=== PATIENT | female | born 1960 | race Caucasian/White ===

== ENCOUNTER 2017-11-09 16:18 | Emergency (ER) | payer OTHER, MEDICARE ==
[~2017-11-09] VITALS: Ht 167.6 cm; Wt 61.7 kg
[~2017-11-09 16:18] MED LIST: ASPIR 8181 MG; ASPIR 8181 MG PO; CALTRATE600 MG; COENZYME Q; DOSTINEX0.5 MG; GABAPENTIN100 MG PO; GEMFIBROZIL600 MG PO; HYDROCHLOROTH12.5 M1 PO; IBUPROFEN200 MG PO; LORAZEPAM1 MG PO; MAGNESIUM OXID400 MG PO; METFORMIN HCL500 MG PO; NEXIUM40 MG PO; OMEGA 3 FISH O1 EACH PO; POTASSIUM CHLO20 ME1 PO; PRENATABS FA T1 EACH PO; VITAMIN D3400 UNI1 PO; Z.0.ATIVAN1 MG; Z.0.GEMFIBROZIL600 M; Z.0.GLUCOPHAGE500 MG; Z.0.KLOR-CON20 MEQ; Z.0.MAGNESIUM500 MG; Z.0.NEXIUM40 MG
--- OUTSIDE RECORDS SUMMARY | 2017-11-09 16:20 | XMS REPORT | Clinical Summary ---
Author Author [facility] Organization [facility] Address Unknown Phone Unavailable Care Team Providers Care Mass Spectrometry Manager Name Role Phone Asked, Pcp PCP Unavailable Allergies Not on File Current Medications Not on file Active Problems Not on file Social History Tobacco Use Types Packs/Day Years Used Date Never Assessed Sex Assigned at Date Recorded Not on file Last Filed Vital Signs Not on file Plan of Treatment Health Maintenance Due Date Last Done Comments CERVICAL CANCER SCREENING 09/08/1980 BREAST CANCER SCREENING 09/08/2009 COLON CANCER SCREENING 09/08/2009 SHINGRIX VACCINE (#1) 09/08/2009 INFLUENZA VACCINE 01/08/2018 Results Not on fileafter 11/08/2016 Insurance Payer Benefit Subscriber ID Type Phone Address Plan / Group [facility] MED[facility] DUAL xxxxxxxxx HMO COMPLETE [facility] MEDICAID MEDICAID xxxxxxxxx Medicaid
--- OUTSIDE RECORDS SUMMARY | 2017-11-09 16:20 | XMS REPORT ---
Author Author [facility] Address Unknown Phone Unavailable Care Team Providers Care Growth Media Mixer Mushroom Name Role Phone THEA TYSON Unavailable Unavailable TATIANA PRICE Unavailable Unavailable Problems This patient has no known problems. Allergies, Adverse Reactions, Alerts This patient has no known allergies or adverse reactions. Medications This patient has no known medications. Results Test Description Test Time Test Comments Text Results Atomic Results Result Comments CT BRAIN WO [place] [address] Patient Name: MAKAYLA BEE MR #: [id number] : 1960 Age/Sex: 56/F Req #: [id number] Adm Physician: Ordered by: THEA TYSON MD Report #: [id number] Location: ER Room/Bed: Procedure: [id number] CT/CT BRAIN WO Exam Date: Exam Time: REPORT STATUS: Signed Examination: CT BRAIN WITHOUT CONTRAST History: Dizziness. Comparison studies:None Technique: Axial images were obtained from the skull base to the vertex. Coronal and sagittal images reconstructed from the axial data. Intravenous contrast: None Findings: Scalp: No abnormalities. Bones: No fractures, blastic or lytic lesions. Brain sulci: Mild volume loss for age. Ventricles: Ex vacuo dilatation. No hydrocephalus. Extra-axial space: No abnormalities. Parenchyma: Chronic lacunar infarct versus dilated perivascular space in the inferior left globus pallidus. No masses, hemorrhage, or acute or chronic cortical based vascular insults. Sellar/suprasellar region: No abnormalities. Craniocervical junction: Patent foramen magnum. No Chiari one malformation. Incidental findings: None. Impression: 1. No acute intracranial abnormalities. 2. Chronic lacunar infarct versus dilated perivascular space in the inferior left globus pallidus. 3. Mild volume loss. Signed by: Dr. Diana Snyder M.D. on 03/28/2017 8:16 PM Dictated By: DIANA MACEDO MD 15 Transcribed By: PRAVEEN on 2015 COPY TO: THEA TYSON MD CHEST 2 VIEWS [place] [address] Patient Name: MAKAYLA BEE MR #: [id number] : 1960 Age/Sex: 56/F Req #: [id number] Adm Physician: Ordered by: THEA TYSON MD Report #: [id number] Location: ER Room/Bed: Procedure: [id number] DX/CHEST 2 VIEWS Exam Date: 03/28/17 Exam Time: 0 REPORT STATUS: Signed EXAMINATION: CHEST 2 VIEWS 03/28/2017 7: 46 PM COMPARISON: None INDICATION: Shortness of breath, dizzy DISCUSSION: LINES: None. LUNGS: The lungs are well inflated and clear. No pneumonia or pulmonary edema. PLEURA: No pleural effusion or pneumothorax. HEART AND MEDIASTINUM: The cardiomediastinal silhouette is unremarkable. BONES AND SOFT TISSUES: No acute osseous lesion. The soft tissues are normal. IMPRESSION: No acute cardiopulmonary disease. Keo Chavez MD Signed by: Dr. Keo Chavez M.D. on 03/28/2017 8: 38 PM Dictated By: KEO CHAVEZ MD 37 Transcribed By: PRAVEEN on 03/28/172037 COPY TO: THEA TYSON MD CT CHEST WO [place] [address] Patient Name: MAKAYLA BEE MR #: [id number] : 1960 Age/Sex: 56/F Req #: [id number] Adm Physician: Ordered by: TATIANA PRICE MD Report #: [id number] Location: CT Room/Bed: Procedure: [id number] CT/CT CHEST WO Exam Date: 03/26/17 Exam Time: 1250 REPORT STATUS: Signed PROCEDURE: CT CHEST WITHOUT CONTRAST CT scan of the chest WITHOUT intravenous contrast, using high-resolution protocol. TECHNIQUE: The chest was scanned utilizing a multidetector helical scanner from the apex to the level of the adrenal glands. No IV contrast was administered per high resolution protocol. Coronal and sagittal multiplanar reformations were obtained. Supine inspiration, high-resolution, in expiration. Prone high resolution. Total DLP: 1449.7 mGy-cm COMPARISON: Chest x-ray 02/17/2016. INDICATIONS: HISTORY OF CANCER, SHORTNESS OF BREATH FINDINGS: Lines/tubes: None. Lungs and Airways: The lungs and airways are normal with no focal abnormality demonstrated. No nodules. No air trapping identified on expiration views. Pleura: The pleural spaces are clear. Heart and mediastinum: The thyroid gland is normal. No significant mediastinal, hilar or axillary lymphadenopathy is seen. The heart and pericardium are within normal limits. Soft tissues: Normal. Abdomen: Limited views of the upper abdomen show no abnormality within the visualized liver, spleen, pancreas, or kidneys. The adrenal glands are normal. Bones: The visualized bony thorax is within normal limits. Left lateral lower intercostal lipoma. IMPRESSION: Normal chest CT. Dictated by: Kenney Bhakta M.D. on 03/26/2017 at 15:59 Electronically approved by: Kenney Bhakta M.D. on at 15:59 Dictated By: KENNEY BHAKTA MD [id number] Transcribed By: DEVEN on 03/26/17 [id number] COPY TO: TATIANA PRICE MD
--- NOTE | 2017-11-09 17:35 | Diagnostic Imaging Report ---
EXAMINATION: Head CT HISTORY: Left head/neck pain radiating to the left with numbness and pain, history of CVA COMPARISON: Head CT on 03/28/2017 TECHNIQUE: Multidetector axial images were obtained without contrast from the foramen magnum to the vertex . The images were reconstructed using brain and bone algorithms. Thin section brain images were reformatted into coronal and sagittal planes. Intravenous contrast: None. Motion/streaking artifact limits the evaluation of the skull base and posterior cranial fossa. FINDINGS: Parenchyma: 1. No abnormal densities. Previously seen hypodensity in the left lentiform nucleus corresponds to a normal prominent perivascular space. 2. No mass or hemorrhage. No CT evidence of chronic or acute territorial vascular insult. Extra-axial spaces:No abnormal density. No extra-axial fluid collections Brain volume: Normal for age. Ventricles: Persistent mild ventriculomegaly without hydrocephalus. Again noted partially absent septum pellucidum, which may been enlarged lateral ventricles. Arteries: No density suggestive of thrombus. Dural sinuses: No abnormal density. Extra-axial spaces: No abnormal density. Foramen magnum: No mass, Chiari malformation, or basilar invagination. Sella: No obvious mass. Paranasal/mastoid sinuses: Imaged portions unremarkable. Skull/Scalp: No lytic or blastic lesions. No fractures. IMPRESSION: 1. No acute intracranial hemorrhage or cortical infarct. 2. Stable nonspecific mild ventriculomegaly. Signed by: Dr. Bell Barger M.D. on 11/09/2017 5:32 PM
--- NOTE | 2017-11-09 17:47 | Diagnostic Imaging Report ---
EXAMINATION: PA and lateral views of the chest. COMPARISON: Chest CT 03/26/2017 CLINICAL HISTORY: Numbness, hand pain DISCUSSION: Lines/tubes: None. Lungs: The lungs are well inflated and clear. There is no evidence of pneumonia or pulmonary edema. Pleura: There is no pleural effusion or pneumothorax. Heart and mediastinum: Cardiomediastinal silhouette is unremarkable. Pulmonary vasculature is normal. Bones and soft tissues: No acute bony abnormalities. IMPRESSION: No acute cardiopulmonary abnormalities. Signed by: Dr. Arvin Mason M.D. on 11/09/2017 5:44 PM
--- NOTE | 2017-11-09 17:49 | Diagnostic Imaging Report ---
Exam: Left finger, 3 views History: Bruising in the second finger joint Comparison: None. Findings: There is decreased bone mineralization. No acute, displaced fracture or dislocation. Joint spaces preserved. No abnormal soft tissue calcification or soft tissue defect. No significant soft tissue swelling. Impression: 1. No acute abnormalities. Signed by: Dr. Arvin Mason M.D. on 11/09/2017 5:45 PM
[2017-11-09 18:28] LABS: BASOPHILS % 0.6 % (0.0-1.0); EOSINOPHILS # (AUTO) 0.2 (0.0-0.4); EOSINOPHILS % 3.7 % (0.0-6.0); HEMATOCRIT 36.6 % (34.2-44.1); HEMOGLOBIN 12.4 g/dL (12.0-16.0); LYMPHOCYTES # (AUTO) 2.1 (1.0-3.2); LYMPHOCYTES % 33.2 % (18.0-39.1); MEAN CORPUSCULAR HEMOGLOBIN 31.2 pg (28-32); MEAN CORPUSCULAR HGB CONC 33.9 g/dL (31-35); MEAN CORPUSCULAR VOLUME 92.2 fL (81-99); MONOCYTES # (AUTO) 0.4 (0.2-0.8); MONOCYTES % 6.2 % (4.4-11.3); NEUTROPHILS # (AUTO) 3.5 (2.1-6.9); NEUTROPHILS % 56.1 % (38.7-80.0); PLATELET COUNT 253 x10e3/uL (140-360); RED BLOOD COUNT 3.97 x10e6/uL (3.6-5.1); RED CELL DISTRIBUTION WIDTH 12.6 % (11.7-14.4)
[2017-11-09 18:36] LABS: CLARITY,URINE CLEAR (CLEAR); COLOR,URINE YELLOW (YELLOW)
[2017-11-09 18:37] LABS: BILIRUBIN,URINE NEGATIVE (NEGATIVE); KETONES,URINE NEGATIVE (NEGATIVE); LEUKOCYTE ESTERASE ,URINE 1+ (NEGATIVE); NITRITE,URINE NEGATIVE (NEGATIVE); PROTEIN,URINE DIPSTICK NEGATIVE (NEGATIVE); URINE UROBILINOGEN 0.2 mg/dL (0.2 - 1)
[2017-11-09 18:41] LABS: BACTERIA,URINE FEW /HPF; EPITHELIAL CELLS,URINE FEW /LPF; TRANSITIONAL EPI CELLS,URINE FEW
[2017-11-09 19:01] LABS: INR 1.01; PARTIAL THROMBOPLASTIN TIME 27.9 seconds (23.8-35.5); PROTHROMBIN TIME 12.5 seconds (11.9-14.5)
[2017-11-09 19:11] LABS: ALANINE AMINOTRANSFERASE 28 IU/L (0-55); ALBUMIN 4.5 g/dL (3.5-5.0); ALBUMIN/GLOBULIN RATIO 2.1 (0.8-2.0); ALKALINE PHOSPHATASE 75 IU/L (40-150); BLOOD UREA NITROGEN 15 mg/dL (7-26); BUN/CREATININE RATIO 21 (6-25); CALCIUM 10.2 mg/dL (8.4-10.2); CARBON DIOXIDE 29 mmol/L (22-29); CHLORIDE 103 mmol/L (98-107); CREATINE KINASE 81 IU/L (29-168); CREATININE, SERUM 0.72 mg/dL (0.57-1.11); EST GLOMERULAR FILTRATION RATE > 60 ML/MIN (60-); GLUCOSE 114 mg/dL (74-118); SODIUM 142 mmol/L (136-145)
[2017-11-09 19:58] VITALS: BP 109/62
[2017-11-09] MEDS ORDERED: MACROBID 100 M100 MG PO (19:58)
== END 2017-11-09 20:04 | disposition home or self-care (01) ==
LOC: ER 16:18
DX: R51 Headache (principal); N30.90 Cystitis, unspecified without hematuria; I10 Essential (primary) hypertension; E11.9 Type 2 diabetes mellitus without complications; K21.9 Gastro-esophageal reflux disease without esophagitis; Z85.72 Personal history of non-Hodgkin lymphomas; Z86.73 Personal history of transient ischemic attack (TIA), and cerebral infarction without residual deficits
CPT/HCPCS: 36415; 70450; 71046; 80053; 81001; 82550; 82553; 84484; 85025; 85610; 85730; 93005; 99284

== ENCOUNTER → 2020-01-19 | Outpatient (CLI) | payer MEDICARE, OTHER ==
[~2020-01-19] MED LIST changes: +MACROBID 100 M100 MG PO
--- NOTE | 2020-01-19 12:35 | Diagnostic Imaging Report ---
Exam: KUB - 2 views Indication: Urinary tract infection Comparison: Report of CT abdomen and pelvis of 01/27/2012 (images not available for comparison) Findings: A cluster of medial right midpole renal calculi measure up to 5 mm. 3 mm calcific densities overlying the upper pole of the left kidney may represent renal calculi versus intraluminal bowel contents. A 5 mm calcific density in the right pelvis may represent a ureteral calculus versus a phlebolith. No acute osseous injury. Nonobstructive bowel gas pattern. No free air. Impression: Medial right midpole renal calculi measure up to 5 mm. 5 mm calcific density in the right pelvis may represent a ureteral calculus or alternatively a phlebolith. Possible left upper pole 3mm renal calculi versus intraluminal bowel contents. Signed by: Poppy Hitchcock MD on 01/19/2020 12:32 PM
--- NOTE | 2020-01-19 13:27 | Diagnostic Imaging Report ---
EXAM: Renal Ultrasound INDICATION: ^[id number] ^[id number] ^PELVIC PERINEAL PAIN COMPARISON: KUB earlier the same day TECHNIQUE: Transverse and longitudinal images of the kidneys and bladder were obtained. FINDINGS: Right Kidney: Length: 11.1 cm Appearance: Normal echogenicity. Collecting system: No hydronephrosis Stones: None Cyst/Mass: None Left Kidney: Length: 12.1 cm Appearance: Normal echogenicity. Collecting system: No hydronephrosis Stones: None Cyst/Mass: Mid pole 1.3 x 1.2 x 1.3 cm anechoic simple cyst. Bladder: No mass or calculi. Bilateral ureteral jets visualized. Prevoid volume estimate of 174 cc. IMPRESSION: No hydronephrosis. The right renal calculi seen on KUB of earlier the same day are not well visualized on ultrasound. 1.3cm left midpole simple cyst. Signed by: Poppy Hitchcock MD on 01/19/2020 1:24 PM
--- NOTE | 2020-01-19 13:29 | Diagnostic Imaging Report ---
Exam: Pelvic ultrasound. History: Pelvic pain Comparison: Renal ultrasound and KUB of the same day, report of CT abdomen and pelvis of 01/27/2012 Findings/Impression: Transabdominal pelvic ultrasound was performed. Status post total abdominal hysterectomy and bilateral salpingo-oophorectomy. No remarkable sonographic findings in the pelvis. Signed by: Poppy Hitchcock MD on 01/19/2020 1:25 PM
== END ==
LOC: US 11:52
PROVIDERS: ATTEND Internal Medicine
DX: R10.2 Pelvic and perineal pain (principal); N81.10 Cystocele, unspecified
CPT/HCPCS: 74018; 76770; 76856

== ENCOUNTER 2020-01-27 18:35 | Emergency (ER) | payer MEDICARE ==
[~2020-01-27] VITALS: Ht 167.6 cm; Wt 61.7 kg
[2020-01-27] MEDS ORDERED: ONDANSETRON HCL INJ 2MG/ML 2ML 2 MG/ML VIAL IV STA (18:50)
[2020-01-27 18:59] LABS: BASOPHILS % 0.5 % (0.0-1.0); EOSINOPHILS # (AUTO) 0.2 (0.0-0.4); EOSINOPHILS % 2.7 % (0.0-6.0); HEMATOCRIT 32.9 % (34.2-44.1); HEMOGLOBIN 10.6 g/dL (12.0-16.0); LYMPHOCYTES # (AUTO) 1.7 (1.0-3.2); LYMPHOCYTES % 26.1 % (18.0-39.1); MEAN CORPUSCULAR HEMOGLOBIN 29.9 pg (28-32); MEAN CORPUSCULAR HGB CONC 32.2 g/dL (31-35); MEAN CORPUSCULAR VOLUME 92.7 fL (81-99); MONOCYTES # (AUTO) 0.3 (0.2-0.8); MONOCYTES % 5.1 % (4.4-11.3); NEUTROPHILS # (AUTO) 4.3 (2.1-6.9); NEUTROPHILS % 65.4 % (38.7-80.0); PLATELET COUNT 240 x10e3/uL (140-360); RED BLOOD COUNT 3.55 x10e6/uL (3.6-5.1); RED CELL DISTRIBUTION WIDTH 12.3 % (11.7-14.4)
[2020-01-27] MEDS ORDERED: SODIUM CHLORIDE 0.9% 1000ML 1,000 ML IV ONE (19:00)
[2020-01-27] MEDS ORDERED: ASPIRIN 81 MG CHEW TAB PO ONE (19:00)
[2020-01-27] MEDS ORDERED: DIATRIZOATE MEGL/DIATRIZOA SOD 30 ML BTL PO ONE (19:01)
--- NOTE | 2020-01-27 19:06 | NUR ---
aspirin was ordered and charted as given prior to admin, however md stated patient no longer needs aspirin. aspirin was not adimnistered. aspirin returned back to pyxis.
--- NOTE | 2020-01-27 19:09 | Emergency Department Note ---
History of Present Illnes History of Present Illness Chief Complaint: COVID PUI History of Present Illness This is a 59 year old female presents via ems with c/o left lower abd pain, weakness, n/v/d and sob with exertion. states started 1 day ago. Historian: Patient, American History Professor/EMS Arrival Mode: [facility] THEATRE PROGRAM DIRECTOR: See EMS Report Onset (how long ago): day(s) (1) Location: llq Quality: pain, n/v/d Radiation: Reports non-radiation Severity: moderate Onset quality: gradual Duration (how long): day(s) (1) Timing of current episode: constant Progression: worsening Chronicity: new Context: Denies recent illness, Denies recent surgery, Denies trauma/injury Relieving factors: none Exacerbating factors: none Associated symptoms: Reports shortness of breath (with exertion), Reports weakness (generalized) Treatments prior to arrival: none Past Medical/Family History Physician Review I have reviewed the patient's past medical and family history. Any updates have been documented here. 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 LAST PET SCAN 2009 MYELO DYSPLASIA NON HODGKINS LYMPHOMA Social History Smoking Cessation: Never Smoker Alcohol Use: None Any Illegal Drug Use: No Family History Family history of heart diseas: No Other Any Pre-Existing Lines (PICC,: No Review of Systems Review of Systems Constitutional: Reports no symptoms EENTM: Reports no symptoms Cardiovascular: Reports no symptoms Respiratory: Reports as per HPI Gastrointestinal: Reports as per HPI Genitourinary: Reports no symptoms Musculoskeletal: Reports no symptoms Integumentary: Reports no symptoms Neurological: Reports no symptoms Psychological: Reports no symptoms Endocrine: Reports no symptoms Hematological/Lymphatic: Reports no symptoms Physical Exam Related Data Allergies: Coded Allergies: Iodinated Contrast Media (Verified Allergy, Unknown, 03/28/17) Penicillins (Verified Allergy, Unknown, 03/28/17) hydromorphone HCl (Verified Allergy, Unknown, 03/28/17) ketorolac tromethamine (Verified Allergy, Unknown, 03/28/17) morphine (Verified Allergy, Unknown, 01/27/20) Triage Vital Signs Vital Signs Date Time Temp Pulse Resp B/P (MAP) Pulse Ox O2 Delivery O2 Flow Rate FiO2 01/27/20 18:39 69 18 163/105 99 Room Air 01/27/20 18:53 98.9 Vital signs reviewed: Yes Physical Exam CONSTITUTIONAL Constitutional: Present well-developed, Present well-nourished, Present distressed (mild) HENT HENT: Present normocephalic, Present atraumatic, Present oropharynx clear/moist, Present nose normal HENT L/R: Present left ext ear normal, Present right ext ear normal EYES Eyes: Reports PERRL, Reports conjunctivae normal NECK Neck: Present ROM normal PULMONARY Pulmonary: Present effort normal, Present breath sounds normal CARDIOVASCULAR Cardiovascular: Present regular rhythm, Present heart sounds normal, Present capillary refill normal, Present normal rate GASTROINTESTINAL Abdominal: Present soft, Present bowel sounds normal, Present tender (moderate tenderness to luq, llq and suprapubic area) GENITOURINARY Genitourinary: Present exam deferred SKIN Skin: Present warm, Present dry MUSCULOSKELETAL Musculoskeletal: Present ROM normal NEUROLOGICAL Neurological: Present alert, Present oriented x 3, Present no gross motor or sensory deficits PSYCHOLOGICAL Psychological: Present mood/affect normal, Present judgement normal Results Laboratory Result Diagram: 01/27/20 1850 Laboratory Laboratory Tests Test 01/27/20 20:00 01/27/20 18:50 Urine Color Yellow (YELLOW) Urine Clarity Clear (CLEAR) Urine pH 7 (5 - 7) Urine Specific [place] 1.015 (1.010-1.025) Urine Protein Negative (NEGATIVE) Urine Glucose (UA) Negative (NEGATIVE) Urine Ketones Negative (NEGATIVE) Urine Blood Negative (NEGATIVE) Urine Nitrite Negative (NEGATIVE) Urine Bilirubin Negative (NEGATIVE) Urine Urobilinogen 0.2 mg/dL (0.2 - 1) Urine Leukocyte Esterase Moderate (NEGATIVE) Urine RBC 0-5 /HPF (0-5) Urine WBC 11-20 /HPF (0-5) Urine Epithelial Cells Rare /LPF (NONE) Urine Bacteria Few /HPF (NONE) White Blood Count 6.63 x10e3/uL (4.8-10.8) Red Blood Count 3.55 x10e6/uL (3.6-5.1) Hemoglobin 10.6 g/dL (12.0-16.0) Hematocrit 32.9 % (34.2-44.1) Mean Corpuscular Volume 92.7 fL (81-99) Mean Corpuscular Hemoglobin 29.9 pg (28-32) Mean Corpuscular Hemoglobin Concent 32.2 g/dL (31-35) Red Cell Distribution Width 12.3 % (11.7-14.4) Platelet Count 240 x10e3/uL (140-360) Neutrophils (%) (Auto) 65.4 % (38.7-80.0) Lymphocytes (%) (Auto) 26.1 % (18.0-39.1) Monocytes (%) (Auto) 5.1 % (4.4-11.3) Eosinophils (%) (Auto) 2.7 % (0.0-6.0) Basophils (%) (Auto) 0.5 % (0.0-1.0) Neutrophils # (Auto) 4.3 (2.1-6.9) Lymphocytes # (Auto) 1.7 (1.0-3.2) Monocytes # (Auto) 0.3 (0.2-0.8) Eosinophils # (Auto) 0.2 (0.0-0.4) Basophils # (Auto) 0.0 (0.0-0.1) Absolute Immature Granulocyte (auto 0.01 x10e3/uL (0-0.1) Sodium Level 139 mmol/L (136-145) Potassium Level 3.8 mmol/L (3.5-5.1) Chloride Level 99 mmol/L (98-107) Carbon Dioxide Level 27 mmol/L (22-29) Anion Gap 16.8 mmol/L (8-16) Blood Urea Nitrogen 13 mg/dL (7-26) Creatinine 0.75 mg/dL (0.57-1.11) Estimat Glomerular Filtration Rate > 60 ML/MIN (60-) BUN/Creatinine Ratio 17 (6-25) Glucose Level 152 mg/dL (74-118) Calcium Level 9.6 mg/dL (8.4-10.2) Total Bilirubin 0.4 mg/dL (0.2-1.2) Aspartate Amino Transf (AST/SGOT) 21 IU/L (5-34) Alanine Aminotransferase (ALT/SGPT) 25 IU/L (0-55) Alkaline Phosphatase 53 IU/L (40-150) Creatine Kinase 83 IU/L (29-168) Creatine Kinase MB 0.50 ng/mL (0-5.0) Troponin I < 0.001 ng/mL (0-0.300) Total Protein 6.7 g/dL (6.5-8.1) Albumin 4.5 g/dL (3.5-5.0) Globulin 2.2 g/dL (2.3-3.5) Albumin/Globulin Ratio 2.0 (0.8-2.0) Amylase Level 22 U/L (25-125) Lipase 28 U/L (8-78) Laboratory Tests Test 01/27/20 18:50 White Blood Count 6.63 x10e3/uL (4.8-10.8) Red Blood Count 3.55 x10e6/uL (3.6-5.1) Hemoglobin 10.6 g/dL (12.0-16.0) Hematocrit 32.9 % (34.2-44.1) Mean Corpuscular Volume 92.7 fL (81-99) Mean Corpuscular Hemoglobin 29.9 pg (28-32) Mean Corpuscular Hemoglobin Concent 32.2 g/dL (31-35) Red Cell Distribution Width 12.3 % (11.7-14.4) Platelet Count 240 x10e3/uL (140-360) Neutrophils (%) (Auto) 65.4 % (38.7-80.0) Lymphocytes (%) (Auto) 26.1 % (18.0-39.1) Monocytes (%) (Auto) 5.1 % (4.4-11.3) Eosinophils (%) (Auto) 2.7 % (0.0-6.0) Basophils (%) (Auto) 0.5 % (0.0-1.0) Neutrophils # (Auto) 4.3 (2.1-6.9) Lymphocytes # (Auto) 1.7 (1.0-3.2) Monocytes # (Auto) 0.3 (0.2-0.8) Eosinophils # (Auto) 0.2 (0.0-0.4) Basophils # (Auto) 0.0 (0.0-0.1) Absolute Immature Granulocyte (auto 0.01 x10e3/uL (0-0.1) Lab results reviewed: Yes Imaging Imaging results reviewed: Yes Impressions Procedure: [id number] CT/CT ABDOMEN/PELVIS WO Exam Date: 01/27/20 Exam Time: 2104 REPORT STATUS: Signed EXAM: CT Abdomen and Pelvis WITHOUT contrast INDICATION: Left lower quadrant pain , abdominal pain, nausea, vomiting COMPARISON: None. TECHNIQUE: Abdomen and pelvis were scanned utilizing a multidetector helical scanner from the lung base to the pubic symphysis without administration of IV contrast. Absence of intravenous contrast decreases sensitivity for detection of focal lesions and vascular pathology. Coronal and sagittal reformations were obtained. Routine protocol was performed. IV CONTRAST: None ORAL CONTRAST: None COMPLICATIONS: None RADIATION DOSE: Total DLP: 636 mGy*cm Estimated effective dose: (DLP x 0.015 x size factor) mSv CTDIvol has been reviewed. It is below the limits set by the Radiation Protocol Committee (RPC). Dose modulation, iterative reconstruction, and/or weight based adjustment of the mA/kV was utilized to reduce the radiation dose to as low as reasonably achievable. FINDINGS: LINES and TUBES: None. LOWER THORAX: Mitral annular calcifications. HEPATOBILIARY: Hepatomegaly. No focal hepatic lesions. No biliary ductal dilation. GALLBLADDER: There are cholecystectomy clips. SPLEEN: No splenomegaly. PANCREAS: No focal masses or ductal dilatation. ADRENALS: No adrenal nodules KIDNEYS/URETERS: No hydronephrosis. Fluid density subcentimeter exophytic cystic lesion in the left renal superior pole, likely benign simple cyst. A cluster of subcentimeter calculi in a right renal inferior pole minor calyx. Right extrarenal pelvis. GI TRACT: Appendix is normal. Radiodense contrast throughout the colon. Mild smooth circumferential wall thickening of the distal colon and rectum. PELVIC ORGANS/BLADDER: Mild smooth circumferential urinary bladder wall thickening. A few tiny air foci in the nondependent bladder lumen. Hysterectomy. No adnexal masses. Urinary bladder unremarkable. LYMPH NODES: No lymphadenopathy. VESSELS: Arterial calcifications. . PERITONEUM / RETROPERITONEUM: No free air or fluid. BONES: Degenerative changes SOFT TISSUES: Unremarkable. IMPRESSION: 1. Mild circumferential urinary bladder wall thickening can be seen with cystitis. Trace air foci in the bladder lumen, correlate with recent history of instrumentation. 2. Nonobstructive subcentimeter calculi in the right renal inferior pole. 3. Mild hepatomegaly. 4. Subtle smooth circumferential distal colonic and rectal wall thickening can be due to coloproctitis. Signed by: Gunnar Harvey DO on 01/27/2020 10:40 PM Dictated By: GUNNAR HARVEY DO 39 Transcribed By: PRAVEEN on 01/27/202239 COPY TO: LESTER TATE MD~ Procedure: [id number] DX/CHEST SINGLE (PORTABLE) Exam Date: 01/27/20 Exam Time: 1858 REPORT STATUS: Signed EXAMINATION: CHEST SINGLE (PORTABLE) INDICATION: Covid, abdominal pain COMPARISON: Chest x-ray 03/28/2017 FINDINGS: TUBES and LINES: None. LUNGS: Normal lung volumes. Lungs are clear. No consolidations. PLEURA: No pleural effusion or pneumothorax. HEART AND MEDIASTINUM: The cardiomediastinal silhouette is unremarkable. BONES AND SOFT TISSUES: No acute osseous lesion. Soft tissues are unremarkable. UPPER ABDOMEN: No free air under the diaphragm. IMPRESSION: No acute thoracic radiographic abnormality. Signed by: Gunnar Harvey DO on 01/27/2020 10:41 PM Dictated By: GUNNAR HARVEY DO 40 Transcribed By: PRAVEEN on 01/27/202240 COPY TO: LESTER TATE MD~ Laboratory Tests Test 01/27/20 20:00 01/27/20 18:50 Urine Color Yellow (YELLOW) Urine Clarity Clear (CLEAR) Urine pH 7 (5 - 7) Urine Specific [place] 1.015 (1.010-1.025) Urine Protein Negative (NEGATIVE) Urine Glucose (UA) Negative (NEGATIVE) Urine Ketones Negative (NEGATIVE) Urine Blood Negative (NEGATIVE) Urine Nitrite Negative (NEGATIVE) Urine Bilirubin Negative (NEGATIVE) Urine Urobilinogen 0.2 mg/dL (0.2 - 1) Urine Leukocyte Esterase Moderate (NEGATIVE) Urine RBC 0-5 /HPF (0-5) Urine WBC 11-20 /HPF (0-5) Urine Epithelial Cells Rare /LPF (NONE) Urine Bacteria Few /HPF (NONE) White Blood Count 6.63 x10e3/uL (4.8-10.8) Red Blood Count 3.55 x10e6/uL (3.6-5.1) Hemoglobin 10.6 g/dL (12.0-16.0) Hematocrit 32.9 % (34.2-44.1) Mean Corpuscular Volume 92.7 fL (81-99) Mean Corpuscular Hemoglobin 29.9 pg (28-32) Mean Corpuscular Hemoglobin Concent 32.2 g/dL (31-35) Red Cell Distribution Width 12.3 % (11.7-14.4) Platelet Count 240 x10e3/uL (140-360) Neutrophils (%) (Auto) 65.4 % (38.7-80.0) Lymphocytes (%) (Auto) 26.1 % (18.0-39.1) Monocytes (%) (Auto) 5.1 % (4.4-11.3) Eosinophils (%) (Auto) 2.7 % (0.0-6.0) Basophils (%) (Auto) 0.5 % (0.0-1.0) Neutrophils # (Auto) 4.3 (2.1-6.9) Lymphocytes # (Auto) 1.7 (1.0-3.2) Monocytes # (Auto) 0.3 (0.2-0.8) Eosinophils # (Auto) 0.2 (0.0-0.4) Basophils # (Auto) 0.0 (0.0-0.1) Absolute Immature Granulocyte (auto 0.01 x10e3/uL (0-0.1) Sodium Level 139 mmol/L (136-145) Potassium Level 3.8 mmol/L (3.5-5.1) Chloride Level 99 mmol/L (98-107) Carbon Dioxide Level 27 mmol/L (22-29) Anion Gap 16.8 mmol/L (8-16) Blood Urea Nitrogen 13 mg/dL (7-26) Creatinine 0.75 mg/dL (0.57-1.11) Estimat Glomerular Filtration Rate > 60 ML/MIN (60-) BUN/Creatinine Ratio 17 (6-25) Glucose Level 152 mg/dL (74-118) Calcium Level 9.6 mg/dL (8.4-10.2) Total Bilirubin 0.4 mg/dL (0.2-1.2) Aspartate Amino Transf (AST/SGOT) 21 IU/L (5-34) Alanine Aminotransferase (ALT/SGPT) 25 IU/L (0-55) Alkaline Phosphatase 53 IU/L (40-150) Creatine Kinase 83 IU/L (29-168) Creatine Kinase MB 0.50 ng/mL (0-5.0) Troponin I < 0.001 ng/mL (0-0.300) Total Protein 6.7 g/dL (6.5-8.1) Albumin 4.5 g/dL (3.5-5.0) Globulin 2.2 g/dL (2.3-3.5) Albumin/Globulin Ratio 2.0 (0.8-2.0) Amylase Level 22 U/L (25-125) Lipase 28 U/L (8-78) Procedures 12 Lead ECG Interpretation ECG Interpretation : ECG: ECG 1 Card Writer Hand: Interpreted by ED physician Date: Jan 27, 2020 Time: 18:44 Rhythm: sinus rhythm Rate: normal BPM: 67 QRS axis: normal ST segments normal: Yes T waves normal: Yes Q waves: V1 Clinical Impression: abnormal ECG Assessment & Plan Medical Decision Making MDM pt with left abd pain with n/v/d, generalized weakness and also sob with exertion cbc, cmp, amylase, lipase, cardiac enzymes, cxr,ct abd/pelvis, ua ordered to e jesika for diverticulitis, pneumonia, myocardial infarction, uti, colitis, bowel obstruction, electrolyte abnormality zofran 4 mg iv ordered ns 1 liter iv bolus ordered pt with colitis, and cystitis discharges with levaquin 500 mg po qd #10, flagyl 500 mg po bid #20 Assessment & Plan Final Impression: (1) UTI (urinary tract infection) (2) Colitis Depart Disposition: HOME, SELF-CARE Last Vital Signs Date Time Temp Pulse Resp B/P (MAP) Pulse Ox O2 Delivery O2 Flow Rate FiO2 01/27/20 18:53 98.9 63 16 136/80 100 Room Air Home Meds Reported Medications Nitrofurantoin Monohyd/M-Cryst (MACROBID 100 MG CAPSULE) 100 Mg Capsule, 100 MG PO BID 11/09/17 Cholecalciferol (Vitamin D3) (VITAMIN D3) 400 Unit Tab.chew, 1 TAB PO DAILY 02/17/16 [place]-3 Fatty Acids/Fish Oil (OMEGA 3 FISH OIL SOFTGEL) 1 Each Capsule.dr, 1 TAB PO DAILY 02/17/16 Vit No.78/Iron/Fa (PRENATABS FA TABLET) 1 Each Tablet, 1 TAB PO DAILY 02/17/16 Potassium Chloride (POTASSIUM CHLORIDE) 20 Meq Tab.er.prt, 20 MEQ PO DAILY 02/17/16 Gemfibrozil (GEMFIBROZIL) 600 Mg Tablet, 600 MG PO BID 02/17/16 Hydrochlorothiazide (HYDROCHLOROTHIAZIDE) 12.5 Mg Capsule, 12.5 MG PO DAILY 02/17/16 Aspirin (ASPIR 81) 81 Mg Tablet.dr, 81 MG PO DAILY 02/17/16 Magnesium Oxide (MAGNESIUM OXIDE) 400 Mg Tablet, 250 MG PO DAILY, TAB 02/17/16 Ibuprofen (IBUPROFEN) 200 Mg Capsule, 200 MG PO PRN PRN for PAIN, TAB 02/17/16 Lorazepam (LORAZEPAM) 1 Mg Tablet, 1 MG PO DAILY PRN for ANXIETY, TAB 02/17/16 Gabapentin (GABAPENTIN) 100 Mg Capsule, 200 MG PO BID 02/17/16 Metformin Hcl (METFORMIN HCL) 500 Mg Tablet, 500 MG PO BID, #60 TAB 02/17/16 Esomeprazole Magnesium (NEXIUM) 40 Mg Capsule.dr, 40 MG PO DAILY PROTONIX THERAPEUTIC SUBSTITUTE FOR NEXIUM PER [facility] 02/17/16 Medications in the ED Aspirin 81 mg PRN ONCE PO ; Start 01/27/20 at 19:00; Stop 01/27/20 at 19:01; Status UNV Sodium Chloride 1,000 ml @ 999 mls/hr Q1H1M ONCE IV ; Start 01/27/20 at 19:00; Stop 01/27/20 at 20:00 Ondansetron HCl 4 mg NOW STAT IV ; Start 01/27/20 at 18:50; Stop 01/27/20 at 18:51; Status UNV Diatrizoate Meglum/ Diatrizoate Sod 30 ml STK-MED ONCE PO ; Start 01/27/20 at 19:01; Stop 01/27/20 at 18:55; Status LESTER SHAIKH MD Jan 27, 2020 19:09
[2020-01-27 19:18] LABS: ALANINE AMINOTRANSFERASE 25 IU/L (0-55); ALBUMIN 4.5 g/dL (3.5-5.0); ALKALINE PHOSPHATASE 53 IU/L (40-150); ANION GAP 16.8 mmol/L (8-16); BLOOD UREA NITROGEN 13 mg/dL (7-26); BUN/CREATININE RATIO 17 (6-25); CALCIUM 9.6 mg/dL (8.4-10.2); CARBON DIOXIDE 27 mmol/L (22-29); CHLORIDE 99 mmol/L (98-107); CREATINE KINASE 83 IU/L (29-168); CREATININE, SERUM 0.75 mg/dL (0.57-1.11); EST GLOMERULAR FILTRATION RATE > 60 ML/MIN (60-); GLUCOSE 152 mg/dL (74-118); POTASSIUM 3.8 mmol/L (3.5-5.1); SODIUM 139 mmol/L (136-145)
[2020-01-27 19:19] LABS: AMYLASE 22 U/L (25-125); LIPASE 28 U/L (8-78)
[2020-01-27 20:27] LABS: CLARITY,URINE CLEAR (CLEAR); COLOR,URINE YELLOW (YELLOW)
[2020-01-27 20:28] LABS: BILIRUBIN,URINE NEGATIVE (NEGATIVE); KETONES,URINE NEGATIVE (NEGATIVE); NITRITE,URINE NEGATIVE (NEGATIVE); PROTEIN,URINE DIPSTICK NEGATIVE (NEGATIVE); URINE UROBILINOGEN 0.2 mg/dL (0.2 - 1)
[2020-01-27 20:32] LABS: LEUKOCYTE ESTERASE ,URINE MODERATE (NEGATIVE)
[2020-01-27 20:33] LABS: BACTERIA,URINE FEW /HPF; EPITHELIAL CELLS,URINE RARE /LPF; RBC,URINE 0-5 /HPF (0-5)
--- OUTSIDE RECORDS SUMMARY | 2020-01-27 21:02 | XMS REPORT | CCD ---
Author Author Auto , SEPTEMBER Organization [facility] Outpatient Imaging - Andrez izquierdo Address Unknown Phone Unavailable Care Team Providers Care Plating Inspector Name Role Phone Ruslan Hdez CP Allergies, Adverse Reactions, Alerts Substance Reaction Status codeine Active
--- OUTSIDE RECORDS SUMMARY | 2020-01-27 21:02 | XMS REPORT | CCD ---
Author Author Auto , SEPTEMBER Organization [facility] Outpatient Imaging - Andrez izquierdo Address Unknown Phone Unavailable Care Team Providers Care Mission Systems Engineer Name Role Phone Ruslan Hdez CP Allergies, Adverse Reactions, Alerts Substance Reaction Status codeine Active
--- OUTSIDE RECORDS SUMMARY | 2020-01-27 21:02 | XMS REPORT | Clinical Summary ---
Author Author [facility] Organization [facility] Address Unknown Phone Unavailable Care Team Providers Care Events Intern Name Role Phone Asked, No Pcp PCP Unavailable Allergies Not on File Medications Not on file Active Problems Not on file Social History Date Tobacco Use Types Packs/Day Years Used Never Assessed Sex Assigned at Date Recorded Not on file Industry Job Start Date Occupation Not on file Not on file Not on file Travel End Travel History Travel Start No recent travel history available. Last Filed Vital Signs Not on file Plan of Treatment Health Maintenance Due Date Last Done Comments CERVICAL CANCER SCREENING 09/08/1980 BREAST CANCER SCREENING 09/08/2009 COLONOSCOPY SCREENING 09/08/2009 SHINGLES VACCINES (#1) 09/08/2009 INFLUENZA VACCINE 02/09/2020 Results Not on fileafter 01/26/2019 Insurance Type Payer Benefit Subscriber ID Effective Phone Address Plan / Dates Group O [facility] MEDICARE [facility] DUAL xxxxxxxxx 2016-P COMPLETE resent [facility] Medicaid MEDICAID MEDICAID xxxxxxxxx [id number] resent Advance Directives For more information, please contact: [phone] Patient Process Eng Explanation Type Date Recorded Advance Directives, Living Will and Medical Power of Rug Inspector
--- OUTSIDE RECORDS SUMMARY | 2020-01-27 21:02 | XMS REPORT | Continuity of Care Document ---
Author Author Jonh Lugo [address] [place], [place]KAYLA Candie Organization [employer] Address Unknown Phone Unavailable Care Team Providers Care Incident Response Manager Name Role Phone Stream Tags Information RIGID Unavailable Un available Problems Problem Status Onset Date Classification Date Reported Comments Source Syncope and collapse 09/04/2016 09/07/2016 [facility] Unspecified adverse effect of drug or me dicament, initial encounter 09/04/2016 09/07/2016 [facility] DIZZINESS Active 09/04/2016 [facility] Discharge Diagnosis: Kidney stone on right side 07/30/2016 08/02/2016 [facility] FLANK PAIN Active 07/30/2016 [facility] Discharge Diagnosis: Systemic viral illness 07/27/2016 07/31/2016 [facility] Discharge Diagnosis: Generalized weakness 07/27/2016 07/31/2016 [facility] Discharge Diagnosis: Malaise and fatigue 07/27/2016 07/31/2016 [facility] Discharge Diagnosis: Elevated blood pressure 07/27/2016 07/31/2016 [facility] Discharge Diagnosis: Common cold 07/27/2016 07/31/2016 [facility] FEVER Active 07/27/2016 [facility] N/V Active 0 06/30/2016 [facility] ACUTE PYELONEPHRITIS,RETROPERITONEAL INF Active 06/30/2016 [facility] Acute urinary tract infection (disorder) Resolved 06/24/2016 Problem 09/07/2016 [facility] R31.9 - "HEMATURIA, UNSPECIFIED" Active 06/14/2015 [facility] Osteoporosis (disorder) Active 11/10/2014 Problem 09/07/2016 Data migrated from [place] [facility] . [facility] Vitamin D deficiency (disorder) Active 11/10/2014 Problem 09/07/2016 Data migrated from [place] [facility] . [facility] 780.93 - MEMORY LOSS Active 02/11/2014 [facility] 379.91 - PAIN IN OR AROU Active 03/09/2013 [facility] Anxiety (finding) Resolved Problem 09/07/2016 [facility] Diabetes mellitus (disorder) R esolved Problem [facility] Hypercalcemia (disorder) Active Problem 09/07/2016 Data migrated from [place] 12/15/14. [facility] Hyperlipidemia (disorder) Acti ve Problem Data migrated from [place] 12/15/14. [facility] Malignant neoplastic disease (disorder) Resolved Problem 09/07/2016 [facility] Depressive disorder (disorder) Resolved Problem [facility] Neuropathy (disorder) Resolved Problem 09/07/2016 [facility] Pituitary adenoma (disorder) A ctive Problem Data migrated from [place] . [facility] Type II diabetes mellitus uncontrolled (finding) Active Problem 09/07/2016 Data migrated from [place] . [facility] ACUTE PYELONEPHRITIS Active [facility] OTHER SPECIFIED DISORDERS OF PERITONEUM Active [facility] LOCALIZED ENLARGED LYMPH NODES Active [facility] Medications Medication Details Route Status Patient Instructions Ordering Provider Order Date Source Tylenol 975 mg, Route: PO, Grzegorz g form: TAB, ONCE, Dosing Weight 61.364, kg, Priority: STAT, Start date: 09/04/16 16:20:00 CDT, Stop date: 09/04/16 16:20:00 CDT Inactive 09/04/2016 [facility] Sodium Chloride 0.154 MEQ/ML Injectable Solution 1,000 mL, 1,000 ml/hr, Infuse Over: 1 hr, Route: IV, ONCE, Priority: STAT, Dosing Weight 61.364 kg, Start date: 09/04/16 15:25:00 CDT, Duration: 1 doses or times, Stop date: 09/04/16 15:25:00 CDT Inactive 09/04/2016 [facility] tramadol hydrochloride 50 MG Oral Tablet 50 mg = 1 tab, PO, Q6H, PRN Pain, X 5 day, # 20 tab, 0 Refill(s) Active 07/30/2016 [facility] Nitrofurantoin 100 MG Oral Capsule [Macrobid] 100 mg = 1 cap, PO, BID, X 7 day, # 14 cap, 0 Refill(s) Active 07/30/2016 [facility] Zofran 4 mg, Route: IVP, Drug form: INJ, ONCE, Dosing Weight 65.909, kg, Priority: STAT, Start date: 07/30/16 1:54:00 [employer]IEF BUSINESS OFFICER, Stop date: 07/30/16 1:54:00 [employer]IEF BUSINESS OFFICER Inactive 07/30/2016 [facility] Morphine 4 mg, Route: IVP, ONC E, Dosing Weight 65.909, kg, Priority: STAT, Start date: 07/30/16 1:54:00 CHIEF BUSINESS OFFICER, Stop date: 07/30/16 1:54:00 [employer]IEF BUSINESS OFFICER Inactive 07/30/2016 [facility] Saline Flush 0.9% 10 mL, Route : IVP, Drug Form: INJ, Dosing Weight 65.909, kg, PRN, PRN Line Flush, Start date: 07/30/16 1:51:00 CHIEF BUSINESS OFFICER, Duration: 30 day, Stop date: 08/29/16 2:50:00 CDT Inactive 07/30/2016 [facility] Sodium Chloride 0.154 MEQ/ML Injectable Solution 1,000 mL, 2,000 ml/hr, Infuse Over: 30 minutes, Route: IV, ONCE, Priority: STAT, Dosing Weight 65.909 kg, Start date: 07/30/16 1:51:00 CHIEF BUSINESS OFFICER, Duration: 1 doses or times, Stop date: 07/30/16 1:51:00 CHIEF BUSINESS OFFICER Inactive 07/30/2016 [facility] tramadol hydrochloride 50 MG Oral Tablet 50 mg = 1 tab, PO, Q6H, PRN Pain, X 10 day, # 40 tab, 0 Refill(s) Active 07/28/2016 [facility] Ondansetron 8 MG Disintegrating Tablet [Zofran] 8 mg = 1 tab, PO, TID, PRN Nausea and Vomiting, Dissolve tab under tongue, X 4 day, # 30 tab, 0 Refill(s) Active 07/28/2016 [facility] Fentanyl 50 microgram, Route: IVP, ONCE, Dosing Weight 72.727, kg, Priority: STAT, Start date: 07/27/16 22:20:00 CHIEF BUSINESS OFFICER, Stop date: 07/27/16 22:20:00 CHIEF BUSINESS OFFICER Inactive 07/28/2016 [facility] Ondansetron Notes: (Same as: Isela davis) MEDICATION WASTE Product Size: 4 mg Product Wasted: ___ mg Inactive 07/28/2016 [facility] Saline Flush 0.9% Notes: (Same as: BD Posiflush) No Longer Active 07/28/2016 [facility] Sodium Chloride 0.154 MEQ/ML Injectable Solution 1,000 mL, 2,000 ml/hr, Infuse Over: 30 minutes, Route: IV, 1,000, Drug form: INJ, ONCE, Priority: STAT, Dosing Weight 72.727 kg, Start date: 07/27/16 18:36:00 CHIEF BUSINESS OFFICER, Duration: 1 doses or times, Stop date: 07/27/16 18:36:00 CHIEF BUSINESS OFFICER Inactive 07/28/2016 [facility] Levofloxacin 500 MG Oral Tablet [Levaquin] 500 mg = 1 tab, PO, Q24H, X 7 day, # 7 tab, 0 Refill(s) Active 07/10/2016 [facility] Microzide Notes: (Same as: Alexx rozide) With food. No Longer Active 07/09/2016 [facility] Metformin hydrochloride 500 MG Oral Tablet Notes: (Same as: Glucophage) Take with meal No Longer Active 07/08/2016 [facility] Hydrochlorothiazide Notes: (Sa me as: Microzide) With food. Inactive 07/08/2016 [facility] Metformin 500 mg, PO, BID, 0 R efill(s) Active 07/08/2016 [facility] Nystatin 996358 UNT/ML Oral Suspension Notes: (Same as:Mycostatin) Shake well. No Longer Active 07/07/2016 [facility] RN-Do not give Vanc till trough drawn 07/07/16@ 6:30 RN-Do not give Vanc till trough drawn 07/07/16@ 6:30, Attn:RN, Drug form: MISC, Route: MISC, ONCE, 07/07/16 6:00:00 CHIEF BUSINESS OFFICER, Stop date: 07/07/16 6:00:00 CHIEF BUSINESS OFFICER Inactive 07/07/2016 [facility] vancomycin + sodium chloride 0.9% 250 mL INJ (for IV set) 250 mL 2001 mg: infuse over 2.5 hours ME DICATION WASTE Product Size: 1000 mg Product Wasted: ___ mg No Longer Active 07/06/2016 [facility] Nystatin 460550 UNT/ML Topical Cream Notes: (Same as:Mycostatin, Nilstat) For external use only. No Longer Active 07/05/2016 [facility] RN-Do not give Vanc till trough drawn 07/05/16@ 17:30 RN-Do not give Vanc till trough drawn 07/05/16@ 17:30, Attn:RN, Drug form: MISC, Route: MISC, ONCE, 07/05/16 17:00:00 CHIEF BUSINESS OFFICER, Stop date: 07/05/16 17:00:00 CHIEF BUSINESS OFFICER Inactive 07/05/2016 [facility] Vancomycin 2001 mg: infuse ov er 2.5 hours MEDICATION WASTE Product Size: 1000 mg Product Wasted: ___ mg No Longer Active 07/05/2016 [facility] Azactam Notes: (Same As: Azact am) No Longer Active 07/05/2016 [facility] Lactulose 667 MG/ML Oral Solution Notes: (Same as:Chronulac) No Longer Active 07/04/2016 [facility] Streptococcus pneumoniae serotype 1 caps ular antigen diphtheria [id number] protein conjugate vaccine / Streptococcus pneumoniae serotype 14 capsular antigen diphtheria [id number] protein conjugate vaccine / Streptococcus pneumoniae serotype 18C capsular antigen d Notes: Lightly roll vial (DO NOT SHAKE) before administration. (Same as: Prevnar 13) Inactive 07/03/2016 [facility] Vitamin D3 2,000 unit, PO, Elise ly, 0 Refill(s) Active 07/02/2016 [facility] Sertraline Notes: (Same as: Z oloft) No Longer Active 07/01/2016 [facility] Protonix Notes: Tablet should not be chewed or crushed. (Same as: Protonix) No Longer Active 07/01/2016 [facility] Nexium 40 mg, Route: PO, Drug form: ECCAP, Daily, Dosing Weight 62.072, kg, Start date: 07/01/16 9:00:00 [employer]IE[employer] BUSINESS OFFICER, Duration: 30 day, Stop date: 07/30/16 9:00:00 [employer]IEF BUSINESS OFFICER No Longer Active 07/01/2016 [facility] Vitamin D3 Notes: Same as : Vi tamin D3 No Longer Active 07/01/2016 [facility] elppa CoQ10 100 mg, Route: PO, Drug form: CAP, Daily, Dosing Weight 62.072, kg, Start date: 07/01/16 9:00:00 CHIEF BUSINESS OFFICER, Duration: 30 day, Stop date: 07/30/16 9:00:00 CHIEF BUSINESS OFFICER No Longer Active 07/01/2016 [facility] Sertraline Notes: (Same as: Z oloft) Inactive 07/01/2016 [facility] omega-3 polyunsaturated fatty acids 1,000 mg, 2 cap, Route: PO, Drug form: CAP, Daily, Dosing Weight 62.072, kg, Start date: 07/01/16 9:00:00 CHIEF BUSINESS OFFICER, Stop date: 07/30/16 9:00:00 CHIEF BUSINESS OFFICER No Longer Active 07/01/2016 [facility] Metformin hydrochloride 500 MG Oral Tablet Notes: (Same as: Glucophage) Take with meal No Longer Active 07/01/2016 [facility] Lipitor Notes: (Same As: Lipit or) No Longer Active 07/01/2016 [facility] Lovastatin 40 mg, Route: PO, D rug form: TAB, Bedtime, Dosing Weight 62.072, kg, Start date: 06/30/16 21:00:00 CHIEF BUSINESS OFFICER, Duration: 30 day, Stop date: 07/29/16 21:00:00 CHIEF BUSINESS OFFICER Inactive 07/01/2016 [facility] gabapentin 300 MG Oral Capsule Notes: (Same as: Neurontin) No Longer Active 06/30/2016 [facility] potassium chloride 20 mEq oral tablet, extended releas e Notes: (Same as: K-Dur 20) "Do Not Crush" With food and full glass of water No Longer Active 06/30/2016 [facility] meropenem + sodium chloride 0.9% INJ 100 mL Notes: Same as Merrem MEDICATION WASTE Product Size: 500 mg Product Wasted: ___ mg No Longer Active 06/30/2016 [facility] Magnesium Oxide Notes: (Same a s: Mag-Ox 400) Magnesium oxide [id number]=066hn elemental magnesium Dose=____mg magnesium oxide (___mg elemental magnesium) No Longer Active 06/30/2016 [facility] please bring pts own meds CoQ10 and vi t D liq to pharmacy please bring pts own meds CoQ10 and vi t D liq to pharmacy, reminder, Drug form: MISC, Route: MISC, QSHIFT, 06/30/16 16:55:00 CHIEF BUSINESS OFFICER, Duration: 30 day, Stop date: 07/30/16 16:00:00 CHIEF BUSINESS OFFICER No Longer Active 06/30/2016 [facility] aspirin 81 mg tablet, enteric coated Notes: Do not crush or chew. (Same As: Ecotrin) N o Longer Active 06/30/2016 [facility] Hydromorphone 0.5 mg, 0.5 mL, Route: IVP, Drug form: INJ, Q4H, Dosing Weight 62.072, kg, PRN Pain Score 7-10, Start date: 06/30/16 16:38:00 CHIEF BUSINESS OFFICER, Duration: 30 day, Stop date: 07/30/16 16:37:00 CHIEF BUSINESS OFFICER No Longer Active 06/30/2016 [facility] Lorazepam Notes: (Same as: Diaz paniagua) No Longer Active 06/30/2016 [facility] Liquid Vitamin D-3 10,000 Intl Unit, PO, 0 Refill(s) No Longer Active 06/30/2016 [facility] elppa CoQ10 50 mg oral capsule 100 mg = 2 cap, PO, Daily, # 60 cap, 0 Refill(s) Active 06/30/2016 [facility] lovastatin 40 mg oral tablet 4 0 mg = 1 tab, PO, Bedtime, # 30 tab, 0 Refill(s) Active 06/30/2016 [facility] Hydrochlorothiazide 12.5 mg, P O, Daily, 0 Refill(s) Active 06/30/2016 [facility] sertraline 50 mg oral tablet 5 0 mg = 1 tab, PO, Daily, # 30 tab, 0 Refill(s) Active 06/30/2016 [facility] Enoxaparin Notes: (Same as: Lo venox) No Longer Active 06/30/2016 [facility] Tylenol 500 mg, PO, Q6H, 0 Ref ill(s) Active 06/30/2016 [facility] meropenem Notes: (Same as: Shanique rem) . MEDICATION WASTE Product Size: 1000 mg Product Wasted: ___ mg send to 2E Inactive 06/30/2016 [facility] Dextrose 50% Syringe 25 gm, 50 mL, Route: IVP, Drug Form: INJ, Dosing Weight 62.727, kg, PRN, PRN Blood Glucose Results, Start date: 06/30/16 8:54:00 CHIEF BUSINESS OFFICER, Duration: 30 day, Stop date: 07/30/16 8:53:00 CHIEF BUSINESS OFFICER No Longer Active 06/30/2016 [facility] Glucagon 1 mg, Route: IM, Drug form: PDR/INJ, PRN, Dosing Weight 62.727, kg, PRN Blood Glucose Results, Start date: 06/30/16 8:54:00 CHIEF BUSINESS OFFICER, Duration: 30 day, Stop date: 07/30/16 8:53:00 CHIEF BUSINESS OFFICER No Longer Active 06/30/2016 [facility] Insulin, Aspart, Human Notes: Roll in palms of hands gently; Do not shake vigorously. (Same as: NovoLOG) "single patient use only" WASTE: F/P - Black; E - Municipal Trash Bin Stable for 28 days at room temperature. Expires in days from Date No Longer Active 06/30/2016 [facility] Saline Flush 0.9% Notes: (Same as: BD Posiflush) No Longer Active 06/30/2016 [facility] Lactated Ringers 1,000 mL 1,00 0 mL, Rate: 125 ml/hr, Infuse over: 8 hr, Route: IV, Dosing Weight 62.727 kg, Total Volume: 1,000, Start date: 06/30/16 8:50:00 CHIEF BUSINESS OFFICER, Duration: 30 day, Stop date: 07/30/16 8:49:00 CHIEF BUSINESS OFFICER Inactive 06/30/2016 [facility] Acetaminophen Notes: Do not ex ceed 4 gm/day. (Same as: Tylenol) No Longer Active 06/30/2016 [facility] Docusate Notes: (Same as: Cola ce) (Do Not Crush) No Longer Active 06/30/2016 [facility] Ondansetron Notes: (Same as: Isela davis) MEDICATION WASTE Product Size: 4 mg Product Wasted: ___ mg No Longer Active 06/30/2016 [facility] Albuterol 0.833 MG/ML / Ipratropium Brom brady 0.167 MG/ML Inhalant Solution [DuoNeb] 3 mL, Route: NEB, Dosing Weight 62.727, kg, ONCE, Start date: 06/30/16 7:42:00 CHIEF BUSINESS OFFICER, Stop date: 06/30/16 7:42:00 CHIEF BUSINESS OFFICER Inactive 06/30/2016 [facility] Albuterol 0.833 MG/ML / Ipratropium Brom brady 0.167 MG/ML Inhalant Solution [DuoNeb] 3 mL, Route: NEB, Dosing Weight 62.727, kg, ONCE, Start date: 06/30/16 7:40:00 CHIEF BUSINESS OFFICER, Stop date: 06/30/16 7:40:00 CHIEF BUSINESS OFFICER Inactive 06/30/2016 [facility] tramadol hydrochloride 50 MG Oral Tablet Notes: Not to exceed 400mg/day. (Same As: Ultram) No Longer Active 06/30/2016 [facility] Demerol HCl Notes: (Same As: D emerol) Inactive 06/30/2016 [facility] Acetaminophen 650 mg, Route: P O, Drug form: TAB, ONCE, Dosing Weight 62.727, kg, Priority: STAT, Start date: 06/30/16 4:59:00 CHIEF BUSINESS OFFICER, Stop date: 06/30/16 4:59:00 CHIEF BUSINESS OFFICER Inactive 06/30/2016 [facility] Zofran 8 mg, Route: IVP, Drug form: INJ, ONCE, Dosing Weight 62.727, kg, Priority: STAT, Start date: 06/30/16 3:17:00 CHIEF BUSINESS OFFICER, Stop date: 06/30/16 3:17:00 CHIEF BUSINESS OFFICER Inactive 06/30/2016 [facility] Sodium Chloride 0.154 MEQ/ML Injectable Solution 1,000 mL, Infuse Over: 1 hr, Route: IV, ONCE, Priority: STAT, Dosing Weight 62.727 kg, Start date: 06/30/16 3:17:00 CHIEF BUSINESS OFFICER, Duration: 1 doses or times, Stop date: 06/30/16 3:17:00 CHIEF BUSINESS OFFICER Inactive 06/30/2016 [facility] Zosyn 3.375 gm, Route: IVPB, O NCE, Dosing Weight 62.727, kg, Priority: STAT, Start date: 06/30/16 3:16:00 CHIEF BUSINESS OFFICER, Stop date: 06/30/16 3:16:00 CHIEF BUSINESS OFFICER Inactive 06/30/2016 [facility] Fentanyl 50 microgram, Route: IVP, ONCE, Dosing Weight 62.727, kg, Priority: STAT, Start date: 06/30/16 3:15:00 CHIEF BUSINESS OFFICER, Stop date: 06/30/16 3:15:00 CHIEF BUSINESS OFFICER Inactive 06/30/2016 [facility] Ondansetron 4 mg, Route: IVP, ONCE, Dosing Weight 62.727, kg, Priority: STAT, Start date: 06/30/16 3:03:00 CHIEF BUSINESS OFFICER, Stop date: 06/30/16 3:03:00 CHIEF BUSINESS OFFICER Inactive 06/30/2016 [facility] Saline Flush 0.9% Notes: (Same as: BD Posiflush) No Longer Active 06/30/2016 [facility] Sodium Chloride 0.154 MEQ/ML Injectable Solution 1,000 mL, Rate: 125 ml/hr, Infuse over: 8 hr, Route: IV, Dosing Weight 62.727 kg, Total Volume: 1,000, Start date: 06/30/16 3:03:00 CHIEF BUSINESS OFFICER, Duration: 30 day, Stop date: 07/30/16 3:02:00 CHIEF BUSINESS OFFICER No Longer Active 06/30/2016 [facility] Allergies, Adverse Reactions, Alerts Substance Category Reaction Severity Reaction type Status Date Reported Comments Source methylPREDNISolone<sup>1</sup> Assertion Drug aller gy Active 11/10/2014 Data migrated from [place] on 5. Originally documented as SOLU- MEDROL. [facility] penicillins<sup>2</sup> Assert ion Drug aller gy Active 11/10/2014 Data migrated from [place] 01/07/15. Originally documented as PENICILLIN. [facility] phenytoin<sup>3</sup> Assertion Drug allergy Active 11/10/2014 Data migrated from [place] on12/16/14. Originally documented as DILANTIN. [facility] codeine Assertion Drug allergy Active [facility] Dilaudid Assertion Drug allergy Active [facility] Immunizations Immunization Date Given Site Status Last Updated Comments Source pneumococcal 13-valent vaccine 07/03/2016 Not Given [facility] Results Order Name Results Value Reference Range Date Interpretation Comments Source ELECTROLYTES AGAP 10.3 10.0 - 20.0 09/04/2016 [facility] ELECTROLYTES eGFR 77 09/04/2016 Result Comment: The eGFR is calculated using the CKD-EPI formula. In most young, healthy individuals the eGFR will be >90 mL/min/1.73m2. The eGFR declines with age. An eGFR of 60-89 may be normal in some populations, particularly the elderly, for whom the CKD-EPI formula has not been extensively validated. Use of the eGFR is not recommended in the following populations:

Individuals with unstable creatinine concentrations, including patients and those with serious co-morbid conditions.

Patients with extremes in muscle mass or diet.

The data above are obtained from the National Kidney Disease Education Program (NKDEP) which additionally recommends that when the eGFR is used in patients with extremes of body mass index for purposes of drug dosing, the eGFR should be multiplied by the estimated BMI. [facility] ELECTROLYTES Sodium Lvl 138 135 - 145 09/04/2016 [facility] ELECTROLYTES Potassium Lvl 3.3 3.5 - 5.1 09/04/2016 [facility] ELECTROLYTES Chloride Lvl 99 95 - 109 09/04/2016 [facility] ELECTROLYTES CO2 32 24 - 32 09/04/2016 [facility] ELECTROLYTES Calcium Lvl 9.4 8.5 - 10.5 09/04/2016 [facility] ELECTROLYTES Glucose Lvl 180 70 - 99 09/04/2016 [facility] ELECTROLYTES Creatinine Lvl 0.8 5 0.50 - 1.40 09/04/2016 [facility] ELECTROLYTES BUN 21 7 - 22 09/04/2016 [facility] Lymphocytes 8.6 20.0 - 40.0 09/04/2016 [facility] HEMATOLOGY Basophils 0.2 0.0 - 1.0 09/04/2016 [facility] Monocytes 3.8 2.0 - 12.0 09/04/2016 [facility] Lymphocytes # 0.8 1.0 - 5.5 09/04/2016 [facility] Monocytes # 0.4 0.0 - 0.8 09/04/2016 [facility] Segs-Bands # 8.1 1.5 - 8.1 09/04/2016 [facility] Segs 87.0 45.0 - 75.0 09/04/2016 [facility] Eosinophils 0.4 0.0 - 4.0 09/04/2016 [facility] Platelet 234 133 - 450 09/04/2016 [facility] MPV 7.0 7.4 - 10.4 09/04/2016 [facility] MCV 89.9 80.0 - 98.0 09/04/2016 [facility] MCHC 33.1 32.0 - 36.0 09/04/2016 [facility] Hct 36.5 36.0 - 48.0 09/04/2016 [facility] Hgb 12.1 12.0 - 16.0 09/04/2016 [facility] RBC 4.06 4.20 - 5.40 09/04/2016 [facility] MCH 29.7 27.0 - 31.0 09/04/2016 [facility] HEMATOLOGY RDW 15.0 11.5 - 14.5 09/04/2016 [facility] HEMATOLOGY WBC 9.3 3.7 - 10.4 09/04/2016 [facility] CHEM PANEL BUN 19 7 - 22 07/30/2016 [facility] CHEM PANEL Sodium Lvl 136 135 - 145 07/30/2016 [facility] CHEM PANEL Glucose Lvl 107 70 - 99 07/30/2016 [facility] CHEM PANEL Creatinine Lvl 0.69 0.50 - 1.40 07/30/2016 [facility] CHEM PANEL Potassium Lvl 4.1 3.5 - 5.1 07/30/2016 [facility] CHEM PANEL CO2 29 24 - 32 07/30/2016 [facility] CHEM PANEL Total Protein 7.0 6.4 - 8.4 07/30/2016 [facility] CHEM PANEL Chloride Lvl 97 95 - 109 07/30/2016 [facility] CHEM PANEL Calcium Lvl 8.8 8.5 - 10.5 07/30/2016 [facility] CHEM PANEL Albumin Lvl 3.4 3.5 - 5.0 07/30/2016 [facility] CHEM PANEL ALT 40 0 - 65 07/30/2016 [facility] CHEM PANEL AST 31 0 - 37 07/30/2016 [facility] CHEM PANEL Alk Phos 114 39 - 136 07/30/2016 [facility] CHEM PANEL Bili Total 0.2 0.2 - 1.3 07/30/2016 [facility] CHEM PANEL eGFR 98 07/30/2016 Result Comment: The eGFR is calculated using the CKD-EPI formula. In most young, healthy individuals the eGFR will be >90 mL/min/1.73m2. The eGFR declines with age. An eGFR of 60-89 may be normal in some populations, particularly the elderly, for whom the CKD-EPI formula has not been extensively validated. Use of the eGFR is not recommended in the following populations:

Individuals with unstable creatinine concentrations, including patients and those with serious co-morbid conditions.

Patients with extremes in muscle mass or diet.

The data above are obtained from the National Kidney Disease Education Program (NKDEP) which additionally recommends that when the eGFR is used in patients with extremes of body mass index for purposes of drug dosing, the eGFR should be multiplied by the estimated BMI. [facility] CHEM PANEL A/G Ratio 0.9 0.7 - 1.6 07/30/2016 [facility] CHEM PANEL AGAP 14.1 10.0 - 20.0 07/30/2016 [facility] CHEM PANEL B/C Ratio 28 6 - 25 07/30/2016 [facility] CHEM PANEL Globulin 3.6 2.7 - 4.2 07/30/2016 [facility] CHEM PANEL Lipase Lvl 253 73 - 393 07/30/2016 [facility] HEMATOLOGY MCV 89.2 80.0 - 98.0 07/30/2016 [facility] MCH 30.5 27.0 - 31.0 07/30/2016 [facility] MCHC 34.2 32.0 - 36.0 07/30/2016 [facility] Hgb 9.4 12.0 - 16.0 07/30/2016 [facility] Hct 27.7 36.0 - 48.0 07/30/2016 [facility] RBC 3.10 4.20 - 5.40 07/30/2016 [facility] WBC 8.4 3.7 - 10.4 07/30/2016 [facility] HEMATOLOGY RDW 13.4 11.5 - 14.5 07/30/2016 [facility] Platelet 211 133 - 450 07/30/2016 [facility] MPV 7.1 7.4 - 10.4 07/30/2016 [facility] HEMATOLOGY Eosinophils # 0.3 0.0 - 0.5 07/30/2016 [facility] Monocytes # 0.7 0.0 - 0.8 07/30/2016 [facility] Segs-Bands # 5.9 1.5 - 8.1 07/30/2016 [facility] Lymphocytes # 1.5 1.0 - 5.5 07/30/2016 [facility] Lymphocytes 17.7 20.0 - 40.0 07/30/2016 [facility] HEMATOLOGY Basophils 0.5 0.0 - 1.0 07/30/2016 [facility] Monocytes 8.3 2.0 - 12.0 07/30/2016 [facility] HEMATOLOGY Eosinophils 3.5 0.0 - 4.0 07/30/2016 [facility] HEMATOLOGY Segs 70.0 45.0 - 75.0 07/30/2016 [facility] URINE AND STOOL UA Color Ltyellow 07/30/2016 [facility] URINE AND STOOL UA Urobilinogen <=1.0 mg/dL 0.1 - 1.0 07/30/2016 [facility] URINE AND STOOL UA Sq Epi None Seen 07/30/2016 [facility] URINE AND STOOL UA Glucose Negative mg/dL Negative mg/dL 07/30/2016 [facility] URINE AND STOOL UA Protein Negative mg/dL Negative mg/dL 07/30/2016 [facility] URINE AND STOOL UA Ketones Negative mg/dL Negative mg/dL 07/30/[address] [facility] [address] URINE AND STOOL UA WBC 2 0 - 5 07/30/2016 [facility] URINE AND STOOL UA RBC <1 0 - 2 07/30/2016 [facility] URINE AND STOOL UA Leuk Est Trace *ABN* (07/30/16 1:30 AM) Negative 07/30/2016 [facility] URINE AND STOOL UA Spec Grav 1.008 <=1.030 07/30/2016 [facility] URINE AND STOOL UA pH 6.0 5.0 - 8.0 07/30/2016 [facility] URINE AND STOOL UA Blood Negative (07/30/16 1:30 AM) Negative 07/30/2016 [facility] URINE AND STOOL UA Bili Negative *NA* (07/30/16 1:30 AM) Negative 07/30/2016 [facility] URINE AND STOOL UA Nitrite Negative (07/30/16 1:30 AM) Negative 07/30/2016 [facility] URINE AND STOOL UA Turbidity Clear (07/30/16 1:30 AM) Clear 07/30/2016 [facility] CARDIAC ENZYMES Total CK 49 12 - 191 07/28/2016 [facility] CHEM PANEL B/C Ratio 18 6 - 25 07/28/2016 [facility] CHEM PANEL Globulin 3.7 2.7 - 4.2 07/28/2016 [facility] CHEM PANEL A/G Ratio 1.0 0.7 - 1.6 07/28/2016 [facility] CHEM PANEL AGAP 12.7 10.0 - 20.0 07/28/2016 [facility] CHEM PANEL eGFR 91 07/28/2016 Result Comment: The eGFR is calculated using the CKD-EPI formula. In most young, healthy individuals the eGFR will be >90 mL/min/1.73m2. The eGFR declines with age. An eGFR of 60-89 may be normal in some populations, particularly the elderly, for whom the CKD-EPI formula has not been extensively validated. Use of the eGFR is not recommended in the following populations:

Individuals with unstable creatinine concentrations, including patients and those with serious co-morbid conditions.

Patients with extremes in muscle mass or diet.

The data above are obtained from the National Kidney Disease Education Program (NKDEP) which additionally recommends that when the eGFR is used in patients with extremes of body mass index for purposes of drug dosing, the eGFR should be multiplied by the estimated BMI. [facility] CHEM PANEL Alk Phos 111 39 - 136 07/28/2016 [facility] CHEM PANEL Bili Total 0.6 0.2 - 1.3 07/28/2016 [facility] CHEM PANEL ALT 44 0 - 65 07/28/2016 [facility] CHEM PANEL Calcium Lvl 9.3 8.5 - 10.5 07/28/2016 [facility] CHEM PANEL Albumin Lvl 3.7 3.5 - 5.0 07/28/2016 [facility] CHEM PANEL Total Protein 7.4 6.4 - 8.4 07/28/2016 [facility] CHEM PANEL AST 24 0 - 37 07/28/2016 [facility] CHEM PANEL Glucose Lvl 118 70 - 99 07/28/2016 [facility] CHEM PANEL Creatinine Lvl 0.74 0.50 - 1.40 07/28/2016 [facility] CHEM PANEL BUN 13 7 - 22 07/28/2016 [facility] CHEM PANEL Sodium Lvl 138 135 - 145 07/28/2016 [facility] CHEM PANEL CO2 31 24 - 32 07/28/2016 [facility] CHEM PANEL Potassium Lvl 3.7 3.5 - 5.1 07/28/2016 [facility] CHEM PANEL Chloride Lvl 98 95 - 109 07/28/2016 [facility] CHEM PANEL Amylase Lvl 20 25 - 115 07/28/2016 [facility] CHEM PANEL Lipase Lvl 179 73 - 393 07/28/2016 [facility] HEMATOLOGY MCHC 33.5 32.0 - 36.0 07/28/2016 [facility] HEMATOLOGY RDW 13.6 11.5 - 14.5 07/28/2016 [facility] HEMATOLOGY MCH 30.2 27.0 - 31.0 07/28/2016 [facility] HEMATOLOGY MCV 90.2 80.0 - 98.0 07/28/2016 [facility] HEMATOLOGY Hct 30.0 36.0 - 48.0 07/28/2016 [facility] HEMATOLOGY Platelet 203 133 - 450 07/28/2016 [facility] MPV 7.0 7.4 - 10.4 07/28/2016 [facility] HEMATOLOGY Hgb 10.0 12.0 - 16.0 07/28/2016 [facility] HEMATOLOGY WBC 6.9 3.7 - 10.4 07/28/2016 [facility] HEMATOLOGY RBC 3.32 4.20 - 5.40 07/28/2016 [facility] HEMATOLOGY INR 0.96 0.85 - 1.17 07/28/2016 [facility] HEMATOLOGY PT 13.0 12.0 - 14.7 07/28/2016 [facility] HEMATOLOGY Eosinophils # 0.2 0.0 - 0.5 07/28/2016 [facility] HEMATOLOGY Basophils # 0.1 0.0 - 0.2 07/28/2016 [facility] HEMATOLOGY Eosinophils 2.5 0.0 - 4.0 07/28/2016 [facility] HEMATOLOGY Lymphocytes 20.7 20.0 - 40.0 07/28/2016 [facility] HEMATOLOGY Segs 66.8 45.0 - 75.0 07/28/2016 [facility] HEMATOLOGY Monocytes # 0.6 0.0 - 0.8 07/28/2016 [facility] HEMATOLOGY Segs-Bands # 4.6 1.5 - 8.1 07/28/2016 [facility] HEMATOLOGY Basophils 0.7 0.0 - 1.0 07/28/2016 [facility] HEMATOLOGY Lymphocytes # 1.4 1.0 - 5.5 07/28/2016 [facility] HEMATOLOGY Monocytes 9.3 2.0 - 12.0 07/28/2016 [facility] URINE AND STOOL UA Color Ltyellow 07/28/2016 [facility] URINE AND STOOL UA Urobilinogen <=1.0 mg/dL 0.1 - 1.0 07/28/2016 [facility] URINE AND STOOL UA Bacteria Occasional /HPF None Seen /HPF 07/28/[address] [facility] [address] URINE AND STOOL UA WBC 2 0 - 5 07/28/2016 [facility] URINE AND STOOL UA RBC 1 0 - 2 07/28/2016 [facility] URINE AND STOOL UA Sq Epi Occasional /LPF Few /LPF 07/28/2016 [facility] URINE AND STOOL UA Nitrite Negative (07/27/16 6:53 PM) Negative 07/28/2016 [facility] URINE AND STOOL UA Leuk Est Trace *ABN* (07/27/16 6:53 PM) Negative 07/28/2016 [facility] URINE AND STOOL UA pH 7.0 5.0 - 8.0 07/28/2016 [facility] URINE AND STOOL UA Glucose Negative mg/dL Negative mg/dL 07/28/2016 [facility] URINE AND STOOL UA Spec Grav 1.011 <=1.030 07/28/2016 [facility] URINE AND STOOL UA Turbidity Clear (07/27/16 6:53 PM) Clear 07/28/2016 [facility] URINE AND STOOL UA Bili Negative *NA* (07/27/16 6:53 PM) Negative 07/28/2016 [facility] URINE AND STOOL UA Ketones Negative mg/dL Negative mg/dL 07/28/2016 [facility] URINE AND STOOL UA Blood Negative (07/27/16 6:53 PM) Negative 07/28/2016 [facility] URINE AND STOOL UA Protein Negative mg/dL Negative mg/dL 07/28/2016 [facility] VIRAL - SEROLOGY Influ A Negative (07/27/16 6:53 PM) Negative 07/28/2016 [facility] VIRAL - SEROLOGY Influ B Negative (07/27/16 6:53 PM) Negative 07/28/2016 [facility] ELECTROLYTES AGAP 11.1 10.0 - 20.0 07/10/2016 [facility] ELECTROLYTES eGFR 105 07/10/2016 Result Comment: The eGFR is calculated using the CKD-EPI formula. In most young, healthy individuals the eGFR will be >90 mL/min/1.73m2. The eGFR declines with age. An eGFR of 60-89 may be normal in some populations, particularly the elderly, for whom the CKD-EPI formula has not been extensively validated. Use of the eGFR is not recommended in the following populations:

Individuals with unstable creatinine concentrations, including patients and those with serious co-morbid conditions.

Patients with extremes in muscle mass or diet.

The data above are obtained from the National Kidney Disease Education Program (NKDEP) which additionally recommends that when the eGFR is used in patients with extremes of body mass index for purposes of drug dosing, the eGFR should be multiplied by the estimated BMI. [facility] ELECTROLYTES Glucose Lvl 102 70 - 99 07/10/2016 [facility] ELECTROLYTES Sodium Lvl 141 135 - 145 07/10/2016 [facility] ELECTROLYTES Creatinine Lvl 0.5 5 0.50 - 1.40 07/10/2016 [facility] ELECTROLYTES BUN 13 7 - 22 07/10/2016 [facility] ELECTROLYTES Potassium Lvl 4.1 3.5 - 5.1 07/10/2016 [facility] ELECTROLYTES Calcium Lvl 8.8 8.5 - 10.5 07/10/2016 [facility] ELECTROLYTES Chloride Lvl 104 95 - 109 07/10/2016 [facility] ELECTROLYTES CO2 30 24 - 32 07/10/2016 [facility] HEMATOLOGY Lymphocytes 23.8 20.0 - 40.0 07/10/2016 [facility] HEMATOLOGY Segs 66.5 45.0 - 75.0 07/10/2016 [facility] HEMATOLOGY Eosinophils # 0.1 0.0 - 0.5 07/10/2016 [facility] HEMATOLOGY Monocytes # 0.3 0.0 - 0.8 07/10/2016 [facility] HEMATOLOGY Lymphocytes # 1.1 1.0 - 5.5 07/10/2016 [facility] Segs-Bands # 3.2 1.5 - 8.1 07/10/2016 [facility] Basophils 0.6 0.0 - 1.0 07/10/2016 [facility] Eosinophils 2.4 0.0 - 4.0 07/10/2016 [facility] Monocytes 6.7 2.0 - 12.0 07/10/2016 [facility] MPV 7.0 7.4 - 10.4 07/10/2016 [facility] RDW 13.3 11.5 - 14.5 07/10/2016 [facility] Platelet 369 133 - 450 07/10/2016 [facility] WBC 4.9 3.7 - 10.4 07/10/2016 [facility] Hgb 8.3 12.0 - 16.0 07/10/2016 [facility] RBC 2.68 4.20 - 5.40 07/10/2016 [facility] MCHC 33.9 32.0 - 36.0 07/10/2016 [facility] MCH 31.1 27.0 - 31.0 07/10/2016 [facility] Hct 24.5 36.0 - 48.0 07/10/2016 [facility] MCV 91.7 80.0 - 98.0 07/10/2016 [facility] CHEM PANEL eGFR 103 07/07/2016 Result Comment: The eGFR is calculated using the CKD-EPI formula. In most young, healthy individuals the eGFR will be >90 mL/min/1.73m2. The eGFR declines with age. An eGFR of 60-89 may be normal in some populations, particularly the elderly, for whom the CKD-EPI formula has not been extensively validated. Use of the eGFR is not recommended in the following populations:

Individuals with unstable creatinine concentrations, including patients and those with serious co-morbid conditions.

Patients with extremes in muscle mass or diet.

The data above are obtained from the National Kidney Disease Education Program (NKDEP) which additionally recommends that when the eGFR is used in patients with extremes of body mass index for purposes of drug dosing, the eGFR should be multiplied by the estimated BMI. [facility] CHEM PANEL Glucose Lvl 100 70 - 99 07/07/2016 [facility] CHEM PANEL BUN 12 7 - 22 07/07/2016 [facility] CHEM PANEL Calcium Lvl 8.6 8.5 - 10.5 07/07/2016 [facility] CHEM PANEL Creatinine Lvl 0.58 0.50 - 1.40 07/07/2016 [facility] CHEM PANEL Chloride Lvl 108 95 - 109 07/07/2016 [facility] CHEM PANEL Sodium Lvl 143 135 - 145 07/07/2016 [facility] CHEM PANEL CO2 26 24 - 32 07/07/2016 [facility] CHEM PANEL Potassium Lvl 3.8 3.5 - 5.1 07/07/2016 [facility] CHEM PANEL AGAP 12.8 10.0 - 20.0 07/07/2016 [facility] Platelet 290 133 - 450 07/07/2016 [facility] MCHC 33.8 32.0 - 36.0 07/07/2016 [facility] WBC 4.7 3.7 - 10.4 07/07/2016 [facility] Hgb 7.9 12.0 - 16.0 07/07/2016 [facility] HEMATOLOGY RBC 2.57 4.20 - 5.40 07/07/2016 [facility] MCV 91.0 80.0 - 98.0 07/07/2016 [facility] HEMATOLOGY RDW 13.1 11.5 - 14.5 07/07/2016 [facility] MCH 30.7 27.0 - 31.0 07/07/2016 [facility] MPV 6.6 7.4 - 10.4 07/07/2016 [facility] Hct 23.4 36.0 - 48.0 07/07/2016 [facility] HEMATOLOGY Eosinophils 3.1 0.0 - 4.0 07/07/2016 [facility] HEMATOLOGY Basophils 0.6 0.0 - 1.0 07/07/2016 [facility] HEMATOLOGY Lymphocytes 20.3 20.0 - 40.0 07/07/2016 [facility] HEMATOLOGY Segs 67.3 45.0 - 75.0 07/07/2016 [facility] HEMATOLOGY Monocytes 8.7 2.0 - 12.0 07/07/2016 [facility] HEMATOLOGY Monocytes # 0.4 0.0 - 0.8 07/07/2016 [facility] HEMATOLOGY Eosinophils # 0.1 0.0 - 0.5 07/07/2016 [facility] HEMATOLOGY Segs-Bands # 3.2 1.5 - 8.1 07/07/2016 [facility] Lymphocytes # 1.0 1.0 - 5.5 07/07/2016 [facility] TOXICOLOGY Vanco Tr 20.6 07/07/2016 [facility] TOXICOLOGY Vanco Tr TND 0 07/07/2016 [facility] URINE AND STOOL Occult Bld Stl Negative (07/05/16 6:24 PM) Negative 07/06/2016 [facility] TOXICOLOGY Vanco Tr TND 0 07/05/2016 [facility] TOXICOLOGY Vanco Tr 10.1 07/05/2016 [facility] ELECTROLYTES AGAP 11.8 10.0 - 20.0 07/05/2016 [facility] ELECTROLYTES eGFR 100 07/05/2016 Result Comment: The eGFR is calculated using the CKD-EPI formula. In most young, healthy individuals the eGFR will be >90 mL/min/1.73m2. The eGFR declines with age. An eGFR of 60-89 may be normal in some populations, particularly the elderly, for whom the CKD-EPI formula has not been extensively validated. Use of the eGFR is not recommended in the following populations:

Individuals with unstable creatinine concentrations, including patients and those with serious co-morbid conditions.

Patients with extremes in muscle mass or diet.

The data above are obtained from the National Kidney Disease Education Program (NKDEP) which additionally recommends that when the eGFR is used in patients with extremes of body mass index for purposes of drug dosing, the eGFR should be multiplied by the estimated BMI. [facility] ELECTROLYTES Sodium Lvl 137 135 - 145 07/05/2016 [facility] ELECTROLYTES Creatinine Lvl 0.6 4 0.50 - 1.40 07/05/2016 [facility] ELECTROLYTES Potassium Lvl 3.8 3.5 - 5.1 07/05/2016 [facility] ELECTROLYTES BUN 10 7 - 22 07/05/2016 [facility] ELECTROLYTES Chloride Lvl 99 95 - 109 07/05/2016 [facility] ELECTROLYTES CO2 30 24 - 32 07/05/2016 [facility] ELECTROLYTES Calcium Lvl 8.4 8.5 - 10.5 07/05/2016 [facility] ELECTROLYTES Glucose Lvl 117 70 - 99 07/05/2016 [facility] HEMATOLOGY Eosinophils # 0.1 0.0 - 0.5 07/05/2016 [facility] HEMATOLOGY Eosinophils 1.5 0.0 - 4.0 07/05/2016 [facility] HEMATOLOGY Segs 82.7 45.0 - 75.0 07/05/2016 [facility] HEMATOLOGY Lymphocytes 9.0 20.0 - 40.0 07/05/2016 [facility] HEMATOLOGY Monocytes 6.6 2.0 - 12.0 07/05/2016 [facility] HEMATOLOGY Basophils 0.2 0.0 - 1.0 07/05/2016 [facility] HEMATOLOGY Lymphocytes # 0.6 1.0 - 5.5 07/05/2016 [facility] HEMATOLOGY Segs-Bands # 5.6 1.5 - 8.1 07/05/2016 [facility] HEMATOLOGY Monocytes # 0.4 0.0 - 0.8 07/05/2016 [facility] HEMATOLOGY MCV 90.7 80.0 - 98.0 07/05/2016 [facility] HEMATOLOGY Hct 23.8 36.0 - 48.0 07/05/2016 [facility] HEMATOLOGY MCH 31.7 27.0 - 31.0 07/05/2016 [facility] HEMATOLOGY Hgb 8.3 12.0 - 16.0 07/05/2016 [facility] HEMATOLOGY RBC 2.62 4.20 - 5.40 07/05/2016 [facility] HEMATOLOGY RDW 13.0 11.5 - 14.5 07/05/2016 [facility] HEMATOLOGY Platelet 276 133 - 450 07/05/2016 [facility] HEMATOLOGY MPV 6.6 7.4 - 10.4 07/05/2016 [facility] HEMATOLOGY MCHC 35.0 32.0 - 36.0 07/05/2016 [facility] HEMATOLOGY WBC 6.8 3.7 - 10.4 07/05/2016 [facility] CHEM PANEL Lactic Acid Lvl 1.0 0.5 - 2.2 06/30/2016 [facility] CHEM PANEL Albumin Lvl 3.8 3.5 - 5.0 06/30/2016 [facility] CHEM PANEL ALT 30 0 - 65 06/30/2016 [facility] CHEM PANEL Bili Total 0.4 0.2 - 1.3 06/30/2016 [facility] CHEM PANEL AST 14 0 - 37 06/30/2016 [facility] CHEM PANEL Alk Phos 72 39 - 136 06/30/2016 [facility] CHEM PANEL Total Protein 6.9 6.4 - 8.4 06/30/2016 [facility] CHEM PANEL Globulin 3.1 2.7 - 4.2 06/30/2016 [facility] CHEM PANEL A/G Ratio 1.2 0.7 - 1.6 06/30/2016 [facility] CHEM PANEL B/C Ratio 20 6 - 25 06/30/2016 [facility] URINE AND STOOL UA Color Ltyellow 06/30/2016 [facility] URINE AND STOOL UA Urobilinogen <=1.0 mg/dL 0.1 - 1.0 06/30/2016 [facility] URINE AND STOOL UA Turbidity Clear (06/30/16 3:35 AM) Clear 06/30/2016 [facility] URINE AND STOOL UA Protein Negative mg/dL Negative mg/dL 06/30/2016 [facility] URINE AND STOOL UA pH 7.0 5.0 - 8.0 06/30/2016 [facility] URINE AND STOOL UA Ketones Negative mg/dL Negative mg/dL 06/30/2016 [facility] URINE AND STOOL UA Glucose Negative mg/dL Negative mg/dL 06/30/2016 [facility] URINE AND STOOL UA Spec Grav 1.005 <=1.030 06/30/2016 [facility] URINE AND STOOL UA Leuk Est Small *ABN* (06/30/16 3:35 AM) Negative 06/30/2016 [facility] URINE AND STOOL UA Sq Epi Occasional /LPF Few /LPF 06/30/2016 [facility] URINE AND STOOL UA Nitrite Negative (06/30/16 3:35 AM) Negative 06/30/2016 [facility] URINE AND STOOL UA Blood Negative (06/30/16 3:35 AM) Negative 06/30/2016 [facility] URINE AND STOOL UA Bili Negative *NA* (06/30/16 3:35 AM) Negative 06/30/2016 [facility] URINE AND STOOL UA Bacteria Occasional /HPF None Seen /HPF 06/30/2016 [facility] URINE AND STOOL UA RBC 1 0 - 2 06/30/2016 [facility] URINE AND STOOL UA WBC 10 0 - 5 06/30/2016 [facility] Pathology Reports No Data Provided for This Section Diagnostic Reports Report Value Date Source Spine lumbar series DX Patient Name: MAKAYLA BEE : 1960; Age: 55 years y/o Female MR: [id number] Study: Spine lumbar series DX 07/30/2016 2:18 AM [employer] Ordering Physician: Clinical Indication: Pain radiating down into the legs; right sided back pain, hxo f cancer. evaluate for mets Comparison: CT abdomen 06/30/2016. Lumbar spine 5 views Normal vertebral height and alignment. No fracture subluxation or bone lesion. Disc spaces maintained. Facet joints normal. Iliac joints appear normal. There are 3 right upper quadrant calcifications measuring 5 mm each, which are compatible with right renal calculi as was noted on 06/30/[address] IMPRESSION: No acute lumbar spine abnormality. Right renal calculi. SL: AMANDA 07/30/2016 [facility] Chest 2 views DX Study: Two-vi ew chest x-ray compared to 07/04/2016 History: Chest pain Comments: The trachea is midline. The cardiomediastinal silhouette is normal in size. No pneumonia. No pleural effusions or pneumothorax. Impression: No acute cardiopulmonary disease. 07/27/2016 [facility] Chest 2 views DX Patient Name: MAKAYLA BEE : 1960; Age: 55 years y/o Female MR: [id number] Study: Chest 2 views DX 07/04/2016 8:54 AM [employer] Ordering Physician: Clinical Indication: Shortness of Breath; Comparison: 11/12/2007 2 views chest The lungs are clear. Cardiomediastinal silhouette normal. No pleural effusion or pneumothorax. No acute osseous abnormality. IMPRESSION: No acute finding. SL: [id number] 07/04/2016 [facility] Retroperitoneal Complete US Pa tient Name: MAKAYLA BEE : 1960; Age: 55 years y/o Female MR: [id number] Study: Retroperitoneal Complete US 07/01/2016 11:17 AM [employer] Ordering Physician: Dillan Love MD Clinical Indication: Abdominal distension. Comparison: None TECHNIQUE: Multiple longitudinal and transverse real time sonographic images of the kidneys and urinary bladder are obtained. FINDINGS: KIDNEY: The right kidney measures 11.5 cm x 3.9 cm x 4.3 cm. The left kidney measures 13.1 cm x 5.2 cm x 5.0 cm. A 1.2 cm x 0.9 cm x 1.1 cm left renal cyst is present. The corticomedullary differentiation is maintained. There is no hydronephrosis, nephrolithiasis, or abnormal perinephric collections. BLADDER: Scanning through the pelvis reveals the bladder to be partially distended with anechoic urine. IMPRESSION: 1. Grossly normal appearing kidneys. No hydronephrosis. 2. A 1.2 cm x 0.9 cm x 1.1 cm left renal cyst is present. SL: [id number] 07/01/2016 [facility] Abdomen/Pelvis wo IV contrast CT CT ABDOMEN AND PELVIS WITHOUT CONTRAST DATED 06/30/2016. CLINICAL INDICATION: Acute abdominal pain. Nausea and vomiting. Urinary tract infection. COMPARISON: CT abdomen dated 05/26/2007 TECHNIQUE: A CT of the abdomen and pelvis was performed using helical images from the thoracic outlet through the pubic symphysis without bowel or intravenous contrast. Sagittal and coronal reconstructions were performed. CT Radiation Dose: DLP = 872 mGy-cm FINDINGS: SOLID ORGANS: No acute CT abnormalities of the liver, spleen, pancreas or adrenal glands are identified. The right kidney contains multiple calcified stones, the largest which is positioned in the lower pole and has a diameter of 7 mm. The left kidney contains a single 2 mm lower pole calculus. There is no CT evidence of acute renal collecting system obstruction or calcified ureteral stone. Mild distention of both renal collecting systems is noted with apparent ureteral wall thickening, compatible with the history of urinary tract infection. Note is made of a small left renal cortical cyst. BILIARY: The patient is status post cholecystectomy. No significant biliary ductal dilatation is identified. BOWEL: Bowel assessment is limited by the absence of bowel contrast. The appendix is well-visualized and is not acutely inflamed. No small bowel dilatation is identified to suggest obstruction. No diverticular disease is noted. PERITONEUM: There is no evidence of free intraperitoneal air or significant free intraperitoneal fluid. RETROPERITONEUM: The abdominal aorta is normal in caliber. Enlarged para-aortic, aortocaval and pericaval lymph nodes are identified in the retroperitoneum with associated edema or inflammation in the retroperitoneal fat. This finding is new when compared to the 2006 exam. PELVIS: The patient is status post hysterectomy. No suspicious adnexal masses are noted. The bladder wall appears thickened for the degree of bladder distention. LOWER CHEST: The lung bases appear clear of acute disease. ADDITIONAL COMMENTS: None. IMPRESSION: 1. Bilateral nephrolithiasis. No CT len dence of acute renal collecting system obstruction or calcified renal collecting system stone. 2. Distention of both renal collecting s ystems is noted with apparent thickening of the paige of both ureters. This finding is compatible with the history of urinary tract infection. 3. Enlarged lymph nodes are identified i n the retroperitoneum with edema or inflammation in the retroperitoneal fat. It is unlikely that this extent of jacqueline disease could be explained by the acute urinary tract infection. Metastatic neoplasm or lymphoproliferative disorder is not excluded. 4. Mild bladder wall thickening, concern ing for cystitis. SL:[id number] 06/30/2016 [facility] Retroperitoneal Complete US RE NAL ULTRASOUND COMPLETE HISTORY: 54-year-old with hematuria. TECHNIQUE: Longitudinal and transverse calles-scale images of the kidneys, retroperitoneal space and bladder were obtained using real-time ultrasound and supplemented with color Doppler. COMPARISON: CT abdomen pelvis 05/26/2007 FINDINGS: Kidneys have similar volume gross normal morphology. Bilateral renal pelvises are mild dilated suggesting mild hydronephrosis. The right kidney has small echogenic foci in the parenchyma and also in the renal pelvis, these may correspond to lithiasis. The left kidney has an upper pole cortical cyst 1.0 x 0.7 x 0.9 cm. Right kidney dimensions are 11.2 x 4.1 x 4.5 cm with cortical thickness of 1.2 cm Left kidney dimensions are 11.6 x 5.1 x 5.6 cm with cortical thickness of 1.8 cm The urinary bladder is normal with a hypoechoic lumen. Both ureteric flow jets seen. No pelvic mass or free fluid noted. The abdominal aorta and IVC have normal caliber as visualized. IMPRESSION: Bilateral renal pelvis mild dilated consistent with mild hydronephrosis. Right kidney his echogenic foci that are non shadowing may correspond to small nonobstructing stones. If the patient remain symptomatic followup with noncontrast CT suggested. 06/17/2015 [facility] [place] cervical wo contrast MRI MRI CERVICAL SPINE WITHOUT CONTRAST TECHNIQUE: Multiplanar multisequence imaging of the cervical spine was performed without administration of intravenous gadolinium. COMPARISON: No prior exam. FINDINGS: Multilevel disc desiccation is seen. C2-C3: Unremarkable. C3-C4: Minimal central disc protrusion measuring approximately 1 mm is seen without central canal or foraminal stenosis. C4-C5: Unremarkable. C5-C6: Small dorsal osteophyte or minimal protrusion measuring 2 mm in the AP dimension is seen with minimal central canal stenosis. No mass effect on the cervical cord. There is no foraminal stenosis. C6-C7: Unremarkable. C7-T1: Unremarkable. The cervical cord signal is unremarkable without MRI evidence of myelopathy. IMPRESSION: 1. Several levels of mild disc degenerat bi disease as above. No mass effect on the cervical cord. Minimal C5-C6 central canal stenosis present. No significant foraminal stenosis. 12/25/2013 [facility] Spine lumbar wo contrast MRI M RI LUMBAR SPINE WITHOUT CONTRAST COMPARISON: 03/20/2013 MRI exam. TECHNIQUE: Sagittal T1, sagittal T2 with fat saturation, axial T1 and axial T2 images were obtained. No intravenous gadolinium was given. FINDINGS: The paravertebral soft tissues are normal. The conus medullaris terminates at the L1 level. L1-L2: Mild dorsal disc osteophyte complex with posterior annular fissure is stable, measuring 3.9 mm in the AP dimension with mild central canal stenosis. No mass effect on the conus medullaris. No foraminal stenosis is present. L2-L3: Unremarkable. L3-L4: Disc desiccation is present, with minimal stable disc bulge. No central canal stenosis is identified. There is stable broad-based left foraminal disc protrusion with annular fissuring, measuring approximately 2 mm in the AP dimension with mild left foraminal stenosis and minimal mass effect on the left L3 exiting nerve root sleeve. L4-L5: Stable minimal disc bulge without significant central canal or foraminal stenosis. L5-S1: Stable minimal disc bulge without significant central canal or foraminal stenosis. IMPRESSION: 1. Stable mild L1-L2 dorsal disc osteoph yte complex with mild central canal stenosis. 2. Stable L3-L4 broad-based left foramin al disc protrusion with mild mass effect on the left L3 exiting nerve root sleeve. 12[facility]25/2013 [facility] lumbar [facility] contrast MRI C LINICAL INDICATION: Left lower radiculopathy COMMENT: MRI of the lumbar spine was performed without intravenous administration of contrast utilizing spin echo imaging in the sagittal and axial planes with sagittal STIR imaging. There is normal anatomic alignment without trauma or bony destruction. The para vertebral soft tissues are normal. The thoracolumbar junction is normal. The intervertebral disks demonstrate generalized degenerative disc desiccation to be mild with only minor changes of spondylosis including minimal annular bulge and early facet hypertrophy but no stenosis or nerve root compromise. CONCLUSION: 1. EARLY DEGENERATIVE CHANGES WITHOUT ST ENOSIS OR NERVE ROOT COMPROMISE IN THIS OTHERWISE NORMAL MRI OF THE LUMBAR SPINE 03/20/2013 [facility] Consultation Notes No Data Provided for This Section Discharge Summaries No Data Provided for This Section History and Physicals No Data Provided for This Section Vital Signs Vital Sign Value Date Comments Source Respitory Rate 20 09/04/2016 [facility] Systolic (mm Hg) 132 09/04/2016 [facility] Diastolic (mm Hg) 68 09/04/2016 [facility] Temperature Oral (F) 98.2 F 09/04/2016 [facility] Weight 61.364 09/04/2016 [facility] BMI Calculated 21.84 09/04/2016 [facility] Height 167.64 cm 09/04/2016 [facility] Temperature Oral (F) 97.9 F 09/04/2016 [facility] Respitory Rate 18 09/04/2016 [facility] Heart Rate 99 09/04/2016 [facility] Systolic (mm Hg) 121 09/04/2016 [facility] Diastolic (mm Hg) 69 09/04/2016 [facility] Respitory Rate 18 07/30/2016 [facility] Temperature Oral (F) 98.4 F 07/30/2016 [facility] Heart Rate 85 07/30/2016 [facility] Systolic (mm Hg) 111 07/30/2016 [facility] Diastolic (mm Hg) 76 07/30/2016 [facility] Heart Rate 78 07/30/2016 [facility] Respitory Rate 18 07/30/2016 [facility] Systolic (mm Hg) 110 07/30/2016 [facility] Diastolic (mm Hg) 56 07/30/2016 [facility] Heart Rate 72 07/30/2016 [facility] Temperature Oral (F) 98.6 F 07/30/2016 [facility] Systolic (mm Hg) 118 07/30/2016 [facility] Diastolic (mm Hg) 94 07/30/2016 [facility] Respitory Rate 17 07/30/2016 [facility] Temperature Oral (F) 98.8 F 07/30/2016 [facility] Weight 65.909 07/30/2016 [facility] BMI Calculated 24.18 07/30/2016 [facility] Height 165.1 cm 07/30/2016 [facility] Respitory Rate 16 07/28/2016 [facility] Systolic (mm Hg) 118 07/28/2016 [facility] Diastolic (mm Hg) 60 07/28/2016 [facility] Heart Rate 83 07/28/2016 [facility] Temperature Oral (F) 98.6 F 07/28/2016 [facility] Heart Rate 88 07/28/2016 [facility] Respitory Rate 16 07/28/2016 [facility] Temperature Oral (F) 98.6 F 07/28/2016 [facility] Systolic (mm Hg) 117 07/28/2016 [facility] Diastolic (mm Hg) 61 07/28/2016 [facility] Systolic (mm Hg) 117 07/28/2016 [facility] Diastolic (mm Hg) 61 07/28/2016 [facility] Respitory Rate 16 07/28/2016 [facility] Heart Rate 85 07/28/2016 [facility] Temperature Oral (F) 98.3 F 07/28/2016 [facility] Height 172.72 cm 07/28/2016 [facility] BMI Calculated 24.38 07/28/2016 [facility] Weight 72.727 07/28/2016 [facility] Heart Rate 69 07/10/2016 [facility] Respitory Rate 20 07/10/2016 [facility] Systolic (mm Hg) 143 07/10/2016 [facility] Diastolic (mm Hg) 73 07/10/2016 [facility] Temperature Oral (F) 97.3 F 07/10/2016 [facility] Heart Rate 63 07/10/2016 [facility] Temperature Oral (F) 97.6 F 07/10/2016 [facility] Respitory Rate 20 07/10/2016 [facility] Systolic (mm Hg) 136 07/10/2016 [facility] Diastolic (mm Hg) 80 07/10/2016 [facility] Temperature Oral (F) 97.8 F 07/10/2016 [facility] Systolic (mm Hg) 132 07/10/2016 [facility] Diastolic (mm Hg) 77 07/10/2016 [facility] Heart Rate 68 07/10/2016 [facility] Respitory Rate 18 07/10/2016 [facility] Weight 62.072 06/30/2016 [facility] BMI Calculated 22.32 06/30/2016 [facility] Height 167.64 cm 06/30/2016 [facility] Weight 62.727 06/30/2016 [facility] Encounters Location Location Details Encounter Type Encounter Number Reason For Visit Attending Provider ADM Date DC Date Status Source [facility] [id number] Lynsey Camilo 12/25/2013 12/26/2013 [facility] [id number] KATHY PLUMMER 05/02/2015 Active [facility] [id number] 03 Jakub Villanueva 06/17/2015 06/18/2015 [facility] [place] Inpatient [id number] Lisa Ngo 06/30/2016 07/10/2016 [facility] Emergency [id number] Lai Jacobs 07/28/2016 07/28/2016 [facility] Emergency [id number] Kris Chan 07/30/2016 07/30/2016 [facility] Emergency [id number] Ten Randa 09/04/2016 09/04/2016 [facility] OD [id number] 379.91 - PAIN IN OR AROU MORGAN COLON Active [facility] Procedures Procedure Code Date Perfomer Comments Source Bone marrow operations<sup>1</sup> [id number] transplant [facility] [place] Cholecystectomy [id number] [facility] [place] Gallbladder operation<sup>2</sup> [id number] removed [facility] Hysterectomy [id number] [facility] Tonsillectomy [id number] [facility] Assessment and Plan No Data Provided for This Section Plan of Care No Data Provided for This Section Social History Social History Date Source Social History TypeResponse Exercise Exercise duration: 20. Exercise frequency: Daily. Exercise type: Walking. Employment/School Status: Retired. Other: lives with self, , pets 0, kids 2. Alcohol Never Smoking Status Never smoker; Exposure to Tobacco Smoke None; Cigarette Smoking Last 365 Days No; Reg Smoking Cessation Counseling No 05/02/2015 [facility] Social History TypeResponse Exercise Exercise duration: 20. Exercise frequency: Daily. Exercise type: Walking. Employment/School Status: Retired. Other: lives with self, , pets 0, kids 2. Alcohol Never Smoking Status Former smoker; Type: Cigarettes; Ready to change: No; Concerns about tobacco use in household: No; Exposure to Tobacco Smoke None; Cigarette Smoking Last 365 Days No; Reg Smoking Cessation Counseling No 05/02/2015 [facility] Family History No Data Provided for This Section Advance Directives No Data Provided for This Section Functional Status No Data Provided for This Section
--- OUTSIDE RECORDS SUMMARY | 2020-01-27 21:02 | XMS REPORT | Summary of Care ---
Author Organization Unknown Address Unknown Phone Unavailable Encounter [facility] Leninr_vi(KEVIN) [id number] Date(s): 12/25/13 - 12/25/13 [facility] Outpatient Imaging - [address] [address]- [facility] Discharge Disposition: Home Physician Attending: Lynsey Camilo MD Reason for Visit 723.4 - [facility]IT Problem List No data available for this section Allergies, Adverse Reactions, Alerts Substance Reaction Severity Status codeine Active Medications No data available for this section Medications Administered During Your Visit No data available for this section Immunizations No data available for this section Social History Social History Type Response
--- OUTSIDE RECORDS SUMMARY | 2020-01-27 21:02 | XMS REPORT | Summary of Care ---
Author Author [facility] Address Unknown Phone Unavailable Encounter [facility] Jairo(KEVIN) [id number] Date(s): 06/30/16 - 07/10/[address] [facility] [address] [place] [address]- [phone] Discharge Disposition: Home or Self Care Attending Physician: Lisa Ngo MD Admitting Physician: Lisa Ngo MD Vital Signs 1 2 3 Most recent to oldest [Reference Range]: 167.64 cm (06/30/16 2:41 AM) Height 62.072 kg (06/30/16 9:19 AM) Current Weight 97.3 DegF (07/10/16 12:00 PM) 97.6 DegF (07/10/16 8:00 AM) 97.8 DegF (07/10/16 3:53 AM) Temperature Oral [96.4-99.1 DegF] 143/73 mmHg *HI* (07/10/16 12:00 PM) 136/80 mmHg (07/10/16 8:00 AM) 132/77 mmHg (07/10/16 3:53 AM) Blood Pressure [90-140/60-90 mmHg] 20 BRMIN (07/10/16 12:00 PM) 20 BRMIN (07/10/16 8:00 AM) 18 BRMIN (07/10/16 3:53 AM) Respiratory Rate [14-20 BRMIN] 69 bpm (07/10/16 12:00 PM) 63 bpm (07/10/16 8:00 AM) 68 bpm (07/10/16 3:53 AM) Peripheral Pulse Rate [60-100 bpm] 62.072 kg (06/30/16 9:11 AM) 62.727 kg (06/30/16 2:41 AM) Weight 22.32 m2 (06/30/16 2:41 AM) Body Mass Index Problem List Condition Effective Dates Status Health Status Informan t Acute UTI(Confirmed) 06/24/16 Resolved Anxiety(Confirmed) Resolved Diabetes(Confirmed) Resolved Hypercalcemia1 Active Hyperlipidemia2 Active Cancer(Confirmed) Resolved Depression(Confirmed Resolved ) Neuropathy(Confirmed Resolved ) Osteoporosis3 11/10/14 Active Pituitary adenoma4 Active Type II diabetes Active mellitus uncontrolled5 Vitamin D 11/10/14 Active deficiency6 1Data migrated from [employer] on 12/15/14. 2Data migrated from [employer] on 12/15/14. 3Data migrated from [employer] on 12/15/14. 4Data migrated from [employer] on 12/15/14. 5Data migrated from [employer] on 12/15/14. 6Data migrated from [employer] on 12/15/14. Allergies, Adverse Reactions, Alerts Substance Reaction Severity Status codeine Active Dilaudid Active methylPREDNISolone1 Active penicillins2 Active phenytoin3 Active 1Data migrated from [employer] on12/16/14. Originally documented as SOLU-MEDROL. 2Data migrated from [employer] on 01/07/15. Originally documented as PENICILLIN. 3Data migrated from [employer] on12/16/14. Originally documented as DILANTIN. Medications please bring pts own meds CoQ10 and vit D liq to pharmacy please bring pts own meds CoQ10 and vit D liq to pharmacy, reminder, Drug form : MISC, Route: MISC, QSHIFT, 06/30/16 16:55:00 ENERGY AND CONSERVATION TECHNICIAN, Duration: 30 day, Stop date: 07/30/16 16:00:00 ENERGY AND CONSERVATION TECHNICIAN Start Date: 06/30/16 Stop Date: 07/10/16 Status: Discontinued RN-Do not give Vanc till trough drawn 07/05/16@ 17:30 RN-Do not give Vanc till trough drawn 07/05/16@ 17:30, Attn:RN, Drug form : MISC, Route: MISC, ONCE, 07/05/16 17:00:00 ENERGY AND CONSERVATION TECHNICIAN, Stop date: 07/05/16 17:00:[address] Start Date: 07/05/16 Stop Date: 07/05/16 Status: Completed RN-Do not give Vanc till trough drawn 07/07/16@ 6:30 RN-Do not give Vanc till trough drawn 07/07/16@ 6:30, Attn:RN, Drug form: MISC, Route: MISC, ONCE, 07/07/16 6:00:00 ENERGY AND CONSERVATION TECHNICIAN, Stop date: 07/07/16 6:00:00 ENERGY AND CONSERVATION TECHNICIAN Start Date: 07/07/16 Stop Date: 07/07/16 Status: Completed acetaminophen 650 mg, Route: PO, Drug form: TAB, ONCE, Dosing Weight 62.727, kg, Priority: STA T, Start date: 06/30/16 4:59:00 ENERGY AND CONSERVATION TECHNICIAN, Stop date: 06/30/16 4:59:00 ENERGY AND CONSERVATION TECHNICIAN Start Date: 06/30/16 Stop Date: 06/30/16 Status: Completed acetaminophen 650 mg, 2 tab, Route: PO, Drug form: TAB, Q4H, Dosing Weight 62.727, kg, PRN Vik n 1-3/Temp > 100.4 F, Start date: 06/30/16 8:50:00 ENERGY AND CONSERVATION TECHNICIAN, Duration: 30 day, Stop date: 07/30/16 8:49:00 ENERGY AND CONSERVATION TECHNICIAN Notes: Do not exceed 4 gm/day. (Same as: Tylenol) Start Date: 06/30/16 Stop Date: 07/10/16 Status: Discontinued aspirin 81 mg tablet, enteric coated 81 mg, 1 tab, Route: PO, Drug form: ECTAB, Daily, Dosing Weight 62.072, kg, Star t date: 06/30/16 16:39:00 ENERGY AND CONSERVATION TECHNICIAN, Duration: 30 day, Stop date: 07/30/16 9:00:00 ENERGY AND CONSERVATION TECHNICIAN Notes: Do not crush or chew.(Same As: Ecotrin) Start Date: 06/30/16 Stop Date: 07/10/16 Status: Discontinued Azactam + sodium chloride 0.9% INJ 100 mL 1 gm, Route: IVPB, ABXQ8H, Dosing Weight 62.072, kg, Start date: 07/04/16 18:00: 00 ENERGY AND CONSERVATION TECHNICIAN, Duration: 30 day, Stop date: 08/03/16 13:00:00 ENERGY AND CONSERVATION TECHNICIAN Notes: (Same As: Azactam) Start Date: 07/04/16 Stop Date: 07/10/16 Status: Discontinued Demerol HCl 12.5 mg, 0.25 mL, Route: IVP, Drug form: INJ, Q4H, Dosing Weight 62.727, kg, PRN Pain Score 6-10, Priority: Routine, Start date: 06/30/16 7:31:00 ENERGY AND CONSERVATION TECHNICIAN, Duration: 4 day, Stop date: 07/04/16 7:30:00 ENERGY AND CONSERVATION TECHNICIAN Notes: (Same As: Demerol) Start Date: 06/30/16 Stop Date: 06/30/16 Status: Discontinued Dextrose 50% Syringe 25 gm, 50 mL, Route: IVP, Drug Form: INJ, Dosing Weight 62.727, kg, PRN, PRN Blo od Glucose Results, Start date: 06/30/16 8:54:00 ENERGY AND CONSERVATION TECHNICIAN, Duration: 30 day, Stop kaiden e: 07/30/16 8:53:00 ENERGY AND CONSERVATION TECHNICIAN Start Date: 06/30/16 Stop Date: 07/10/16 Status: Discontinued Dextrose 50% Syringe 12.5 gm, 25 mL, Route: IVP, Drug Form: INJ, Dosing Weight 62.727, kg, PRN, PRN B lood Glucose Results, Start date: 06/30/16 8:54:00 ENERGY AND CONSERVATION TECHNICIAN, Duration: 30 day, Stop d ate: 07/30/16 8:53:00 ENERGY AND CONSERVATION TECHNICIAN Start Date: 06/30/16 Stop Date: 07/10/16 Status: Discontinued docusate 100 mg, 1 cap, Route: PO, Drug form: CAP, BID, Dosing Weight 62.727, kg, PRN Con stipation, Start date: 06/30/16 8:50:00 ENERGY AND CONSERVATION TECHNICIAN, Duration: 30 day, Stop date: 8:49:00 ENERGY AND CONSERVATION TECHNICIAN Notes: (Same as: Colace) (Do Not Crush) Start Date: 06/30/16 Stop Date: 07/10/16 Status: Discontinued DuoNeb inhalation solution 3 mL, Route: NEB, Dosing Weight 62.727, kg, ONCE, Start date: 06/30/16 7:40:[address], Stop date: 06/30/16 7:40:00 ENERGY AND CONSERVATION TECHNICIAN Start Date: 06/30/16 Stop Date: 06/30/16 Status: Discontinued DuoNeb inhalation solution 3 mL, Route: NEB, Dosing Weight 62.727, kg, ONCE, Start date: 06/30/16 7:42:[address], Stop date: 06/30/16 7:42:00 ENERGY AND CONSERVATION TECHNICIAN Start Date: 06/30/16 Stop Date: 06/30/16 Status: Discontinued elppa CoQ10 100 mg, Route: PO, Drug form: CAP, Daily, Dosing Weight 62.072, kg, Start date: 07/01/16 9:00:00 ENERGY AND CONSERVATION TECHNICIAN, Duration: 30 day, Stop date: 07/30/16 9:00:00 ENERGY AND CONSERVATION TECHNICIAN Start Date: 07/01/16 Stop Date: 07/10/16 Status: Discontinued elppa CoQ10 50 mg oral capsule 100 mg = 2 cap, PO, Daily, # 60 cap, 0 Refill(s) Start Date: 06/30/16 Status: Ordered enoxaparin 40 mg, 0.4 mL, Route: SUB-Q, Drug form: INJ, [id number], Dosing Weight 62.072, kg, Start date: 06/30/16 10:00:00 ENERGY AND CONSERVATION TECHNICIAN, Duration: 30 day, Stop date: 07/29/16 10:00: 00 ENERGY AND CONSERVATION TECHNICIAN Notes: (Same as: Lovenox) Start Date: 06/30/16 Stop Date: 07/10/16 Status: Discontinued fentaNYL 50 microgram, Route: IVP, ONCE, Dosing Weight 62.727, kg, Priority: STAT, Start date: 06/30/16 3:15:00 ENERGY AND CONSERVATION TECHNICIAN, Stop date: 06/30/16 3:15:00 ENERGY AND CONSERVATION TECHNICIAN Start Date: 06/30/16 Stop Date: 06/30/16 Status: Completed gabapentin 300 mg oral capsule 300 mg, 1 cap, Route: PO, Drug form: CAP, BID, Dosing Weight 62.072, kg, Start d ate: 06/30/16 17:00:00 ENERGY AND CONSERVATION TECHNICIAN, Duration: 30 day, Stop date: 07/30/16 9:00:00 ENERGY AND CONSERVATION TECHNICIAN Notes: (Same as: Neurontin) Start Date: 06/30/16 Stop Date: 07/10/16 Status: Discontinued glucagon 1 mg, Route: IM, Drug form: PDR/INJ, PRN, Dosing Weight 62.727, kg, PRN Blood Gl ucose Results, Start date: 06/30/16 8:54:00 ENERGY AND CONSERVATION TECHNICIAN, Duration: 30 day, Stop date: 8:53:00 ENERGY AND CONSERVATION TECHNICIAN Start Date: 06/30/16 Stop Date: 07/10/16 Status: Discontinued hydrochlorothiazide 12.5 mg, 1 cap, Route: PO, Drug form: CAP, Daily, Dosing Weight 62.072, kg, Star t date: 07/08/16 17:41:00 ENERGY AND CONSERVATION TECHNICIAN, Duration: 30 day, Stop date: 08/07/16 9:00:00 ENERGY AND CONSERVATION TECHNICIAN Notes: (Same as: Microzide) With food. Start Date: 07/08/16 Stop Date: 07/08/16 Status: Deleted hydrochlorothiazide 12.5 mg, PO, Daily, 0 Refill(s) Start Date: 06/30/16 Status: Ordered hydromorphone 0.5 mg, 0.5 mL, Route: IVP, Drug form: INJ, Q4H, Dosing Weight 62.072, kg, PRN P ain Score 7-10, Start date: 06/30/16 16:38:00 ENERGY AND CONSERVATION TECHNICIAN, Duration: 30 day, Stop date: 07/30/16 16:37:00 ENERGY AND CONSERVATION TECHNICIAN Start Date: 06/30/16 Stop Date: 07/10/16 Status: Discontinued insulin aspart 3 unit, 0.03 mL, Route: SUB-Q, Drug form: SOLN, TID-Before Meals, Dosing Weight 62.727, kg, PRN Blood Glucose Results, Start date: 06/30/16 8:54:00 ENERGY AND CONSERVATION TECHNICIAN, Duratio n: 30 day, Stop date: 07/30/16 8:53:00 ENERGY AND CONSERVATION TECHNICIAN Notes: Roll in palms of hands gently; Do not shake vigorously. (Same as: NovoLO G)"single patient use only"WASTE: F/P - Black; E - Municipal Trash Bin Stable f or 28 days at room temperature.Expires in days from Date Start Date: 06/30/16 Stop Date: 07/10/16 Status: Discontinued insulin aspart 1 unit, 0.01 mL, Route: SUB-Q, Drug form: SOLN, TID-Before Meals, Dosing Weight 62.727, kg, PRN Blood Glucose Results, Start date: 06/30/16 8:54:00 ENERGY AND CONSERVATION TECHNICIAN, Duratio n: 30 day, Stop date: 07/30/16 8:53:00 ENERGY AND CONSERVATION TECHNICIAN Notes: Roll in palms of hands gently; Do not shake vigorously. (Same as: Greta Obrien)"single patient use only"WASTE: F/P - Black; E - Municipal Trash Bin Stable f or 28 days at room temperature.Expires in days from Date Start Date: 06/30/16 Stop Date: 07/10/16 Status: Discontinued insulin aspart 2 unit, 0.02 mL, Route: SUB-Q, Drug form: SOLN, TID-Before Meals, Dosing Weight 62.727, kg, PRN Blood Glucose Results, Start date: 06/30/16 8:54:00 ENERGY AND CONSERVATION TECHNICIAN, Duratio n: 30 day, Stop date: 07/30/16 8:53:00 ENERGY AND CONSERVATION TECHNICIAN Notes: Roll in palms of hands gently; Do not shake vigorously. (Same as: Greta Obrien)"single patient use only"WASTE: F/P - Black; E - Municipal Trash Bin Stable f or 28 days at room temperature.Expires in days from Date Start Date: 06/30/16 Stop Date: 07/10/16 Status: Discontinued insulin aspart 4 unit, 0.04 mL, Route: SUB-Q, Drug form: SOLN, TID-Before Meals, Dosing Weight 62.727, kg, PRN Blood Glucose Results, Start date: 06/30/16 8:54:00 ENERGY AND CONSERVATION TECHNICIAN, Duratio n: 30 day, Stop date: 07/30/16 8:53:00 ENERGY AND CONSERVATION TECHNICIAN Notes: Roll in palms of hands gently; Do not shake vigorously. (Same as: Greta Obrien)"single patient use only"WASTE: F/P - Black; E - Municipal Trash Bin Stable f or 28 days at room temperature.Expires in days from Date Start Date: 06/30/16 Stop Date: 07/10/16 Status: Discontinued insulin aspart 5 unit, 0.05 mL, Route: SUB-Q, Drug form: SOLN, TID-Before Meals, Dosing Weight 62.727, kg, PRN Blood Glucose Results, Start date: 06/30/16 8:54:00 ENERGY AND CONSERVATION TECHNICIAN, Duratio n: 30 day, Stop date: 07/30/16 8:53:00 ENERGY AND CONSERVATION TECHNICIAN Notes: Roll in palms of hands gently; Do not shake vigorously. (Same as: NovoLO G)"single patient use only"WASTE: F/P - Black; E - Municipal Trash Bin Stable f or 28 days at room temperature.Expires in days from Date Start Date: 06/30/16 Stop Date: 07/10/16 Status: Discontinued Lactated Ringers 1,000 mL 1,000 mL, Rate: 125 ml/hr, Infuse over: 8 hr, Route: IV, Dosing Weight 62.727 kg , Total Volume: 1,000, Start date: 06/30/16 8:50:00 ENERGY AND CONSERVATION TECHNICIAN, Duration: 30 day, Stop date: 07/30/16 8:49:00 ENERGY AND CONSERVATION TECHNICIAN Start Date: 06/30/16 Stop Date: 06/30/16 Status: Discontinued lactulose 10 g/15 mL oral syrup 10 gm, 15 ml, Route: PO, Drug form: SYRP, BID, Dosing Weight 62.072, kg, PRN Con stipation, Start date: 07/04/16 8:11:00 ENERGY AND CONSERVATION TECHNICIAN, Duration: 30 day, Stop date: 8:10:00 ENERGY AND CONSERVATION TECHNICIAN Notes: (Same as:Chronulac) Start Date: 07/04/16 Stop Date: 07/10/16 Status: Discontinued Levaquin 500 mg oral tablet 500 mg = 1 tab, PO, Q24H, X 7 day, # 7 tab, 0 Refill(s) Start Date: 07/10/16 Stop Date: 07/17/16 Status: Ordered Lipitor 20 mg, 2 tab, Route: PO, Drug form: TAB, Bedtime, Start date: 06/30/16 21:00:00 ENERGY AND CONSERVATION TECHNICIAN, Duration: 30 day, Stop date: 07/29/16 21:00:00 ENERGY AND CONSERVATION TECHNICIAN Notes: (Same As: Lipitor) Start Date: 06/30/16 Stop Date: 07/10/16 Status: Discontinued Liquid Vitamin D-3 10,000 IntlUnit, PO, 0 Refill(s) Start Date: 06/30/16 Stop Date: 07/02/16 Status: Deleted LORazepam 1 mg, 1 tab, Route: PO, Drug form: TAB, TID, Dosing Weight 62.072, kg, PRN Anxie ty, Start date: 06/30/16 16:36:00 ENERGY AND CONSERVATION TECHNICIAN, Duration: 30 day, Stop date: 07/30/16 16: 35:00 ENERGY AND CONSERVATION TECHNICIAN Notes: (Same as: Ativan) Start Date: 06/30/16 Stop Date: 07/10/16 Status: Discontinued lovastatin 40 mg, Route: PO, Drug form: TAB, Bedtime, Dosing Weight 62.072, kg, Start date: 06/30/16 21:00:00 ENERGY AND CONSERVATION TECHNICIAN, Duration: 30 day, Stop date: 07/29/16 21:00:00 ENERGY AND CONSERVATION TECHNICIAN Start Date: 06/30/16 Stop Date: 06/30/16 Status: Deleted lovastatin 40 mg oral tablet 40 mg = 1 tab, PO, Bedtime, # 30 tab, 0 Refill(s) Start Date: 06/30/16 Status: Ordered magnesium oxide 400 mg, 1 tab, Route: PO, Drug form: TAB, BID, Dosing Weight 62.072, kg, Start d ate: 06/30/16 17:00:00 ENERGY AND CONSERVATION TECHNICIAN, Duration: 30 day, Stop date: 07/30/16 9:00:00 ENERGY AND CONSERVATION TECHNICIAN Notes: (Same as: Mag-Ox 400)Magnesium oxide [id number] elemental magnesiumDose= ____mg magnesium oxide (___mg elemental magnesium) Start Date: 06/30/16 Stop Date: 07/10/16 Status: Discontinued meropenem + sodium chloride 0.9% INJ 100 mL 1,000 mg, Route: IV, Q8H-01, Dosing Weight 62.727, kg, Start date: 06/30/16 9:00 :00 ENERGY AND CONSERVATION TECHNICIAN, Duration: 30 day, Stop date: 07/30/16 1:00:00 ENERGY AND CONSERVATION TECHNICIAN Notes: (Same as: Merrem) . MEDICATION WASTE Product Size: 1000 mgProduc t Wasted: ___ mgsend to 2E Start Date: 06/30/16 Stop Date: 06/30/16 Status: Discontinued meropenem + sodium chloride 0.9% INJ 100 mL 500 mg, Route: IVPB, ABXQ6H, Start date: 06/30/16 17:00:00 ENERGY AND CONSERVATION TECHNICIAN, Stop date: 07/30 11:00:00 ENERGY AND CONSERVATION TECHNICIAN Notes: Same as Merrem MEDICATION WASTE Product Size: 500 mgProduct Wast ed: ___ mg Start Date: 06/30/16 Stop Date: 07/10/16 Status: Discontinued metFORMIN 500 mg, PO, BID, 0 Refill(s) Start Date: 07/08/16 Status: Ordered metFORMIN 500 mg oral tablet 500 mg, 1 tab, Route: PO, Drug form: TAB, BID, Dosing Weight 62.072, kg, Start d ate: 07/08/16 17:42:00 ENERGY AND CONSERVATION TECHNICIAN, Duration: 30 day, Stop date: 08/07/16 17:00:00 ENERGY AND CONSERVATION TECHNICIAN Notes: (Same as: Glucophage) Take with meal Start Date: 07/08/16 Stop Date: 07/10/16 Status: Discontinued metFORMIN 500 mg oral tablet 500 mg, 1 tab, Route: PO, Drug form: TAB, Daily, Dosing Weight 62.072, kg, Start date: 07/01/16 9:00:00 ENERGY AND CONSERVATION TECHNICIAN, Duration: 30 day, Stop date: 07/30/16 9:00:00 ENERGY AND CONSERVATION TECHNICIAN Notes: (Same as: Glucophage) Take with meal Start Date: 07/01/16 Stop Date: 07/08/16 Status: Discontinued Microzide 12.5 mg, 1 cap, Route: PO, Drug form: CAP, Daily, Start date: 07/08/16 19:00:00 ENERGY AND CONSERVATION TECHNICIAN, Duration: 30 day, Stop date: 08/06/16 19:00:00 ENERGY AND CONSERVATION TECHNICIAN Notes: (Same as: Microzide) With food. Start Date: 07/08/16 Stop Date: 07/10/16 Status: Discontinued NexIUM 40 mg, Route: PO, Drug form: ECCAP, Daily, Dosing Weight 62.072, kg, Start date: 07/01/16 9:00:00 ENERGY AND CONSERVATION TECHNICIAN, Duration: 30 day, Stop date: 07/30/16 9:00:00 ENERGY AND CONSERVATION TECHNICIAN Start Date: 07/01/16 Stop Date: 06/30/16 Status: Deleted nystatin 100,000 units/mL oral suspension 500,000 unit, 5 mL, Route: S&SPIT, Drug form: SUSP, BID, Dosing Weight 62.072, kg, Start date: 07/07/16 17:00:00 ENERGY AND CONSERVATION TECHNICIAN, Duration: 30 day, Stop date: 08/06/16 9:00:00 ENERGY AND CONSERVATION TECHNICIAN Notes: (Same as:Mycostatin) Shake well. Start Date: 07/07/16 Stop Date: 07/10/16 Status: Discontinued nystatin topical 100,000 units/g cream 1 appl, Route: TOP, BID, Drug form: CRM, Start date: 07/05/16 17:00:00 ENERGY AND CONSERVATION TECHNICIAN, Dura tion: 30 day, Stop date: 08/04/16 9:00:00 ENERGY AND CONSERVATION TECHNICIAN Notes: (Same as:Mycostatin, Nilstat) For external use only. Start Date: 07/05/16 Stop Date: 07/10/16 Status: Discontinued omega-3 polyunsaturated fatty acids 1,000 mg, 2 cap, Route: PO, Drug form: CAP, Daily, Dosing Weight 62.072, kg, Sta rt date: 07/01/16 9:00:00 ENERGY AND CONSERVATION TECHNICIAN, Stop date: 07/30/16 9:00:00 ENERGY AND CONSERVATION TECHNICIAN Start Date: 07/01/16 Stop Date: 07/10/16 Status: Discontinued ondansetron 4 mg, Route: IVP, ONCE, Dosing Weight 62.727, kg, Priority: STAT, Start date: 3:03:00 ENERGY AND CONSERVATION TECHNICIAN, Stop date: 06/30/16 3:03:00 ENERGY AND CONSERVATION TECHNICIAN Start Date: 06/30/16 Stop Date: 06/30/16 Status: Discontinued ondansetron 4 mg, 2 mL, Route: IVP, Drug form: INJ, Q6H, Dosing Weight 62.727, kg, PRN Nause a & Vomiting, Start date: 06/30/16 8:50:00 ENERGY AND CONSERVATION TECHNICIAN, Duration: 30 day, Stop date: 07/30/16 8:49:00 ENERGY AND CONSERVATION TECHNICIAN Notes: (Same as: Zofran) MEDICATION WASTE Product Size: 4 mgProduct Was suresh: ___ mg Start Date: 06/30/16 Stop Date: 07/10/16 Status: Discontinued pneumococcal 13-valent vaccine 0.5 mL, Route: IM, Drug Form: INJ, Daily, Start date: 07/03/16 9:00:00 ENERGY AND CONSERVATION TECHNICIAN, Stop date: 07/03/16 23:00:00 ENERGY AND CONSERVATION TECHNICIAN Notes: Lightly roll vial (DO NOT SHAKE) before administration. (Same as: Prevna r 13) Start Date: 07/03/16 Stop Date: 07/03/16 Status: Completed potassium chloride 20 mEq oral tablet, extended release 20 mEq, 1 tab, Route: PO, Drug form: ERTAB, BID, Dosing Weight 62.072, kg, Start date: 06/30/16 17:00:00 ENERGY AND CONSERVATION TECHNICIAN, Duration: 30 day, Stop date: 07/30/16 9:00:00 ENERGY AND CONSERVATION TECHNICIAN Notes: (Same as: K-Dur 20)"Do Not Crush" With food and full glass of water Start Date: 06/30/16 Stop Date: 07/10/16 Status: Discontinued Protonix 40 mg, 1 tab, Route: PO, Drug form: ECTAB, Daily, Start date: 07/01/16 9:00:[address], Duration: 30 day, Stop date: 07/30/16 9:00:00 ENERGY AND CONSERVATION TECHNICIAN Notes: Tablet should not be chewed or crushed.(Same as: Protonix) Start Date: 07/01/16 Stop Date: 07/10/16 Status: Discontinued Saline Flush 0.9% 10 mL, Route: IVP, Drug Form: INJ, Dosing Weight 62.727, kg, PRN, PRN Line Flush , Start date: 06/30/16 3:03:00 ENERGY AND CONSERVATION TECHNICIAN, Duration: 30 day, Stop date: 07/30/16 3:02:0 0 ENERGY AND CONSERVATION TECHNICIAN Notes: (Same as: BD Posiflush) Start Date: 06/30/16 Stop Date: 07/10/16 Status: Discontinued Saline Flush 0.9% 10 ml, Route: IVP, Drug Form: INJ, Dosing Weight 62.727, kg, PRN, PRN Line Flush , Start date: 06/30/16 8:50:00 ENERGY AND CONSERVATION TECHNICIAN, Duration: 30 day, Stop date: 07/30/16 8:49:0 0 ENERGY AND CONSERVATION TECHNICIAN Notes: (Same as: BD Posiflush) Start Date: 06/30/16 Stop Date: 07/10/16 Status: Discontinued sertraline 50 mg, 1 tab, Route: PO, Drug form: TAB, Daily, Dosing Weight 62.072, kg, Start date: 07/01/16 9:00:00 ENERGY AND CONSERVATION TECHNICIAN, Duration: 30 day, Stop date: 07/30/16 9:00:00 ENERGY AND CONSERVATION TECHNICIAN Notes: (Same as: Zoloft) Start Date: 07/01/16 Stop Date: 07/01/16 Status: Discontinued sertraline 50 mg, 1 tab, Route: PO, Drug form: TAB, Daily, Dosing Weight 62.072, kg, Start date: 07/01/16 15:00:00 ENERGY AND CONSERVATION TECHNICIAN, Duration: 30 day, Stop date: 07/31/16 9:00:00 ENERGY AND CONSERVATION TECHNICIAN Notes: (Same as: Zoloft) Start Date: 07/01/16 Stop Date: 07/10/16 Status: Discontinued sertraline 50 mg oral tablet 50 mg = 1 tab, PO, Daily, # 30 tab, 0 Refill(s) Start Date: 06/30/16 Status: Ordered Sodium Chloride 0.9% (Bolus) IV 1,000 mL, Infuse Over: 1 hr, Route: IV, ONCE, Priority: STAT, Dosing Weight 62.7 27 kg, Start date: 06/30/16 3:17:00 ENERGY AND CONSERVATION TECHNICIAN, Duration: 1 doses or times, Stop date: 06/30/16 3:17:00 ENERGY AND CONSERVATION TECHNICIAN Start Date: 06/30/16 Stop Date: 06/30/16 Status: Completed sodium chloride 0.9% 1000 ml INJ 1,000 mL 1,000 mL, Rate: 125 ml/hr, Infuse over: 8 hr, Route: IV, Dosing Weight 62.727 kg , Total Volume: 1,000, Start date: 06/30/16 3:03:00 ENERGY AND CONSERVATION TECHNICIAN, Duration: 30 day, Stop date: 07/30/16 3:02:00 ENERGY AND CONSERVATION TECHNICIAN Start Date: 06/30/16 Stop Date: 07/10/16 Status: Discontinued tramadol 50 mg oral tablet 50 mg, 1 tab, Route: PO, Drug form: TAB, Q4H, Dosing Weight 62.727, kg, PRN Pain Score 4-6, Priority: Routine, Start date: 06/30/16 7:31:00 ENERGY AND CONSERVATION TECHNICIAN, Duration: 30 da y, Stop date: 07/30/16 7:30:00 ENERGY AND CONSERVATION TECHNICIAN Notes: Not to exceed 400mg/day. (Same As: Ultram) Start Date: 06/30/16 Stop Date: 07/10/16 Status: Discontinued Tylenol 500 mg, PO, Q6H, 0 Refill(s) Start Date: 06/30/16 Status: Ordered vancomycin + sodium chloride 0.9% 250 mL INJ (for IV set) 250 mL 750 mg, Route: IVPB, ABXQ6H, Start date: 07/06/16 1:00:00 ENERGY AND CONSERVATION TECHNICIAN, Duration: 30 day, Stop date: 08/04/16 20:30:00 ENERGY AND CONSERVATION TECHNICIAN Notes: TIME CRITICAL MEDICATION(Same As: Vancocin)Infusion rate< 1000 mg: infuse over 1 [id number] - 1500 mg: infuse over 1.5 [id number] - 2000 mg: infuse over 2 hours> 2001 mg: infuse over 2.5 hours MEDICATION WASTE Product Size: 1000 mgProduct Wasted: ___ mg Start Date: 07/06/16 Stop Date: 07/10/16 Status: Discontinued vancomycin + sodium chloride 0.9% 250 mL INJ (for IV set) 250 mL 750 mg, Route: IV, ABXQ8H, Dosing Weight 62.072, kg, Start date: 07/04/16 18:00: 00 ENERGY AND CONSERVATION TECHNICIAN, Duration: 30 day, Stop date: 08/03/16 10:00:00 ENERGY AND CONSERVATION TECHNICIAN Notes: TIME CRITICAL MEDICATION(Same As: Vancocin)Infusion rate< 1000 mg: infuse over 1 [id number] - 1500 mg: infuse over 1.5 [id number] - 2000 mg: infuse over 2 hours> 2001 mg: infuse over 2.5 hours MEDICATION WASTE Product Size: 1000 mgProduct Wasted: ___ mg Start Date: 07/04/16 Stop Date: 07/05/16 Status: Discontinued Vitamin D3 2,000 IntlUnit, 2 tab, Route: PO, Drug form: TAB, Daily, Dosing Weight 62.072, k g, Start date: 07/01/16 9:00:00 ENERGY AND CONSERVATION TECHNICIAN, Duration: 30 day, Stop date: 07/30/16 9:00: 00 ENERGY AND CONSERVATION TECHNICIAN Notes: Same as : Vitamin D3 Start Date: 07/01/16 Stop Date: 07/10/16 Status: Discontinued Vitamin D3 2,000 unit, PO, Daily, 0 Refill(s) Start Date: 07/02/16 Status: Ordered Zofran 8 mg, Route: IVP, Drug form: INJ, ONCE, Dosing Weight 62.727, kg, Priority: STAT , Start date: 06/30/16 3:17:00 ENERGY AND CONSERVATION TECHNICIAN, Stop date: 06/30/16 3:17:00 ENERGY AND CONSERVATION TECHNICIAN Start Date: 06/30/16 Stop Date: 06/30/16 Status: Completed Zosyn 3.375 gm, Route: IVPB, ONCE, Dosing Weight 62.727, kg, Priority: STAT, Start kaiden e: 06/30/16 3:16:00 ENERGY AND CONSERVATION TECHNICIAN, Stop date: 06/30/16 3:16:00 ENERGY AND CONSERVATION TECHNICIAN Start Date: 06/30/16 Stop Date: 06/30/16 Status: Completed Results ELECTROLYTES 1 2 3 Most recent to oldest [Reference Range]: 141 mEq/L (07/10/16 7:20 AM) 143 mEq/L (07/07/16 6:25 AM) 137 mEq/L (07/05/16 5:55 AM) Sodium Lvl [135-145 mEq/L] 4.1 mEq/L (07/10/16 7:20 AM) 3.8 mEq/L (07/07/16 6:25 AM) 3.8 mEq/L (07/05/16 5:55 AM) Potassium Lvl [3.5-5.1 mEq/L] 104 mEq/L (07/10/16 7:20 AM) 108 mEq/L (07/07/16 6:25 AM) 99 mEq/L (07/05/16 5:55 AM) Chloride Lvl [95-109 mEq/L] 30 mEq/L (07/10/16 7:20 AM) 26 mEq/L (07/07/16 6:25 AM) 30 mEq/L (07/05/16 5:55 AM) CO2 [24-32 mEq/L] 11.1 mEq/L (07/10/16 7:20 AM) 12.8 mEq/L (07/07/16 6:25 AM) 11.8 mEq/L (07/05/16 5:55 AM) AGAP [10.0-20.0 mEq/L] CHEM PANEL 1 2 3 Most recent to oldest [Reference Range]: 0.55 mg/dL (07/10/16 7:20 AM) 0.58 mg/dL (07/07/16 6:25 AM) 0.64 mg/dL (07/05/16 5:55 AM) Creatinine Lvl [0.50-1.40 mg/dL] 105 mL/min/1.73m2 1 *NA* (07/10/16 7:20 AM) 103 mL/min/1.73m2 2 *NA* (07/07/16 6:25 AM) 100 mL/min/1.73m2 3 *NA* (07/05/16 5:55 AM) eGFR 13 mg/dL (07/10/16 7:20 AM) 12 mg/dL (07/07/16 6:25 AM) 10 mg/dL (07/05/16 5:55 AM) BUN [7-22 mg/dL] 20 (06/30/16 3:48 AM) B/C Ratio [6-25] 102 mg/dL *HI* (07/10/16 7:20 AM) 100 mg/dL *HI* (07/07/16 6:25 AM) 117 mg/dL *HI* (07/05/16 5:55 AM) Glucose Lvl [70-99 mg/dL] 6.9 g/dL (06/30/16 3:48 AM) Total Protein [6.4-8.4 g/dL] 3.8 g/dL (06/30/16 3:48 AM) Albumin Lvl [3.5-5.0 g/dL] 3.1 g/dL (06/30/16 3:48 AM) Globulin [2.7-4.2 g/dL] 1.2 (06/30/16 3:48 AM) A/G Ratio [0.7-1.6] 8.8 mg/dL (07/10/16 7:20 AM) 8.6 mg/dL (07/07/16 6:25 AM) 8.4 mg/dL *LOW* (07/05/16 5:55 AM) Calcium Lvl [8.5-10.5 mg/dL] 30 unit/L (06/30/16 3:48 AM) ALT [0-65 unit/L] 14 unit/L (06/30/16 3:48 AM) AST [0-37 unit/L] 72 unit/L (06/30/16 3:48 AM) Alk Phos [39-136 unit/L] 0.4 mg/dL (06/30/16 3:48 AM) Bili Total [0.2-1.3 mg/dL] 1.0 mMol/L (06/30/16 3:48 AM) Lactic Acid Lvl [0.5-2.2 mMol/L] 1Result Comment: The eGFR is calculated using the [...] from the National Kidney Disease Education Program ( NKDEP) which additionally recommends that when the eGFR is used in patients with extremes of body mass index for purposes of drug dosing, the eGFR should be mul tiplied by the estimated BMI. 2Result Comment: The eGFR is calculated using the [...] from the National Kidney Disease Education Program ( NKDEP) which additionally recommends that when the eGFR is used in patients with extremes of body mass index for purposes of drug dosing, the eGFR should be mul tiplied by the estimated BMI. 3Result Comment: The eGFR is calculated using the [...] from the National Kidney Disease Education Program ( NKDEP) which additionally recommends that when the eGFR is used in patients with extremes of body mass index for purposes of drug dosing, the eGFR should be mul tiplied by the estimated BMI. TOXICOLOGY 1 2 3 Most recent to oldest [Reference Range]: 0 *NA* (07/07/16 6:25 AM) 0 *NA* (07/05/16 5:54 PM) Vanco Tr TND 20.6 ug/ml *NA* (07/07/16 6:25 AM) 10.1 ug/ml *NA* (07/05/16 5:54 PM) Vanco Tr URINE AND STOOL 1 2 3 Most recent to oldest [Reference Range]: Clear (06/30/16 3:35 AM) UA Turbidity [Clear] Ltyellow *NA* (06/30/16 3:35 AM) UA Color 7.0 (06/30/16 3:35 AM) UA pH [5.0-8.0] 1.005 (06/30/16 3:35 AM) UA Spec Grav [<=1.030] Negative mg/dL *NA* (06/30/16 3:35 AM) UA Glucose [Negative mg/dL] Negative (06/30/16 3:35 AM) UA Blood [Negative] Negative mg/dL *NA* (06/30/16 3:35 AM) UA Ketones [Negative mg/dL] Negative mg/dL (06/30/16 3:35 AM) UA Protein [Negative mg/dL] <=1.0 mg/dL *NA* (06/30/16 3:35 AM) UA Urobilinogen [0.1-1.0 mg/dL] Negative *NA* (06/30/16 3:35 AM) UA Bili [Negative] Small *ABN* (06/30/16 3:35 AM) UA Leuk Est [Negative] Negative (06/30/16 3:35 AM) UA Nitrite [Negative] 10 /HPF *HI* (06/30/16 3:35 AM) UA WBC [0-5 /HPF] 1 /HPF (06/30/16 3:35 AM) UA RBC [0-2 /HPF] Occasional /HPF *NA* (06/30/16 3:35 AM) UA Bacteria [None Seen /HPF] Occasional /LPF *NA* (06/30/16 3:35 AM) UA Sq Epi [Few /LPF] Negative (07/05/16 6:24 PM) Occult Bld Stl [Negative] HEMATOLOGY 1 2 3 Most recent to oldest [Reference Range]: 4.9 K/CMM (07/10/16 7:20 AM) 4.7 K/CMM (07/07/16 6:25 AM) 6.8 K/CMM (07/05/16 5:55 AM) WBC [3.7-10.4 K/CMM] 2.68 M/CMM *LOW* (07/10/16 7:20 AM) 2.57 M/CMM *LOW* (07/07/16 6:25 AM) 2.62 M/CMM *LOW* (07/05/16 5:55 AM) RBC [4.20-5.40 M/CMM] 8.3 g/dL *LOW* (07/10/16 7:20 AM) 7.9 g/dL *LOW* (07/07/16 6:25 AM) 8.3 g/dL *LOW* (07/05/16 5:55 AM) Hgb [12.0-16.0 g/dL] 24.5 % *LOW* (07/10/16 7:20 AM) 23.4 % *LOW* (07/07/16 6:25 AM) 23.8 % *LOW* (07/05/16 5:55 AM) Hct [36.0-48.0 %] 91.7 fL (07/10/16 7:20 AM) 91.0 fL (07/07/16 6:25 AM) 90.7 fL (07/05/16 5:55 AM) MCV [80.0-98.0 fL] 31.1 pg *HI* (07/10/16 7:20 AM) 30.7 pg (07/07/16 6:25 AM) 31.7 pg *HI* (07/05/16 5:55 AM) MCH [27.0-31.0 pg] 33.9 g/dL (07/10/16 7:20 AM) 33.8 g/dL (07/07/16 6:25 AM) 35.0 g/dL (07/05/16 5:55 AM) MCHC [32.0-36.0 g/dL] 13.3 % (07/10/16 7:20 AM) 13.1 % (07/07/16 6:25 AM) 13.0 % (07/05/16 5:55 AM) RDW [11.5-14.5 %] 369 K/CMM (07/10/16 7:20 AM) 290 K/CMM (07/07/16 6:25 AM) 276 K/CMM (07/05/16 5:55 AM) Platelet [133-450 K/CMM] 7.0 fL *LOW* (07/10/16 7:20 AM) 6.6 fL *LOW* (07/07/16 6:25 AM) 6.6 fL *LOW* (07/05/16 5:55 AM) MPV [7.4-10.4 fL] 66.5 % (07/10/16 7:20 AM) 67.3 % (07/07/16 6:25 AM) 82.7 % *HI* (07/05/16 5:55 AM) Segs [45.0-75.0 %] 23.8 % (07/10/16 7:20 AM) 20.3 % (07/07/16 6:25 AM) 9.0 % *LOW* (07/05/16 5:55 AM) Lymphocytes [20.0-40.0 %] 6.7 % (07/10/16 7:20 AM) 8.7 % (07/07/16 6:25 AM) 6.6 % (07/05/16 5:55 AM) Monocytes [2.0-12.0 %] 2.4 % (07/10/16 7:20 AM) 3.1 % (07/07/16 6:25 AM) 1.5 % (07/05/16 5:55 AM) Eosinophils [0.0-4.0 %] 0.6 % (07/10/16 7:20 AM) 0.6 % (07/07/16 6:25 AM) 0.2 % (07/05/16 5:55 AM) Basophils [0.0-1.0 %] 3.2 K/CMM (07/10/16 7:20 AM) 3.2 K/CMM (07/07/16 6:25 AM) 5.6 K/CMM (07/05/16 5:55 AM) Segs-Bands # [1.5-8.1 K/CMM] 1.1 K/CMM (07/10/16 7:20 AM) 1.0 K/CMM (07/07/16 6:25 AM) 0.6 K/CMM *LOW* (07/05/16 5:55 AM) Lymphocytes # [1.0-5.5 K/CMM] 0.3 K/CMM (07/10/16 7:20 AM) 0.4 K/CMM (07/07/16 6:25 AM) 0.4 K/CMM (07/05/16 5:55 AM) Monocytes # [0.0-0.8 K/CMM] 0.1 K/CMM (07/10/16 7:20 AM) 0.1 K/CMM (07/07/16 6:25 AM) 0.1 K/CMM (07/05/16 5:55 AM) Eosinophils # [0.0-0.5 K/CMM] Immunizations Not Given Vaccine Date Status Refusal Reason pneumococcal 13-valent vaccine 07/03/16 Not Given Parent Or Guardian Refuses Procedures Procedure Date Related Diagnosis Body Site Bone marrow operations1 Cholecystectomy Gallbladder operation2 Hysterectomy Tonsillectomy 1transplant 2removed Social History Social History Type Response Exercise Exercise duration: 20. Exe rcise frequency: Daily. Exercise type: Walking. Employment/School Status: Retired. Other: li ves with self, , pets 0, kids 2. Alcohol Never Smoking Status Former smoker; Type: Cigare ttes; Ready to change: No; Concerns about tobacco use in household: No; Exposure to Tobacco Smoke None; Cigarette Smoking Last 365 Days No; Reg Smoking C essation Counseling No Assessment and Plan No data available for this section
--- OUTSIDE RECORDS SUMMARY | 2020-01-27 21:02 | XMS REPORT | Summary of Care ---
Author Author [facility] Outpatient Imaging - [facility] Organization [facility] Outpatient Imaging - [facility] Address Unknown Phone Unavailable Encounter HQ Jairo(FIN) [id number] Date(s): 06/17/15 - 06/17/15 [facility] Outpatient Imaging - [facility] [address] [place] [address] [phone] Discharge Disposition: Home Attending Physician: Jakub Villanueva MD Vital Signs No data available for this section Problem List Condition Effective Dates Status Health Status Informan t Hypercalcemia1 Active Hyperlipidemia2 Active Osteoporosis3 11/10/14 Active Pituitary adenoma4 Active Type [...] Alerts Substance Reaction Severity Status codeine Active methylPREDNISolone1 Active penicillins2 Active phenytoin3 Active 1Data migrated from [employer] on12/16/14. Originally documented as SOLU-MEDROL. 2Data migrated from [employer] on 01/07/15. Originally documented as PENICILLIN. 3Data migrated from [employer] on12/16/14. Originally documented as DILANTIN. Medications No data available for this section Results No data available for this section Immunizations No data available for this section Procedures Procedure Date Related Diagnosis Body Site Bone marrow operations1 Cholecystectomy Gallbladder operation2 Hysterectomy Tonsillectomy 1transplant 2removed Social History Social History Type Response Exercise Exercise duration: 20. Exe rcise frequency: Daily. Exercise type: Walking. Employment/School Status: Retired. Other: li ves with self, , pets 0, kids 2. Alcohol Never Smoking Status Never smoker; Exposure to T obacco Smoke None; Cigarette Smoking Last 365 Days No; Reg Smoking Cessation Counseli ng No Assessment and Plan No data available for this section
--- OUTSIDE RECORDS SUMMARY | 2020-01-27 21:02 | XMS REPORT | CCD ---
Author Author [employer] , SEPTEMBER Organization [facility] Outpatient Imaging - Andrez izquierdo Address Unknown Phone Unavailable Care Team Providers Care Oracle E Business Developer Name Role Phone Ruslan Hdez CP Allergies, Adverse Reactions, Alerts Substance Reaction Status codeine Active
--- OUTSIDE RECORDS SUMMARY | 2020-01-27 21:03 | XMS REPORT | Summary of Care ---
Author Author [facility] Organization [facility] Address Unknown Phone Unavailable Encounter VAL Gill(KEVIN) [id number] Date(s): 07/30/16 - 07/30/16 [facility] [address] [place] [address]- Discharge Diagnosis: Kidney stone on right side Discharge Disposition: Home or Self Care Attending Physician: Kris Chan MD Vital Signs 1 2 3 Most recent to oldest [Reference Range]: 165.1 cm (07/30/16 12:49 AM) Height 98.4 DegF (07/30/16 4:44 AM) 98.6 DegF (07/30/16 3:52 AM) 98.8 DegF (07/30/16 2:00 AM) Temperature Oral [96.4-99.1 DegF] 111/76 mmHg (07/30/16 4:44 AM) 110/56 mmHg (07/30/16 4:22 AM) 118/94 mmHg (07/30/16 3:52 AM) Blood Pressure [90-140/60-90 mmHg] 18 BRMIN (07/30/16 4:44 AM) 18 BRMIN (07/30/16 4:22 AM) 17 BRMIN (07/30/16 3:52 AM) Respiratory Rate [14-20 BRMIN] 85 bpm (07/30/16 4:44 AM) 78 bpm (07/30/16 4:22 AM) 72 bpm (07/30/16 3:52 AM) Peripheral Pulse Rate [60-100 bpm] 65.909 kg (07/30/16 12:49 AM) Weight 24.18 m2 (07/30/16 12:49 AM) Body Mass Index Problem List Condition [...] Centricity on12/16/14. Originally documented as DILANTIN. Medications Macrobid 100 mg oral capsule 100 mg = 1 cap, PO, BID, X 7 day, # 14 cap, 0 Refill(s) Start Date: 07/30/16 Stop Date: 08/06/16 Status: Ordered morphine Sulfate 4 mg, Route: IVP, ONCE, Dosing Weight 65.909, kg, Priority: STAT, Start date: 1:54:00 SURVEY DIRECTOR, Stop date: 07/30/16 1:54:00 SURVEY DIRECTOR Start Date: 07/30/16 Stop Date: 07/30/16 Status: Completed Saline Flush 0.9% 10 mL, Route: IVP, Drug Form: INJ, Dosing Weight 65.909, kg, PRN, PRN Line Flush , Start date: 07/30/16 1:51:00 SURVEY DIRECTOR, Duration: 30 day, Stop date: 08/29/16 2:50:0 0 CDT Start Date: 07/30/16 Stop Date: 07/30/16 Status: Discontinued Sodium Chloride 0.9% (Bolus) IV 1,000 mL, 2,000 ml/hr, Infuse Over: 30 minutes, Route: IV, ONCE, Priority: STAT, Dosing Weight 65.909 kg, Start date: 07/30/16 1:51:00 SURVEY DIRECTOR, Duration: 1 doses or times, Stop date: 07/30/16 1:51:00 SURVEY DIRECTOR Start Date: 07/30/16 Stop Date: 07/30/16 Status: Completed tramadol 50 mg oral tablet 50 mg = 1 tab, PO, Q6H, PRN Pain, X 5 day, # 20 tab, 0 Refill(s) Start Date: 07/30/16 Stop Date: 08/04/16 Status: Ordered Zofran 4 mg, Route: IVP, Drug form: INJ, ONCE, Dosing Weight 65.909, kg, Priority: STAT , Start date: 07/30/16 1:54:00 SURVEY DIRECTOR, Stop date: 07/30/16 1:54:00 SURVEY DIRECTOR Start Date: 07/30/16 Stop Date: 07/30/16 Status: Completed Results ELECTROLYTES Most recent to 1 oldest [Reference Range]: Sodium Lvl [135-145 136 mEq/L mEq/L] (07/30/16 2:05 AM) Potassium Lvl 4.1 mEq/L [3.5-5.1 mEq/L] (07/30/16 2:05 AM) Chloride Lvl [95-109 97 mEq/L mEq/L] (07/30/16 2:05 AM) CO2 [24-32 mEq/L] 29 mEq/L (07/30/16 2:05 AM) AGAP [10.0-20.0 14.1 mEq/L mEq/L] (07/30/16 2:05 AM) CHEM PANEL Most recent to 1 oldest [Reference Range]: Creatinine Lvl 0.69 mg/dL [0.50-1.40 mg/dL] (07/30/16 2:05 AM) eGFR 98 mL/min/1.73m2 1 *NA* (07/30/16 2:05 AM) BUN [7-22 mg/dL] 19 mg/dL (07/30/16 2:05 AM) B/C Ratio [6-25] 28 *HI* (07/30/16 2:05 AM) Glucose Lvl [70-99 107 mg/dL mg/dL] *HI* (07/30/16 2:05 AM) Total Protein 7.0 g/dL [6.4-8.4 g/dL] (07/30/16 2:05 AM) Albumin Lvl [3.5-5.0 3.4 g/dL g/dL] *LOW* (07/30/16 2:05 AM) Globulin [2.7-4.2 3.6 g/dL g/dL] (07/30/16 2:05 AM) A/G Ratio [0.7-1.6] 0.9 (07/30/16 2:05 AM) Calcium Lvl 8.8 mg/dL [8.5-10.5 mg/dL] (07/30/16 2:05 AM) ALT [0-65 unit/L] 40 unit/L (07/30/16 2:05 AM) AST [0-37 unit/L] 31 unit/L (07/30/16 2:05 AM) Alk Phos [39-136 114 unit/L unit/L] (07/30/16 2:05 AM) Bili Total [0.2-1.3 0.2 mg/dL mg/dL] (07/30/16 2:05 AM) Lipase Lvl [73-393 253 unit/L unit/L] (07/30/16 2:05 AM) 1Result Comment: The eGFR is calculated using [...] be mul tiplied by the estimated BMI. URINE AND STOOL Most recent to 1 oldest [Reference Range]: UA Turbidity [Clear] Clear (07/30/16 1:30 AM) UA Color Ltyellow *NA* (07/30/16 1:30 AM) UA pH [5.0-8.0] 6.0 (07/30/16 1:30 AM) UA Spec Grav 1.008 [<=1.030] (07/30/16 1:30 AM) UA Glucose [Negative Negative mg/dL mg/dL] *NA* (07/30/16 1:30 AM) UA Blood [Negative] Negative (07/30/16 1:30 AM) UA Ketones [Negative Negative mg/dL mg/dL] *NA* (07/30/16 1:30 AM) UA Protein [Negative Negative mg/dL mg/dL] (07/30/16 1:30 AM) UA Urobilinogen <=1.0 mg/dL [0.1-1.0 mg/dL] *NA* (07/30/16 1:30 AM) UA Bili [Negative] Negative *NA* (07/30/16 1:30 AM) UA Leuk Est Trace [Negative] *ABN* (07/30/16 1:30 AM) UA Nitrite Negative [Negative] (07/30/16 1:30 AM) UA WBC [0-5 /HPF] 2 /HPF (07/30/16 1:30 AM) UA RBC [0-2 /HPF] <1 /HPF (07/30/16 1:30 AM) UA Sq Epi None Seen *NA* (07/30/16 1:30 AM) HEMATOLOGY Most recent to 1 oldest [Reference Range]: WBC [3.7-10.4 K/CMM] 8.4 K/CMM (07/30/16 2:05 AM) RBC [4.20-5.40 3.10 M/CMM M/CMM] *LOW* (07/30/16 2:05 AM) Hgb [12.0-16.0 g/dL] 9.4 g/dL *LOW* (07/30/16 2:05 AM) Hct [36.0-48.0 %] 27.7 % *LOW* (07/30/16 2:05 AM) MCV [80.0-98.0 fL] 89.2 fL (07/30/16 2:05 AM) MCH [27.0-31.0 pg] 30.5 pg (07/30/16 2:05 AM) MCHC [32.0-36.0 34.2 g/dL g/dL] (07/30/16 2:05 AM) RDW [11.5-14.5 %] 13.4 % (07/30/16 2:05 AM) Platelet [133-450 211 K/CMM K/CMM] (07/30/16 2:05 AM) MPV [7.4-10.4 fL] 7.1 fL *LOW* (07/30/16 2:05 AM) Segs [45.0-75.0 %] 70.0 % (07/30/16 2:05 AM) Lymphocytes 17.7 % [20.0-40.0 %] *LOW* (07/30/16 2:05 AM) Monocytes [2.0-12.0 8.3 % %] (07/30/16 2:05 AM) Eosinophils [0.0-4.0 3.5 % %] (07/30/16 2:05 AM) Basophils [0.0-1.0 0.5 % %] (07/30/16 2:05 AM) Segs-Bands # 5.9 K/CMM [1.5-8.1 K/CMM] (07/30/16 2:05 AM) Lymphocytes # 1.5 K/CMM [1.0-5.5 K/CMM] (07/30/16 2:05 AM) Monocytes # [0.0-0.8 0.7 K/CMM K/CMM] (07/30/16 2:05 AM) Eosinophils # 0.3 K/CMM [0.0-0.5 K/CMM] (07/30/16 2:05 AM) Immunizations Not Given Vaccine Date Status Refusal [...]
--- OUTSIDE RECORDS SUMMARY | 2020-01-27 21:03 | XMS REPORT | Summary of Care ---
Author Author [facility] Organization [facility] Address Unknown Phone Unavailable Encounter VAL Gill(KEVIN) [id number] Date(s): 07/27/16 - 07/28/16 [facility] [address] [place] [address]- Discharge Diagnosis: Systemic viral illness Discharge Diagnosis: Generalized weakness Discharge Diagnosis: Malaise and fatigue Discharge Diagnosis: Elevated blood pressure Discharge Diagnosis: Common cold Discharge Disposition: Home or Self Care Attending Physician: Lai Jacobs MD Vital Signs 1 2 3 Most recent to oldest [Reference Range]: 172.72 cm (07/27/16 6:26 PM) Height 98.6 DegF (07/28/16 12:11 AM) 98.6 DegF (07/27/16 11:28 PM) 98.3 DegF (07/27/16 8:00 PM) Temperature Oral [96.4-99.1 DegF] 118/60 mmHg (07/28/16 12:11 AM) 117/61 mmHg (07/27/16 11:28 PM) 117/61 mmHg (07/27/16 10:26 PM) Blood Pressure [90-140/60-90 mmHg] 16 BRMIN (07/28/16 12:11 AM) 16 BRMIN (07/27/16 11:28 PM) 16 BRMIN (07/27/16 10:26 PM) Respiratory Rate [14-20 BRMIN] 83 bpm (07/28/16 12:11 AM) 88 bpm (07/27/16 11:28 PM) 85 bpm (07/27/16 10:26 PM) Peripheral Pulse Rate [60-100 bpm] 72.727 kg (07/27/16 6:26 PM) Weight 24.38 m2 (07/27/16 6:26 PM) Body Mass Index Problem List Condition Effective [...] Centricity on12/16/14. Originally documented as DILANTIN. Medications fentaNYL 50 microgram, Route: IVP, ONCE, Dosing Weight 72.727, kg, Priority: STAT, Start date: 07/27/16 22:20:00 COMB FIXER, Stop date: 07/27/16 22:20:00 COMB FIXER Start Date: 07/27/16 Stop Date: 07/27/16 Status: Completed ondansetron 4 mg, 2 mL, Route: IVP, Drug form: INJ, ONCE, Dosing Weight 72.727, kg, Priority : STAT, Start date: 07/27/16 18:36:00 COMB FIXER, Stop date: 07/27/16 18:36:00 COMB FIXER Notes: (Same as: Zofran) MEDICATION WASTE Product Size: 4 mgProduct Was suresh: ___ mg Start Date: 07/27/16 Stop Date: 07/27/16 Status: Completed Saline Flush 0.9% 10 mL, Route: IVP, Drug Form: INJ, Dosing Weight 72.727, kg, PRN, PRN Line Flush , Start date: 07/27/16 18:36:00 COMB FIXER, Duration: 30 day, Stop date: 08/26/16 19:35 :00 CDT Notes: (Same as: BD Posiflush) Start Date: 07/27/16 Stop Date: 07/28/16 Status: Discontinued Sodium Chloride 0.9% (Bolus) IV 1,000 mL, 2,000 ml/hr, Infuse Over: 30 minutes, Route: IV, 1,000, Drug form: INJ , ONCE, Priority: STAT, Dosing Weight 72.727 kg, Start date: 07/27/16 18:36:[address], Duration: 1 doses or times, Stop date: 07/27/16 18:36:00 COMB FIXER Start Date: 07/27/16 Stop Date: 07/27/16 Status: Completed sodium chloride 0.9% 1000 ml INJ 1,000 mL 1,000 mL, Rate: 125 ml/hr, Infuse over: 8 hr, Route: IV, Dosing Weight 72.727 kg , Total Volume: 1,000, Start date: 07/27/16 18:36:00 COMB FIXER, Duration: 30 day, Stop date: 08/26/16 18:35:00 CDT Start Date: 07/27/16 Stop Date: 07/28/16 Status: Discontinued tramadol 50 mg oral tablet 50 mg = 1 tab, PO, Q6H, PRN Pain, X 10 day, # 40 tab, 0 Refill(s) Start Date: 07/27/16 Stop Date: 08/06/16 Status: Ordered Zofran ODT 8 mg oral tablet, disintegrating 8 mg = 1 tab, PO, TID, PRN Nausea and Vomiting, Dissolve tab under tongue, X 4 d ay, # 30 tab, 0 Refill(s) Start Date: 07/27/16 Stop Date: 07/31/16 Status: Ordered Results ELECTROLYTES Most recent to 1 oldest [Reference Range]: Sodium Lvl [135-145 138 mEq/L mEq/L] (07/27/16 6:53 PM) Potassium Lvl 3.7 mEq/L [3.5-5.1 mEq/L] (07/27/16 6:53 PM) Chloride Lvl [95-109 98 mEq/L mEq/L] (07/27/16 6:53 PM) CO2 [24-32 mEq/L] 31 mEq/L (07/27/16 6:53 PM) AGAP [10.0-20.0 12.7 mEq/L mEq/L] (07/27/16 6:53 PM) CHEM PANEL Most recent to 1 oldest [Reference Range]: Creatinine Lvl 0.74 mg/dL [0.50-1.40 mg/dL] (07/27/16 6:53 PM) eGFR 91 mL/min/1.73m2 1 *NA* (07/27/16 6:53 PM) BUN [7-22 mg/dL] 13 mg/dL (07/27/16 6:53 PM) B/C Ratio [6-25] 18 (07/27/16 6:53 PM) Glucose Lvl [70-99 118 mg/dL mg/dL] *HI* (07/27/16 6:53 PM) Total Protein 7.4 g/dL [6.4-8.4 g/dL] (07/27/16 6:53 PM) Albumin Lvl [3.5-5.0 3.7 g/dL g/dL] (07/27/16 6:53 PM) Globulin [2.7-4.2 3.7 g/dL g/dL] (07/27/16 6:53 PM) A/G Ratio [0.7-1.6] 1.0 (07/27/16 6:53 PM) Calcium Lvl 9.3 mg/dL [8.5-10.5 mg/dL] (07/27/16 6:53 PM) ALT [0-65 unit/L] 44 unit/L (07/27/16 6:53 PM) AST [0-37 unit/L] 24 unit/L (07/27/16 6:53 PM) Alk Phos [39-136 111 unit/L unit/L] (07/27/16 6:53 PM) Bili Total [0.2-1.3 0.6 mg/dL mg/dL] (07/27/16 6:53 PM) Amylase Lvl [25-115 20 unit/L unit/L] *LOW* (07/27/16 6:53 PM) Lipase Lvl [73-393 179 unit/L unit/L] (07/27/16 6:53 PM) 1Result Comment: The eGFR is calculated using [...] be mul tiplied by the estimated BMI. CARDIAC ENZYMES Most recent to 1 oldest [Reference Range]: Total CK [12-191 49 unit/L unit/L] (07/27/16 6:53 PM) URINE AND STOOL Most recent to 1 oldest [Reference Range]: UA Turbidity [Clear] Clear (07/27/16 6:53 PM) UA Color Ltyellow *NA* (07/27/16 6:53 PM) UA pH [5.0-8.0] 7.0 (07/27/16 6:53 PM) UA Spec Grav 1.011 [<=1.030] (07/27/16 6:53 PM) UA Glucose [Negative Negative mg/dL mg/dL] *NA* (07/27/16 6:53 PM) UA Blood [Negative] Negative (07/27/16 6:53 PM) UA Ketones [Negative Negative mg/dL mg/dL] *NA* (07/27/16 6:53 PM) UA Protein [Negative Negative mg/dL mg/dL] (07/27/16 6:53 PM) UA Urobilinogen <=1.0 mg/dL [0.1-1.0 mg/dL] *NA* (07/27/16 6:53 PM) UA Bili [Negative] Negative *NA* (07/27/16 6:53 PM) UA Leuk Est Trace [Negative] *ABN* (07/27/16 6:53 PM) UA Nitrite Negative [Negative] (07/27/16 6:53 PM) UA WBC [0-5 /HPF] 2 /HPF (07/27/16 6:53 PM) UA RBC [0-2 /HPF] 1 /HPF (07/27/16 6:53 PM) UA Bacteria [None Occasional /HPF Seen /HPF] *NA* (07/27/16 6:53 PM) UA Sq Epi [Few /LPF] Occasional /LPF *NA* (07/27/16 6:53 PM) HEMATOLOGY Most recent to 1 oldest [Reference Range]: WBC [3.7-10.4 K/CMM] 6.9 K/CMM (07/27/16 6:53 PM) RBC [4.20-5.40 3.32 M/CMM M/CMM] *LOW* (07/27/16 6:53 PM) Hgb [12.0-16.0 g/dL] 10.0 g/dL *LOW* (07/27/16 6:53 PM) Hct [36.0-48.0 %] 30.0 % *LOW* (07/27/16 6:53 PM) MCV [80.0-98.0 fL] 90.2 fL (07/27/16 6:53 PM) MCH [27.0-31.0 pg] 30.2 pg (07/27/16 6:53 PM) MCHC [32.0-36.0 33.5 g/dL g/dL] (07/27/16 6:53 PM) RDW [11.5-14.5 %] 13.6 % (07/27/16 6:53 PM) Platelet [133-450 203 K/CMM K/CMM] (07/27/16 6:53 PM) MPV [7.4-10.4 fL] 7.0 fL *LOW* (07/27/16 6:53 PM) Segs [45.0-75.0 %] 66.8 % (07/27/16 6:53 PM) Lymphocytes 20.7 % [20.0-40.0 %] (07/27/16 6:53 PM) Monocytes [2.0-12.0 9.3 % %] (07/27/16 6:53 PM) Eosinophils [0.0-4.0 2.5 % %] (07/27/16 6:53 PM) Basophils [0.0-1.0 0.7 % %] (07/27/16 6:53 PM) Segs-Bands # 4.6 K/CMM [1.5-8.1 K/CMM] (07/27/16 6:53 PM) Lymphocytes # 1.4 K/CMM [1.0-5.5 K/CMM] (07/27/16 6:53 PM) Monocytes # [0.0-0.8 0.6 K/CMM K/CMM] (07/27/16 6:53 PM) Eosinophils # 0.2 K/CMM [0.0-0.5 K/CMM] (07/27/16 6:53 PM) Basophils # [0.0-0.2 0.1 K/CMM K/CMM] (07/27/16 6:53 PM) PT [12.0-14.7 13.0 seconds seconds] (07/27/16 6:53 PM) INR [0.85-1.17] 0.96 (07/27/16 6:53 PM) VIRAL - SEROLOGY Most recent to 1 oldest [Reference Range]: Influ A [Negative] Negative (07/27/16 6:53 PM) Influ B [Negative] Negative (07/27/16 6:53 PM) Immunizations Not Given Vaccine Date Status Refusal [...]
--- OUTSIDE RECORDS SUMMARY | 2020-01-27 21:03 | XMS REPORT | Summary of Care ---
Author Author [facility] ospital Organization [facility] Address Unknown Phone Unavailable Encounter HQ Jairo(KEVIN) [id number] Date(s): 09/04/16 - 09/04/16 [facility] [address] [place] [address] [phone] Discharge Diagnosis: Syncope, near Discharge Diagnosis: Adverse drug reaction Discharge Disposition: Home or Self Care Attending Physician: Ten Tolentino MD Vital Signs Most recent to 1 2 oldest [Reference Range]: Height 167.64 cm (09/04/16 3:03 PM) Temperature Oral 98.2 DegF 97.9 DegF [96.4-99.1 DegF] (09/04/16 5:11 PM) (09/04/16 3:03 PM) Blood Pressure 132/68 mmHg 121/69 mmHg [90-140/60-90 mmHg] (09/04/16 5:11 PM) (09/04/16 3:03 PM) Respiratory Rate 20 BRMIN 18 BRMIN [14-20 BRMIN] (09/04/16 5:11 PM) (09/04/16 3:03 PM) Peripheral Pulse 99 bpm Rate [60-100 bpm] (09/04/16 3:03 PM) Weight 61.364 kg (09/04/16 3:03 PM) Body Mass Index 21.84 m2 (09/04/16 3:03 PM) Problem List Condition Effective Dates Status Health Status Informan t Acute UTI(Confirmed) 06/24/16 Resolved Anxiety(Confirmed) Resolved Diabetes(Confirmed) Resolved Diabetes Active mellitus(Confirmed) Hypercalcemia1 Active Hyperlipidemia2 Active Cancer(Confirmed) Resolved Depression(Confirmed [...] Centricity on12/16/14. Originally documented as DILANTIN. Medications NS (Bolus) IV 1,000 mL, 1,000 ml/hr, Infuse Over: 1 hr, Route: IV, ONCE, Priority: STAT, Dosin g Weight 61.364 kg, Start date: 09/04/16 15:25:00 CDT, Duration: 1 doses or time s, Stop date: 09/04/16 15:25:00 CDT Start Date: 09/04/16 Stop Date: 09/04/16 Status: Completed Tylenol 975 mg, Route: PO, Drug form: TAB, ONCE, Dosing Weight 61.364, kg, Priority: STA T, Start date: 09/04/16 16:20:00 CDT, Stop date: 09/04/16 16:20:00 CDT Start Date: 09/04/16 Stop Date: 09/04/16 Status: Completed Results ELECTROLYTES Most recent to 1 oldest [Reference Range]: Sodium Lvl [135-145 138 mEq/L mEq/L] (09/04/16 3:28 PM) Potassium Lvl 3.3 mEq/L [3.5-5.1 mEq/L] *LOW* (09/04/16 3:28 PM) Chloride Lvl [95-109 99 mEq/L mEq/L] (09/04/16 3:28 PM) CO2 [24-32 mEq/L] 32 mEq/L (09/04/16 3:28 PM) AGAP [10.0-20.0 10.3 mEq/L mEq/L] (09/04/16 3:28 PM) CHEM PANEL Most recent to 1 oldest [Reference Range]: Creatinine Lvl 0.85 mg/dL [0.50-1.40 mg/dL] (09/04/16 3:28 PM) eGFR 77 mL/min/1.73m2 1 *NA* (09/04/16 3:28 PM) BUN [7-22 mg/dL] 21 mg/dL (09/04/16 3:28 PM) Glucose Lvl [70-99 180 mg/dL mg/dL] *HI* (09/04/16 3:28 PM) Calcium Lvl 9.4 mg/dL [8.5-10.5 mg/dL] (09/04/16 3:28 PM) 1Result Comment: The eGFR is calculated [...] be mul tiplied by the estimated BMI. HEMATOLOGY Most recent to 1 oldest [Reference Range]: WBC [3.7-10.4 K/CMM] 9.3 K/CMM (09/04/16 3:28 PM) RBC [4.20-5.40 4.06 M/CMM M/CMM] *LOW* (09/04/16 3:28 PM) Hgb [12.0-16.0 g/dL] 12.1 g/dL (09/04/16 3:28 PM) Hct [36.0-48.0 %] 36.5 % (09/04/16 3:28 PM) MCV [80.0-98.0 fL] 89.9 fL (09/04/16 3:28 PM) MCH [27.0-31.0 pg] 29.7 pg (09/04/16 3:28 PM) MCHC [32.0-36.0 33.1 g/dL g/dL] (09/04/16 3:28 PM) RDW [11.5-14.5 %] 15.0 % *HI* (09/04/16 3:28 PM) Platelet [133-450 234 K/CMM K/CMM] (09/04/16 3:28 PM) MPV [7.4-10.4 fL] 7.0 fL *LOW* (09/04/16 3:28 PM) Segs [45.0-75.0 %] 87.0 % *HI* (09/04/16 3:28 PM) Lymphocytes 8.6 % [20.0-40.0 %] *LOW* (09/04/16 3:28 PM) Monocytes [2.0-12.0 3.8 % %] (09/04/16 3:28 PM) Eosinophils [0.0-4.0 0.4 % %] (09/04/16 3:28 PM) Basophils [0.0-1.0 0.2 % %] (09/04/16 3:28 PM) Segs-Bands # 8.1 K/CMM [1.5-8.1 K/CMM] (09/04/16 3:28 PM) Lymphocytes # 0.8 K/CMM [1.0-5.5 K/CMM] *LOW* (09/04/16 3:28 PM) Monocytes # [0.0-0.8 0.4 K/CMM K/CMM] (09/04/16 3:28 PM) Immunizations Not Given Vaccine Date Status [...]
--- OUTSIDE RECORDS SUMMARY | 2020-01-27 21:03 | XMS REPORT | Continuity of Care Document ---
Author Author [facility] t Organization [facility] Address [address] [place] [address] Phone Unavailable Care Team Providers Care Ophthalmologist Retina Specialist Name Role Phone YANET VILLANUEVA MD PCP BOCCARDO, LISA Attphys Unavailable Laina BISHOP Attphys Unavailable Zakia TYSON Attphys Unavailable TATIANA PRICE Attphys Unavailable Ten Tolentino Attphys Aurelio Chan Attphys Michele Jacobs Attphys [phone] Boccardo, Lisa Attphys Joseluis Villanueva Attphys Lynsey Camilo Attphys Boccardo, Lisa Admphys Payers Payer Name Policy Type Policy Number Effective Date Expiration Date Alcira siegel [facility] [id number] 2016 00:00:00 KELLY stewart [facility] [id number] 2015 00:00:00 KELLY Bell [facility] Problems Condition Name Condition Details Condition Category Status Onset Date Resolution Date Last Treatment Date Treating Clinician Comments Source DIZZINESS DIZZ INESS Active 09/04/2016 [facility] Diagnosis Active 2016-09-04 00:00:00 2016-09-04 16:06:00 [facility] FLANK PAIN FLAN K PAIN Active 07/30/2016 [facility] Active 2016-07-30 00:00:00 2016-07-30 19:59:00 [facility] FEVER FEVE R Active 07/27/2016 [facility] Active 2016-07-27 00:00:00 2016-07-30 19:59:00 [facility] N/V N/V Active 06/30/2016 [facility] Diagnosis Active 2016-06-30 00:00:00 2016-06-30 03:35:00 [facility] ACUTE PYELONEPHRITIS,RETROPERITONEAL INF ACUTE PYELONEPHRITIS,RETROPERITONEAL INF Active 06/30/2016 [facility] Diagnosis Active 2016-06-30 00:00:00 2016-12-06 15:28:00 [facility] Chest pain Chest pain Problem Active 2016-02-17 00:00:00 [facility] R31.9 - "HEMATURIA, UNSPECIFIED" R31.9 - "HEMATURIA, UNSPECIFIED" Active 06/14/2015 [facility] [place] Diagnosis Active 2015-06-14 00:01:00 2015-06-17 07:36:00 [facility] Osteoporosis (disorder) Oste oporosis (disorder) Active 11/10/2014 Problem 09/07/2016 Data migrated from [employer] on 12/15/14. CESAR [facility] Problem Active 2014-11-10 00:00:00 2016-09-07 04:05:46 [facility] Vitamin D deficiency (disorder) Vitamin D deficiency (disorder) Active 11/10/2014 Problem 09/07/2016 Data migrated from [employer] on 12/15/14. MCKENNAKt Argenis [facility] Problem Active 2014-11-10 0 0:00:00 2016-09-07 04:05:46 [facility] 780.93 - MEMORY LOSS 780. 93 - MEMORY LOSS Active 02/11/2014 OP[facility] [place] Diagnosis Active 2014-02-11 00:01:00 2014-03-22 15:53:00 [facility] 379.91 - PAIN IN OR AROU 379. 91 - PAIN IN OR AROU Active 03/09/2013 [facility] [place] Diagnosis Active 2013-03-09 00:01:00 2013-03-20 10:19:00 [facility] Anxiety (finding) Anxi ety (finding) Resolved Problem 09/07/2016 [facility] Problem Resolved 2016-09-07 04:05:46 [facility] Diabetes mellitus (disorder) D iabetes mellitus (disorder) Resolved Problem 09/07/2016 [facility] Problem Resolved 2016-09-07 04:05:46 [facility] Malignant neoplastic disease (disorder) Malignant neoplastic disease (disorder) Resolved Problem 09/07/2016 [facility] Problem Resolved 2016-09-07 04:05:46 [facility] [place] Depressive disorder (disorder) Depressive disorder (disorder) Resolved Problem 09/07/2016 [facility] Problem Resolved 2016-09-07 04:05:46 [facility] Neuropathy (disorder) Neur opathy (disorder) Resolved Problem 09/07/2016 [facility] Problem Resolved 2016-09-07 04:05: 46 [facility] Hypercalcemia (disorder) Hype rcalcemia (disorder) Active Problem 09/07/2016 Data migrated from [employer] on 12/15/14. [facility] Problem Active 2016-09-07 04:05:46 [facility] Hyperlipidemia (disorder) Hype rlipidemia (disorder) Active Problem 09/07/2016 Data migrated from [employer] on 12/15/14. [facility] Problem Active 2016-09-07 04:05:46 [facility] Pituitary adenoma (disorder) P ituitary adenoma (disorder) Active Problem 09/07/2016 Data mi grated from [employer] on 12/15/14. [facility] Problem Active 2016-09-07 04:05:4 6 [facility] Type II diabetes mellitus uncontrolled (finding) Type II diabetes mellitus uncontrolled (finding) Active Problem 09/07/2016 Data migrated from [employer] on 12/15/14. [facility] Problem Active 2016-09-07 04:05:46 [facility] ACUTE PYELONEPHRITIS ACUT E PYELONEPHRITIS Active [facility] Diagnosis Active 2016-12-06 15:28:00 Hi candido Lugo OTHER SPECIFIED DISORDERS OF PERITONEUM OTHER SPECIFIED DISORDERS OF PERITONEUM Active [facility] Diagnosis Active 2016-12-06 15:28:00 [facility] LOCALIZED ENLARGED LYMPH NODES LOCALIZED ENLARGED LYMPH NODES Active [facility] Diagnosis Active 2016-12-06 15:28 :00 [facility] Syncope and collapse Sync ope and collapse 09/04/2016 09/07/2016 [facility] Problem 2016-09-04 05:00:00 2016-09-07 04:0 5:46 2016-09-07 04:05:46 [facility] [place] Unspecified adverse effect of drug or medicament, init ial encounter Unspecified adverse effect of drug or medicament, initial encounter 09/04/2016 09/07/2016 [facility] Problem 2016-09-04 05:0 0:00 2016-09-07 04:05:46 2016-09-07 04:05:46 [facility] Dis[facility] Diagnosis: Kidney stone on right side Discharge Diagnosis: Kidney stone on right side 07/30/2016 08/02/2016 [facility] Problem 2016-07-30 06:00:00 2016-08-02 04:12:00 2016-07 04:12:00 [facility] [place] Discharge Diagnosis: Systemic viral illness Discharge Diagnosis: Systemic viral illness 07/27/2016 07/31/2016 [facility] Problem 2016-07-27 06:00:00 2016-07-31 02:12:19 2016-07-31 02:12:19 [facility] Discharge Diagnosis: Generalized weakness Discharge Diagnosis: Generalized weakness 07/27/2016 07/31/2016 [facility] Problem 2016-07-27 06:00:00 2016-07-31 02:12:19 2016-07-31 02:12:19 [facility] [place] Discharge Diagnosis: Malaise and fatigue Discharge Diagnosis: Malaise and fatigue 07/27/2016 07/31/2016 [facility] Problem 2016-07-27 06:00:00 2016-07-31 02:12:19 2016-07-31 02:12:19 [facility] Discharge Diagnosis: Elevated blood pressure Discharge Diagnosis: Elevated blood pressure 07/27/2016 07/31/2016 [facility] Problem 2016-07-27 06:00:00 2016-07-31 02:12:19 2016-07-31 02:12:19 [facility] [place] Discharge Diagnosis: Common cold Discharge Diagnosis: Common cold 07/27/2016 07/31/2016 [facility] Problem 20 27-07-16 06:00:00 2016-07-31 02:12:19 2016-07-31 02:12:19 [facility] History of Past Illness Condition Name Condition Details Condition Category Status Onset Date Resolution Date Last Treatment Date Treating Clinician Comments Source Acute urinary tract infection (disorder) Acute urinary tract infection (disorder) Resolved 06/24/2016 Problem 09/07/2016 [facility] Problem Resolved 2016-06-24 00:00:00 2016-09-07 04:05:46 2016-09-07 04:05:4 6 [facility] Allergies, Adverse Reactions, Alerts Allergy Name Allergy Type Status Severity Reaction(s) Onset Date Inacti ve Date Treating Clinician Comments Source hydromorphone HCl DA Active SV 2019-08-03 00:00:00 [facility] ketorolac tromethamine DA Active SV 2019-08-03 00:00:00 [facility] Penicillins DA Active SV 2019-08-03 00:00:00 [facility] iodine DA Active SV 2019-08-03 00:00:00 [facility] morphine DA Active SV 2019-08-03 00:00:00 [facility] hydromorphone HCl DA Active SV 2019-02-20 00:00:00 [facility] ketorolac tromethamine DA Active SV 2019-02-20 00:00:00 [facility] Penicillins DA Active SV 2019-02-20 00:00:00 [facility] iodine DA Active SV 2019-02-20 00:00:00 [facility] morphine DA Active SV 2019-02-20 00:00:00 [facility] hydromorphone HCl DA Active SV 2018-10-31 00:00:00 [facility] ketorolac tromethamine DA Active SV 2018-10-31 00:00:00 [facility] Penicillins DA Active SV 2018-10-31 00:00:00 [facility] iodine DA Active SV 2018-10-31 00:00:00 [facility] morphine DA Active SV 2018-10-31 00:00:00 [facility] hydromorphone HCl DA Active SV 2017-09-02 00:00:00 [facility] ketorolac tromethamine DA Active SV 2017-09-02 00:00:00 [facility] Penicillins DA Active SV 2017-09-02 00:00:00 [facility] iodine DA Active SV 2017-09-02 00:00:00 [facility] morphine DA Active 2017-09-02 00:00:00 [facility] hydromorphone HCl Allergy to Substance Active 2017-03-28 00 :00:00 [facility] ketorolac tromethamine Allergy to Substance Active 2016 00:00:00 [facility] Iodinated Contrast- Oral and IV Dye Allergy to Substance Active 2017-03-28 00:00:00 [facility] Penicillin Allergy to Substance Active 2017-03-28 00:00:00 [facility] methylPREDNISolone<sup>1</sup> methylPREDNISolone<sup>1</sup> Active 2014-11-10 05:00:00 Jonh kline penicillins<sup>2</sup> penicillins<sup>2</sup> Active 2014-11-10 05:00:00 Jonh Lugo phenytoin<sup>3</sup> phenytoin<sup>3</sup> Active 2014 05:00:00 [facility] codeine codeine Active [facility] Dilaudid Dilaudid Active Lia [facility] Social History Social Habit Start Date Stop Date Quantity Comments Source Sex Assigned At Abner reyes [employer] Social History 2015-05-02 21:27:43 2015-05-02 21:27:43 Jonh Lugo Medications Ordered Medication Name Filled Medication Name Start Date Stop Da te Current Medication? Ordering Clinician Indication Dosage Frequency Signature (SIG) Comments Components Source Tylenol 2016-09-04 21:20:00 No 975 mg, Route: PO, Drug form: TAB, ONCE, Dosing Weight 61.364, kg, Priority: STAT, Start date: 09/04/16 16:20:00 CDT, Stop date: 09/04/16 16:20:00 CDT Hi candido Lugo Sodium Chloride 0.154 MEQ/ML Injectable Solution 2016-09-04 20:2 5:00 No 1,000 mL, 1,000 ml/hr, Infus e Over: 1 hr, Route: IV, ONCE, Priority: STAT, Dosing Weight 61.364 kg, Start date: 09/04/16 15:25:00 CDT, Duration: 1 doses or times, Stop date: 09/04/16 15:25:00 CDT [facility] tramadol hydrochloride 50 MG Oral Tablet 2016-07-30 10:24:00 Yes 50 mg = 1 tab, PO, Q6H, PRN Pain, X 5 day, # 20 tab, 0 Refill(s) [facility] [place] Nitrofurantoin 100 MG Oral Capsule [Macrobid] 2016-07-30 10:24:0 0 Yes 100 mg = 1 cap, PO, BID, X 7 day, # 14 cap, 0 Refill(s) [facility] Zofran 2016-07-30 07:54:00 No 4 mg, Route: IVP, Drug form: INJ, ONCE, Dosing Weight 65.909, kg, Priority: STAT, Start date: 07/30/16 1:54:00 PE [employer]LECT[employer]ICAL [employer]INEER, Stop date: 07/30/16 1:54:00 PE ELECTRICAL ENGINE[employer] [facility] Morphine 2016-07-30 07:54:00 No 4 mg, Route: IVP, ONCE, Dosing Weight 65.909, kg, Priority: STAT, Start date: 07/30/16 1:54:00 PE [employer], Stop date: 07/30/16 1:54:00 PE ELECTRICAL ENGINEER [facility] Saline Flush 0.9% 2016-07-30 07:51:00 No 10 mL, Route: IVP, Drug Form: INJ, Dosing Weight 65.909, kg, PRN, PRN Line Flush, Start date: 07/30/16 1:51:00 [employer], Duration: 30 day, Stop date: 08/29/16 2:50:00 T [facility] Sodium Chloride 0.154 MEQ/ML Injectable Solution 2016-07-30 07:5 1:00 No 1,000 mL, 2,000 ml/hr, Infus e Over: 30 minutes, Route: IV, ONCE, Priority: STAT, Dosing Weight 65.909 kg, Start date: 07/30/16 1:51:00 [employer], Duration: 1 doses or times, Stop date: 07/30/16 1:51:00 PE ELECTRICAL ENGINEER [facility] tramadol hydrochloride 50 MG Oral Tablet 2016-07-28 05:05:00 Yes 50 mg = 1 tab, PO, Q6H, PRN Pain, X 10 day, # 40 tab, 0 Refill(s) Jonh Lugo Ondansetron 8 MG Disintegrating Tablet [Zofran] 2016-07-28 05:05 :00 Yes 8 mg = 1 tab, PO, TID, PRN N ausea and Vomiting, Dissolve tab under tongue, X 4 day, # 30 tab, 0 Refill(s) Jonh Patti he Fentanyl 2016-07-28 04:20:00 No 50 microgram, Route: IVP, ONCE, Dosing Weight 72.727, kg, Priority: STAT, Start date: 07/27/16 22:20:00 PE [employer]INEER, Stop date: 07/27/16 22:20:00 PE ELECTRICAL ENGINEER [facility] Ondansetron 2016-07-28 00:36:00 No Notes: (Same as: Zofran) MEDICATION WASTE Product Size: 4 mg Product Wasted: ___ mg Jonh Lugo Saline Flush 0.9% 2016-07-28 00:36:00 No Notes: (Same as: BD Posiflush) Jonh Lugo Sodium Chloride 0.154 MEQ/ML Injectable Solution 2016-07-28 00:3 6:00 No 1,000 mL, 2,000 ml/hr, Infus e Over: 30 minutes, Route: IV, 1,000, Drug form: INJ, ONCE, Priority: STAT, Dosing Weight 72.727 kg, Start date: 07/27/16 18:36:00 [employer], Duration: 1 doses or times, Stop date: 07/27/16 18:36:00 PE [employer]ICAL ENGINEER Jonh Lugo Levofloxacin 500 MG Oral Tablet [Levaquin] 2016-07-10 14:07:00 Yes 500 mg = 1 tab, PO, Q24H, X 7 day, # 7 tab, 0 Refill(s) Jonh Lugo Microzide 2016-07-09 01:00:00 No Notes: (Same as: Microzide) With food. Jonh Lugo Metformin hydrochloride 500 MG Oral Tablet 2016-07-08 23:42:00 No Notes: (Same as: Glucophage) Take with meal Jonh Lugo Hydrochlorothiazide 2016-07-08 23:41:00 No Notes: (Same as: Microzide) With food. Jonh Lugo Metformin 2016-07-08 23:38:00 Yes 500 mg, PO , BID, 0 Refill(s) Jonh Lugo Nystatin [id number] UNT/ML Oral Suspension 2016-07-07 23:00:00 No Notes: (Same as:Mycostatin) Shake well. Saritha Lugo RN-Do not give Vanc till trough drawn 07/07/16@ 6:30 2016-07-07 12:00:00 No RN-Do no t give Vanc till trough drawn 07/07/16@ 6:30, Attn:KAYLYN, Drug form: MISC, Route: MISC, ONCE, 07/07/16 6:00:00 PE [employer]LECT[employer]ICAL ENGINEER, Stop date: 07/07/16 6:00:00 PE [employer]LECT[employer]ICAL ENGINEER Jonh Lugo vancomycin + sodium chloride 0.9% 250 mL INJ (for IV set) 25 0 mL 2016-07-06 07:00:00 No 2001 mg: infuse over 2.5 hours MEDICATION WASTE Product Size: 1000 mg Product Wasted: ___ mg Jonh Lugo Nystatin [id number] UNT/ML Topical Cream 2016-07-05 23:00:00 No Notes: (Same as:Mycostatin, Nilstat) For external use only. Jonh Lugo RN-Do not give Vanc till trough drawn 07/05/16@ 17:30 2016-07-05 23:00:00 No RN-Do no t give Vanc till trough drawn 07/05/16@ 17:30, Attn:KAYLYN, Drug form: MISC, Route: MISC, ONCE, 07/05/16 17:00:00 PE ELECTRICAL ENGINEER, Stop date: 07/05/16 17:00:00 PE ELECTRICAL ENGINEER Lia Wise Vancomycin 2016-07-05 00:00:00 No 2001 mg: infuse over 2.5 hours MEDICATION WASTE Product Size: 1000 mg Product Wasted: ___ mg Jonh Lugo Azactam 2016-07-05 00:00:00 No Notes: (Same As: Azactam) Jonh Lugo Lactulose 667 MG/ML Oral Solution 2016-07-04 14:11:00 No Notes: (Same as:Chronulac) Jonh Lugo Streptococcus pneumoniae serotype 1 caps ular antigen diphtheria [id number] protein conjugate vaccine / Streptococcus pneumoniae serotype 14 capsular antigen diphtheria [id number] protein conjugate vaccine / Streptococcus pneumoniae serotype 18C capsular antigen d 2016-07-03 15:00:00 No Notes: Lightly roll vial (DO NOT SHAKE) before administration. (Same as: Prevnar 13) [facility] Vitamin D3 2016-07-02 20:02:00 Yes 2,000 unit, PO, Daily, 0 Refill(s) [facility] Sertraline 2016-07-01 21:00:00 No Notes: (S raghav as: Zoloft) [facility] Protonix 2016-07-01 15:00:00 No Notes: Tablet should not be chewed or crushed. (Same as: Protonix) [facility] Nexium 2016-07-01 15:00:00 No 40 mg, Route: PO, Drug form: ECCAP, Daily, Dosing Weight 62.072, kg, Start date: 07/01/16 9:00:00 PE [employer]LECTRICAL ENGINEER, Duration: 30 day, Stop date: 07/30/16 9:00:00 PE ELECTRICAL ENGINEER [facility] Vitamin D3 2016-07-01 15:00:00 No Notes: Sa me as : Vitamin D3 [facility] elppa CoQ10 2016-07-01 15:00:00 No 100 mg, Route: PO, Drug form: CAP, Daily, Dosing Weight 62.072, kg, Start date: 07/01/16 9:00:00 PE ELECTRICAL ENGINEER, Duration: 30 day, Stop date: 07/30/16 9:00:00 PE ELECTRICAL ENGINEER [facility] Sertraline 2016-07-01 15:00:00 No Notes: (S raghav as: Zoloft) [facility] omega-3 polyunsaturated fatty acids 2016-07-01 15:00:00 No 1,000 mg, 2 cap, Route: PO, Drug form: CAP, Daily, Dosing Weight 62.072, kg, Start date: 07/01/16 9:00:00 PE ELECTRICAL ENGINEER, Stop date: 07/30/16 9:00:00 PE ELECTRICAL ENGINEER [facility] Metformin hydrochloride 500 MG Oral Tablet 2016-07-01 15:00:00 No Notes: (Same as: Glucophage) Take with meal [facility] Lipitor 2016-07-01 03:00:00 No Notes: (Same As: Lipitor) [facility] Lovastatin 2016-07-01 03:00:00 No 40 mg, Route: PO, Drug form: TAB, Bedtime, Dosing Weight 62.072, kg, Start date: 06/30/16 21:00:00 PE ELECTRICAL ENGINEER, Duration: 30 day, Stop date: 07/29/16 21:00:00 PE ELECTRICAL ENGINEER [facility] gabapentin 300 MG Oral Capsule 2016-06-30 23:00:00 No Notes: (Same as: Neurontin) Jonh Lugo potassium chloride 20 mEq oral tablet, extended release 2016-06-30 23:00:00 No Notes: (Same as : K-Dur 20) "Do Not Crush" With food and full glass of water Jonh Lugo meropenem + sodium chloride 0.9% INJ 100 mL 2016-06-30 23:00:00 No Notes: Same as Merrem MEDICATION WASTE Product Size: 500 mg Product Wasted: ___ mg Jonh Lugo Magnesium Oxide 2016-06-30 23:00:00 No Notes: (Same as: Mag-Ox 400) Magnesium oxide 003oh=495by elemental magnesium Dose=____mg magnesium oxide (___mg elemental magnesium) Jonh raisa please bring pts own meds CoQ10 and vit D liq to pharmacy 2016-06-30 22:55:00 No please b ring pts own meds CoQ10 and vit D liq to pharmacy, reminder, Drug form: MISC, Route: MISC, QSHIFT, 06/30/16 16:55:00 PE ELECTRICAL ENGINEER, Duration: 30 day, Stop date: 07/30/16 16:00:00 PE ELECTRICAL ENGINEER [facility] aspirin 81 mg tablet, enteric coated 2016-06-30 22:39:00 No Notes: Do not crush or chew. (Same As: Ecotrin) [facility] Hydromorphone 2016-06-30 22:38:00 No 0.5 mg, 0.5 mL, Route: IVP, Drug form: INJ, Q4H, Dosing Weight 62.072, kg, PRN Pain Score 7-10, Start date: 06/30/16 16:38:00 PE ELECTRICAL ENGINEER, Duration: 30 day, Stop date: 07/30/16 16:37:00 PE ELECTRICAL ENGINEER [facility] Lorazepam 2016-06-30 22:36:00 No Notes: (Sa me as: Ativan) [facility] Liquid Vitamin D-3 2016-06-30 16:43:00 No 10,000 IntlUnit, PO, 0 Refill(s) Jonh Lugo elppa CoQ10 50 mg oral capsule 2016-06-30 16:43:00 Yes 100 mg = 2 cap, PO, Daily, # 60 cap, 0 Refill(s) Me candido Lugo lovastatin 40 mg oral tablet 2016-06-30 16:43:00 Yes 40 mg = 1 tab, PO, Bedtime, # 30 tab, 0 Refill(s) [facility]or ial [facility] Hydrochlorothiazide 2016-06-30 16:43:00 Yes 12.5 mg, PO, Daily, 0 Refill(s) Jonh Lugo sertraline 50 mg oral tablet 2016-06-30 16:43:00 Yes 50 mg = 1 tab, PO, Daily, # 30 tab, 0 Refill(s) Tamara [facility] Enoxaparin 2016-06-30 16:00:00 No Notes: (S raghav as: Lovenox) [facility] Tylenol 2016-06-30 15:30:00 Yes 500 mg, PO, Q6H, 0 Refill(s) Jonh Lugo meropenem 2016-06-30 15:00:00 No Notes: (Same as: Merrem) . MEDICATION WASTE Product Size: 1000 mg Product Wasted: ___ mg send to 2E Jonh [facility] Dextrose 50% Syringe 2016-06-30 14:54:00 No 25 gm, 50 mL, Route: IVP, Drug Form: INJ, Dosing Weight 62.727, kg, PRN, PRN Blood Glucose Results, Start date: 06/30/16 8:54:00 PE ELECTRICAL ENGINEER, Duration: 30 day, Stop date: 07/30/16 8:53:00 PE ELECTRICAL ENGINEER Jonh [facility] Glucagon 2016-06-30 14:54:00 No 1 mg, Route: IM, Drug form: PDR/INJ, PRN, Dosing Weight 62.727, kg, PRN Blood Glucose Results, Start date: 06/30/16 8:54:00 PE ELECTRICAL ENGINEER, Duration: 30 day, Stop date: 07/30/16 8:53:00 PE ELECTRICAL ENGINEER [facility] [place] Insulin, Aspart, Human 2016-06-30 14:54:00 No Notes: Roll in palms of hands gently; Do not shake vigorously. (Same as: NovoLOG) "single patient use only" WASTE: F/P - Black; E - Municipal Trash Bin Stable for 28 days at room temperature. Expires in days from Date Jonh Lugo Saline Flush 0.9% 2016-06-30 14:50:00 No Notes: (Same as: BD Posiflush) Jonh Lugo Lactated Ringers 1,000 mL 2016-06-30 14:50:00 No 1,000 mL, Rate: 125 ml/hr, Infuse over: 8 hr, Route: IV, Dosing Weight 62.727 kg, Total Volume: 1,000, Start date: 06/30/16 8:50:00 PE ELECTRICAL ENGINEER, Duration: 30 day, Stop date: 07/30/16 8:49:00 PE ELECTRICAL ENGINEER Jonh Lugo Acetaminophen 2016-06-30 14:50:00 No Notes: Do not exceed 4 gm/day. (Same as: Tylenol) Jonh Lugo Docusate 2016-06-30 14:50:00 No Notes: (Same as: Colace) (Do Not Crush) Jonh Lugo Ondansetron 2016-06-30 14:50:00 No Notes: (Same as: Jose) MEDICATION WASTE Product Size: 4 mg Product Wasted: ___ mg Jonh Lugo Albuterol 0.833 MG/ML / Ipratropium Brom brady 0.167 MG/ML Inhalant Solution [DuoNeb] 2016-06-30 13:42:00 No 3 mL, Route: NEB, Dosing Weight 62.727, kg, ONCE, Start date: 06/30/16 7:42:00 PE ELECTRICAL ENGINEER, Stop date: 06/30/16 7:42:00 PE ELECTRICAL ENGINEER [facility] Albuterol 0.833 MG/ML / Ipratropium Brom brady 0.167 MG/ML Inhalant Solution [DuoNeb] 2016-06-30 13:40:00 No 3 mL, Route: NEB, Dosing Weight 62.727, kg, ONCE, Start date: 06/30/16 7:40:00 PE ELECTRICAL ENGINEER, Stop date: 06/30/16 7:40:00 PE ELECTRICAL ENGINEER Jonh [place] tramadol hydrochloride 50 MG Oral Tablet 2016-06-30 13:31:00 No Notes: Not to exceed 400mg/day. (Same As: Ultram) [facility] Demerol HCl 2016-06-30 13:31:00 No Notes: ( Same As: Demerol) [facility] Acetaminophen 2016-06-30 10:59:00 No 650 mg, Route: PO, Drug form: TAB, ONCE, Dosing Weight 62.727, kg, Priority: STAT, Start date: 06/30/16 4:59:00 PE ELECTRICAL ENGINEER, Stop date: 06/30/16 4:59:00 [facility] Zofran 2016-06-30 09:17:00 No 8 mg, Route: IVP, Drug form: INJ, ONCE, Dosing Weight 62.727, kg, Priority: STAT, Start date: 06/30/16 3:17:00 PE ELECTRICAL ENGINEER, Stop date: 06/30/16 3:17:00 PE ELECTRICAL ENGINEER [facility] Sodium Chloride 0.154 MEQ/ML Injectable Solution 2016-06-30 09:1 7:00 No 1,000 mL, Infuse Over: 1 hr, Route: IV, ONCE, Priority: STAT, Dosing Weight 62.727 kg, Start date: 06/30/16 3:17:00 PE ELECTRICAL ENGINEER, Duration: 1 doses or times, Stop date: 06/30/16 3:17:00 [facility] raheem Zosyn 2016-06-30 09:16:00 No 3.375 gm, Route: IVPB, ONCE, Dosing Weight 62.727, kg, Priority: STAT, Start date: 06/30/16 3:16:00 PE ELECTRICAL ENGINEER, Stop date: 06/30/16 3:16:00 [facility] Fentanyl 2016-06-30 09:15:00 No 50 microgram, Route: IVP, ONCE, Dosing Weight 62.727, kg, Priority: STAT, Start date: 06/30/16 3:15:00 PE ELECTRICAL ENGINEER, Stop date: 06/30/16 3:15:00 [facility] Ondansetron 2016-06-30 09:03:00 No 4 mg, Route: IVP, ONCE, Dosing Weight 62.727, kg, Priority: STAT, Start date: 06/30/16 3:03:00 PE ELECTRICAL ENGINEER, Stop date: 06/30/16 3:03:00 [facility] Saline Flush 0.9% 2016-06-30 09:03:00 No Notes: (Same as: BD Posiflush) Jonh Lugo Sodium Chloride 0.154 MEQ/ML Injectable Solution 2016-06-30 09:0 3:00 No 1,000 mL, Rate: 125 ml/hr, I nfuse over: 8 hr, Route: IV, Dosing Weight 62.727 kg, Total Volume: 1,000, Start date: 06/30/16 3:03:00 PE ELECTRICAL ENGINEER, Duration: 30 day, Stop date: 07/30/16 3:02:00 PE ELECTRICAL ENGINEER Татьяна Lugo Aspirin (Aspir 81) 81 Mg Tablet. Aspirin (Aspir 81) 81 Mg Tablet. Yes [address] [facility] Cholecalciferol (Vitamin D3) (Vitamin D3) 400 Unit Tab .chew Cholecalciferol (Vitamin D3) (Vitamin D3) 400 Unit Tab.chew Yes [address] [facility] Esomeprazole Magnesium (Nexium) 40 Mg Capsule. Esberlin prazole Magnesium (Nexium) 40 Mg Capsule. Yes 40 Daily [facility] Gabapentin 100 Mg Capsule Gabapentin 100 Mg Capsule Yes 200 Twice A Day [facility] Gemfibrozil 600 Mg Tablet Gemfibrozil 600 Mg Tablet Yes 600 Twice A Day [facility] Hydrochlorothiazide 12.5 Mg Capsule Hydrochlorothiazide 12.5 Mg Capsu le Yes 12.5 Daily [facility] Ibuprofen 200 Mg Capsule Ibuprofen 200 Mg Capsule Yes 200 As Needed as needed for Pain [facility] Lorazepam 1 Mg Tablet Lorazepam 1 Mg Tablet Yes 1 Daily as needed for Anxiety [facility] Magnesium Oxide 400 Mg Tablet Magnesium Oxide 400 Mg Tablet Yes 250 Daily [facility] Metformin Hcl 500 Mg Tablet Metformin Hcl 500 Mg Tablet Yes 500 Twice A Day [facility] Nitrofurantoin Monohyd/M-Cryst (Macrobid 100 Mg Capsul e) 100 Mg Capsule Nitrofurantoin Monohyd/M-Cryst (Macrobid 100 Mg Capsule) 100 Mg Capsule Yes [address] [facility] [place]-3 Fatty Acids/Fish Oil ([place] 3 Fish Oil Softgel ) 1 Each Capsule. [place]- 3 Fatty Acids/Fish Oil ([place] 3 Fish Oil Softgel) 1 Each Capsule. Yes [address] [facility] Potassium Chloride 20 Meq Tab.er.prt Potassium Chloride 20 Meq Tab. er.prt Yes [address] [facility] Vit No.78/Iron/Fa (Prenatabs Fa Tablet) 1 Eac h Tablet Vit No.78/Iron/Fa (Prenatabs Fa Tablet) 1 Each Tablet Yes [address] [facility] Aspirin (Aspir 81) 81 Mg Tablet., Aspirin (Aspir 81) 81 Mg Tab let., 2016-02-17 00:00:00 [facility] Cabergoline (Dostinex) 0.5 Mg Tablet, Cabergoline (Dostinex) 0.5 Mg Tablet, 2016-02-17 00:00:00 [facility] Calcium Carbonate (Caltrate) 600 Mg Tab, Calcium Carbo maryam (Caltrate) 600 Mg Tab, 2016-02-17 00:00:00 [facility] Esomeprazole Mag Trihydrate (Nexium) 40 Mg Capsule., Esomeprazole Mag Trihydrate (Nexium) 40 Mg Capsule., 2016-02-17 00:00:00 [facility] Gemfibrozil 600 Mg Tablet, Gemfibrozil 600 Mg Tablet, 2015 00:00:00 [facility] Lorazepam (Ativan) 1 Mg Tablet, Lorazepam (Ativan) 1 Mg Tablet, 2016-02-17 00:00:00 [facility] Magnesium Oxide (Magnesium) 500 Mg Capsule, Magnesium Oxide (Magnesium) 500 Mg Capsule, 2016-02-17 00:00:00 [facility] Metformin Hcl (Glucophage) 500 Mg Tablet, Metformin Hc l (Glucophage) 500 Mg Tablet, 2016-02-17 00:00:00 [facility] Potassium Chloride (Klor-Con) 20 Meq Packet, Potassium Chloride (Klor-Con) 20 Meq Packet, 2016-02-17 00:00:00 No [facility] Ubidecarenone (Coenzyme Q 10) 100 Mg Capsule, Ubidecar enone (Coenzyme Q 10) 100 Mg Capsule, 2016-02-17 00:00:00 No [facility] Vital Signs Vital Name Observation Time Observation Value Comments Source Respitory Rate 2016-09-04 22:11:00 [facility] Systolic (mm Hg) 2016-09-04 22:11:00 [facility] [place] Diastolic (mm Hg) 2016-09-04 22:11:00 [facility] [place] Temperature Oral (F) 2016-09-04 22:11:00 98.2 F [facility] [place] Weight 2016-09-04 20:03:00 [facility] [place] BMI Calculated 2016-09-04 20:03:00 [facility] Height 2016-09-04 20:03:00 167.64 cm [facility] Temperature Oral (F) 2016-09-04 20:03:00 97.9 F [facility] Respitory Rate 2016-09-04 20:03:00 [facility] Heart Rate 2016-09-04 20:03:00 [facility] [place] Systolic (mm Hg) 2016-09-04 20:03:00 [facility] Diastolic (mm Hg) 2016-09-04 20:03:00 [facility] [place] Respitory Rate 2016-07-30 10:44:00 [facility] [place] Temperature Oral (F) 2016-07-30 10:44:00 98.4 F [facility] [place] Heart Rate 2016-07-30 10:44:00 [facility] Systolic (mm Hg) 2016-07-30 10:44:00 [facility] [place] Diastolic (mm Hg) 2016-07-30 10:44:00 [facility] Heart Rate 2016-07-30 10:22:00 [facility] Respitory Rate 2016-07-30 10:22:00 [facility] Systolic (mm Hg) 2016-07-30 10:22:00 [facility] Diastolic (mm Hg) 2016-07-30 10:22:00 [facility] Heart Rate 2016-07-30 09:52:00 [facility] [place] Temperature Oral (F) 2016-07-30 09:52:00 98.6 F [facility] [place] Systolic (mm Hg) 2016-07-30 09:52:00 [facility] [place] Diastolic (mm Hg) 2016-07-30 09:52:00 [facility] Respitory Rate 2016-07-30 09:52:00 [facility] Temperature Oral (F) 2016-07-30 08:00:00 98.8 F [facility] [place] Weight 2016-07-30 06:49:00 [facility] BMI Calculated 2016-07-30 06:49:00 [facility] Height 2016-07-30 06:49:00 165.1 cm [facility] Respitory Rate 2016-07-28 06:11:00 [facility] Systolic (mm Hg) 2016-07-28 06:11:00 [facility] [place] Diastolic (mm Hg) 2016-07-28 06:11:00 [facility] [place] Heart Rate 2016-07-28 06:11:00 [facility] Temperature Oral (F) 2016-07-28 06:11:00 98.6 F [facility] [place] Heart Rate 2016-07-28 05:28:00 [facility] Respitory Rate 2016-07-28 05:28:00 [facility] [place] Temperature Oral (F) 2016-07-28 05:28:00 98.6 F [facility] Systolic (mm Hg) 2016-07-28 05:28:00 [facility] Diastolic (mm Hg) 2016-07-28 05:28:00 [facility] [place] Systolic (mm Hg) 2016-07-28 04:26:00 [facility] Diastolic (mm Hg) 2016-07-28 04:26:00 [facility] Respitory Rate 2016-07-28 04:26:00 [facility] [place] Heart Rate 2016-07-28 04:26:00 [facility] [place] Temperature Oral (F) 2016-07-28 02:00:00 98.3 F [facility] Height 2016-07-28 00:26:00 172.72 cm [facility] [place] BMI Calculated 2016-07-28 00:26:00 [facility] [place] Weight 2016-07-28 00:26:00 [facility] [place] Heart Rate 2016-07-10 18:00:00 [facility] [place] Respitory Rate 2016-07-10 18:00:00 [facility] Systolic (mm Hg) 2016-07-10 18:00:00 [facility] Diastolic (mm Hg) 2016-07-10 18:00:00 [facility] Temperature Oral (F) 2016-07-10 18:00:00 97.3 F [facility] [place] Heart Rate 2016-07-10 14:00:00 [facility] Temperature Oral (F) 2016-07-10 14:00:00 97.6 F [facility] [place] Respitory Rate 2016-07-10 14:00:00 [facility] [place] Systolic (mm Hg) 2016-07-10 14:00:00 [facility] Diastolic (mm Hg) 2016-07-10 14:00:00 [facility] Temperature Oral (F) 2016-07-10 09:53:00 97.8 F [facility] [place] Systolic (mm Hg) 2016-07-10 09:53:00 [facility] [place] Diastolic (mm Hg) 2016-07-10 09:53:00 [facility] [place] Heart Rate 2016-07-10 09:53:00 [facility] Respitory Rate 2016-07-10 09:53:00 [facility] [place] Weight 2016-06-30 15:11:00 [facility] [place] BMI Calculated 2016-06-30 08:41:00 [facility] [place] Height 2016-06-30 08:41:00 167.64 cm [facility] [place] Weight 2016-06-30 08:41:00 [facility] Procedures Procedure Date / Time Performed Performing Clinician [facility] e Computed tomography of brain without radiopaque contrast 201 01-13-02 00:00:00 LEWIS BISHOP [facility] X-ray of chest, two views 2017-11-09 00:00:00 LEWIS BISHOP [facility] Computed tomography of brain without radiopaque contrast 201 12-17-18 00:00:00 THEA TYSON [facility] X-ray of chest, two views 2017-03-28 00:00:00 THEA TYSON [facility] Computed tomography of chest without contrast 2017-03-26 00: 00:[address] [facility] Bone marrow operations<sup>1</sup> [facility] Cholecystectomy [facility] Gallbladder operation<sup>2</sup> [facility] Hysterectomy [facility] Tonsillectomy [facility] Plan of Care Planned Activity Planned Date Details Comments Source Future Scheduled Test 2020-02-09 00:00:00 INFLUENZA VACCINE [code = INFLUENZA VACCINE] [facility] [place] [place] Scheduled Test 2009-09-08 00:00:00 BREAST CANCER SCRE ENING [code = BREAST CANCER SCREENING] [facility] Future Scheduled Test 2009-09-08 00:00:00 COLONOSCOPY SCREEN ING [code = COLONOSCOPY SCREENING] [facility] [place] [place] Scheduled Test 2009-09-08 00:00:00 SHINGLES VACCINES (#1) [code = SHINGLES VACCINES (#1)] [facility] [place] [place] Scheduled Test 1980-09-08 00:00:00 Screening for hyacinth gnant neoplasm of cervix (procedure) [code = 998031964] [facility] Encounters Start Date/Time End Date/Time Encounter Type Admission Type [facility] Care Department Encounter ID Source 2017-11-09 16:18:00 2017-11-09 20:04:00 Departed Emergency Room 1 LEWIS BISHOP [facility] [id number] [facility] 2017-03-28 15:14:00 2017-03-28 21:45:00 Departed Emergency Room ER JAH THEA [facility] [id number] [facility] 2017-03-26 12:07:00 2017-03-26 12:07:00 Registered Clinic RISSA TATIANA PRICE [facility] [id number] [facility] 2017-02-27 19:39:00 2017-02-27 19:39:00 Registered Clinic [facility] [id number] [facility] 2017-01-22 10:23:00 2017-01-22 10:23:00 Registered [facility] [id number] [facility] 2016-09-04 14:53:00 2016-09-04 17:52:00 Outpatient Camille Tolentino [facility] [id number] 2016-07-30 00:47:00 2016-07-30 04:55:00 Outpatient Vida Chan [facility]SE [facility]SE [id number] 2016-07-27 18:12:00 2016-07-28 00:34:00 Outpatient Lai Ochoa MHSE MHSE [id number] 2016-06-30 02:38:00 2016-07-10 13:20:00 Outpatient Sara Marie MHSE MHSE [id number] 2015-06-17 07:18:00 2015-06-17 23:59:00 Outpatient Andrez Villanueva MHHOIP MHHOIP [id number] 2013-12-25 11:51:00 2013-12-25 23:59:00 Outpatient Darren Camilo i MHIE MHIE [id number] 2013-03-20 10:07:00 2013-03-20 23:59:00 Outpatient MHIE MHIE [id number] [facility] [place] 2013-03-20 10:07:00 2013-03-20 23:59:00 Outpatient MHIE MHIE [id number] [facility] [place] 2013-03-20 10:07:00 2013-03-20 23:59:00 Outpatient MHIE MHIE [id number] [facility] [place] 2013-03-20 10:07:00 2013-03-20 23:59:00 Outpatient MHIE MHIE [id number] [facility] [place] 2013-03-20 10:07:00 2013-03-20 23:59:00 Outpatient MHIE MHIE [id number] [facility] [place] Results Test Description Test Time Test Comments Results Result Comments Source US PELVIS COMPLETE NON OB 2020-01-19 13:22:00 [facility] [address] [place] [address] Patient Name: MAKAYLA BEE MR #: [id number] : 1960 Age/Sex: 59/F Req #: [id number] Adm Physician: Ordered by: LISA MARIE MD Report #: [id number] Location: US Room/Bed: Procedure: US/US PELVIS COMPLETE NON OB Exam Date: 01/19/20 Exam Time: 1244 REPORT STATUS: Signed Exam: Pelvic ultrasound. History: Pelvic pain Comparison: Renal ultrasound and KUB of the same day, report of CT abdomen and pelvis of 01/27/2012 Findings/Impression: Transabdominal pelvic ultrasound was performed. Status post total abdominal hysterectomy and bilateral salpingo-oophorectomy. No remarkable sonographic findings in the pelvis. Signed by: Zaid Friend MD on 01/19/2020 1:25 PM Dictated By: ZAID FRIEND MD 1325 Transcribed By: PRAVEEN on 01/19/20 1325 COPY TO: LISA MARIE MD RENAL RETROPERITONEAL COMP 2020-01-19 13:20:00 [place] [address] Patient Name: MAKAYLA BEE MR #: [id number] : 1960 Age/Sex: 59/F Req #: [id number] Adm Physician: Ordered by: AMPARO HENNESSY MD Report #: [id number] Location: US Room/Bed: Procedure: [id number] US/US RENAL RETROPERITONEAL COMP Exam Date: 01/19/20 Exam Time: 1248 REPORT STATUS: Signed EXAM: Renal Ultrasound INDICATION: [id number] PELVIC PERINEAL PAIN COMPARISON: KUB earlier the same day TECHNIQUE: Transverse and longitudinal images of the kidneys and bladder were obtained. FINDINGS: Right Kidney: Length: 11.1 cm Appearance: Normal echogenicity. Collecting system: No hydronephrosis Stones: None Cyst/Mass: None Left Kidney: Length: 12.1 cm Appearance: Normal echogenicity. Collecting system: No hydronephrosis Stones: None Cyst/Mass: Mid pole 1.3 x 1.2 x 1.3 cm anechoic simple cyst. Bladder: No mass or calculi. Bilateral ureteral jets visualized. Prevoid volume estimate of 174 cc. IMPRESSION: No hydronephrosis. The right renal calculi seen on KUB of earlier the same day are not well visualized on ultrasound. 1.3cm left midpole simple cyst. Signed by: Zaid Friend MD on 01/19/2020 1:24 PM Dictated By: ZAID FRIEND MD 1324 Transcribed By: PRAVEEN on 01/19/20 1324 COPY TO: AMPARO HENNESSY MD ABDOMEN-1VIEW (KUB) 2020-01-19 12:29:00 [place] [address] Patient Name: MAKAYLA BEE MR #: [id number] : 1960 Age/Sex: 59/F Req #: [id number] Adm Physician: Ordered by: AMPARO HENNESSY MD Report #: [id number] Location: Room/Bed: Procedure: [id number] DX/ABDOMEN-1VIEW (KUB) Exam Date: 01/19/20 Exam Time: 1206 REPORT STATUS: Signed Exam: KUB - 2 views Indication: Urinary tract infection Comparison: Report of CT abdomen and pelvis of 01/27/2012 (images not available for comparison) Findings: A cluster of medial right midpole renal calculi measure up to 5 mm. 3 mm calcific densities overlying the upper pole of the left kidney may represent renal calculi versus intraluminal bowel contents. A 5 mm calcific density in the right pelvis may represent a ureteral calculus versus a phlebolith. No acute osseous injury. Nonobstructive bowel gas pattern. No free air. Impression: Medial right midpole renal calculi measure up to 5 mm. 5 mm calcific density in the right pelvis may represent a ureteral calculus or alternatively a phlebolith. Possible left upper pole 3mm renal calculi versus intraluminal bowel contents. Signed by: Zaid Friend MD on 01/19/2020 12:32 PM Dictated By: ZAID FRIEND MD 1232 Transcribed By: PRAVEEN on 01/19/20 1232 COPY TO: AMPARO HENNESSY MD CBC W/AUTO DIFF 2019-10-28 01:40:00 Test Item WHITE BLOOD CELL (test code = WBC) 7.1 K/mm3 4.5-12.5 N RED BLOOD CELL (test code = RBC) 3.48 mill/mm3 3.7-5.2 L HEMOGLOBIN (test code = HGB) 10.8 gram/dL 11.5-15.5 L HEMATOCRIT (test code = HCT) 32.4 % 36.0-46.0 L MEAN CELL VOLUME (test code = MCV) 93.1 fL 80-98 N MEAN CELL HGB (test code = MCH) 31.0 picogram 27.0-33.0 N MEAN CELL HGB CONCETRATION (test code = MCHC) 33.3 gram/dL 33.0-36. 0 N RED CELL DISTRIBUTION WIDTH (test code = RDW) 12.2 % 11.6-16. 2 N RED CELL DISTRIBUTION WIDTH SD (test code = RDW-SD) 41.8 fL 37 .0-51.0 N PLATELET COUNT (test code = PLT) 251 K/mm3 150-450 N MEAN PLATELET VOLUME (test code = MPV) 9.4 fL 6.7-11.0 N NEUTROPHIL % (test code = NT%) 51.6 % 39.0-69.0 N IMMATURE GRANULOCYTE % (test code = IG%) 0.3 % 0.0-5.0 N LYMPHOCYTE % (test code = LY%) 37.2 % 25.0-55.0 N MONOCYTE % (test code = MO%) 6.5 % 0.0-10.0 N EOSINOPHIL % (test code = EO%) 3.8 % 0.0-5.0 N BASOPHIL % (test code = BA%) 0.6 % 0.0-1.0 N NUCLEATED RBC % (test code = NRBC%) 0.0 % 0-0 N NEUTROPHIL # (test code = NT#) 3.66 K/mm3 1.8-7.7 N IMMATURE GRANULOCYTE # (test code = IG#) 0.02 x10 3/uL 0-0.03 N LYMPHOCYTE # (test code = LY#) 2.64 K/mm3 1.0-5.0 N MONOCYTE # (test code = MO#) 0.46 K/mm3 0-0.8 N EOSINOPHIL # (test code = EO#) 0.27 K/mm3 0.0-0.5 N BASOPHIL # (test code = BA#) 0.04 K/mm3 0.0-0.2 N NUCLEATED RBC # (test code = NRBC#) 0.00 K/mm3 0.0-0.1 N BASIC METABOLIC [id number] 01:33:00* Test Item Value Reference Range Interpretation Comments SODIUM (test code = NA) 138 mmol/L 136-145 N POTASSIUM (test code = K) 3.7 mmol/L 3.5-5.1 N CHLORIDE (test code = CL) 102.0 mmol/L 98-107 N CARBON DIOXIDE (test code = CO2) 27.0 mmol/L 21-32 N ANION GAP (test code = GAP) 12.7 10-20 N GLUCOSE (test code = GLU) 141 mg/dL 74-106 H BLOOD UREA NITROGEN (test code = BUN) 20 mg/dL 7-18 H GLOMERULAR FILTRATION RATE (test code = GFR) > 60 mL/min >=60 Estimated GFR by using Modified MDRD formula.Chronic kidney disease is defined as either kidney damageor GFR <60 mL/min/1.73 m2 for >3 months. CREATININE (test code = CREAT) 0.70 mg/dL 0.55-1.02 N Note change in reference range due to change in reagent. BUN/CREATININE RATIO (test code = BUN/CREA) 27.9 10-20 H CALCIUM (test code = CA) 9.3 mg/dL 8.5-10.1 N HEPATIC FUNCTION [id number] 01:33:00* Test Item Value Reference Range Interpretation Comments TOTAL PROTEIN (test code = PROT) 6.9 gram/dL 6.4-8.2 N ALBUMIN (test code = ALB) 4.0 g/dL 3.4-5.0 N GLOBULIN (test code = GLOB) 2.9 gram/dL 2.7-4.2 N ALBUMIN/GLOBULIN RATIO (test code = A/G) 1.4 0.75-1.50 N BILIRUBIN TOTAL (test code = BILT) 0.20 mg/dL 0.0-1.0 N BILIRUBIN DIRECT (test code = BILD) 0.07 mg/dL 0.0-0.20 N SGOT/AST (test code = AST) 20 IUnit/L 15-37 N SGPT/ALT (test code = ALT) 33 IUnit/L 12-78 N ALKALINE PHOSPHATASE TOTAL (test code = ALKP) 71 IUnit/L 45-117 N Note change in reference range due to change in reagent. [id number] 01:33:00* Test Item Value Reference Range Interpretation Comments LIPASE (test code = LIP) 166 U/L 73.0-393.0 N URINALYSIS [id number] 01:28:00* Test Item Value Reference Range Interpretation Comments UA COLOR (test code = COLU) Light-Yellow YELLOW UA APPEARANCE (test code = APPU) CLEAR CLEAR UA GLUCOSE DIPSTICK (test code = DGLUU) NEGATIVE mg/dL NEGATIVE UA BILIRUBIN DIPSTICK (test code = BILU) NEGATIVE mg/dL NEGATIVE UA KETONE DIPSTICK (test code = KETU) NEGATIVE mg/dL NEGATIVE UA SPECIFIC GRAVITY (test code = SGU) 1.013 1.001-1.035 UA BLOOD DIPSTICK (test code = TIM) Negative mg/dL NEGATIVE UA PH DIPSTICK (test code = KANDICE) 5.0 5.0-8.0 UA PROTEIN DIPSTICK (test code = PROU) NEGATIVE mg/dL NEGATIVE UA UROBILINIOGEN DIPSTICK (test code = URO) Normal mg/dL NEGATIVE UA NITRITE DIPSTICK (test code = ASHLEY) NEGATIVE NEGATIVE UA LEUKOCYTE ESTERASE W REFLEX (test code = LEUUR) 500 Denise/u L (3+) Denise/uL NEGATIVE A UA WBC (test code = WBCU) 11-20 per HPF 0-5 A UA RBC (test code = RBCU) 0-2 #/HPF 0-5 UA EPITHELIAL CELLS (test code = EPIU) FEW per HPF FEW UA BACTERIA (test code = BACU) FEW #/HPF NONE A Urine Source? Clean CatchBASIC METABOLIC [id number] 01:26:00* Test Item Value Reference Range Interpretation Comments SODIUM (test code = NA) 138 mmol/L 136-145 N POTASSIUM (test code = K) 3.7 mmol/L 3.5-5.1 N CHLORIDE (test code = CL) 102.0 mmol/L 98-107 N CARBON DIOXIDE (test code = CO2) mmol/L 21-32 ANION GAP (test code = GAP) 10-20 GLUCOSE (test code = GLU) mg/dL 74-106 BLOOD UREA NITROGEN (test code = BUN) mg/dL 7-18 GLOMERULAR FILTRATION RATE (test code = GFR) mL/min >=60 CREATININE (test code = CREAT) mg/dL 0.55-1.02 BUN/CREATININE RATIO (test code = BUN/CREA) 10-20 CALCIUM (test code = CA) mg/dL 8.5-10.1 HEPATIC FUNCTION [id number] 01:26:00* Test Item Value Reference Range Interpretation Comments TOTAL PROTEIN (test code = PROT) gram/dL 6.4-8.2 ALBUMIN (test code = ALB) g/dL 3.4-5.0 GLOBULIN (test code = GLOB) gram/dL 2.7-4.2 ALBUMIN/GLOBULIN RATIO (test code = A/G) 0.75-1.50 BILIRUBIN TOTAL (test code = BILT) mg/dL 0.0-1.0 BILIRUBIN DIRECT (test code = BILD) mg/dL 0.0-0.20 SGOT/AST (test code = AST) IUnit/L 15-37 SGPT/ALT (test code = ALT) IUnit/L 12-78 ALKALINE PHOSPHATASE TOTAL (test code = ALKP) IUnit/L 45-117 [id number] 01:26:00* Test Item Value Reference Range Interpretation Comments LIPASE (test code = LIP) U/L 73.0-393.0 - XR CHEST 1 [id number] 00:49:00 FAX: Basilio Dow, [place]: St: REG FAX: Rashida Ashton [phone] Name: MAKAYLA BEE [facility] : 1960 Age/S: 59/F [address] [facility] Unit #: [id number] Loc: [place] [address] Phys: Rashida Gonsalves MD Acct: [id number] Dis Date: Status: REG ER PHONE #: [phone] Exam Date: 10/28/2019 0038 FAX #: [phone] Reason: abd pain EXAMS: CPT CODE: [id number] XR CHEST 1 V 49802 EXAM: - XR CHEST 1 V HISTORY: Fever. COMPARISON: August 03, 2019. FINDINGS: Single AP view of the chest is provided. Heart size and vascularity are within normal limits. The lungs are clear of focal consolidation. No effusion, pneumothorax, or acute osseous abnormality. IMPRESSION: No radiographic evidence of acute cardiopulmonary process. at 0049 Reported and signed by: Kiel Wallace MD CC: Lisa Interiano MD; Rashida Gonsalves MD Technologist: Abril Ma Trnscrd Date/Time/By: 10/28/2019 (0049) : By: [email or web address] Orig Print D/T: S: 10/28/2019 (0052) PAGE 1 Signed Report - CT ABD PELVIS W/O [id number] 17:59:00 Name: MAKAYLA BEE [facility] : 1960 Age/S: 58 / F [address] Unit #: [id number] Loc: [place] [address] Phys: Rashida Gonsalves MD Acct: [id number] Dis Date: Status: REG ER PHONE #: [phone] Exam Date: 08/03/2019 1714 FAX #: [phone] Reason: lower abdominal pain EXAMS: CPT CODE: [id number] CT ABD PELVIS W/O CONT 63896 REASON FOR EXAM: lower abdominal pain EXAM ORDER DATE: 08/03/2019 4:56 PM Ordering M.D.: Rashida Gonsalves MD PROCEDURE: - CT ABD PELVIS W/O CONT noncontrast axial CT images were acquired through the abdomen/pelvis at 5 mm intervals. Sagittal and coronal reformatted images were generated. Automated exposure control was utilized for this reduction. Phases of contrast: None COMPARISON: CT of the abdomen and pelvis August 16, 2016 FINDINGS: The absence of IV contrast limits sensitivity of this exam for the detection of soft tissue pathology Visualized thorax: Grossly normal Hepatobiliary system: Prior cholecystectomy. Hepatic parenchyma is grossly within normal limits Pancreas: Grossly normal Spleen: Grossly nor mal Adrenal glands: Grossly normal Genitourinary sys tem: There is a cluster of stones in the inferior pole of the right kidney . No hydronephrosis or perinephric fat stranding. Prior hysterectomy. Cecile paulie of the genitourinary system is grossly within normal limits Gastrointestinal tract and appendix: Moderate colonic stool burden. The appendix and small bowel and stomach are grossly within normal limits Abdominal vascular structures: Mild calcifications of the abdominal aorta Peritoneum and retroperitoneum: No free fluid or free air. No omental or mesenteric masses. No abnormal lymph nodes. PAGE 1 Signed Report (CONTINUED) Name: MAKAYLA BEE [facility] : 1960 Age/S: 58 / F [address] Unit #: [id number] Loc: [place] [address] Phys: Rashida Gonsalves MD Acct: [id number] Dis Date: Status: REG ER PHONE #: [phone] Exam Date: 08/03/2019 1714 FAX #: [phone] Reason: lower abdominal pain EXAMS: CPT CODE: [id number] CT ABD PELVIS W/O CONT 78832 <Continued> Musculoskeletal structures and abdominal wall: Normal IMPRESSION: No acute intra-abdominal findings to account for the p atient's lower abdominal pain. Specifically no gross abnormalities of th e urinary bladder or distal bowel. Nonobstructing stones in the inferior pole of the right kidney but no inflammatory changes of the rig ht kidney or the right ureter. Location: [facility] Signed by Amrit Tuttle MD on 08/03/2019 at 1759 Reported and signed by: Amrit Tuttle MD CC: Lisa Maldonado MD; Rashida Gonsalves MD Technologist:Erika Marina(R),CT; CTDI: DLP: Trnscb Date/Time: 08/03/2019 (1758) t.SDR.RR 31 Orig Print D/T: S: 08/03/2019 (1801) PAGE 2 Signed Report BASIC METABOLIC [id number] 17:48:00* Test Item Value Reference Range Interpretation Comments SODIUM (test code = NA) 139 mmol/L 136-145 N POTASSIUM (test code = K) 3.8 mmol/L 3.5-5.1 N CHLORIDE (test code = CL) 103.0 mmol/L 98-107 N CARBON DIOXIDE (test code = CO2) 32.0 mmol/L 21-32 N ANION GAP (test code = GAP) 7.8 10-20 L GLUCOSE (test code = GLU) 139 mg/dL 74-106 H BLOOD UREA NITROGEN (test code = BUN) 15 mg/dL 7-18 N GLOMERULAR FILTRATION RATE (test code = GFR) > 60 mL/min >=60 Estimated GFR by using Modified MDRD formula.Chronic kidney disease is defined as either kidney damageor GFR <60 mL/min/1.73 m2 for >3 months. CREATININE (test code = CREAT) 0.80 mg/dL 0.55-1.02 N Note change in reference range due to change in reagent. BUN/CREATININE RATIO (test code = BUN/CREA) 18.8 10-20 N CALCIUM (test code = CA) 9.8 mg/dL 8.5-10.1 N HEPATIC FUNCTION [id number] 17:48:00* Test Item Value Reference Range Interpretation Comments TOTAL PROTEIN (test code = PROT) 7.1 gram/dL 6.4-8.2 N ALBUMIN (test code = ALB) 4.3 g/dL 3.4-5.0 N GLOBULIN (test code = GLOB) 2.8 gram/dL 2.7-4.2 N ALBUMIN/GLOBULIN RATIO (test code = A/G) 1.5 0.75-1.50 N BILIRUBIN TOTAL (test code = BILT) 0.30 mg/dL 0.0-1.0 N BILIRUBIN DIRECT (test code = BILD) 0.10 mg/dL 0.0-0.20 N SGOT/AST (test code = AST) 20 IUnit/L 15-37 N SGPT/ALT (test code = ALT) 34 IUnit/L 12-78 N ALKALINE PHOSPHATASE TOTAL (test code = ALKP) 87 IUnit/L 45-117 N Note change in reference range due to change in reagent. [id number] 17:48:00* Test Item Value Reference Range Interpretation Comments LIPASE (test code = LIP) 628 U/L 73.0-393.0 H [id number] 17:48:00* Test Item Value Reference Range Interpretation Comments TROPONIN-I (test code = TROPI) <0.015 ng/mL 0-0.045 N BASIC METABOLIC [id number] 17:26:00* Test Item Value Reference Range Interpretation Comments SODIUM (test code = NA) 139 mmol/L 136-145 N POTASSIUM (test code = K) 3.8 mmol/L 3.5-5.1 N CHLORIDE (test code = CL) 103.0 mmol/L 98-107 N CARBON DIOXIDE (test code = CO2) mmol/L 21-32 ANION GAP (test code = GAP) 10-20 GLUCOSE (test code = GLU) mg/dL 74-106 BLOOD UREA NITROGEN (test code = BUN) mg/dL 7-18 GLOMERULAR FILTRATION RATE (test code = GFR) mL/min >=60 CREATININE (test code = CREAT) mg/dL 0.55-1.02 BUN/CREATININE RATIO (test code = BUN/CREA) 10-20 CALCIUM (test code = CA) mg/dL 8.5-10.1 HEPATIC FUNCTION [id number] 17:26:00* Test Item Value Reference Range Interpretation Comments TOTAL PROTEIN (test code = PROT) gram/dL 6.4-8.2 ALBUMIN (test code = ALB) g/dL 3.4-5.0 GLOBULIN (test code = GLOB) gram/dL 2.7-4.2 ALBUMIN/GLOBULIN RATIO (test code = A/G) 0.75-1.50 BILIRUBIN TOTAL (test code = BILT) mg/dL 0.0-1.0 BILIRUBIN DIRECT (test code = BILD) mg/dL 0.0-0.20 SGOT/AST (test code = AST) IUnit/L 15-37 SGPT/ALT (test code = ALT) IUnit/L 12-78 ALKALINE PHOSPHATASE TOTAL (test code = ALKP) IUnit/L 45-117 [id number] 17:26:00* Test Item Value Reference Range Interpretation Comments LIPASE (test code = LIP) U/L 73.0-393.0 [id number] 17:26:00* Test Item Value Reference Range Interpretation Comments TROPONIN-I (test code = TROPI) ng/mL 0-0.045 PROTHROMBIN [id number] 16:58:00* Test Item Value Reference Range Interpretation Comments PROTHROMBIN TIME PATIENT (test code = PTP) 11.5 seconds 9.0-14.0 N INTERNATIONAL NORMAL RATIO (test code = INR) 1.0 0.8-1.2 N The therapeutic range for oral anticoagulant therapy formost indications is an international normalized ratio (INR)of between 2.0 and 3.0. The recommended therapeutic INRrange for various clinical situations is listed below: Clinical Situation INR range Pulmonary e mbolism treatment (2.0-3.0)Venous thrombosis treatmentVenous thrombosis prophylaxis (high risk surgery)Prevention of systemic embolism from: Acute myocardial infarction Valvular heart disease Atrial fibrillation Mechanical prosthetic heart valves (2.5-3.5) IS PATIENT ON ANTICOAGULANTS? NTHROMBOPLASTIN TIME [id number] 16:58:00* Test Item Value Reference Range Interpretation Comments THROMBOPLASTIN TIME PARTIAL (test code = PTT) 33.8 seconds 25.0-36. 5 N IS PATIENT ON ANTICOAGULANTS? NB-TYPE NATRIURETIC [id number] 15:57:00* Test Item Value Reference Range Interpretation Comments B-TYPE NATRIURETIC PEPTIDE (test code = BNP) 1.08 pgram/mL 0-100 N CBC W/O [id number] 15:19:00* Test Item Value Reference Range Interpretation Comments WHITE BLOOD CELL (test code = WBC) 7.1 K/mm3 4.5-12.5 N RED BLOOD CELL (test code = RBC) 3.97 mill/mm3 3.7-5.2 N HEMOGLOBIN (test code = HGB) 12.0 gram/dL 11.5-15.5 N HEMATOCRIT (test code = HCT) 36.3 % 36.0-46.0 N MEAN CELL VOLUME (test code = MCV) 91.4 fL 80-98 N MEAN CELL HGB (test code = MCH) 30.2 picogram 27.0-33.0 N MEAN CELL HGB CONCETRATION (test code = MCHC) 33.1 gram/dL 33.0-36. 0 N RED CELL DISTRIBUTION WIDTH (test code = RDW) 12.6 % 11.6-16. 2 N PLATELET COUNT (test code = PLT) 260 K/mm3 150-450 N MEAN PLATELET VOLUME (test code = MPV) 10.3 fL 6.7-11.0 N CBC W/O [id number] 15:17:00* Test Item Value Reference Range Interpretation Comments WHITE BLOOD CELL (test code = WBC) K/mm3 4.5-12.5 RED BLOOD CELL (test code = RBC) mill/mm3 3.7-5.2 HEMOGLOBIN (test code = HGB) 12.0 gram/dL 11.5-15.5 N HEMATOCRIT (test code = HCT) 36.3 % 36.0-46.0 N MEAN CELL VOLUME (test code = MCV) fL 80-98 MEAN CELL HGB (test code = MCH) picogram 27.0-33.0 MEAN CELL HGB CONCETRATION (test code = MCHC) gram/dL 33.0-36. 0 RED CELL DISTRIBUTION WIDTH (test code = RDW) % 11.6-16. 2 PLATELET COUNT (test code = PLT) K/mm3 150-450 MEAN PLATELET VOLUME (test code = MPV) fL 6.7-11.0 URINALYSIS [id number] 14:21:00* Test Item Value Reference Range Interpretation Comments UA COLOR (test code = COLU) Light-Yellow YELLOW UA APPEARANCE (test code = APPU) CLEAR CLEAR UA GLUCOSE DIPSTICK (test code = DGLUU) NEGATIVE mg/dL NEGATIVE UA BILIRUBIN DIPSTICK (test code = BILU) NEGATIVE mg/dL NEGATIVE UA KETONE DIPSTICK (test code = KETU) NEGATIVE mg/dL NEGATIVE UA SPECIFIC GRAVITY (test code = SGU) 1.006 1.001-1.035 UA BLOOD DIPSTICK (test code = TIM) Negative mg/dL NEGATIVE UA PH DIPSTICK (test code = KANDICE) 6.0 5.0-8.0 UA PROTEIN DIPSTICK (test code = PROU) NEGATIVE mg/dL NEGATIVE UA UROBILINIOGEN DIPSTICK (test code = URO) Normal mg/dL NEGATIVE UA NITRITE DIPSTICK (test code = ASHLEY) NEGATIVE NEGATIVE UA LEUKOCYTE ESTERASE W REFLEX (test code = LEUUR) 500 Denise/u L (3+) Denise/uL NEGATIVE A UA WBC (test code = WBCU) 11-20 per HPF 0-5 A UA RBC (test code = RBCU) 0-2 #/HPF 0-5 UA EPITHELIAL CELLS (test code = EPIU) FEW per HPF FEW UA BACTERIA (test code = BACU) FEW #/HPF NONE A UA MUCUS (test code = MUCU) FEW #/LPF FEW Urine Source? Clean Catch- XR CHEST 1 [id number] 13:35:00 FAX: Basilio Dow Si [phone] [place]: St: PRE FAX: Rashida Ashton [phone] Name: MAKAYLA BEE [facility] : 1960 Age/S: 58/F [address] [facility] Unit #: [id number] Loc: [place] [address] Phys: Rashida Gonsalves MD Acct: [id number] Dis Date: Status: PRE ER PHONE #: [phone] Exam Date: 08/03/2019 1311 FAX #: [phone] Reason: CHEST PAIN EXAMS: CPT CODE: [id number] XR CHEST 1 V 64378 HISTORY: Chest pain. COMPARISON: July 09, 2019. Location: [facility]. No acute infiltrates, effusion or co ngestion is noted. The cardiac and mediastinal silhouette are with in normal limits. IMPRESSION: No acute infil trates, effusion or congestion. at 6859 Reported and signed by: Ary Gonsalves M.D. CC: Lisa Dow MD; Rashida Barr MD Technologist: ZEESHAN JOAQUIN JR Trnscrd Date/Time/By: 08/03/2019 (0129) : By: [email or web address] Orig Print D/T: S: 08/03/2019 (3345) PAGE 1 Signed Report STREPTOCOCCUS PCR SCREEN 2019-07-10 06:51:00* Test Item Value Reference Range Interpretation Comments STREPTOCOCCUS DYSGALACTIAE (test code = STREPGC) NEGATIVE FOR G/C N EGATIVE STREPA MOLECULAR (test code = STREPAMOL) NEGATIVE FOR GRP A NEGATIV E - XR CHEST 2 [id number] 15:04:00 Name: MAKAYLA BEE [facility] : 1960 Age/S:58 /F [address] [facility] Unit#:[id number] Loc: [place] [address] Phys: Vandana Phipps CAREER SPECIALIST Dis Date: PHONE #: [phone] Status: REG ER FAX #: [phone] Exam Date: 07/09/2019 Reason: cough EXAMS: CPT CODE: [id number] XR CHEST 2 V 09087 EXAM: Chest X-ray, 2 views; CLINICAL HISTORY: Cough, flulike symptoms; FINDINGS: The lungs are clear, no infiltrates, no edema; no effusions; no pneumothorax; normal cardiomediastinal silhouette. IMPRESSION: Normal chest x-ray. Location code: [facility] at 1504 Reported and signed by: Sandeep Mccabe M.D. CC: Lisa Dow MD; Vandana Phipps NP Technologist: Gypsy Arteaga Trnscrpt Data: 07/09/2019 (1504) Reji Orig Print D/T: S: 07/09/2019 (1505) PAGE 1 Signed Report BREAST ULTRASOUND [id number] 12:34:40- BREAST ULTRASOUND BILATERALULTRASOUND OF BOTH BREASTS AND BOTH AXILLA: 07/06/2019CLINICAL: Diffuse breast pain. Comparison is made to exams dated 05/19/2019 mammogram and 01/30/2017 ultrasound - [facility]-. Real-time ultrasound of both breasts and both axilla and clinical breast exam were performed. No abnormalities were seen sonographically in either axilla. Benign cysts and dilated ducts were seen bilaterally. No solid masses were seen. IMPRESSION: BENIGN There is no sonographic evidence of malignancy. Patient has been informed that she has areas of dense breast tissue that could make it difficult to find a small cancer. A screening mammogram and supplemental ultrasound for dense breast tissue is recommended in 1 year.Citlaly Copeland M.D. dm/:07/06/2019 12:34:40 Public Health Dentist: Torie Melendez FW, [facility]-FWletter sent: BIRADS 1-2 Combo FU Letter Ultrasound BI-RADS: 2 BenignSCR MAMM BILATERAL JEFFRY CAD [id number] 13:21:53 - SCR MAMM BILATERAL JEFFRY CAD DIGITALBILATERAL DIGITAL SCREENING MAMMOGRAM 3D/2D WITH CAD: 05/19/2019CLINICAL: Asymptomatic. Digital breast tomosynthesis was performed in addition to routine CC and MLO views. Current mammographic images were evaluated by either a [employer] M-Vu or a [employer] ImageChecker CAD (computer a [employer] detection system). Comparison is made to exams dated 01/30/2017 mammogram, 10/19/2015 mammogram, and 09/15/2014 mammogram - [facility]-. The tissue of both breasts is heterogeneously dense. This may lower the sensitivity of mammography. There are benign calcifications in both breasts. No suspicious mass, architectural distortion, malignant type calcification, or lymph node abn ormality detected. Breast architecture is stable compared to prior exams.IMPRES PATTI: BENIGNThere is no mammographic evidence of malignancy. Resume annual scree ca mammography in one year. Jhoan Kirby M.D. ss/penrad:2018 13:21:53 Public Health Dentist: Erika Cleary FW, [facility]-FWletter sent: BIRADS 1-2 Normal Mammogram BI-RADS: 2 Benign- XR TIBIA/FIBULA 2 V [id number] 14:50:00 FAX: Basilio Dow Si [phone] [place]: O St: REG Name: MAKAYLA AVINA [facility] : [birth year] Age/S: 58/F [address] [facility] Unit #: [id number] Loc: [place] [address] Phys: Jero Dow MD Acct: [id number] Dis Date: Status: REG CLI PHONE #: [phone] Exam Date: 03/31/2019 1202 FAX #: [phone] Reason: RT LEG FIBIA MASS EXAMS: CPT CODE: [id number] XR TIBIA/FIBULA 2 [place] [address] HISTORY: Right leg fibular mass. COMPARISON: None available. AP and lateral view of the right leg: No fibular mass is visible. Correlate with MRI scan. No erosive or destructive changes of the bony skeleton. Mildly narrowed knee and ankle joints. No joint fluid noted. IMPRESSION: No mass visible. Correlate with MRI scan. No erosive or destructive change or acute fracture or dislocation. at 3922 Reported and signed by: Tomasz Gonsalves M.D. CC: Lisa Alarcon MD Technologist: NAM DE, RT( R); STUDENT TECHNOLOGIST Trnscrd Date/Time/By: 03/31/2019 (6282) : By: Oriana [email or web address] Orig Print D/T: S: 03/31/2019 (7851) PAG E 1 Signed Report GLUBED 2019-02-23 10:22:00* Test Item Value Reference Range Interpretation Comments GLUBED (test code = GLUBED) 214 mg/dL 74-106 H Performed by certified band sawing machine operator at [facility] [id number] 10:21:00* Test Item Value Reference Range Interpretation Comments GLUBED (test code = GLUBED) 105 mg/dL 74-106 N Performed by certified band sawing machine operator at [facility] [id number] 10:20:00* Test Item Value Reference Range Interpretation Comments GLUBED (test code = GLUBED) 109 mg/dL 74-106 H Performed by certified band sawing machine operator at [facility] [id number] 10:19:00* Test Item Value Reference Range Interpretation Comments GLUBED (test code = GLUBED) 143 mg/dL 74-106 H Performed by certified band sawing machine operator at [facility] [id number] 10:18:00* Test Item Value Reference Range Interpretation Comments GLUBED (test code = GLUBED) 159 mg/dL 74-106 H Performed by certified band sawing machine operator at [facility] - MRI BRAIN W WO [id number] 19:12:00 FAX: Venancio Alexandra MD [place]: St: ADM FAX: Alonso Hare MD [phone] Name: MAKAYLA BEE [facility] : 1960 Age/S: 58/F [address] [facility] Unit #: [id number] Loc: V[address] [place] [address] Phys: Venancio Alexandra MD Acct: [id number] Dis Date: Status: ADM IN PHONE #: [phone] Exam Date: 02/20/2019 1843 FAX #: [phone] Reason: stroke w/u EXAMS: CPT CODE: [id number] MRI BRAIN W WO CONT 83785 REASON FOR EXAM: stroke w/u Exam Order Date: 02/20/2019 3:13 PM Attending M.D.: Venancio Alexandra MD Procedure: - MRI BRAIN W WO CONT Comparison: CT scan of the brain earlier today at 7:00 PM FINDINGS: Axial, sagittal, and coronal images of the head were obtained using T1, T2 weighted, inversion recovery, diffusion weighted, and gradient echo sequences. Intravenous gadolinium was given. The sagittal images show normal pituitary, cerebellum, and brain stem. No evidence of suprasellar mass. The axial T2, inversion recovery, and gradient echo images show no evidence of intra or extra axial mass. The ventricles, cisterns, and sulci are unremarkable. No evidence of hemorrhage. The cerebellar pontine angle area is within normal limits. There is no evidence of mass noted. The axial T1 images show no evidence of mass. No diffusion restriction to suggest acute infarct or intracranial mass. No blooming artifact on gradient echo images to suggest hemorrhagic products. No abnormal intracr anial enhancement. No evidence of white matter disease on inversion recove ry images. The coronal images show normal optic chiasm. IMPRESSION: NORMAL BRAIN. Specifically no acute stroke, intracranial hemorrhage, enhancing intracranial masses, or white matter disease. at 1912 Reported and signed by: Amrit Tuttle MD PAGE 1 Signed Report (CONTINUED) FAX: Venancio Alexandra MD [place]: St: ADM FAX: Y Alonso Romo MD [phone] Name: MAKAYLA BEE [facility] : 1960 Age/S: 58/F [address] U nit #: [id number] Loc: [address] [place] [address] Phys: Venancio Alexandra MD Acct: [id number] Dis Date: Status: ADM IN P JANEL #: [phone] Exam Date: 02/20/2019 1843 FA X #: [phone] Reason: stroke w/u EXAMS: CPT CODE: [id number] M RI BRAIN W WO CONT 74841 <Continued> CC: Venancio Alexandra MD; Alonso Romo Technologist: Alonzo Whitaker(Dalia)(MR) Trnscrd Date/Time/By: 02/20/2019 (1911) : By: [email or web address] Orig Print D/T: S: 02/20/2019 (1914) PAGE 2 Signed Report URINALYSIS [id number] 15:47:00* Test Item Value Reference Range Interpretation Comments UA COLOR (test code = COLU) YELLOW YELLOW UA APPEARANCE (test code = APPU) CLOUDY CLEAR A UA GLUCOSE DIPSTICK (test code = DGLUU) NEGATIVE mg/dL NEGATIVE UA BILIRUBIN DIPSTICK (test code = BILU) NEGATIVE NEGATIVE UA KETONE DIPSTICK (test code = KETU) NEGATIVE mg/dL NEGATIVE UA SPECIFIC GRAVITY (test code = SGU) <=1.005 1.001-1.035 UA BLOOD DIPSTICK (test code = TIM) NEGATIVE NEGATIVE UA PH DIPSTICK (test code = KANDICE) 6.5 5.0-8.0 UA PROTEIN DIPSTICK (test code = PROU) NEGATIVE mg/dL Neg-15 UA UROBILINIOGEN DIPSTICK (test code = URO) 0.2 mg/dL 0.0-0.2 UA NITRITE DIPSTICK (test code = ASHLEY) NEGATIVE NEGATIVE UA LEUKOCYTE ESTERASE W REFLEX (test code = LEUUR) 1+ NEG ATIVE A UA WBC (test code = WBCU) 51-100 per HPF 0-5 A UA RBC (test code = RBCU) 3-5 #/HPF 0-5 UA WBC CLUMPS (test code = WBCUCL) <1 /HPF NONE UA EPITHELIAL CELLS (test code = EPIU) FEW per HPF FEW UA BACTERIA (test code = BACU) FEW #/HPF NONE A UA MUCUS (test code = MUCU) FEW #/LPF FEW UA AMORPHOUS SEDIMENT (test code = AMORU) MANY #/LPF NONE Urine Source? Clean CatchURINALYSIS [id number] 15:20:00* Test Item Value Reference Range Interpretation Comments UA COLOR (test code = COLU) YELLOW YELLOW UA APPEARANCE (test code = APPU) CLOUDY CLEAR A UA GLUCOSE DIPSTICK (test code = DGLUU) NEGATIVE mg/dL NEGATIVE UA BILIRUBIN DIPSTICK (test code = BILU) NEGATIVE NEGATIVE UA KETONE DIPSTICK (test code = KETU) NEGATIVE mg/dL NEGATIVE UA SPECIFIC GRAVITY (test code = SGU) <=1.005 1.001-1.035 UA BLOOD DIPSTICK (test code = TIM) NEGATIVE NEGATIVE UA PH DIPSTICK (test code = KANDICE) 6.5 5.0-8.0 UA PROTEIN DIPSTICK (test code = PROU) NEGATIVE mg/dL Neg-15 UA UROBILINIOGEN DIPSTICK (test code = URO) 0.2 mg/dL 0.0-0.2 UA NITRITE DIPSTICK (test code = ASHLEY) NEGATIVE NEGATIVE UA LEUKOCYTE ESTERASE W REFLEX (test code = LEUUR) 1+ NEG ATIVE A UA WBC (test code = WBCU) per HPF 0-5 UA RBC (test code = RBCU) per HPF 0-5 UA EPITHELIAL CELLS (test code = EPIU) per HPF Few UA BACTERIA (test code = BACU) per HPF NONE Urine Source? Clean Catch- XR CHEST 1 [id number] 13:56:00 FAX: Venancio Alexandra MD [place]: St: REG FAX: Alonso Hare MD [phone] Name: MAKAYLA BEE [facility] : 1960 Age/S: 58/F [address] [facility] Unit #: [id number] Loc: [place] [address] Phys: Venancio Alexandra MD Acct: [id number] Dis Date: Status: REG ER PHONE #: [phone] Exam Date: 02/20/2019 1345 FAX #: [phone] Reason: CODE STROKE EXAMS: CPT CODE: [id number] XR CHEST 1 V 66853 HISTORY: Stroke. COMPARISON: September 02, 2017. No acute infiltrates, effusion or congestion is noted. Hyperinflation. Mild cardiomegaly. IMPRESSION: No acute infiltrates, effusion or congestion. at 1350 Reported and signed by: Tomasz Gonsalves M.D. CC: Venancio Alexandra MD; Alonso Zhou Technologist: Jac BAUMAN(R) Trnscrd Date/Time/By: 02/20/2019 (9095) : By: [email or web address] Orig Print D/T: S: 02/20/2019 (8180) PAGE 1 Signed Report BASIC METABOLIC PANEL 2019-02-20 13:53:00* Test Item Value Reference Range Interpretation Comments SODIUM (test code = NA) 139 mmol/L 136-145 N POTASSIUM (test code = K) 3.7 mmol/L 3.5-5.1 N CHLORIDE (test code = CL) 103.0 mmol/L 98-107 N CARBON DIOXIDE (test code = CO2) 29.0 mmol/L 21-32 N ANION GAP (test code = GAP) 10.7 10-20 N GLUCOSE (test code = GLU) 126 mg/dL 74-106 H BLOOD UREA NITROGEN (test code = BUN) 16 mg/dL 7-18 N GLOMERULAR FILTRATION RATE (test code = GFR) > 60 mL/min >=60 Estimated GFR by using Modified MDRD formula.Chronic kidney disease is defined as either kidney damageor GFR <60 mL/min/1.73 m2 for >3 months. CREATININE (test code = CREAT) 0.70 mg/dL 0.55-1.02 N Note change in reference range due to change in reagent. BUN/CREATININE RATIO (test code = BUN/CREA) 22.9 10-20 H CALCIUM (test code = CA) 9.4 mg/dL 8.5-10.1 N [id number] 13:53:00* Test Item Value Reference Range Interpretation Comments TROPONIN-I (test code = TROPI) <0.015 ng/mL 0-0.045 N BASIC METABOLIC [id number] 13:37:00* Test Item Value Reference Range Interpretation Comments SODIUM (test code = NA) 139 mmol/L 136-145 N POTASSIUM (test code = K) 3.7 mmol/L 3.5-5.1 N CHLORIDE (test code = CL) 103.0 mmol/L 98-107 N CARBON DIOXIDE (test code = CO2) mmol/L 21-32 ANION GAP (test code = GAP) 10-20 GLUCOSE (test code = GLU) mg/dL 74-106 BLOOD UREA NITROGEN (test code = BUN) mg/dL 7-18 GLOMERULAR FILTRATION RATE (test code = GFR) mL/min >=60 CREATININE (test code = CREAT) mg/dL 0.55-1.02 BUN/CREATININE RATIO (test code = BUN/CREA) 10-20 CALCIUM (test code = CA) mg/dL 8.5-10.1 [id number] 13:37:00* Test Item Value Reference Range Interpretation Comments TROPONIN-I (test code = TROPI) ng/mL 0-0.045 - CT HEAD/BRAIN W/O [id number] 13:20:00 Name: MAKAYLA BEE [facility] : 1960 Age/S: 58 / F [address] Unit #: [id number] Loc: [place] [address] Phys: Venancio Alexandra MD Acct: [id number] Dis Date: Status: REG ER PHONE #: [phone] Exam Date: 02/20/2019 1310 FAX #: [phone] Reason: L weakness EXAMS: CPT CODE: [id number] CT HEAD/BRAIN W/O CONT 99043 HISTORY: Left-sided weakness COMPARISON: Head CT from October 31, 2018 and August 16, 2016. CT brain without contrast: Automated exposure control. No acute intracranial bleeds or extra-axial collections are noted. No acute territorial vascular infarction is noted. Stable mild ventriculomegaly multiple previous exams The sulci, gyri, ventricles and subarachnoid spaces and the basilar cisterns are normal for patient's age. No herniation or hydrocephalus or midline shift is noted. Mild periventricular ischemic gliosis is noted. Age-appropriate atrophy is noted as well. Portions of the visualized paranasal sinuses are normal. No obvious bony calvarial defect is noted. IMPRESSION: No acute intracranial bleeds or extra-axial collections. No acute territorial vascular infarction. Stable bilateral ventriculomegaly right back to examination of 2017. No herniation or hydrocephalus or midline shift. Chronic white matter ischemic disease and atrophy . These findings were discussed with Dr. Lopez at 1:18 PM. FOR INTERNAL CODING PURPOSES ONLY RESULT CODE: CVR at 1320 Reported and signed by: Tomasz Gonsalves M.D. PAGE 1 Signed Report (CONTINUED) Name: MAKAYLA BEE [facility] : 1960 Age/S: 58 / F [address] Unit #: [id number] Loc: [place] [address] Phys: Venancio Alexandra MD Acct: [id number] Dis Date: Status: REG ER PHONE #: [phone] Exam Date: 02/20/2019 1310 FAX #: [phone] Reason: L weakness EXAMS: CPT CODE: [id number] CT HEAD/BRAIN W/O CONT 25451 <Continued> CC: Venancio Aleaxndra MD; Alonso Romo Technologist:Von Lo RT(R),(MR),(CT) CTDI: DLP: Trnscb Date/Time: 02/20/2019 (1320) [email or web address] Orig Print D/T: S: 02/20/2019 (7519) PAGE 2 Signed Report CBC W/AUTO [id number] 13:13:00* Test Item Value Reference Range Interpretation Comments WHITE BLOOD CELL (test code = WBC) 5.6 K/mm3 4.5-12.5 N RED BLOOD CELL (test code = RBC) 3.68 mill/mm3 3.7-5.2 L HEMOGLOBIN (test code = HGB) 11.6 gram/dL 11.5-15.5 N HEMATOCRIT (test code = HCT) 34.1 % 36.0-46.0 L MEAN CELL VOLUME (test code = MCV) 92.7 fL 80-98 N MEAN CELL HGB (test code = MCH) 31.5 picogram 27.0-33.0 N MEAN CELL HGB CONCETRATION (test code = MCHC) 34.0 gram/dL 33.0-36. 0 N RED CELL DISTRIBUTION WIDTH (test code = RDW) 12.2 % 11.6-16. 2 N RED CELL DISTRIBUTION WIDTH SD (test code = RDW-SD) 41.9 fL 37 .0-51.0 N PLATELET COUNT (test code = PLT) 224 K/mm3 150-450 N MEAN PLATELET VOLUME (test code = MPV) 8.8 fL 6.7-11.0 N NEUTROPHIL % (test code = NT%) 57.9 % 39.0-69.0 N IMMATURE GRANULOCYTE % (test code = IG%) 0.2 % 0.0-5.0 N LYMPHOCYTE % (test code = LY%) 28.6 % 25.0-55.0 N MONOCYTE % (test code = MO%) 9.4 % 0.0-10.0 N EOSINOPHIL % (test code = EO%) 3.2 % 0.0-5.0 N BASOPHIL % (test code = BA%) 0.7 % 0.0-1.0 N NUCLEATED RBC % (test code = NRBC%) 0.0 % 0-0 N NEUTROPHIL # (test code = NT#) 3.26 K/mm3 1.8-7.7 N IMMATURE GRANULOCYTE # (test code = IG#) 0.01 x10 3/uL 0-0.03 N LYMPHOCYTE # (test code = LY#) 1.61 K/mm3 1.0-5.0 N MONOCYTE # (test code = MO#) 0.53 K/mm3 0-0.8 N EOSINOPHIL # (test code = EO#) 0.18 K/mm3 0.0-0.5 N BASOPHIL # (test code = BA#) 0.04 K/mm3 0.0-0.2 N NUCLEATED RBC # (test code = NRBC#) 0.00 K/mm3 0.0-0.1 N MANUAL DIFF REQUIRED (test code = MDIFF) NO PROTHROMBIN [id number] 13:12:00* Test Item Value Reference Range Interpretation Comments PROTHROMBIN TIME PATIENT (test code = PTP) 11.2 seconds 9.0-14.0 N INTERNATIONAL NORMAL RATIO (test code = INR) 1.0 0.8-1.2 N The therapeutic range for oral anticoagulant therapy formost indications is an international normalized ratio (INR)of between 2.0 and 3.0. The recommended therapeutic INRrange for various clinical situations is listed below: Clinical Situation INR range Pulmonary e mbolism treatment (2.0-3.0)Venous thrombosis treatmentVenous thrombosis prophylaxis (high risk surgery)Prevention of systemic embolism from: Acute myocardial infarction Valvular heart disease Atrial fibrillation Mechanical prosthetic heart valves (2.5-3.5) IS PATIENT ON ANTICOAGULANTS? NTHROMBOPLASTIN TIME [id number] 13:12:00* Test Item Value Reference Range Interpretation Comments THROMBOPLASTIN TIME PARTIAL (test code = PTT) 36.1 seconds 25.0-36. 5 N IS PATIENT ON ANTICOAGULANTS? NCBC W/AUTO [id number] 13:12:00* Test Item Value Reference Range Interpretation Comments WHITE BLOOD CELL (test code = WBC) K/mm3 4.5-12.5 RED BLOOD CELL (test code = RBC) mill/mm3 3.7-5.2 HEMOGLOBIN (test code = HGB) 11.6 gram/dL 11.5-15.5 N HEMATOCRIT (test code = HCT) % 36.0-46.0 MEAN CELL VOLUME (test code = MCV) fL 80-98 MEAN CELL HGB (test code = MCH) picogram 27.0-33.0 MEAN CELL HGB CONCETRATION (test code = MCHC) gram/dL 33.0-36. 0 RED CELL DISTRIBUTION WIDTH (test code = RDW) % 11.6-16. 2 RED CELL DISTRIBUTION WIDTH SD (test code = RDW-SD) fL 37 .0-51.0 PLATELET COUNT (test code = PLT) K/mm3 150-450 MEAN PLATELET VOLUME (test code = MPV) fL 6.7-11.0 NEUTROPHIL % (test code = NT%) % 39.0-69.0 IMMATURE GRANULOCYTE % (test code = IG%) % 0.0-5.0 LYMPHOCYTE % (test code = LY%) % 25.0-55.0 MONOCYTE % (test code = MO%) % 0.0-10.0 EOSINOPHIL % (test code = EO%) % 0.0-5.0 BASOPHIL % (test code = BA%) % 0.0-1.0 NEUTROPHIL # (test code = NT#) K/mm3 1.8-7.7 LYMPHOCYTE # (test code = LY#) K/mm3 1.0-5.0 MONOCYTE # (test code = MO#) K/mm3 0-0.8 EOSINOPHIL # (test code = EO#) K/mm3 0.0-0.5 BASOPHIL # (test code = BA#) K/mm3 0.0-0.2 PROTHROMBIN [id number] 13:10:00* Test Item Value Reference Range Interpretation Comments PROTHROMBIN TIME PATIENT (test code = PTP) 11.2 seconds 9.0-14.0 N INTERNATIONAL NORMAL RATIO (test code = INR) 1.0 0.8-1.2 N The therapeutic range for oral anticoagulant therapy formost indications is an international normalized ratio (INR)of between 2.0 and 3.0. The recommended therapeutic INRrange for various clinical situations is listed below: Clinical Situation INR range Pulmonary e mbolism treatment (2.0-3.0)Venous thrombosis treatmentVenous thrombosis prophylaxis (high risk surgery)Prevention of systemic embolism from: Acute myocardial infarction Valvular heart disease Atrial fibrillation Mechanical prosthetic heart valves (2.5-3.5) IS PATIENT ON ANTICOAGULANTS? NTHROMBOPLASTIN TIME [id number] 13:10:00* Test Item Value Reference Range Interpretation Comments THROMBOPLASTIN TIME PARTIAL (test code = PTT) seconds 25.0-36. 5 IS PATIENT ON ANTICOAGULANTS? [id number] 11:08:00* Test Item Value Reference Range Interpretation Comments GLUBED (test code = GLUBED) 202 mg/dL 74-106 H Performed by certified band sawing machine operator at [facility] [id number] 06:31:00* Test Item Value Reference Range Interpretation Comments GLUBED (test code = GLUBED) 143 mg/dL 74-106 H Performed by certified band sawing machine operator at [facility] [id number] 20:08:00* Test Item Value Reference Range Interpretation Comments GLUBED (test code = GLUBED) 151 mg/dL 74-106 H Performed by certified band sawing machine operator at [facility] [id number] 19:53:00* Test Item Value Reference Range Interpretation Comments GLUBED (test code = GLUBED) 127 mg/dL 74-106 H Performed by certified band sawing machine operator at [facility] [id number] 11:19:00* Test Item Value Reference Range Interpretation Comments GLUBED (test code = GLUBED) 157 mg/dL 74-106 H Performed by certified band sawing machine operator at [facility] [id number] 06:23:00* Test Item Value Reference Range Interpretation Comments GLUBED (test code = GLUBED) 135 mg/dL 74-106 H Performed by certified band sawing machine operator at [facility] [id number] 20:25:00* Test Item Value Reference Range Interpretation Comments GLUBED (test code = GLUBED) 146 mg/dL 74-106 H Performed by certified band sawing machine operator at [facility] [id number] 16:22:00* Test Item Value Reference Range Interpretation Comments GLUBED (test code = GLUBED) 223 mg/dL 74-106 H Performed by certified band sawing machine operator at [facility] [id number] 11:52:00* Test Item Value Reference Range Interpretation Comments GLUBED (test code = GLUBED) 133 mg/dL 74-106 H Performed by certified band sawing machine operator at [facility] [id number] 06:45:00* Test Item Value Reference Range Interpretation Comments GLUBED (test code = GLUBED) 170 mg/dL 74-106 H Performed by certified band sawing machine operator at [facility] [id number] 20:32:00* Test Item Value Reference Range Interpretation Comments GLUBED (test code = GLUBED) 184 mg/dL 74-106 H Performed by certified band sawing machine operator at [facility] [id number] 17:44:00* Test Item Value Reference Range Interpretation Comments GLUBED (test code = GLUBED) 102 mg/dL 74-106 N Performed by certified band sawing machine operator at [facility] [id number] 13:55:00* Test Item Value Reference Range Interpretation Comments GLUBED (test code = GLUBED) 99 mg/dL 74-106 N Performed by certified band sawing machine operator at [facility] [id number] 11:35:00* Test Item Value Reference Range Interpretation Comments GLUBED (test code = GLUBED) 195 mg/dL 74-106 H Performed by certified band sawing machine operator at [facility] [id number] 07:14:00* Test Item Value Reference Range Interpretation Comments GLUBED (test code = GLUBED) 147 mg/dL 74-106 H Performed by certified band sawing machine operator at [facility] [id number] 20:04:00* Test Item Value Reference Range Interpretation Comments GLUBED (test code = GLUBED) 122 mg/dL 74-106 H Performed by certified band sawing machine operator at [facility] [id number] 17:00:00* Test Item Value Reference Range Interpretation Comments GLUBED (test code = GLUBED) 198 mg/dL 74-106 H Performed by certified band sawing machine operator at [facility] [id number] 11:12:00* Test Item Value Reference Range Interpretation Comments GLUBED (test code = GLUBED) 147 mg/dL 74-106 H Performed by certified band sawing machine operator at [facility] [id number] 07:18:00* Test Item Value Reference Range Interpretation Comments GLUBED (test code = GLUBED) 194 mg/dL 74-106 H Performed by certified band sawing machine operator at [facility] [id number] 00:32:00* Test Item Value Reference Range Interpretation Comments GLUBED (test code = GLUBED) 142 mg/dL 74-106 H Performed by certified band sawing machine operator at [facility] [id number] 16:43:00* Test Item Value Reference Range Interpretation Comments GLUBED (test code = GLUBED) 249 mg/dL 74-106 H Performed by certified band sawing machine operator at [facility] [id number] 11:27:00* Test Item Value Reference Range Interpretation Comments GLUBED (test code = GLUBED) 160 mg/dL 74-106 H Performed by certified band sawing machine operator at [facility] [id number] 11:12:00* Test Item Value Reference Range Interpretation Comments GLUBED (test code = GLUBED) 130 mg/dL 74-106 H Performed by certified band sawing machine operator at [facility] [id number] 20:36:00* Test Item Value Reference Range Interpretation Comments GLUBED (test code = GLUBED) 245 mg/dL 74-106 H Performed by certified band sawing machine operator at [facility] [id number] 16:33:00* Test Item Value Reference Range Interpretation Comments GLUBED (test code = GLUBED) 162 mg/dL 74-106 H Performed by certified band sawing machine operator at [facility] [id number] 16:08:00* Test Item Value Reference Range Interpretation Comments GLUBED (test code = GLUBED) 155 mg/dL 74-106 H Performed by certified band sawing machine operator at [facility] [id number] 12:33:00* Test Item Value Reference Range Interpretation Comments GLUBED (test code = GLUBED) 232 mg/dL 74-106 H Performed by certified band sawing machine operator at [facility] - MRI C-SPINE W/O [id number] 09:51:00 FAX: Indira Felix MD [phone] [place]: St: [facility] FAX: Alonso Hare MD [phone] Name: MAKAYLA BEE [facility] : 1960 Age/S: 58/F [address] [facility] Unit #: [id number] Loc: V.2068 [place] [address] Phys: Indira Mckeon MD Acct: [id number] Dis Date: Status: ADM IN PHONE #: [phone] Exam Date: 11/01/2018 0935 FAX #: [phone] Reason: ataxia EXAMS: CPT CODE: [id number] MRI C-SPINE W/O CONT [id number] REASON FOR EXAM: ataxia Exam Order Date: 11/01/2018 7:21 PM Attending MSuze: Indira Mckeon MD [facility] son: Procedure: - MRI C-SPINE W/O CONT FINDINGS: Sa gittal and axial images of the cervical spine were obtained in in T1, T2, and proton density with fat saturation. No IV gadolinium was given. The sagittal images show within normal alignment of the cervical s pine. No evidence of diskitis or osteomyelitis. The axial images show no evidence of cord compression. No evidence of narrowing of the neur oforamen. The cord is unremarkable without evidence of intramedull mary mass. IMPRESSION: Minimal central disc bulge at C5-6. No ev idence of central canal stenosis and narrowing the neuroforamen. Otherw ise, unremarkable cervical spine at 0974 Reported and signed by: Hemant Faustin M.D. CC: Indira Mckeon MD; Alonso Romo Technologist: Alonzo Cisneros)(MR) Trn scrd Date/Time/By: 11/01/2018 (9082) : By: Carlos.VTL Orig Print D/T: S : 11/01/2018 (4897) PAGE 1 Signed Report - MRI BRAIN W/O [id number] 09:37:00 FAX: Indira Felix MD [phone] [place]: St: [facility] FAX: Alonso Hare MD [phone] Name: MAKAYLA BEE [facility] : 1960 Age/S: 58/F [address] [facility] Unit #: [id number] Loc: V.2068 [place] [address] Phys: Indira Mckeon MD Acct: [id number] Dis Date: Status: ADM IN PHONE #: [phone] Exam Date: 11/01/2018 0935 FAX #: [phone] Reason: ataxia EXAMS: CPT CODE: [id number] MRI BRAIN W/O CONTRAST [id number] REASON FOR EXAM: ataxia Exam Order Date: 11/01/2018 7:21 PM Attending Erma: Indira Mckeon MD Procedu re: - MRI BRAIN W/O CONTRAST Comparison: FINDINGS: Axial, sagittal, and coronal images of the head were obtained using T1, T2 weighted, inversion recovery, and gradient echo sequences. The diffusion images are within normal limits without abnormal signal intensity to sugg est acute infarct. No IV gadolinium was given. The sagittal images show normal pituitary, cerebellum, and brain stem. No evidence of s uprasellar mass. The axial T2, inversion recovery, and gradient ec ho images show no evidence of intra or extra axial mass. The ventricles, c isterns, and sulci are minimally prominent. No evidence of hemorrhage. The cerebellar pontine angle area is within normal limits. There is no evidence of mass noted. The axial T1 images show no evidence of mass. The coronal images show normal optic chiasm. IMPRESSION: Chronic left basal ganglia infarct. Minimal enlargement of the ventricles suggestive of nonobstructive hydrocephalus. No acute findings at 0937 Reported and signed by: Hemant Faustin M.D. CC: Indira Tenorio MD; Alonso Romo Technologist: Alonzo Whitaker(Dalia)() Trnscrd Date/Time/By: 11/01/2018 (0937) : By: RobinVTL Orig Print D/T: S: 11/01/2018 (0940) PAGE 1 Signed Report [id number] 05:37:00* Test Item Value Reference Range Interpretation Comments GLUBED (test code = GLUBED) 231 mg/dL 74-106 H Performed by certified band sawing machine operator at [facility] [id number] 02:24:00* Test Item Value Reference Range Interpretation Comments TROPONIN-I (test code = TROPI) <0.015 ng/mL 0-0.045 N COMMENTS TO TRACKLESS TROLLEY DRIVER: COLLECT 3 HOURS AFTER PREVIOUS [id number] 22:23:00* Test Item Value Reference Range Interpretation Comments TROPONIN-I (test code = TROPI) <0.015 ng/mL 0-0.045 N COMMENTS TO TRACKLESS TROLLEY DRIVER: COLLECT 3 HOURS AFTER PREVIOUS [id number] 20:34:00* Test Item Value Reference Range Interpretation Comments GLUBED (test code = GLUBED) 182 mg/dL 74-106 H Performed by certified band sawing machine operator at [facility] BASIC METABOLIC [id number] 18:09:00* Test Item Value Reference Range Interpretation Comments SODIUM (test code = NA) 140 mmol/L 136-145 N POTASSIUM (test code = K) 3.6 mmol/L 3.5-5.1 N CHLORIDE (test code = CL) 102.0 mmol/L 98-107 N CARBON DIOXIDE (test code = CO2) 32.0 mmol/L 21-32 N ANION GAP (test code = GAP) 9.6 10-20 L GLUCOSE (test code = GLU) 168 mg/dL 74-106 H BLOOD UREA NITROGEN (test code = BUN) 16 mg/dL 7-18 N GLOMERULAR FILTRATION RATE (test code = GFR) > 60 mL/min >=60 Estimated GFR by using Modified MDRD formula.Chronic kidney disease is defined as either kidney damageor GFR <60 mL/min/1.73 m2 for >3 months. CREATININE (test code = CREAT) 0.80 mg/dL 0.55-1.02 N Note change in reference range due to change in reagent. BUN/CREATININE RATIO (test code = BUN/CREA) 20.0 10-20 N CALCIUM (test code = CA) 9.6 mg/dL 8.5-10.1 N [id number] 18:09:00* Test Item Value Reference Range Interpretation Comments TROPONIN-I (test code = TROPI) <0.015 ng/mL 0-0.045 N - CT HEAD/BRAIN W/O [id number] 17:58:00 Name: MAKAYLA BEE [facility] : 1960 Age/S: 58 / F [address] [facility] Unit #: [id number] Loc: [place] [address] Phys: Esteban Marie MD Acct: [id number] Dis Date: Status: REG ER PHONE #: [phone] Exam Date: 10/31/2018 5522 FAX #: [phone] Reason: inability to ambulate, dizziness, L arm weak EXAMS: CPT CODE: [id number] CT HEAD/BRAIN W/O CONT 08109 HISTORY: Dizziness and weakness. COMPARISON: June 16, 2018. CT brain without contrast: Automated exposure control. No acute intracranial bleeds or extra-axial collections are noted. No acute territorial vascular infarction is noted. The sulci, gyri, ventricles and subarachnoid spaces and the basilar cisterns are normal for patient's age. No herniation or hydrocephalus or midline shift is noted. Mild periventricular ischemic gliosis is noted. Age-appropriate atrophy is noted as well. Portions of the visualized paranasal sinuses are normal. No obvious bony calvarial defect is noted. IMPRESSION: No acute intracranial bleeds or extra-axial collections. No acute territorial vascular infarction. No herniation or hydrocephalus or midline shift. Chronic white matter ischemic disease and atrophy . at 1753 Reported and signed by: Tomasz Gonsalves M.D. CC: Esteban Marie MD Technologist:Annetta BAUMAN(R); JAC Ramesh CTDI: DLP: Trnscb Date/Time: 10/31/2018 (7465) t.SDR.TH4 Orig Print D/T: S: 10/31/2018 (1250) PAGE 1 Signed Report PROTHROMBIN [id number] 17:55:00* Test Item Value Reference Range Interpretation Comments PROTHROMBIN TIME PATIENT (test code = PTP) 10.8 seconds 9.0-14.0 N INTERNATIONAL NORMAL RATIO (test code = INR) 0.9 0.8-1.2 N The therapeutic range for oral anticoagulant therapy formost indications is an international normalized ratio (INR)of between 2.0 and 3.0. The recommended therapeutic INRrange for various clinical situations is listed below: Clinical Situation INR range Pulmonary e mbolism treatment (2.0-3.0)Venous thrombosis treatmentVenous thrombosis prophylaxis (high risk surgery)Prevention of systemic embolism from: Acute myocardial infarction Valvular heart disease Atrial fibrillation Mechanical prosthetic heart valves (2.5-3.5) IS PATIENT ON ANTICOAGULANTS? NTHROMBOPLASTIN TIME [id number] 17:55:00* Test Item Value Reference Range Interpretation Comments THROMBOPLASTIN TIME PARTIAL (test code = PTT) 37.5 seconds 25.0-36. 5 H IS PATIENT ON ANTICOAGULANTS? NBASIC METABOLIC [id number] 17:51:00* Test Item Value Reference Range Interpretation Comments SODIUM (test code = NA) 140 mmol/L 136-145 N POTASSIUM (test code = K) 3.6 mmol/L 3.5-5.1 N CHLORIDE (test code = CL) 102.0 mmol/L 98-107 N CARBON DIOXIDE (test code = CO2) mmol/L 21-32 ANION GAP (test code = GAP) 10-20 GLUCOSE (test code = GLU) mg/dL 74-106 BLOOD UREA NITROGEN (test code = BUN) mg/dL 7-18 GLOMERULAR FILTRATION RATE (test code = GFR) mL/min >=60 CREATININE (test code = CREAT) mg/dL 0.55-1.02 BUN/CREATININE RATIO (test code = BUN/CREA) 10-20 CALCIUM (test code = CA) mg/dL 8.5-10.1 [id number] 17:51:00* Test Item Value Reference Range Interpretation Comments TROPONIN-I (test code = TROPI) ng/mL 0-0.045 CBC W/AUTO [id number] 17:36:00* Test Item Value Reference Range Interpretation Comments WHITE BLOOD CELL (test code = WBC) 5.8 K/mm3 4.5-12.5 N RED BLOOD CELL (test code = RBC) 4.03 mill/mm3 3.7-5.2 N HEMOGLOBIN (test code = HGB) 12.2 gram/dL 11.5-15.5 N HEMATOCRIT (test code = HCT) 37.8 % 36.0-46.0 N MEAN CELL VOLUME (test code = MCV) 93.8 fL 80-98 N MEAN CELL HGB (test code = MCH) 30.3 picogram 27.0-33.0 N MEAN CELL HGB CONCETRATION (test code = MCHC) 32.3 gram/dL 33.0-36. 0 L RED CELL DISTRIBUTION WIDTH (test code = RDW) 12.2 % 11.6-16. 2 N RED CELL DISTRIBUTION WIDTH SD (test code = RDW-SD) 42.0 fL 37 .0-51.0 N PLATELET COUNT (test code = PLT) 262 K/mm3 150-450 N MEAN PLATELET VOLUME (test code = MPV) 9.2 fL 6.7-11.0 N NEUTROPHIL % (test code = NT%) 62.5 % 39.0-69.0 N IMMATURE GRANULOCYTE % (test code = IG%) 0.3 % 0.0-5.0 N LYMPHOCYTE % (test code = LY%) 27.1 % 25.0-55.0 N MONOCYTE % (test code = MO%) 6.2 % 0.0-10.0 N EOSINOPHIL % (test code = EO%) 3.4 % 0.0-5.0 N BASOPHIL % (test code = BA%) 0.5 % 0.0-1.0 N NUCLEATED RBC % (test code = NRBC%) 0.0 % 0-0 N NEUTROPHIL # (test code = NT#) 3.65 K/mm3 1.8-7.7 N IMMATURE GRANULOCYTE # (test code = IG#) 0.02 x10 3/uL 0-0.03 N LYMPHOCYTE # (test code = LY#) 1.58 K/mm3 1.0-5.0 N MONOCYTE # (test code = MO#) 0.36 K/mm3 0-0.8 N EOSINOPHIL # (test code = EO#) 0.20 K/mm3 0.0-0.5 N BASOPHIL # (test code = BA#) 0.03 K/mm3 0.0-0.2 N NUCLEATED RBC # (test code = NRBC#) 0.00 K/mm3 0.0-0.1 N [id number] 13:52:00* Test Item Value Reference Range Interpretation Comments GLUBED (test code = GLUBED) 90 mg/dL 74-106 N Performed by certified band sawing machine operator at [facility] Creatine Kinase [id number] 19:20:00* Test Item Value Reference Range Interpretation Comments Creatine Kinase MB (test code = 78670-2) 1.20 0-5.0 [facility] HospitalTroponin [id number] 19:20:00* Test Item Value Reference Range Interpretation Comments Troponin I (test code = MCU9954) -0.001 0-0.300 [facility] [id number] 19:11:00* Test Item Value Reference Range Interpretation Comments Sodium Level (test code = 2951-2) 142 136-145 [facility] HospitalPotassium [id number] 19:11:00* Test Item Value Reference Range Interpretation Comments Potassium Level (test code = 2823-3) 4.0 3.5-5.1 [facility] HospitalChloride [id number] 19:11:00* Test Item Value Reference Range Interpretation Comments Chloride Level (test code = 2075-0) 103 98-107 [facility] HospitalCarbon Dioxide [id number] 19:11:00* Test Item Value Reference Range Interpretation Comments Carbon Dioxide Level (test code = 2028-9) 29 22-29 [facility] HospitalAnion [id number] 19:11:00* Test Item Value Reference Range Interpretation Comments Anion Gap (test code = 63732-5) 14.0 8-16 [facility] HospitalBlood Urea [id number] 19:11:00* Test Item Value Reference Range Interpretation Comments Blood Urea Nitrogen (test code = 3094-0) 15 7-26 [facility] HospitalCreatinine2018-06-02 19:11:00* Test Item Value Reference Range Interpretation Comments Creatinine (test code = 2160-0) 0.72 0.57-1.11 [facility] HospitalBUN/Creatinine [id number] 19:11:00* Test Item Value Reference Range Interpretation Comments BUN/Creatinine Ratio (test code = 3097-3) 21 6-25 [facility] HospitalEstimat Glomerular Filtration Rate 2017-11-09 19:11:00* Test Item Value Reference Range Interpretation Comments Estimat Glomerular Filtration Rate (test code = 91775-0) 60- >60 Ranges were taken from the National Kidney Disease Education Program and the [facility] Kidney Foundation literature.Reference ranges:60 or greater: Bnwhes65-59 ( for 3 consecutive months): Chronic kidney disease 15 or less: Kidney failureSt. Luke's Health – Memorial Living[facility] HospitalGlucose [id number] 19:11:00* Test Item Value Reference Range Interpretation Comments Glucose Level (test code = YCT4950) 114 74-118 [facility] HospitalCalcium [id number] 19:11:00* Test Item Value Reference Range Interpretation Comments Calcium Level (test code = 55264-5) 10.2 8.4-10.2 [facility] HospitalTotal [id number] 19:11:00* Test Item Value Reference Range Interpretation Comments Total Bilirubin (test code = 1975-2) 0.3 0.2-1.2 [facility] HospitalAspartate Amino Transf (AST/SGOT) 2017-11-09 19:11:00* Test Item Value Reference Range Interpretation Comments Aspartate Amino Transf (AST/SGOT) (test code = Aspartate Amino Transf (AST/SGOT)) 19 5-34 [facility] HospitalAlanine Aminotransferase (ALT/SGPT) 2017-11-09 19:11:00* Test Item Value Reference Range Interpretation Comments Alanine Aminotransferase (ALT/SGPT) (test code = 1742-6) 28 0-55 [facility] HospitalTotal [id number] 19:11:00* Test Item Value Reference Range Interpretation Comments Total Protein (test code = 2885-2) 6.6 6.5-8.1 [facility] HospitalAlbumin2018-06-02 19:11:00* Test Item Value Reference Range Interpretation Comments Albumin (test code = 1751-7) 4.5 3.5-5.0 [facility] HospitalGlobulin2018-06-02 19:11:00* Test Item Value Reference Range Interpretation Comments Globulin (test code = 64324-7) 2.1 2.3-3.[address] [facility] HospitalAlbumin/Globulin [id number] 19:11:00 * Test Item Value Reference Range Interpretation Comments Albumin/Globulin Ratio (test code = 1759-0) 2.1 0.8-2.[address] [facility] HospitalAlkaline [id number] 19:11:00* Test Item Value Reference Range Interpretation Comments Alkaline Phosphatase (test code = 6768-6) 75 40-150 [facility] HospitalCreatine [id number] 19:11:00* Test Item Value Reference Range Interpretation Comments Creatine Kinase (test code = 2157-6) 81 29-168 [facility] HospitalProthrombin [id number] 19:02:00* Test Item Value Reference Range Interpretation Comments Prothrombin Time (test code = 5902-2) 12.5 11.9-14.5 [facility] HospitalProthromb Time International Ratio 2017-11-09 19:02:00* Test Item Value Reference Range Interpretation Comments Prothromb Time International Ratio (test code = 6301-6) 1.01 Oral Anticoagulant Therapy INR Values:1. Low Intensity Therapy 1.5 - 2.02 . Moderate Intensity Therapy 2.0 - 3.03. High Intensity Therapy(1) 2.5 - 3. 54. High Intensity Therapy(2) 3.0 - 4.05. Panic Value INR > 5.0 [facility] HospitalActivated Partial Thromboplast Time 2017-11-09 19:02:00* Test Item Value Reference Range Interpretation Comments Activated Partial Thromboplast Time (test code = 43287-9) 27.9 23.8-35.5 [facility] HospitalUrine [id number] 18:41:00* Test Item Value Reference Range Interpretation Comments Urine WBC (test code = 5821-4) 6-10 0-[address] [facility] HospitalUrine [id number] 18:41:00* Test Item Value Reference Range Interpretation Comments Urine RBC (test code = 36961-3) NONE 0-5 [facility] HospitalUrine [id number] 18:41:00* Test Item Value Reference Range Interpretation Comments Urine Bacteria (test code = 02180-6) FEW NONE [facility] HospitalUrine Epithelial [id number] 18:41:00 * Test Item Value Reference Range Interpretation Comments Urine Epithelial Cells (test code = 62144-4) FEW NONE [facility] HospitalUrine Transitional Epithelial Cells 2017-11-09 18:41:00* Test Item Value Reference Range Interpretation Comments Urine Transitional Epithelial Cells (test code = 8249-5) FEW NONE H [facility] Ucodj0116-39-58 18:37:00* Test Item Value Reference Range Interpretation Comments Urine Color (test code = 5778-6) YELLOW YELLOW [facility] Qtdlwvz1885-01-15 18:37:00* Test Item Value Reference Range Interpretation Comments Urine Clarity (test code = 15946-1) CLEAR CLEAR [facility] Specific Fcfzfuz8415-97-95 18:37:00 * Test Item Value Reference Range Interpretation Comments Urine Specific Sunspot (test code = 5811-5) 1.005 1.010-1.[address] [facility] tL7093-77-77 18:37:00* Test Item Value Reference Range Interpretation Comments Urine pH (test code = 42242-3) 6 5-7 [facility] Leukocyte Eyqcngxo6596-34-91 18:37:00* Test Item Value Reference Range Interpretation Comments Urine Leukocyte Esterase (test code = 5799-2) 1+ NEGATIVE H [facility] Dyycazi6968-53-86 18:37:00* Test Item Value Reference Range Interpretation Comments Urine Nitrite (test code = 67915-4) NEGATIVE NEGATIVE [facility] Puzknyf3399-08-79 18:37:00* Test Item Value Reference Range Interpretation Comments Urine Protein (test code = 5804-0) NEGATIVE NEGATIVE [facility] Glucose (UA)2017-11-09 18:37:00* Test Item Value Reference Range Interpretation Comments Urine Glucose (UA) (test code = 2349-9) NEGATIVE NEGATIVE [facility] Ehueakb8412-68-08 18:37:00* Test Item Value Reference Range Interpretation Comments Urine Ketones (test code = 10588-3) NEGATIVE NEGATIVE [facility] Btcuzfsjmsyl5140-42-73 18:37:00* Test Item Value Reference Range Interpretation Comments Urine Urobilinogen (test code = 28435-9) 0.2 0.2-1 [facility] Hgaercvvz1036-29-79 18:37:00* Test Item Value Reference Range Interpretation Comments Urine Bilirubin (test code = 1978-6) NEGATIVE NEGATIVE [facility] Xvpwn0578-57-73 18:37:00* Test Item Value Reference Range Interpretation Comments Urine Blood (test code = 60989-9) NEGATIVE NEGATIVE [facility] HospitalWhite Blood Vkbpj7388-34-34 18:30:00* Test Item Value Reference Range Interpretation Comments White Blood Count (test code = 6690-2) 6.26 4.8-10.8 [facility] HospitalRed Blood Xdjnf9746-11-83 18:30:00* Test Item Value Reference Range Interpretation Comments Red Blood Count (test code = 789-8) 3.97 3.6-5.1 [facility] HospitalHemoglobin2018-06-02 18:30:00* Test Item Value Reference Range Interpretation Comments Hemoglobin (test code = 95991-3) 12.4 12.0-16.0 [facility] HospitalHematocrit2018-06-02 18:30:00* Test Item Value Reference Range Interpretation Comments Hematocrit (test code = 4544-3) 36.6 34.2-44.1 [facility] HospitalMean Corpuscular Nnwexa0262-02-28 18:30:00* Test Item Value Reference Range Interpretation Comments Mean Corpuscular Volume (test code = 787-2) 92.2 81-99 [facility] HospitalMean Corpuscular Sfuaztbssd1488-77-39 18:30:00* Test Item Value Reference Range Interpretation Comments Mean Corpuscular Hemoglobin (test code = 785-6) 31.2 28-32 [facility] HospitalMean Corpuscular Hemoglobin Concent 2017-11-09 18:30:00* Test Item Value Reference Range Interpretation Comments Mean Corpuscular Hemoglobin Concent (test code = 786-4) 33.9 31-35 [facility] HospitalRed Cell Distribution Frolk8357-77-33 18:30:00* Test Item Value Reference Range Interpretation Comments Red Cell Distribution Width (test code = 33920-8) 12.6 11.7 -14.4 [facility] HospitalPlatelet Zbvcf0823-73-35 18:30:00* Test Item Value Reference Range Interpretation Comments Platelet Count (test code = 777-3) 253 140-360 [facility] HospitalNeutrophils (%) (Auto)2017-11-09 18:30:00 * Test Item Value Reference Range Interpretation Comments Neutrophils (%) (Auto) (test code = 17462-0) 56.1 38.7-80.0 [facility] HospitalLymphocytes (%) (Auto)2017-11-09 18:30:00 * Test Item Value Reference Range Interpretation Comments Lymphocytes (%) (Auto) (test code = 736-9) 33.2 18.0-39.1 [facility] HospitalMonocytes (%) (Auto)2017-11-09 18:30:00* Test Item Value Reference Range Interpretation Comments Monocytes (%) (Auto) (test code = 5905-5) 6.2 4.4-11.3 [facility] HospitalEosinophils (%) (Auto)2017-11-09 18:30:00 * Test Item Value Reference Range Interpretation Comments Eosinophils (%) (Auto) (test code = 713-8) 3.7 0.0-6.0 [facility] HospitalBasophils (%) (Auto)2017-11-09 18:30:00* Test Item Value Reference Range Interpretation Comments Basophils (%) (Auto) (test code = 706-2) 0.6 0.0-1.0 [facility] HospitalIM GRANULOCYTES %2017-11-09 18:30:00* Test Item Value Reference Range Interpretation Comments IM GRANULOCYTES % (test code = IM GRANULOCYTES %) 0.2 0.0- 1.0 [facility] HospitalNeutrophils # (Auto)2017-11-09 18:30:00* Test Item Value Reference Range Interpretation Comments Neutrophils # (Auto) (test code = 751-8) 3.5 2.1-6.9 [facility] HospitalLymphocytes # (Auto)2017-11-09 18:30:00* Test Item Value Reference Range Interpretation Comments Lymphocytes # (Auto) (test code = 79229-2) 2.1 1.0-3.2 [facility] HospitalMonocytes # (Auto)2017-11-09 18:30:00* Test Item Value Reference Range Interpretation Comments Monocytes # (Auto) (test code = 742-7) 0.4 0.2-0.8 [facility] HospitalEosinophils # (Auto)2017-11-09 18:30:00* Test Item Value Reference Range Interpretation Comments Eosinophils # (Auto) (test code = 711-2) 0.2 0.0-0.4 [facility] HospitalBasophils # (Auto)2017-11-09 18:30:00* Test Item Value Reference Range Interpretation Comments Basophils # (Auto) (test code = 704-7) 0.0 0.0-0.1 [facility] HospitalAbsolute Immature Granulocyte (auto 2017-11-09 18:30:00* Test Item Value Reference Range Interpretation Comments Absolute Immature Granulocyte (auto (margaret t code = Absolute Immature Granulocyte (auto) 0.01 0-0.1 [facility] HospitalUrine Renal Epithelial Mgxby1372-51-77 21:03:00* Test Item Value Reference Range Interpretation Comments Urine Renal Epithelial Cells (test code = 81193-8) RARE NON E H [facility] HospitalB-Type Natriuretic Hqvrvpe2023-11-50 20:25:00* Test Item Value Reference Range Interpretation Comments B-Type Natriuretic Peptide (test code = 51582-3) -10.0 0-100 [facility] HospitalELECTROLYTES2017-03-28 20:28:0010.3 [facility] FfygnujCPWZYOKLBCZG3332-07-51 20:28:0077[facility] HermannELECTROLYTES 2016-09-04 20:28:28250Pvnnlzci NwlojejNYDVTBDKUDVB6726-96-00 20:28:003.3[facility] YvetqigYIQLMZHDDSNK0562-23-27 20:28:0099[facility] QvynbkbPILTOFZUBTVQ9899-75-97 20:28:0032[facility] EbsptcrOCHWTMULTOVQ0995-27-34 20:28:009.4[facility] [place] OADEEKPARYNJ7585-16-79 20:28:84783Uejkurke KhnzrgjHUHYVRISCWOZ1709-58-06 20:28:000.85[facility] FrcmqvdPABVCDIJOTHJ0915-00-37 20:28:0021[facility] [place] GQGTUZIUZG4187-54-93 20:28:008.6[facility] MialetoCALBKYMDPH0016-17-55 20:28:000.2 [facility] RpadvrrCOSJFVUHUW5686-91-19 20:28:003.8[facility] HermannHEMATOLOGY 2016-09-04 20:28:000.8[facility] JgkllcmOCKRZSUCLY8190-88-76 20:28:000.4[facility] SgzmlzrWCGFYFKKEB3917-12-96 20:28:008.1[facility] HeopsxlCUBMHKOXPR5010-32-57 20:28:0087.0[facility] AcbbujmTKSXQKLJTE2036-08-35 20:28:000.4[facility] [place] PGAESDBTJZ2364-07-89 20:28:61314Nqkbfhhh PkkgxlcGXDLAOJAGI9460-29-98 20:28:007.0 [facility] HfqcrhqGRWLQAUALC2118-58-83 20:28:0089.9[facility] HermannHEMATOLOGY 2016-09-04 20:28:0033.1[facility] CbbzumaGBBVPIJWNI8578-43-67 20:28:0036.5[facility] DokqtjfISLVEVXSYB5496-31-09 20:28:0012.1[facility] LpeqzuhXZLDGVSUQN6669-16-70 20:28:004.06[facility] MynbktmRYHTPEEUTT3163-00-04 20:28:00* Test Item Value Reference Range Interpretation Comments MCH (test code = MCH) 29.7 pg 27.0-31.0 [facility] QucrksrAAUKGMYFTS8938-35-24 20:28:0015.0[facility] HermannHEMATOLOGY 2016-09-04 20:28:009.3[facility] HermannCHEM DJBHA4261-41-88 08:05:0019[facility] HermannCHEM JPABA0678-62-13 08:05:47875Pozyyuue HermannCHEM EVFCP4266-60-64 08:05:02853Ymxsubba HermannCHEM UWIGV1826-79-53 08:05:000.69[facility] HermannCHEM YLLXY8187-57-17 08:05:004.1[facility] HermannCHEM BAVJB9360-82-81 08:05:0029 [facility] HermannCHEM TCXDL6496-64-06 08:05:007.0[facility] HermannCHEM PANEL 2016-07-30 08:05:0097[facility] HermannCHEM UOZRM8573-38-91 08:05:008.8[facility] HermannCHEM QQIDS4450-55-81 08:05:003.4[facility] HermannCHEM GILTM9669-53-88 08:05:0040[facility] HermannCHEM GNNNZ6120-78-98 08:05:0031[facility] HermannCHEM YDKZD0075-32-40 08:05:68820Yowfpnrd HermannCHEM ZOSBZ5273-67-40 08:05:000.2 [facility] HermannCHEM CTFSV2008-57-91 08:05:0098[facility] HermannCHEM PANEL 2016-07-30 08:05:000.9[facility] HermannCHEM FXXUW3581-78-82 08:05:0014.1[facility] HermannCHEM DUDRY4729-03-39 08:05:0028[facility] HermannCHEM YAUIG7137-46-41 08:05:003.6[facility] HermannCHEM LXGYY4752-57-86 08:05:46173Xapvdkjf [place] RPZUWHGATK6002-83-64 08:05:0089.2[facility] JkrogrgJEWEBUCRFO1288-89-38 08:05:00* Test Item Value Reference Range Interpretation Comments MCH (test code = MCH) 30.5 pg 27.0-31.0 [facility] EhbtqnrYDAWINFYKY5489-87-24 08:05:0034.2[facility] HermannHEMATOLOGY 2016-07-30 08:05:009.4[facility] CafqnmzICWXURCIHR9853-39-96 08:05:0027.7[facility] LvbkgluZQUYKKVHAE4210-39-04 08:05:003.10[facility] DemxfvhVANEPIFMXW2395-79-97 08:05:008.4[facility] RaznmmkMIVINOVCQS6285-43-82 08:05:0013.4[facility] MNNARDNPIO3423-65-06 08:05:93662Cezazcrm SajirfkCECOGGMNQP3417-86-45 08:05:007.1 [facility] NumqojgDWYPAJYZRD5965-45-99 08:05:000.3[facility] HermannHEMATOLOGY 2016-07-30 08:05:000.7[facility] XhqofrkYKIQEWZHVO7131-45-09 08:05:005.9[facility] MuodhrmWIYJSWKQYF0690-32-71 08:05:001.5[facility] NdikrrlQAFECIKXTU1623-77-52 08:05:0017.7[facility] KgfeiduRAHSONCPOF1397-06-34 08:05:000.5[facility] REFGVIQVUI9480-80-19 08:05:008.3[facility] DvgxltbBYFDSLAJVS1968-71-09 08:05:003.5 [facility] QxbrmqpPYYEPGUORO6625-32-60 08:05:0070.0[facility] HermannURINE AND STOOL 2016-07-30 07:30:002[facility]annURINE AND JKNCJ8053-76-75 07:30:00<1[facility]annUR[facility] AND EYRHR7955-42-56 07:30:00Trace *ABN*(07/30/16 1:30 AM)[facility] AND PYEIE0948-69-88 07:30:001.008[facility]UR[facility] STOOL 2016-07-30 07:30:006.0[facility] AND UFOAA6088-44-91 07:30:00Negative (07/30/16 1:30 AM)[facility] YFJEV5346-94-11 07:30:00Negative *NA*(07/30/16 1:30 AM)[facility] JAMUT8308-15-16 07:30:00Negative (07/30/16 1:30 AM)[facility] VFSAM8424-99-51 07:30:00Clear (07/30/16 1:30 AM)[facility] HermannCARDIAC UNIKNMK3791-38-54 00:53:0049[facility] HermannCHEM DCPVK7024-70-99 00:53:0018[facility] HermannCHEM SRVCK7956-41-01 00:53:003.7[facility] HermannCHEM KDTCE6352-78-83 00:53:001.0[facility] HermannCHEM QLJAR3547-05-27 00:53:0012.7[facility] HermannCHEM QTHMQ1546-61-65 00:53:0091 [facility] HermannCHEM QPMAZ0850-13-31 00:53:21102Wdtxqffk HermannCHEM PANEL 2016-07-28 00:53:000.6[facility] HermannCHEM PPHPS7074-41-05 00:53:0044[facility] HermannCHEM MGISN9249-50-48 00:53:009.3[facility] HermannCHEM HMTTY7195-88-79 00:53:003.7[facility] HermannCHEM LMOYV4248-58-02 00:53:007.4[facility] HermannCHEM FJDQO5416-49-63 00:53:0024[facility] HermannCHEM DBSYC4098-55-66 00:53:37162 [facility]annCHEM ZWGAP3961-54-53 00:53:000.74[facility] HermannCHEM PANEL 2016-07-28 00:53:0013[facility] HermannCHEM RWSDG2472-62-61 00:53:96431Aehaxtdf HermannCHEM YUGED1806-70-50 00:53:0031[facility] HermannCHEM VXJWG9272-53-83 00:53:003.7[facility] HermannCHEM THJWV6715-44-45 00:53:0098[facility] HermannCHEM WFBPF8595-94-10 00:53:0020[facility] HermannCHEM DSAOK0486-32-80 00:53:68159 [facility] JuuhaojRDKYWJKLSN1048-99-41 00:53:0033.5[facility] HermannHEMATOLOGY 2016-07-28 00:53:0013.6[facility] VxoaufnTFKVPQFCKM9687-11-65 00:53:00* Test Item Value Reference Range Interpretation Comments MCH (test code = MCH) 30.2 pg 27.0-31.0 [facility] KxybipuUGRBHBYHWA7435-11-42 00:53:0090.2[facility] HermannHEMATOLOGY 2016-07-28 00:53:0030.0[facility] AwpeqblZAEPFNPJLG7895-18-99 00:53:26558Bawqxktu NnkfkpiRNIBOCSJQN1509-44-54 00:53:007.0[facility] BxyzcerNFGGJGTPEM8221-69-67 00:53:0010.0[facility] DelwfzsACRVSSHCNS7217-68-81 00:53:006.9[facility] IYZRHAKYJG0255-68-01 00:53:003.32[facility] CdiigknMDYUFIIRSF1776-93-51 00:53:00 0.96[facility] HgbrtgoUBAJVARDKM2114-56-19 00:53:00* Test Item Value Reference Range Interpretation Comments PT (test code = PT) 13.0 s 12.0-14.7 [facility] XxrrbljCQCTLEZMJK4099-87-42 00:53:000.2[facility] HermannHEMATOLOGY 2016-07-28 00:53:000.1[facility] IwujsfeKZPMFRHXYG7383-67-14 00:53:002.5[facility] VcmbtlyVKMHKJJFVN8223-70-28 00:53:0020.7[facility] CctyoynUPZCWIZWUH1208-93-87 00:53:0066.8[facility] ObaghvaFHRBBBOMJH7603-29-79 00:53:000.6[facility] DDPVGCBKCE7399-35-29 00:53:004.6[facility] ZvxzdffJVFXAUSBRK7993-43-68 00:53:000.7 [facility] HwngvuoVTSRMTYTLV7195-38-28 00:53:001.4[facility] HermannHEMATOLOGY 2016-07-28 00:53:009.3[facility]annURINE AND UHVWN4831-39-08 00:53:002 [facility]UR[facility] AND TGOOQ9996-00-03 00:53:001[facility]UR[facility] AND UKYJB1202-26-07 00:53:00Negative (07/27/16 6:53 PM)[facility] AND SHMWH1218-68-72 00:53:00Trace *ABN*(07/27/16 6:53 PM)[facility] AND SKQAC7916-94-62 00:53:007.0[facility]annUR[facility] AND SOBDW4821-32-99 00:53:00 1.011[facility]annUR[facility] AND NWIVX6283-36-57 00:53:00Clear (07/27/16 6:53 PM) [facility] BWDAF6243-73-06 00:53:00Negative *NA*(07/27/16 6:53 PM) [facility] BMJWS4303-23-31 00:53:00Negative (07/27/16 6:53 PM) [facility] HermannVIRAL - DWFUMJEZ0222-16-11 00:53:00Negative (07/27/16 6:53 PM) [facility] HermannVIRAL - BXYQQHXN2509-66-91 00:53:00Negative (07/27/16 6:53 PM) [facility] OxzmgezKYFHAXKTYVPO2483-04-73 13:20:0511.1[facility] HermannELECTROLYTES 2016-07-10 13:20:86200Zblsrfqu EsmowspOFXZDHOPVUXP9191-81-13 13:20:22356Jgedagvs NyrplhoPWHCGEMUHDRL8289-99-50 13:20:17928Vzhfpmby LufvyhoBDMORKDZVNPZ8226-40-35 13:20:050.55[facility] DlhtybtFSEIUSOXRJRD7989-61-33 13:20:0513[facility] [place] LOAXAXLGUASO7234-51-43 13:20:054.1[facility] IknzebmWBHKBDYIGOVF7813-51-11 13:20:058.8[facility] JfkpkqfROEYOTHGCOSR8182-98-84 13:20:32925Txnsymgd [place] BIKUWYFLVFRF7395-15-00 13:20:0530[facility] ZdlgdfxBQFPNXJJMX6404-69-18 13:20:05 23.8[facility] SpuvfohQLOPGHPJDQ7710-53-42 13:20:0566.5[facility] HermannHEMATOLOGY 2016-07-10 13:20:050.1[facility] GvvcpqmWFKRWBXKFT6965-20-27 13:20:050.3[facility] FluhtaoFJYMQMCJCH4292-68-57 13:20:051.1[facility] KezsbvpRAZHLXRQKD7966-42-82 13:20:053.2[facility] KsvpylcUAAHEGHQNU0348-74-03 13:20:050.6[facility] QUOOGTIQRA8187-25-27 13:20:052.4[facility] ZhfqfpdVXLBFRJZNB7020-36-27 13:20:056.7 [facility] XsvrjqyQJSOKPERZE0682-66-22 13:20:057.0[facility] HermannHEMATOLOGY 2016-07-10 13:20:0513.3[facility] OrhlbqvTOCIUYXTPE6052-62-29 13:20:59923Mvixupmg SlusftqGFMFNIFCHT8825-75-36 13:20:054.9[facility] SbqfryuQXYYGMQOGO5780-79-81 13:20:058.3[facility] YlcoujiOHUUOPXAVK1261-96-04 13:20:052.68[facility] [place] TFUIXOCUAV2692-59-68 13:20:0533.9[facility] CqqxpheRKICUSUSXI9801-32-69 13:20:05* Test Item Value Reference Range Interpretation Comments MCH (test code = MCH) 31.1 pg 27.0-31.0 [facility] GgpcsybEKXTZEFHQN5625-93-21 13:20:0524.5[facility] HermannHEMATOLOGY 2016-07-10 13:20:0591.7[facility] HermannCHEM QARME9197-61-35 12:25:33924Ozttibtv HermannCHEM ROMWZ4176-69-50 12:25:34385Etconpmp HermannCHEM CLEQC1984-01-99 12:25:0012[facility] HermannCHEM HLFQC8740-55-54 12:25:008.6[facility] HermannCHEM LSWKS7261-02-01 12:25:000.58[facility] HermannCHEM OGYCZ9034-57-29 12:25:57088 [facility] HermannCHEM KTLYY6704-34-97 12:25:40441Dhkjohpm HermannCHEM PANEL 2016-07-07 12:25:0026[facility] HermannCHEM TLBJQ2871-13-06 12:25:003.8[facility] HermannCHEM OOEYV1672-47-66 12:25:0012.8[facility] BwtoulrXAJPROHJQJ3314-50-13 12:25:22121Cxbtfeiq FfwuygfUCHIKFQTOB0876-35-00 12:25:0033.8[facility] [place] LSNKLTDNCI7825-71-60 12:25:004.7[facility] FjsrjbsXYIAAIVCLC3965-26-39 12:25:007.9 [facility] PxyryyqNMOEWBFANK0705-44-19 12:25:002.57[facility] HermannHEMATOLOGY 2016-07-07 12:25:0091.0[facility] DupbzkuQXUMUHPVOJ9624-50-63 12:25:0013.1[facility] VtjscdlSCJHGZWXDF8927-04-29 12:25:00* Test Item Value Reference Range Interpretation Comments MCH (test code = MCH) 30.7 pg 27.0-31.0 [facility] NlipzvlBUSYHNSNFM9509-80-04 12:25:006.6[facility] HermannHEMATOLOGY 2016-07-07 12:25:0023.4[facility] CwjpgsxORMCAUBZTV9688-32-04 12:25:003.1[facility] CmorxrrIPOXCQRCKV5238-42-52 12:25:000.6[facility] HqmndcqCCKFMQVYCG2718-18-61 12:25:0020.3[facility] VvopczeVRZEEIXUQN0781-50-16 12:25:0067.3[facility] RRIQTSTOQW4473-00-82 12:25:008.7[facility] QampnubKNLIMTAKOP1196-50-57 12:25:000.4 [facility] OppkifyXPJFSRVFHA7609-77-51 12:25:000.1[facility] HermannHEMATOLOGY 2016-07-07 12:25:003.2[facility] DwfnovaZSEXFLTCGR5511-97-01 12:25:001.0[facility] XbgblpeZGVXSUHBGV5981-75-48 12:25:0020.6[facility] IbegchvDUXFCQMKZH4251-67-23 12:25:000[facility]annURINE AND GDAQT6588-74-04 00:24:00Negative (07/05/16 6:24 PM)[facility] FsidjsiQXCOXIZDZR0188-86-31 23:54:000[facility] HermannTOXICOLOGY 2016-07-05 23:54:0010.1[facility] JlheqzeHRSHWMUJCHYT1232-60-56 11:55:1411.8 [facility] YxebnonFCTHPGIQOVXV8914-10-93 11:55:71490Jtamcrvm HermannELECTROLYTES 2016-07-05 11:55:93160Rlxxgamb FyykqzlRFMZRTYHGPPM4181-75-52 11:55:140.64 [facility] YvalhjpWZRLVDBUVSDU6356-17-53 11:55:143.8[facility] HermannELECTROLYTES 2016-07-05 11:55:1410[facility] NrwyzbuYABVBIBYHGIZ1349-23-79 11:55:1499[facility] BprtgrmQOBRXYXNMJOH8113-50-95 11:55:1430[facility] WsdebtrWUTAVQRARFDZ0190-19-21 11:55:148.4[facility] HlhcploOLKQSPVRWCMG1414-05-27 11:55:51568Mvbnuahr [place] ZVROPUZNRP9467-90-77 11:55:140.1[facility] YejpvtcRKCYPQPLDM0469-69-25 11:55:141.5 [facility] ErlaavmOCDUTZQGUC4150-62-67 11:55:1482.7[facility] HermannHEMATOLOGY 2016-07-05 11:55:149.0[facility] RagttmgUCFCROKQKA0666-22-53 11:55:146.6[facility] YtlvjzpJGHNOXEEGZ2899-42-10 11:55:140.2[facility] RcxfmzhYQQCDTTZAN4747-70-19 11:55:140.6[facility] FnzahkzGYVYGNMBCW7957-24-51 11:55:145.6[facility] NGTLIVVDSH4124-97-90 11:55:140.4[facility] SdphppnFLZKBJJALV4544-34-23 11:55:14 90.7[facility] XteglqeTWYVFFUQNO5471-98-57 11:55:1423.8[facility] HermannHEMATOLOGY 2016-07-05 11:55:14* Test Item Value Reference Range Interpretation Comments MCH (test code = MCH) 31.7 pg 27.0-31.0 [facility] PdpppevYDQFSCXRMD8796-12-07 11:55:148.3[facility] HermannHEMATOLOGY 2016-07-05 11:55:142.62[facility] FxscihpXBTMMLLJRV8615-37-64 11:55:1413.0[facility] CalezcfEAUAZSKEYB3114-65-11 11:55:60257Awbwgcmp IgianxoHPVUTBEADG4760-90-90 11:55:146.6[facility] XjrkisdHILKSQCREV0476-70-85 11:55:1435.0[facility] EQYMHLTWRE7871-20-07 11:55:146.8[facility] HermannCHEM AGBCT6713-93-11 09:48:001.0 [facility] HermannCHEM UVERC9863-44-16 09:48:003.8[facility] HermannCHEM PANEL 2016-06-30 09:48:0030[facility] HermannCHEM PZWET5805-31-49 09:48:000.4[facility] HermannCHEM PXRXU6450-04-58 09:48:0014[facility] HermannCHEM CSTRS8498-34-07 09:48:0072[facility] HermannCHEM GEPYQ2358-96-38 09:48:006.9[facility] HermannCHEM BLBKD9938-53-77 09:48:003.1[facility] HermannCHEM BCGSL6319-06-04 09:48:001.2 [facility] HermannCHEM QBZVW5089-68-81 09:48:0020[facility]annURINE AND STOOL 2016-06-30 09:35:00Clear (06/30/16 3:35 AM)[facility]UR[facility] AND STOOL 2016-06-30 09:35:007.0[facility]annUR[facility] AND HAWLL8607-38-10 09:35:001.005 [facility]UR[facility] AND FWVQS5137-97-09 09:35:00Small *ABN*(06/30/16 3:35 AM) [facility] [id number] 09:35:00Negative (06/30/16 3:35 AM) [facility] [id number] 09:35:00Negative (06/30/16 3:35 AM) [facility] [id number] 09:35:00Negative *NA*(06/30/16 3:35 AM) [facility] [id number] 09:35:001[facility] [id number] 09:35:0010[facility] [place] [address] Patient Name: MAKAYLA BEE MR #: [id number] : 1960 Age/Sex: 57/F Req #: [id number] Adm Physician: Ordered by: LEWIS BISHOP MD Report #: [id number] Location: ER Room/Bed: Procedure: [id number] DX/CHEST 2 VIEWS Exam Date: Exam Time: 1723 REPORT STATUS: Signed EXAMINATION: PA and lateral views of the chest. COMPARISON: Chest CT CLINICAL HISTORY: Numbness, hand pain DISCUSSION: Lines/tubes: None. Lungs: The lungs are well inflated and clear. There is no evidence of pneumonia or pulmonary edema. Pleura: There is no pleural effusion or pneumothorax. Heart and mediastinum: Cardiomediastinal silho uette is unremarkable. Pulmonary vasculature is normal. Bones and soft tissues: No acute bony abnormalities. IMPRESSION: No acute cardiopul monary abnormalities. Signed by: Dr. Arvin Pacheco M.D. on 11/09/2017 5:44 PM Dictated By: ARVIN PACHECO MD 43 Transcribed By: PRAVEEN on 11/09/171743 COPY TO: LEWIS BISHOP MD CT BRAIN WO [place] [address] Patient Name: MAKAYLA BEE MR #: [id number] : 1960 Age/Sex: 57/F Req #: [id number] Adm Physician: Ordered by: LEWIS BISHOP MD Report #: [id number] Location: Room/Bed: Procedure: [id number] CT/CT BRAIN WO Exam Date: 07/28 Exam Time: 1712 REPORT STATUS: Signed E XAMINATION: Head CT HISTORY: Left head/neck pain radiating to the left wit h numbness and pain, history of CVA COMPARISON: Head CT on 03/28/2017 TECH NIQUE: Multidetector axial images were obtained without contrast from the fora men magnum to the vertex . The images were reconstructed using brain and bone algorithms. Thin section brain images were reformatted into coronal and sagit sophia planes. Intravenous contrast: None. Motion/streaking artifact limits th e evaluation of the skull base and posterior cranial fossa. FINDINGS: Parenchyma: 1. No abnormal densities. Previously seen hypodensity in the left lentiform nucleus corresponds to a normal prominent perivascular spac e. 2. No mass or hemorrhage. No CT evidence of chronic or acute territorial vascular insult. Extra-axial spaces:No abnormal density. No extr a-axial fluid collections Brain volume: Normal for age. Ventricl es: Persistent mild ventriculomegaly without hydrocephalus. 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 Arteries: No density suggestive of thrombus. Dural sinuses: No abno rmal density. Extra-axial spaces: No abnormal density. Foramen m agnum: No mass, Chiari malformation, or basilar invagination. Sella: No obvious mass. Paranasal/mastoid sinuses: Imaged portions unremarkable. Skull/Scalp: No lytic or blastic lesions. No fractures. IMPRESSIO N: 1. No acute intracranial hemorrhage or cortical infarct. 2. Stable n onspecific mild ventriculomegaly. Signed by: Dr. Fred Rogers M.D. on 018 5:32 PM Dictated By: FRED ROGERS MD 31 Transcribed By: PRAVEEN on 11/09/171731 COPY T O: LEWIS BISHOP MD FINGER LEFT [place] [address] Patient Name: MAKAYLA BEE MR #: [id number] : 1960 Age/Sex: 57/F Req #: [id number] Adm Physician: Ordered by: LEWIS BISHOP MD Report #: [id number] Location: ER Room/Bed: Procedure: [id number] DX/FINGER LEFT Exam Date: 07/28 Exam Time: 1723 REPORT STATUS: Signed Exam: Left finger, 3 views History: Bruising in the second finger joint Comparison: None. Findings: There is decreased bone mineralization. No acute, displaced fracture or dislocation. Joint spaces preserved. No abnor mal soft tissue calcification or soft tissue defect. No significant soft tiss ue swelling. Impression: 1. No acute abnormalities. Signed by: Dr. Arvin Pacheco M.D. on 11/09/2017 5:45 PM Dictated By: ARVIN CARPENTER MD 44 Transcribe d By: PRAVEEN on 11/09/171744 COPY TO: LEWIS BISHOP MD CT BRAIN WO [place] [address] Patient Name: MAKAYLA BEE MR #: [id number] : 1960 Age/Sex: 56/F Req #: [id number] Adm Physician: Ordered by: THEA TYSON MD Report #: [id number] Location: ER Room/Bed: Procedure: [id number] CT/CT BRAIN WO Exam Date: Exam Time: REPORT STATUS: Signed Examination: CT BRAIN WITHOUT CONTRAST History:Dizziness. Comparison studies:None T echnique: Axial images were obtained from the skull base to the vertex. Salo nal and sagittal images reconstructed from the axial data. Intravenous contras t: None Findings: Scalp: No abnormalities. Bones: No fractures, horacio tic or lytic lesions. Brain sulci: Mild volume loss for age. Ventricles: Ex vacuo dilatation. No hydrocephalus. Extra-axial space: No abnormalitie s. Parenchyma: Chronic lacunar infarct versus dilated perivascular space in the inferior left globus pallidus. No masses, hemorrhage, or acute or chronic cortical based vascular insults. Sellar/suprasellar region: No abno rmalities. Craniocervical junction: Patent foramen magnum. No Chiari one malfo rmation. Incidental findings: None. Impression: 1. No acute intracranial abnormalities. 2. Chronic lacunar infarct versus dilated mohamud vascular space in the inferior left globus pallidus. 3. Mild volume los s. Signed by: Dr. Diana Snyder M.D. 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 L UNGS: The lungs are well inflated and clear. No pneumonia or pulmonary edema. PLEURA: No pleural effusion or pneumothorax. HEART AND MEDIASTINUM: T he cardiomediastinal silhouette is unremarkable. BONES AND SOFT TISSUES: N o acute osseous lesion. The soft tissues are normal. IMPRESSION: No a cute cardiopulmonary disease. Keo Loo MD Signed by: Dr. Keo Loo M.D. on 03/28/2017 8:38 PM Dictated By: KEO LOO MD E lectronically Signed By: KEO LOO MD on 03/28/172037 Transcribed By: Vida SULLIVAN on 03/28/172037 COPY TO: THEA TYSON MD CT CHEST WO [place] [id number] [place] [address] Patient Name: MAKAYLA BEE MR #: [id number] : 06/1960 Age/Sex: 56/F Req #: [id number] Adm Physician: Ordered by: TATIANA PRICE MD Report #: [id number] Location: CT Room/Bed: Procedure: [id number] CT/CT CHEST WO Exam Date: 03/10 12/24 Exam Time: 1250 REPORT STATUS: Signed P ROCEDURE: CT CHEST WITHOUT CONTRAST CT scan of the chest WITHOUT intravenous c ontrast, using high-resolution protocol. TECHNIQUE: The chest was sca nned utilizing a multidetector helical scanner from the apex to the level of the adrenal glands. No IV contrast was administered per high resolution prot ocol. Coronal and sagittal multiplanar reformations were obtained. Supine ins piration, high-resolution, in expiration. Prone high resolution. Total DLP: 1449.7 mGy-cm COMPARISON: Chest x-ray 02/17/2016. INDICATIONS: HISTORY OF CANCER, SHORTNESS OF BREATH FINDINGS: Lines/tubes: None. Lungs and Airways: The lungs and airways are normal with no focal abn ormality demonstrated. No nodules. No air trapping identified on expiration v iews. Pleura: The pleural spaces are clear. Heart and mediastinum: The thyroid gland is normal. No significant mediastinal, hilar or axillary ly mphadenopathy is seen. The heart and pericardium are within normal limits. Soft tissues: Normal. Abdomen: Limited views of the upper abdomen show no abnormality within the visualized liver, spleen, pancreas, or kidneys. The adrenal glands are normal. Bones: The visualized bony thorax is within normal limits. Left lateral lower intercostal lipoma. IMPRESSION: Normal chest CT. Dictated by: Marino Bhakta M.D. on 03/26/2017 at 15:59 Electronically approved by: Marino Bhakta M.D. on 03/26/2017 at 15:59 Dictated By: MARINO BHAKTA MD 58 COPY TO: LINDA PIRCE MD
--- NOTE | 2020-01-27 22:44 | Diagnostic Imaging Report ---
EXAM: CT Abdomen and Pelvis WITHOUT contrast INDICATION: Left lower quadrant pain , abdominal pain, nausea, vomiting COMPARISON: None. TECHNIQUE: Abdomen and pelvis were scanned utilizing a multidetector helical scanner from the lung base to the pubic symphysis without administration of IV contrast. Absence of intravenous contrast decreases sensitivity for detection of focal lesions and vascular pathology. Coronal and sagittal reformations were obtained. Routine protocol was performed. IV CONTRAST: None ORAL CONTRAST: None COMPLICATIONS: None RADIATION DOSE: Total DLP: 636 mGy*cm Estimated effective dose: (DLP x 0.015 x size factor) mSv CTDIvol has been reviewed. It is below the limits set by the Radiation Protocol Committee (RPC). Dose modulation, iterative reconstruction, and/or weight based adjustment of the mA/kV was utilized to reduce the radiation dose to as low as reasonably achievable. FINDINGS: LINES and TUBES: None. LOWER THORAX: Mitral annular calcifications. HEPATOBILIARY: Hepatomegaly. No focal hepatic lesions. No biliary ductal dilation. GALLBLADDER: There are cholecystectomy clips. SPLEEN: No splenomegaly. PANCREAS: No focal masses or ductal dilatation. ADRENALS: No adrenal nodules KIDNEYS/URETERS: No hydronephrosis. Fluid density subcentimeter exophytic cystic lesion in the left renal superior pole, likely benign simple cyst. A cluster of subcentimeter calculi in a right renal inferior pole minor calyx. Right extrarenal pelvis. GI TRACT: Appendix is normal. Radiodense contrast throughout the colon. Mild smooth circumferential wall thickening of the distal colon and rectum. PELVIC ORGANS/BLADDER: Mild smooth circumferential urinary bladder wall thickening. A few tiny air foci in the nondependent bladder lumen. Hysterectomy. No adnexal masses. Urinary bladder unremarkable. LYMPH NODES: No lymphadenopathy. VESSELS: Arterial calcifications. . PERITONEUM / RETROPERITONEUM: No free air or fluid. BONES: Degenerative changes SOFT TISSUES: Unremarkable. IMPRESSION: 1. Mild circumferential urinary bladder wall thickening can be seen with cystitis. Trace air foci in the bladder lumen, correlate with recent history of instrumentation. 2. Nonobstructive subcentimeter calculi in the right renal inferior pole. 3. Mild hepatomegaly. 4. Subtle smooth circumferential distal colonic and rectal wall thickening can be due to coloproctitis. Signed by: Gunnar Harvey DO on 01/27/2020 10:40 PM
--- NOTE | 2020-01-27 22:45 | Diagnostic Imaging Report ---
EXAMINATION: CHEST SINGLE (PORTABLE) INDICATION: Covid, abdominal pain COMPARISON: Chest x-ray 03/28/2017 FINDINGS: TUBES and LINES: None. LUNGS: Normal lung volumes. Lungs are clear. No consolidations. PLEURA: No pleural effusion or pneumothorax. HEART AND MEDIASTINUM: The cardiomediastinal silhouette is unremarkable. BONES AND SOFT TISSUES: No acute osseous lesion. Soft tissues are unremarkable. UPPER ABDOMEN: No free air under the diaphragm. IMPRESSION: No acute thoracic radiographic abnormality. Signed by: Gunnar Harvey DO on 01/27/2020 10:41 PM
== END 2020-01-27 23:12 | disposition home or self-care (01) ==
LOC: ER 19:33
DX: R10.32 Left lower quadrant pain (principal); N39.0 Urinary tract infection, site not specified; K52.9 Noninfective gastroenteritis and colitis, unspecified; I10 Essential (primary) hypertension; E11.9 Type 2 diabetes mellitus without complications; K21.9 Gastro-esophageal reflux disease without esophagitis; Z86.73 Personal history of transient ischemic attack (TIA), and cerebral infarction without residual deficits; Z85.72 Personal history of non-Hodgkin lymphomas
CPT/HCPCS: 36415; 71045; 74176; 80053; 81001; 82150; 82550; 82553; 83690; 84484; 85025; 93005; 99284; J2405; J7030

== ENCOUNTER → 2020-02-08 | Outpatient (CLI) | payer MEDICARE, OTHER ==
--- NOTE | 2020-02-08 11:04 | Diagnostic Imaging Report ---
EXAM: CT Abdomen and Pelvis WITHOUT contrast INDICATION: CALCULUS OF KIDNEY COMPARISON: CT abdomen and pelvis 01/27/2020, retroperitoneal ultrasound 01/19/2020 TECHNIQUE: Abdomen and pelvis were scanned utilizing a multidetector helical scanner from the lung base to the pubic symphysis without administration of IV contrast. Absence of intravenous contrast decreases sensitivity for detection of focal lesions and vascular pathology. Coronal and sagittal reformations were obtained. Stone protocol is performed. IV CONTRAST: None ORAL CONTRAST: None COMPLICATIONS: None RADIATION DOSE: Total DLP: 272.07 mGy*cm Estimated effective dose: (DLP x 0.015 x size factor) mSv CTDIvol has been reviewed. It is below the limits set by the Radiation Protocol Committee (RPC). Dose modulation, iterative reconstruction, and/or weight based adjustment of the mA/kV was utilized to reduce the radiation dose to as low as reasonably achievable. FINDINGS: LINES and TUBES: None. LOWER THORAX: Visualized lung bases are clear. Inferior portion of the mediastinum is unremarkable given limitations with lack of IV contrast. HEPATOBILIARY: Hepatic attenuation is within normal limits. No focal hepatic lesions given exam limitations with lack of IV contrast. No biliary ductal dilation. GALLBLADDER: Status post cholecystectomy with surgical clips in the gallbladder fossa. SPLEEN: No splenomegaly. PANCREAS: No focal masses or ductal dilatation. ADRENALS: No adrenal nodules KIDNEYS/URETERS: Few nonobstructive stones at the right inferior renal pole with the largest measuring up to 8 mm which are unchanged compared to recent exam. No additional ureteral or left renal stones. Unchanged prominent bilateral extrarenal pelvises without hydronephrosis. Partially exophytic fluid density lesion measuring up to approximately 1.4 cm at the interpolar region of the left kidney, suboptimally evaluated with lack of IV contrast however likely correlates with renal cyst on prior ultrasound. GI TRACT: No abnormal distention, wall thickening, or evidence of bowel obstruction. Scattered intraluminal hyperdensities within the stomach, favored to represent recently ingested material. Mildly prominent stool burden within the rectum and sigmoid colon. Appendix is normal. PELVIC ORGANS/BLADDER: Status post hysterectomy. Urinary bladder is unremarkable with no intraluminal calculi. LYMPH NODES: No lymphadenopathy. VESSELS: No aneurysmal dilatation or ectasia of the abdominal aorta. Few scattered atherosclerotic calcifications. Further evaluation limited by lack of IV contrast. PERITONEUM / RETROPERITONEUM: No free air or fluid. BONES: No acute osseous abnormality. Mild multilevel degenerative disc changes of the lumbar spine. SOFT TISSUES: Unremarkable. IMPRESSION: 1. Few nonobstructive stones at the right inferior renal pole with largest measuring up to 8 mm; unchanged compared to recent exam. No additional renal or ureteral calculi. 2. Redemonstrated prominent bilateral extrarenal pelvises without hydronephrosis. 3. Mildly prominent stool burden within the rectum and sigmoid colon, correlate for constipation. Signed by: Abhishek Smith MD on 02/08/2020 11:01 AM
== END ==
LOC: CT 09:31
PROVIDERS: ATTEND Urology
DX: N20.0 Calculus of kidney (principal)
CPT/HCPCS: 74176

== ENCOUNTER → 2020-04-01 | Day surgery (SDC) | payer MEDICARE, OTHER ==
[2020-03-29 10:57] LABS: BASOPHILS # (AUTO) 0.1 (0.0-0.1); BASOPHILS % 0.8 % (0.0-1.0); EOSINOPHILS # (AUTO) 0.2 (0.0-0.4); EOSINOPHILS % 3.2 % (0.0-6.0); HEMOGLOBIN 11.3 g/dL (12.0-16.0); LYMPHOCYTES # (AUTO) 2.1 (1.0-3.2); LYMPHOCYTES % 34.3 % (18.0-39.1); MEAN CORPUSCULAR HEMOGLOBIN 30.5 pg (28-32); MEAN CORPUSCULAR HGB CONC 33.2 g/dL (31-35); MEAN CORPUSCULAR VOLUME 91.9 fL (81-99); MONOCYTES # (AUTO) 0.4 (0.2-0.8); MONOCYTES % 7.2 % (4.4-11.3); NEUTROPHILS # (AUTO) 3.2 (2.1-6.9); NEUTROPHILS % 54.3 % (38.7-80.0); PLATELET COUNT 235 x10e3/uL (140-360); RED CELL DISTRIBUTION WIDTH 11.9 % (11.7-14.4)
[2020-03-29 11:22] LABS: ANION GAP 14.1 mmol/L (8-16); BLOOD UREA NITROGEN 19 mg/dL (7-26); BUN/CREATININE RATIO 24 (6-25); CALCIUM 9.8 mg/dL (8.4-10.2); CARBON DIOXIDE 28 mmol/L (22-29); CHLORIDE 100 mmol/L (98-107); CREATININE, SERUM 0.79 mg/dL (0.57-1.11); EST GLOMERULAR FILTRATION RATE > 60 ML/MIN (60-); GLUCOSE 128 mg/dL (74-118); POTASSIUM 4.1 mmol/L (3.5-5.1); SODIUM 138 mmol/L (136-145)
--- NOTE | 2020-03-29 12:11 | Diagnostic Imaging Report ---
TECHNIQUE: 2 frontal images of the abdomen. HISTORY: ^PER MD ORDERS-PRE OP ^[id number] ^[id number]. COMPARISON: None. IMPRESSION: Nonobstructive radiographic bowel gas pattern. No acute bony abnormality. Pelvic probable phlebolith. No free air within the imaged abdomen. Signed by: Jay Guerrier MD on 03/29/2020 12:08 PM
[~2020-04-01] VITALS: Ht 167.6 cm; Wt 64.4 kg
[~2020-04-01] MED LIST changes: +B&O 60MG R/S 60 MG SUPP PR ONE; +BYSTOLIC10 MG PO; +CITRIC ACID/SODIUM CITRATE 30 ML UDC PO ONE; +COQ-10100 MG PO; +DEXAMETHASONE SOD PHOS INJ 4 MG/ML VIAL ONE; +GENTAMICIN 80MG/NS 100 ML 200 ML IV ONE; +GLYCOPYRROLATE INJ 0.2 MG/ML VIAL ONE; +IOPAMIDOL 300MG/ML 50ML INFUS..BTL IV ONE; +LIDOCAINE HCL 2% LOCAL INJ 5 ML SDV VIAL INJ ONE; +LOVASTATIN40 MG PO; +ONDANSETRON HCL INJ 2MG/ML 2ML 2 MG/ML VIAL ONE; +PROPOFOL IV EMULSION 10 MG/ML 20 ML VIAL ONE; +SERTRALINE HCL50 MG PO; +SEVOFLURANE INHAL SOLN 250 ML PEN BTL ONE; +TRAMADOL HCL 50 MG TAB ONE; +VASCEPA1 GM PO
[2020-04-01 12:42] VITALS: BP 143/80
--- NOTE | 2020-04-02 10:10 | Operative Report ---
DATE OF PROCEDURE: 04/01/2020 SURGEON: Blair cMcracken MD PREOPERATIVE DIAGNOSES: 1. Right nephrolithiasis. 2. Urinary tract infection. 3. Hematuria. POSTOPERATIVE DIAGNOSES: 1. Right nephrolithiasis. 2. Urinary tract infection. 3. Hematuria. 4. Right hydronephrosis. 5. Grade 1 cystocele. 6. Atrophic (senile) vaginitis. OPERATION PERFORMED: Note these were all staged procedures as part of multi-staged and multi-step process of managing patient's urolithiasis. 1. Right extracorporeal shockwave lithotripsy (separate procedure performed for the large cluster of right lower pole nephrolithiasis). 2. Cystourethroscopy with bilateral ureteral catheterization and retrograde ureteropyelography (separate procedure performed for the hematuria and urinary tract infections). 3. Interpretation of retrograde ureteropyelography. 4. Supervision of fluoroscopy. 5. Cystourethroscopy with insertion of right indwelling ureteral stent (separate procedure performed for the release of right hydronephrosis). ANESTHESIA: General. COMPLICATIONS: None. CLINICAL SUMMARY: Catia Browning is a 59-year-old woman with the above preoperative diagnoses. She was brought for the above procedures. She is aware of the risks of bleeding, infection, injury to adjacent structures, need for additional procedures, and elected to proceed. OPERATIVE PROCEDURE IN DETAIL: Informed consent was verified. Catia Browning was properly identified, taken to the operating room, placed on the lithotripsy table in the supine position. Anesthesia was uneventfully begun. The patient's right lower pole nephrolithiasis was localized with biplanar fluoroscopy. A total of 3000 shocks were delivered with excellent fragmentation and numerous fragments created. The patient was then carefully gently repositioned in dorsal lithotomy position with all pressure points well padded. Her genitalia were prepared and draped in usual sterile fashion. The cystoscope sheath with obturator was atraumatically inserted into the patient's urethra and bladder was drained. Panendoscopy revealed no suspicious mucosal lesions. No tumors, no stones, no diverticula, some trabeculations were noted. Normally positioned and configured ureteral orifices were identified. Ureteral catheter was used to cannulate both ureters and retrograde ureteral pyelograms performed. With cystoscopic fluoroscopic guidance, the right-sided indwelling ureteral stent was then placed. It was coiled in the patient's kidney as well as the patient's bladder. The retaining suture was cut short. Interpretation of retrograde ureteropyelography contrast was instilled in retrograde fashion bilaterally. There was bilateral fullness noted of the upper tract. This was more pronounced on the right hand side. There were numerous filling defects in the lower pole calyx corresponding to the fragmented stones as well as blood clots from the lithotripsy. There were no suspicious lesions identified. The left side did not show any filling defects, unobstructed drainage was observed fluoroscopically on the left hand side, the stent was in good position bladder on the right-hand side. The patient's bladder was drained. Cystoscope was withdrawn. Pelvic examination revealed a grade 1 cystocele, no rectocele. No abnormal palpable pelvic masses could be appreciated. There were no suspicious obvious mucosal lesions. The patient was then uneventfully reversed anesthesia and taken to recovery room in stable condition. There were no complications to the procedure. She tolerated the procedure well. Plans will be to return the patient to the operating room for ureteroscopy with laser standby in several weeks. Blair MD [place]/MODL /[id number] cc: Lisa Ngo MD
== END | disposition home or self-care (01) ==
LOC: OR 07:34
PROVIDERS: ATTEND Urology
DX: N20.0 Calculus of kidney (principal); N39.0 Urinary tract infection, site not specified; N13.30 Unspecified hydronephrosis; N81.10 Cystocele, unspecified; N95.2 Postmenopausal atrophic vaginitis; N32.89 Other specified disorders of bladder; I10 Essential (primary) hypertension; K21.9 Gastro-esophageal reflux disease without esophagitis; Z01.810 Encounter for preprocedural cardiovascular examination; Z01.812 Encounter for preprocedural laboratory examination; Z01.818 Encounter for other preprocedural examination; Z11.59 Encounter for screening for other viral diseases; Z79.82 Long term (current) use of aspirin; Z79.84 Long term (current) use of oral hypoglycemic drugs; Z86.73 Personal history of transient ischemic attack (TIA), and cerebral infarction without residual deficits
CPT/HCPCS: 36415 ×2; 50590; 52332; 74018; 80048; 82948; 84550; 85025; 93005; C1758; C2617; J1100; J1580; J2001; J2405; J2704; Q9967; U0002

== ENCOUNTER 2020-04-30 13:58 | Emergency (ER) | payer MEDICARE ==
[~2020-04-30] VITALS: Ht 167.6 cm; Wt 61.7 kg
[~2020-04-30 13:58] MED LIST changes: -B&O 60MG R/S 60 MG SUPP PR ONE; -CITRIC ACID/SODIUM CITRATE 30 ML UDC PO ONE; -DEXAMETHASONE SOD PHOS INJ 4 MG/ML VIAL ONE; -GENTAMICIN 80MG/NS 100 ML 200 ML IV ONE; -GLYCOPYRROLATE INJ 0.2 MG/ML VIAL ONE; -IOPAMIDOL 300MG/ML 50ML INFUS..BTL IV ONE; -LIDOCAINE HCL 2% LOCAL INJ 5 ML SDV VIAL INJ ONE; -ONDANSETRON HCL INJ 2MG/ML 2ML 2 MG/ML VIAL ONE; -PROPOFOL IV EMULSION 10 MG/ML 20 ML VIAL ONE; -SEVOFLURANE INHAL SOLN 250 ML PEN BTL ONE; -TRAMADOL HCL 50 MG TAB ONE
--- OUTSIDE RECORDS SUMMARY | 2020-04-30 14:31 | XMS REPORT | Continuity of Care Document ---
Author Author Jonh Lugo Trendient Hernan, MAKAYLA Schreiber Organization [employer] Address Unknown Phone Unavailable Care Team Providers Care Hat And Cap Opener Name Role Phone FRUCT Information Bebo Unavailable Un available Problems Problem Status Onset Date Classification Date Reported Comments Source Syncope and collapse 09/04/2016 09/07/2016 [facility] Unspecified adverse effect of drug or me dicament, initial encounter 09/04/2016 09/07/2016 [facility] DIZZINESS Active 09/04/2016 [facility] Discharge Diagnosis: Kidney stone on right side 07/30/2016 08/02/2016 [facility] FLANK PAIN Active 07/30/2016 [facility] Discharge Diagnosis: Systemic viral illness 07/27/2016 07/31/2016 [facility] Discharge Diagnosis: Generalized weakness 07/27/2016 07/31/2016 [facility] Discharge Diagnosis: Malaise and fatigue 07/27/2016 07/31/2016 [facility] Discharge Diagnosis: Elevated blood pressure 07/27/2016 07/31/2016 [facility] Discharge Diagnosis: Common cold 07/27/2016 07/31/2016 [facility] FEVER Active 07/27/2016 [facility] N/V Active 0 06/30/2016 [facility] ACUTE PYELONEPHRITIS,RETROPERITONEAL INF Active 06/30/2016 [facility] Acute urinary tract infection (disorder) Resolved 06/24/2016 Problem 09/07/2016 [facility] R31.9 - "HEMATURIA, UNSPECIFIED" Active 06/14/2015 [facility] Osteoporosis (disorder) Active 11/10/2014 Problem 09/07/2016 Data migrated from [employer] on . [facility] Vitamin D deficiency (disorder) Active 11/10/2014 Problem 09/07/2016 Data migrated from [employer] on . [facility] 780.93 - MEMORY LOSS Active 02/11/2014 [facility] 379.91 - PAIN IN OR AROU Active 03/09/2013 [facility] Anxiety (finding) Resolved Problem 09/07/2016 [facility] Diabetes mellitus (disorder) R esolved Problem [facility] Hypercalcemia (disorder) Active Problem 09/07/2016 Data migrated from [employer] on 12/15/14. [facility] Hyperlipidemia (disorder) Acti ve Problem Data migrated from [employer] on 12/15/14. [facility] Malignant neoplastic disease (disorder) Resolved Problem 09/07/2016 [facility] Depressive disorder (disorder) Resolved Problem [facility] Neuropathy (disorder) Resolved Problem 09/07/2016 [facility] Pituitary adenoma (disorder) A ctive Problem Data migrated from [employer] on . [facility] Type II diabetes mellitus uncontrolled (finding) Active Problem 09/07/2016 Data migrated from [employer] on . [facility] ACUTE PYELONEPHRITIS Active [facility] OTHER SPECIFIED DISORDERS OF PERITONEUM Active [facility] LOCALIZED ENLARGED LYMPH NODES Active [facility] Medications Medication Details Route Status Patient Instructions Ordering Provider Order Date Source Tylenol 975 mg, Route: PO, Grzegorz g form: TAB, ONCE, Dosing Weight 61.364, kg, Priority: STAT, Start date: 09/04/16 16:20:00 CDT, Stop date: 09/04/16 16:20:00 CDT Inactive 09/04/2016 [facility] Sodium Chloride 0.154 MEQ/ML Injectable Solution 1,000 mL, 1,000 ml/hr, Infuse Over: 1 hr, Route: IV, ONCE, Priority: STAT, Dosing Weight 61.364 kg, Start date: 09/04/16 15:25:00 CDT, Duration: 1 doses or times, Stop date: 09/04/16 15:25:00 CDT Inactive 09/04/2016 [facility] tramadol hydrochloride 50 MG Oral Tablet 50 mg = 1 tab, PO, Q6H, PRN Pain, X 5 day, # 20 tab, 0 Refill(s) Active 07/30/2016 [facility] Nitrofurantoin 100 MG Oral Capsule [Macrobid] 100 mg = 1 cap, PO, BID, X 7 day, # 14 cap, 0 Refill(s) Active 07/30/2016 [facility] Zofran 4 mg, Route: IVP, Drug form: INJ, ONCE, Dosing Weight 65.909, kg, Priority: STAT, Start date: 07/30/16 1:54:00 IRRIGATION LABORER, Stop date: 07/30/16 1:54:00 IRRIGATION LABORER Inactive 07/30/2016 [facility] Morphine 4 mg, Route: IVP, ONC E, Dosing Weight 65.909, kg, Priority: STAT, Start date: 07/30/16 1:54:00 IRRIGATION LABORER, Stop date: 07/30/16 1:54:00 IRRIGATION LABORER Inactive 07/30/2016 [facility] Saline Flush 0.9% 10 mL, Route : IVP, Drug Form: INJ, Dosing Weight 65.909, kg, PRN, PRN Line Flush, Start date: 07/30/16 1:51:00 IRRIGATION LABORER, Duration: 30 day, Stop date: 08/29/16 2:50:00 CDT Inactive 07/30/2016 [facility] Sodium Chloride 0.154 MEQ/ML Injectable Solution 1,000 mL, 2,000 ml/hr, Infuse Over: 30 minutes, Route: IV, ONCE, Priority: STAT, Dosing Weight 65.909 kg, Start date: 07/30/16 1:51:00 IRRIGATION LABORER, Duration: 1 doses or times, Stop date: 07/30/16 1:51:00 IRRIGATION LABORER Inactive 07/30/2016 [facility] tramadol hydrochloride 50 MG Oral Tablet 50 mg = 1 tab, PO, Q6H, PRN Pain, X 10 day, # 40 tab, 0 Refill(s) Active 07/28/2016 [facility] Ondansetron 8 MG Disintegrating Tablet [Zofran] 8 mg = 1 tab, PO, TID, PRN Nausea and Vomiting, Dissolve tab under tongue, X 4 day, # 30 tab, 0 Refill(s) Active 07/28/2016 [facility] Fentanyl 50 microgram, Route: IVP, ONCE, Dosing Weight 72.727, kg, Priority: STAT, Start date: 07/27/16 22:20:00 IRRIGATION LABORER, Stop date: 07/27/16 22:20:00 IRRIGATION LABORER Inactive 07/28/2016 [facility] Ondansetron Notes: (Same as: Isela davis) MEDICATION WASTE Product Size: 4 mg Product Wasted: ___ mg Inactive 07/28/2016 [facility] Saline Flush 0.9% Notes: (Same as: BD Posiflush) No Longer Active 07/28/2016 [facility] Sodium Chloride 0.154 MEQ/ML Injectable Solution 1,000 mL, 2,000 ml/hr, Infuse Over: 30 minutes, Route: IV, 1,000, Drug form: INJ, ONCE, Priority: STAT, Dosing Weight 72.727 kg, Start date: 07/27/16 18:36:00 IRRIGATION LABORER, Duration: 1 doses or times, Stop date: 07/27/16 18:36:00 IRRIGATION LABORER Inactive 07/28/2016 [facility] Levofloxacin 500 MG Oral Tablet [Levaquin] 500 mg = 1 tab, PO, Q24H, X 7 day, # 7 tab, 0 Refill(s) Active 07/10/2016 [facility] Microzide Notes: (Same as: Alexx rozide) With food. No Longer Active 07/09/2016 [facility] Metformin hydrochloride 500 MG Oral Tablet Notes: (Same as: Glucophage) Take with meal No Longer Active 07/08/2016 [facility] Hydrochlorothiazide Notes: (Sa me as: Microzide) With food. Inactive 07/08/2016 [facility] Metformin 500 mg, PO, BID, 0 R efill(s) Active 07/08/2016 [facility] Nystatin 544647 UNT/ML Oral Suspension Notes: (Same as:Mycostatin) Shake well. No Longer Active 07/07/2016 [facility] RN-Do not give Vanc till trough drawn 07/07/16@ 6:30 RN-Do not give Vanc till trough drawn 07/07/16@ 6:30, Attn:RN, Drug form: MISC, Route: MISC, ONCE, 07/07/16 6:00:00 IRRIGATION LABORER, Stop date: 07/07/16 6:00:00 IRRIGATION LABORER Inactive 07/07/2016 [facility] vancomycin + sodium chloride 0.9% 250 mL INJ (for IV set) 250 mL 2001 mg: infuse over 2.5 hours ME DICATION WASTE Product Size: 1000 mg Product Wasted: ___ mg No Longer Active 07/06/2016 [facility] Nystatin 369239 UNT/ML Topical Cream Notes: (Same as:Mycostatin, Nilstat) For external use only. No Longer Active 07/05/2016 [facility] RN-Do not give Vanc till trough drawn 07/05/16@ 17:30 RN-Do not give Vanc till trough drawn 07/05/16@ 17:30, Attn:RN, Drug form: MISC, Route: MISC, ONCE, 07/05/16 17:00:00 IRRIGATION LABORER, Stop date: 07/05/16 17:00:00 IRRIGATION LABORER Inactive 07/05/2016 [facility] Vancomycin 2001 mg: infuse ov er 2.5 hours MEDICATION WASTE Product Size: 1000 mg Product Wasted: ___ mg No Longer Active 07/05/2016 [facility] Azactam Notes: (Same As: Azact am) No Longer Active 07/05/2016 [facility] Lactulose 667 MG/ML Oral Solution Notes: (Same as:Chronulac) No Longer Active 07/04/2016 [facility] Streptococcus pneumoniae serotype 1 caps ular antigen diphtheria [id number] protein conjugate vaccine / Streptococcus pneumoniae serotype 14 capsular antigen diphtheria [id number] protein conjugate vaccine / Streptococcus pneumoniae serotype 18C capsular antigen d Notes: Lightly roll vial (DO NOT SHAKE) before administration. (Same as: Prevnar 13) Inactive 07/03/2016 [facility] Vitamin D3 2,000 unit, PO, Elise ly, 0 Refill(s) Active 07/02/2016 [facility] Sertraline Notes: (Same as: Z oloft) No Longer Active 07/01/2016 [facility] Protonix Notes: Tablet should not be chewed or crushed. (Same as: Protonix) No Longer Active 07/01/2016 [facility] Nexium 40 mg, Route: PO, Drug form: ECCAP, Daily, Dosing Weight 62.072, kg, Start date: 07/01/16 9:00:00 IRRIGATION LABORER, Duration: 30 day, Stop date: 07/30/16 9:00:00 IRRIGATION LABORER No Longer Active 07/01/2016 [facility] Vitamin D3 Notes: Same as : Vi tamin D3 No Longer Active 07/01/2016 [facility] elppa CoQ10 100 mg, Route: PO, Drug form: CAP, Daily, Dosing Weight 62.072, kg, Start date: 07/01/16 9:00:00 IRRIGATION LABORER, Duration: 30 day, Stop date: 07/30/16 9:00:00 IRRIGATION LABORER No Longer Active 07/01/2016 [facility] Sertraline Notes: (Same as: Z oloft) Inactive 07/01/2016 [facility] omega-3 polyunsaturated fatty acids 1,000 mg, 2 cap, Route: PO, Drug form: CAP, Daily, Dosing Weight 62.072, kg, Start date: 07/01/16 9:00:00 IRRIGATION LABORER, Stop date: 07/30/16 9:00:00 IRRIGATION LABORER No Longer Active 07/01/2016 [facility] Metformin hydrochloride 500 MG Oral Tablet Notes: (Same as: Glucophage) Take with meal No Longer Active 07/01/2016 [facility] Lipitor Notes: (Same As: Lipit or) No Longer Active 07/01/2016 [facility] Lovastatin 40 mg, Route: PO, D rug form: TAB, Bedtime, Dosing Weight 62.072, kg, Start date: 06/30/16 21:00:00 IRRIGATION LABORER, Duration: 30 day, Stop date: 07/29/16 21:00:00 IRRIGATION LABORER Inactive 07/01/2016 [facility] gabapentin 300 MG Oral Capsule Notes: (Same as: Neurontin) No Longer Active 06/30/2016 [facility] potassium chloride 20 mEq oral tablet, extended releas e Notes: (Same as: K-Dur 20) "Do Not Crush" With food and full glass of water No Longer Active 06/30/2016 [facility] meropenem + sodium chloride 0.9% INJ 100 mL Notes: Same as Merrem MEDICATION WASTE Product Size: 500 mg Product Wasted: ___ mg No Longer Active 06/30/2016 [facility] Magnesium Oxide Notes: (Same a s: Mag-Ox 400) Magnesium oxide [id number] elemental magnesium Dose=____mg magnesium oxide (___mg elemental magnesium) No Longer Active 06/30/2016 [facility] please bring pts own meds CoQ10 and vi t D liq to pharmacy please bring pts own meds CoQ10 and vi t D liq to pharmacy, reminder, Drug form: MISC, Route: MISC, QSHIFT, 06/30/16 16:55:00 IRRIGATION LABORER, Duration: 30 day, Stop date: 07/30/16 16:00:00 IRRIGATION LABORER No Longer Active 06/30/2016 [facility] aspirin 81 mg tablet, enteric coated Notes: Do not crush or chew. (Same As: Ecotrin) N o Longer Active 06/30/2016 [facility] Hydromorphone 0.5 mg, 0.5 mL, Route: IVP, Drug form: INJ, Q4H, Dosing Weight 62.072, kg, PRN Pain Score 7-10, Start date: 06/30/16 16:38:00 IRRIGATION LABORER, Duration: 30 day, Stop date: 07/30/16 16:37:00 IRRIGATION LABORER No Longer Active 06/30/2016 [facility] Lorazepam Notes: (Same as: Diaz paniagua) No Longer Active 06/30/2016 [facility] Liquid Vitamin D-3 10,000 Intl Unit, PO, 0 Refill(s) No Longer Active 06/30/2016 [facility] elppa CoQ10 50 mg oral capsule 100 mg = 2 cap, PO, Daily, # 60 cap, 0 Refill(s) Active 06/30/2016 [facility] lovastatin 40 mg oral tablet 4 0 mg = 1 tab, PO, Bedtime, # 30 tab, 0 Refill(s) Active 06/30/2016 [facility] Hydrochlorothiazide 12.5 mg, P O, Daily, 0 Refill(s) Active 06/30/2016 [facility] sertraline 50 mg oral tablet 5 0 mg = 1 tab, PO, Daily, # 30 tab, 0 Refill(s) Active 06/30/2016 [facility] Enoxaparin Notes: (Same as: Lo venox) No Longer Active 06/30/2016 [facility] Tylenol 500 mg, PO, Q6H, 0 Ref ill(s) Active 06/30/2016 [facility] meropenem Notes: (Same as: Shanique rem) . MEDICATION WASTE Product Size: 1000 mg Product Wasted: ___ mg send to 2E Inactive 06/30/2016 [facility] Dextrose 50% Syringe 25 gm, 50 mL, Route: IVP, Drug Form: INJ, Dosing Weight 62.727, kg, PRN, PRN Blood Glucose Results, Start date: 06/30/16 8:54:00 IRRIGATION LABORER, Duration: 30 day, Stop date: 07/30/16 8:53:00 IRRIGATION LABORER No Longer Active 06/30/2016 [facility] Glucagon 1 mg, Route: IM, Drug form: PDR/INJ, PRN, Dosing Weight 62.727, kg, PRN Blood Glucose Results, Start date: 06/30/16 8:54:00 IRRIGATION LABORER, Duration: 30 day, Stop date: 07/30/16 8:53:00 IRRIGATION LABORER No Longer Active 06/30/2016 [facility] Insulin, Aspart, Human Notes: Roll in palms of hands gently; Do not shake vigorously. (Same as: NovoLOG) "single patient use only" WASTE: F/P - Black; E - Municipal Trash Bin Stable for 28 days at room temperature. Expires in days from Date No Longer Active 06/30/2016 [facility] Saline Flush 0.9% Notes: (Same as: BD Posiflush) No Longer Active 06/30/2016 [facility] Lactated Ringers 1,000 mL 1,00 0 mL, Rate: 125 ml/hr, Infuse over: 8 hr, Route: IV, Dosing Weight 62.727 kg, Total Volume: 1,000, Start date: 06/30/16 8:50:00 IRRIGATION LABORER, Duration: 30 day, Stop date: 07/30/16 8:49:00 IRRIGATION LABORER Inactive 06/30/2016 [facility] Acetaminophen Notes: Do not ex ceed 4 gm/day. (Same as: Tylenol) No Longer Active 06/30/2016 [facility] Docusate Notes: (Same as: Cola ce) (Do Not Crush) No Longer Active 06/30/2016 [facility] Ondansetron Notes: (Same as: Isela davis) MEDICATION WASTE Product Size: 4 mg Product Wasted: ___ mg No Longer Active 06/30/2016 [facility] Albuterol 0.833 MG/ML / Ipratropium Brom brady 0.167 MG/ML Inhalant Solution [DuoNeb] 3 mL, Route: NEB, Dosing Weight 62.727, kg, ONCE, Start date: 06/30/16 7:42:00 IRRIGATION LABORER, Stop date: 06/30/16 7:42:00 IRRIGATION LABORER Inactive 06/30/2016 [facility] Albuterol 0.833 MG/ML / Ipratropium Brom brady 0.167 MG/ML Inhalant Solution [DuoNeb] 3 mL, Route: NEB, Dosing Weight 62.727, kg, ONCE, Start date: 06/30/16 7:40:00 IRRIGATION LABORER, Stop date: 06/30/16 7:40:00 IRRIGATION LABORER Inactive 06/30/2016 [facility] tramadol hydrochloride 50 MG Oral Tablet Notes: Not to exceed 400mg/day. (Same As: Ultram) No Longer Active 06/30/2016 [facility] Demerol HCl Notes: (Same As: D emerol) Inactive 06/30/2016 [facility] Acetaminophen 650 mg, Route: P O, Drug form: TAB, ONCE, Dosing Weight 62.727, kg, Priority: STAT, Start date: 06/30/16 4:59:00 IRRIGATION LABORER, Stop date: 06/30/16 4:59:00 IRRIGATION LABORER Inactive 06/30/2016 [facility] Zofran 8 mg, Route: IVP, Drug form: INJ, ONCE, Dosing Weight 62.727, kg, Priority: STAT, Start date: 06/30/16 3:17:00 IRRIGATION LABORER, Stop date: 06/30/16 3:17:00 IRRIGATION LABORER Inactive 06/30/2016 [facility] Sodium Chloride 0.154 MEQ/ML Injectable Solution 1,000 mL, Infuse Over: 1 hr, Route: IV, ONCE, Priority: STAT, Dosing Weight 62.727 kg, Start date: 06/30/16 3:17:00 IRRIGATION LABORER, Duration: 1 doses or times, Stop date: 06/30/16 3:17:00 IRRIGATION LABORER Inactive 06/30/2016 [facility] Zosyn 3.375 gm, Route: IVPB, O NCE, Dosing Weight 62.727, kg, Priority: STAT, Start date: 06/30/16 3:16:00 IRRIGATION LABORER, Stop date: 06/30/16 3:16:00 IRRIGATION LABORER Inactive 06/30/2016 [facility] Fentanyl 50 microgram, Route: IVP, ONCE, Dosing Weight 62.727, kg, Priority: STAT, Start date: 06/30/16 3:15:00 IRRIGATION LABORER, Stop date: 06/30/16 3:15:00 IRRIGATION LABORER Inactive 06/30/2016 [facility] Ondansetron 4 mg, Route: IVP, ONCE, Dosing Weight 62.727, kg, Priority: STAT, Start date: 06/30/16 3:03:00 IRRIGATION LABORER, Stop date: 06/30/16 3:03:00 IRRIGATION LABORER Inactive 06/30/2016 [facility] Saline Flush 0.9% Notes: (Same as: BD Posiflush) No Longer Active 06/30/2016 [facility] Sodium Chloride 0.154 MEQ/ML Injectable Solution 1,000 mL, Rate: 125 ml/hr, Infuse over: 8 hr, Route: IV, Dosing Weight 62.727 kg, Total Volume: 1,000, Start date: 06/30/16 3:03:00 IRRIGATION LABORER, Duration: 30 day, Stop date: 07/30/16 3:02:00 IRRIGATION LABORER No Longer Active 06/30/2016 [facility] Allergies, Adverse Reactions, Alerts Substance Category Reaction Severity Reaction type Status Date Reported Comments Source methylPREDNISolone<sup>1</sup> Assertion Drug aller gy Active 11/10/2014 Data migrated from [employer] on 5. Originally documented as SOLU- MEDROL. [facility] penicillins<sup>2</sup> Assert ion Drug aller gy Active 11/10/2014 Data migrated from [employer] on 01/07/15. Originally documented as PENICILLIN. [facility] phenytoin<sup>3</sup> Assertion Drug allergy Active 11/10/2014 Data migrated from [employer] on12/16/14. Originally documented as DILANTIN. [facility] codeine Assertion Drug allergy Active [facility] Dilaudid Assertion Drug allergy Active [facility] Immunizations Immunization Date Given Site Status Last Updated Comments Source pneumococcal 13-valent vaccine 07/03/2016 Not Given [facility] Results Order Name Results Value Reference Range Date Interpretation Comments Source ELECTROLYTES AGAP 10.3 10.0 - 20.0 09/04/2016 [facility] ELECTROLYTES eGFR 77 09/04/2016 Result Comment: [...] should be multiplied by the estimated BMI. [facility] ELECTROLYTES Sodium Lvl 138 135 - 145 09/04/2016 [facility] ELECTROLYTES Potassium Lvl 3.3 3.5 - 5.1 09/04/2016 [facility] ELECTROLYTES Chloride Lvl 99 95 - 109 09/04/2016 [facility] ELECTROLYTES CO2 32 24 - 32 09/04/2016 [facility] ELECTROLYTES Calcium Lvl 9.4 8.5 - 10.5 09/04/2016 [facility] ELECTROLYTES Glucose Lvl 180 70 - 99 09/04/2016 [facility] ELECTROLYTES Creatinine Lvl 0.8 5 0.50 - 1.40 09/04/2016 [facility] ELECTROLYTES BUN 21 7 - 22 09/04/2016 [facility] Lymphocytes 8.6 20.0 - 40.0 09/04/2016 [facility] HEMATOLOGY Basophils 0.2 0.0 - 1.0 09/04/2016 [facility] Monocytes 3.8 2.0 - 12.0 09/04/2016 [facility] Lymphocytes # 0.8 1.0 - 5.5 09/04/2016 [facility] Monocytes # 0.4 0.0 - 0.8 09/04/2016 [facility] Segs-Bands # 8.1 1.5 - 8.1 09/04/2016 [facility] Segs 87.0 45.0 - 75.0 09/04/2016 [facility] Eosinophils 0.4 0.0 - 4.0 09/04/2016 [facility] Platelet 234 133 - 450 09/04/2016 [facility] MPV 7.0 7.4 - 10.4 09/04/2016 [facility] MCV 89.9 80.0 - 98.0 09/04/2016 [facility] MCHC 33.1 32.0 - 36.0 09/04/2016 [facility] Hct 36.5 36.0 - 48.0 09/04/2016 [facility] Hgb 12.1 12.0 - 16.0 09/04/2016 [facility] RBC 4.06 4.20 - 5.40 09/04/2016 [facility] MCH 29.7 27.0 - 31.0 09/04/2016 [facility] HEMATOLOGY RDW 15.0 11.5 - 14.5 09/04/2016 [facility] HEMATOLOGY WBC 9.3 3.7 - 10.4 09/04/2016 [facility] CHEM PANEL BUN 19 7 - 22 07/30/2016 [facility] CHEM PANEL Sodium Lvl 136 135 - 145 07/30/2016 [facility] CHEM PANEL Glucose Lvl 107 70 - 99 07/30/2016 [facility] CHEM PANEL Creatinine Lvl 0.69 0.50 - 1.40 07/30/2016 [facility] CHEM PANEL Potassium Lvl 4.1 3.5 - 5.1 07/30/2016 [facility] CHEM PANEL CO2 29 24 - 32 07/30/2016 [facility] CHEM PANEL Total Protein 7.0 6.4 - 8.4 07/30/2016 [facility] CHEM PANEL Chloride Lvl 97 95 - 109 07/30/2016 [facility] CHEM PANEL Calcium Lvl 8.8 8.5 - 10.5 07/30/2016 [facility] CHEM PANEL Albumin Lvl 3.4 3.5 - 5.0 07/30/2016 [facility] CHEM PANEL ALT 40 0 - 65 07/30/2016 [facility] CHEM PANEL AST 31 0 - 37 07/30/2016 [facility] CHEM PANEL Alk Phos 114 39 - 136 07/30/2016 [facility] CHEM PANEL Bili Total 0.2 0.2 - 1.3 07/30/2016 [facility] CHEM PANEL eGFR 98 07/30/2016 Result [...] A/G Ratio 0.9 0.7 - 1.6 07/30/2016 [facility] CHEM PANEL AGAP 14.1 10.0 - 20.0 07/30/2016 [facility] CHEM PANEL B/C Ratio 28 6 - 25 07/30/2016 [facility] CHEM PANEL Globulin 3.6 2.7 - 4.2 07/30/2016 [facility] CHEM PANEL Lipase Lvl 253 73 - 393 07/30/2016 [facility] HEMATOLOGY MCV 89.2 80.0 - 98.0 07/30/2016 [facility] MCH 30.5 27.0 - 31.0 07/30/2016 [facility] MCHC 34.2 32.0 - 36.0 07/30/2016 [facility] Hgb 9.4 12.0 - 16.0 07/30/2016 [facility] Hct 27.7 36.0 - 48.0 07/30/2016 [facility] RBC 3.10 4.20 - 5.40 07/30/2016 [facility] WBC 8.4 3.7 - 10.4 07/30/2016 [facility] HEMATOLOGY RDW 13.4 11.5 - 14.5 07/30/2016 [facility] Platelet 211 133 - 450 07/30/2016 [facility] MPV 7.1 7.4 - 10.4 07/30/2016 [facility] HEMATOLOGY Eosinophils # 0.3 0.0 - 0.5 07/30/2016 [facility] Monocytes # 0.7 0.0 - 0.8 07/30/2016 [facility] Segs-Bands # 5.9 1.5 - 8.1 07/30/2016 [facility] Lymphocytes # 1.5 1.0 - 5.5 07/30/2016 [facility] Lymphocytes 17.7 20.0 - 40.0 07/30/2016 [facility] HEMATOLOGY Basophils 0.5 0.0 - 1.0 07/30/2016 [facility] Monocytes 8.3 2.0 - 12.0 07/30/2016 [facility] HEMATOLOGY Eosinophils 3.5 0.0 - 4.0 07/30/2016 [facility] HEMATOLOGY Segs 70.0 45.0 - 75.0 07/30/2016 [facility] URINE AND STOOL UA Color Ltyellow 07/30/2016 [facility] URINE AND STOOL UA Urobilinogen <=1.0 mg/dL 0.1 - 1.0 07/30/2016 [facility] URINE AND STOOL UA Sq Epi None Seen 07/30/2016 [facility] URINE AND STOOL UA Glucose Negative mg/dL Negative mg/dL 07/30/2016 [facility] URINE AND STOOL UA Protein Negative mg/dL Negative mg/dL 07/30/2016 [facility] URINE AND STOOL UA Ketones Negative mg/dL Negative mg/dL 07/30/[address] [facility] [address] URINE AND STOOL UA WBC 2 0 - 5 07/30/2016 [facility] URINE AND STOOL UA RBC <1 0 - 2 07/30/2016 [facility] URINE AND STOOL UA Leuk Est Trace *ABN* (07/30/16 1:30 AM) Negative 07/30/2016 [facility] URINE AND STOOL UA Spec Grav 1.008 <=1.030 07/30/2016 [facility] URINE AND STOOL UA pH 6.0 5.0 - 8.0 07/30/2016 [facility] URINE AND STOOL UA Blood Negative (07/30/16 1:30 AM) Negative 07/30/2016 [facility] URINE AND STOOL UA Bili Negative *NA* (07/30/16 1:30 AM) Negative 07/30/2016 [facility] URINE AND STOOL UA Nitrite Negative (07/30/16 1:30 AM) Negative 07/30/2016 [facility] URINE AND STOOL UA Turbidity Clear (07/30/16 1:30 AM) Clear 07/30/2016 [facility] CARDIAC ENZYMES Total CK 49 12 - 191 07/28/2016 [facility] CHEM PANEL B/C Ratio 18 6 - 25 07/28/2016 [facility] CHEM PANEL Globulin 3.7 2.7 - 4.2 07/28/2016 [facility] CHEM PANEL A/G Ratio 1.0 0.7 - 1.6 07/28/2016 [facility] CHEM PANEL AGAP 12.7 10.0 - 20.0 07/28/2016 [facility] CHEM PANEL eGFR 91 07/28/2016 Result [...] should be multiplied by the estimated BMI. [facility] CHEM PANEL Alk Phos 111 39 - 136 07/28/2016 [facility] CHEM PANEL Bili Total 0.6 0.2 - 1.3 07/28/2016 [facility] CHEM PANEL ALT 44 0 - 65 07/28/2016 [facility] CHEM PANEL Calcium Lvl 9.3 8.5 - 10.5 07/28/2016 [facility] CHEM PANEL Albumin Lvl 3.7 3.5 - 5.0 07/28/2016 [facility] CHEM PANEL Total Protein 7.4 6.4 - 8.4 07/28/2016 [facility] CHEM PANEL AST 24 0 - 37 07/28/2016 [facility] CHEM PANEL Glucose Lvl 118 70 - 99 07/28/2016 [facility] CHEM PANEL Creatinine Lvl 0.74 0.50 - 1.40 07/28/2016 [facility] CHEM PANEL BUN 13 7 - 22 07/28/2016 [facility] CHEM PANEL Sodium Lvl 138 135 - 145 07/28/2016 [facility] CHEM PANEL CO2 31 24 - 32 07/28/2016 [facility] CHEM PANEL Potassium Lvl 3.7 3.5 - 5.1 07/28/2016 [facility] CHEM PANEL Chloride Lvl 98 95 - 109 07/28/2016 [facility] CHEM PANEL Amylase Lvl 20 25 - 115 07/28/2016 [facility] CHEM PANEL Lipase Lvl 179 73 - 393 07/28/2016 [facility] HEMATOLOGY MCHC 33.5 32.0 - 36.0 07/28/2016 [facility] HEMATOLOGY RDW 13.6 11.5 - 14.5 07/28/2016 [facility] HEMATOLOGY MCH 30.2 27.0 - 31.0 07/28/2016 [facility] HEMATOLOGY MCV 90.2 80.0 - 98.0 07/28/2016 [facility] HEMATOLOGY Hct 30.0 36.0 - 48.0 07/28/2016 [facility] HEMATOLOGY Platelet 203 133 - 450 07/28/2016 [facility] MPV 7.0 7.4 - 10.4 07/28/2016 [facility] HEMATOLOGY Hgb 10.0 12.0 - 16.0 07/28/2016 [facility] HEMATOLOGY WBC 6.9 3.7 - 10.4 07/28/2016 [facility] HEMATOLOGY RBC 3.32 4.20 - 5.40 07/28/2016 [facility] HEMATOLOGY INR 0.96 0.85 - 1.17 07/28/2016 [facility] HEMATOLOGY PT 13.0 12.0 - 14.7 07/28/2016 [facility] HEMATOLOGY Eosinophils # 0.2 0.0 - 0.5 07/28/2016 [facility] HEMATOLOGY Basophils # 0.1 0.0 - 0.2 07/28/2016 [facility] HEMATOLOGY Eosinophils 2.5 0.0 - 4.0 07/28/2016 [facility] HEMATOLOGY Lymphocytes 20.7 20.0 - 40.0 07/28/2016 [facility] HEMATOLOGY Segs 66.8 45.0 - 75.0 07/28/2016 [facility] HEMATOLOGY Monocytes # 0.6 0.0 - 0.8 07/28/2016 [facility] HEMATOLOGY Segs-Bands # 4.6 1.5 - 8.1 07/28/2016 [facility] HEMATOLOGY Basophils 0.7 0.0 - 1.0 07/28/2016 [facility] HEMATOLOGY Lymphocytes # 1.4 1.0 - 5.5 07/28/2016 [facility] HEMATOLOGY Monocytes 9.3 2.0 - 12.0 07/28/2016 [facility] URINE AND STOOL UA Color Ltyellow 07/28/2016 [facility] URINE AND STOOL UA Urobilinogen <=1.0 mg/dL 0.1 - 1.0 07/28/2016 [facility] URINE AND STOOL UA Bacteria Occasional /HPF None Seen /HPF 07/28/[address] [facility] URINE AND STOOL UA WBC 2 0 - 5 07/28/2016 [facility] URINE AND STOOL UA RBC 1 0 - 2 07/28/2016 [facility] URINE AND STOOL UA Sq Epi Occasional /LPF Few /LPF 07/28/2016 [facility] URINE AND STOOL UA Nitrite Negative (07/27/16 6:53 PM) Negative 07/28/2016 [facility] URINE AND STOOL UA Leuk Est Trace *ABN* (07/27/16 6:53 PM) Negative 07/28/2016 [facility] URINE AND STOOL UA pH 7.0 5.0 - 8.0 07/28/2016 [facility] URINE AND STOOL UA Glucose Negative mg/dL Negative mg/dL 07/28/2016 [facility] URINE AND STOOL UA Spec Grav 1.011 <=1.030 07/28/2016 [facility] URINE AND STOOL UA Turbidity Clear (07/27/16 6:53 PM) Clear 07/28/2016 [facility] URINE AND STOOL UA Bili Negative *NA* (07/27/16 6:53 PM) Negative 07/28/2016 [facility] URINE AND STOOL UA Ketones Negative mg/dL Negative mg/dL 07/28/2016 [facility] URINE AND STOOL UA Blood Negative (07/27/16 6:53 PM) Negative 07/28/2016 [facility] URINE AND STOOL UA Protein Negative mg/dL Negative mg/dL 07/28/2016 [facility] VIRAL - SEROLOGY Influ A Negative (07/27/16 6:53 PM) Negative 07/28/2016 [facility] VIRAL - SEROLOGY Influ B Negative (07/27/16 6:53 PM) Negative 07/28/2016 [facility] ELECTROLYTES AGAP 11.1 10.0 - 20.0 07/10/2016 [facility] ELECTROLYTES eGFR 105 07/10/2016 Result Comment: [...] should be multiplied by the estimated BMI. [facility] ELECTROLYTES Glucose Lvl 102 70 - 99 07/10/2016 [facility] ELECTROLYTES Sodium Lvl 141 135 - 145 07/10/2016 [facility] ELECTROLYTES Creatinine Lvl 0.5 5 0.50 - 1.40 07/10/2016 [facility] ELECTROLYTES BUN 13 7 - 22 07/10/2016 [facility] ELECTROLYTES Potassium Lvl 4.1 3.5 - 5.1 07/10/2016 [facility] ELECTROLYTES Calcium Lvl 8.8 8.5 - 10.5 07/10/2016 [facility] ELECTROLYTES Chloride Lvl 104 95 - 109 07/10/2016 [facility] ELECTROLYTES CO2 30 24 - 32 07/10/2016 [facility] HEMATOLOGY Lymphocytes 23.8 20.0 - 40.0 07/10/2016 [facility] HEMATOLOGY Segs 66.5 45.0 - 75.0 07/10/2016 [facility] HEMATOLOGY Eosinophils # 0.1 0.0 - 0.5 07/10/2016 [facility] HEMATOLOGY Monocytes # 0.3 0.0 - 0.8 07/10/2016 [facility] HEMATOLOGY Lymphocytes # 1.1 1.0 - 5.5 07/10/2016 [facility] Segs-Bands # 3.2 1.5 - 8.1 07/10/2016 [facility] Basophils 0.6 0.0 - 1.0 07/10/2016 [facility] Eosinophils 2.4 0.0 - 4.0 07/10/2016 [facility] Monocytes 6.7 2.0 - 12.0 07/10/2016 [facility] MPV 7.0 7.4 - 10.4 07/10/2016 [facility] RDW 13.3 11.5 - 14.5 07/10/2016 [facility] Platelet 369 133 - 450 07/10/2016 [facility] WBC 4.9 3.7 - 10.4 07/10/2016 [facility] Hgb 8.3 12.0 - 16.0 07/10/2016 [facility] RBC 2.68 4.20 - 5.40 07/10/2016 [facility] MCHC 33.9 32.0 - 36.0 07/10/2016 [facility] MCH 31.1 27.0 - 31.0 07/10/2016 [facility] Hct 24.5 36.0 - 48.0 07/10/2016 [facility] MCV 91.7 80.0 - 98.0 07/10/2016 [facility] CHEM PANEL eGFR 103 07/07/2016 Result [...] should be multiplied by the estimated BMI. [facility] CHEM PANEL Glucose Lvl 100 70 - 99 07/07/2016 [facility] CHEM PANEL BUN 12 7 - 22 07/07/2016 [facility] CHEM PANEL Calcium Lvl 8.6 8.5 - 10.5 07/07/2016 [facility] CHEM PANEL Creatinine Lvl 0.58 0.50 - 1.40 07/07/2016 [facility] CHEM PANEL Chloride Lvl 108 95 - 109 07/07/2016 [facility] CHEM PANEL Sodium Lvl 143 135 - 145 07/07/2016 [facility] CHEM PANEL CO2 26 24 - 32 07/07/2016 [facility] CHEM PANEL Potassium Lvl 3.8 3.5 - 5.1 07/07/2016 [facility] CHEM PANEL AGAP 12.8 10.0 - 20.0 07/07/2016 [facility] Platelet 290 133 - 450 07/07/2016 [facility] MCHC 33.8 32.0 - 36.0 07/07/2016 [facility] WBC 4.7 3.7 - 10.4 07/07/2016 [facility] Hgb 7.9 12.0 - 16.0 07/07/2016 [facility] HEMATOLOGY RBC 2.57 4.20 - 5.40 07/07/2016 [facility] MCV 91.0 80.0 - 98.0 07/07/2016 [facility] HEMATOLOGY RDW 13.1 11.5 - 14.5 07/07/2016 [facility] MCH 30.7 27.0 - 31.0 07/07/2016 [facility] MPV 6.6 7.4 - 10.4 07/07/2016 [facility] Hct 23.4 36.0 - 48.0 07/07/2016 [facility] HEMATOLOGY Eosinophils 3.1 0.0 - 4.0 07/07/2016 [facility] HEMATOLOGY Basophils 0.6 0.0 - 1.0 07/07/2016 [facility] HEMATOLOGY Lymphocytes 20.3 20.0 - 40.0 07/07/2016 [facility] HEMATOLOGY Segs 67.3 45.0 - 75.0 07/07/2016 [facility] HEMATOLOGY Monocytes 8.7 2.0 - 12.0 07/07/2016 [facility] HEMATOLOGY Monocytes # 0.4 0.0 - 0.8 07/07/2016 [facility] HEMATOLOGY Eosinophils # 0.1 0.0 - 0.5 07/07/2016 [facility] HEMATOLOGY Segs-Bands # 3.2 1.5 - 8.1 07/07/2016 [facility] Lymphocytes # 1.0 1.0 - 5.5 07/07/2016 [facility] TOXICOLOGY Vanco Tr 20.6 07/07/2016 [facility] TOXICOLOGY Vanco Tr TND 0 07/07/2016 [facility] URINE AND STOOL Occult Bld Stl Negative (07/05/16 6:24 PM) Negative 07/06/2016 [facility] TOXICOLOGY Vanco Tr TND 0 07/05/2016 [facility] TOXICOLOGY Vanco Tr 10.1 07/05/2016 [facility] ELECTROLYTES AGAP 11.8 10.0 - 20.0 07/05/2016 [facility] ELECTROLYTES eGFR 100 07/05/2016 Result Comment: [...] should be multiplied by the estimated BMI. [facility] ELECTROLYTES Sodium Lvl 137 135 - 145 07/05/2016 [facility] ELECTROLYTES Creatinine Lvl 0.6 4 0.50 - 1.40 07/05/2016 [facility] ELECTROLYTES Potassium Lvl 3.8 3.5 - [...] Lymphocytes # 0.6 1.0 - 5.5 07/05/2016 [facility] HEMATOLOGY Segs-Bands # 5.6 1.5 - 8.1 07/05/2016 [facility] HEMATOLOGY Monocytes # 0.4 0.0 - 0.8 07/05/2016 [facility] HEMATOLOGY MCV 90.7 80.0 - 98.0 07/05/2016 [facility] HEMATOLOGY Hct 23.8 36.0 - 48.0 07/05/2016 [facility] HEMATOLOGY MCH 31.7 27.0 - 31.0 07/05/2016 [facility] HEMATOLOGY Hgb 8.3 12.0 - 16.0 07/05/2016 [facility] HEMATOLOGY RBC 2.62 4.20 - 5.40 07/05/2016 [facility] HEMATOLOGY RDW 13.0 11.5 - 14.5 07/05/2016 [facility] HEMATOLOGY Platelet 276 133 - 450 07/05/2016 [facility] HEMATOLOGY MPV 6.6 7.4 - 10.4 07/05/2016 [facility] HEMATOLOGY MCHC 35.0 32.0 - 36.0 07/05/2016 [facility] HEMATOLOGY WBC 6.8 3.7 - 10.4 07/05/2016 [facility] CHEM PANEL Lactic Acid Lvl 1.0 0.5 - 2.2 06/30/2016 [facility] CHEM PANEL Albumin Lvl 3.8 3.5 - 5.0 06/30/2016 [facility] CHEM PANEL ALT 30 0 - 65 06/30/2016 [facility] CHEM PANEL Bili Total 0.4 0.2 - 1.3 06/30/2016 [facility] CHEM PANEL AST 14 0 - 37 06/30/2016 [facility] CHEM PANEL Alk Phos 72 39 - 136 06/30/2016 [facility] CHEM PANEL Total Protein 6.9 6.4 - 8.4 06/30/2016 [facility] CHEM PANEL Globulin 3.1 2.7 - 4.2 06/30/2016 [facility] CHEM PANEL A/G Ratio 1.2 0.7 - 1.6 06/30/2016 [facility] CHEM PANEL B/C Ratio 20 6 - 25 06/30/2016 [facility] URINE AND STOOL UA Color Ltyellow 06/30/2016 [facility] URINE AND STOOL UA Urobilinogen <=1.0 mg/dL 0.1 - 1.0 06/30/2016 [facility] URINE AND STOOL UA Turbidity Clear (06/30/16 3:35 AM) Clear 06/30/2016 [facility] URINE AND STOOL UA Protein Negative mg/dL Negative mg/dL 06/30/2016 [facility] URINE AND STOOL UA pH 7.0 5.0 - 8.0 06/30/2016 [facility] URINE AND STOOL UA Ketones Negative mg/dL Negative mg/dL 06/30/2016 [facility] URINE AND STOOL UA Glucose Negative mg/dL Negative mg/dL 06/30/2016 [facility] URINE AND STOOL UA Spec Grav 1.005 <=1.030 06/30/2016 [facility] URINE AND STOOL UA Leuk Est Small *ABN* (06/30/16 3:35 AM) Negative 06/30/2016 [facility] URINE AND STOOL UA Sq Epi Occasional /LPF Few /LPF 06/30/2016 [facility] URINE AND STOOL UA Nitrite Negative (06/30/16 3:35 AM) Negative 06/30/2016 [facility] URINE AND STOOL UA Blood Negative (06/30/16 3:35 AM) Negative 06/30/2016 [facility] URINE AND STOOL UA Bili Negative *NA* (06/30/16 3:35 AM) Negative 06/30/2016 [facility] URINE AND STOOL UA Bacteria Occasional /HPF None Seen /HPF 06/30/2016 [facility] URINE AND STOOL UA RBC 1 0 - 2 06/30/2016 [facility] URINE AND STOOL UA WBC 10 0 - 5 06/30/2016 [facility] Pathology Reports No Data Provided for This Section Diagnostic Reports Report Value Date Source Spine lumbar series DX Patient Name: MAKAYLA BEE : 1960; Age: 55 years y/o Female MR: [id number] Study: Spine lumbar series DX 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 Right renal calculi. SL: AMANDA 07/30/2016 [facility] Chest 2 views DX Study: Two-vi ew chest x-ray compared to 07/04/2016 History: Chest pain Comments: The trachea is midline. The cardiomediastinal silhouette is normal in size. No pneumonia. No pleural effusions or pneumothorax. Impression: No acute cardiopulmonary disease. 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 Cardiomediastinal silhouette normal. No pleural effusion or pneumothorax. No acute osseous abnormality. IMPRESSION: No acute finding. 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 SL: [id number] 07/01/2016 [facility] Abdomen/Pelvis wo IV contrast CT CT [...] with noncontrast CT suggested. 06/17/2015 [facility] [place] Spine cervical wo contrast MRI MRI CERVICAL [...] stenosis present. No significant foraminal stenosis. 12/25/2013 [facility] Spine lumbar wo contrast MRI M RI [...] left L3 exiting nerve root sleeve. 12/25/2013 [facility] [place] Spine lumbar wo contrast MRI C LINICAL [...] Date Comments Source Respitory Rate 20 09/04/2016 [facility] Systolic (mm Hg) 132 09/04/2016 [facility] Diastolic (mm Hg) 68 09/04/2016 [facility] Temperature Oral (F) 98.2 F 09/04/2016 [facility] Weight 61.364 09/04/2016 [facility] BMI Calculated 21.84 09/04/2016 [facility] Height 167.64 cm 09/04/2016 [facility] Temperature Oral (F) 97.9 F 09/04/2016 [facility] Respitory Rate 18 09/04/2016 [facility] Heart Rate 99 09/04/2016 [facility] Systolic (mm Hg) 121 09/04/2016 [facility] Diastolic (mm Hg) 69 09/04/2016 [facility] Respitory Rate 18 07/30/2016 [facility] Temperature Oral (F) 98.4 F 07/30/2016 [facility] Heart Rate 85 07/30/2016 [facility] Systolic (mm Hg) 111 07/30/2016 [facility] Diastolic (mm Hg) 76 07/30/2016 [facility] Heart Rate 78 07/30/2016 [facility] Respitory Rate 18 07/30/2016 [facility] Systolic (mm Hg) 110 07/30/2016 [facility] Diastolic (mm Hg) 56 07/30/2016 [facility] Heart Rate 72 07/30/2016 [facility] Temperature Oral (F) 98.6 F 07/30/2016 [facility] Systolic (mm Hg) 118 07/30/2016 [facility] Diastolic (mm Hg) 94 07/30/2016 [facility] Respitory Rate 17 07/30/2016 [facility] Temperature Oral (F) 98.8 F 07/30/2016 [facility] Weight 65.909 07/30/2016 [facility] BMI Calculated 24.18 07/30/2016 [facility] Height 165.1 cm 07/30/2016 [facility] Respitory Rate 16 07/28/2016 [facility] Systolic (mm Hg) 118 07/28/2016 [facility] Diastolic (mm Hg) 60 07/28/2016 [facility] Heart Rate 83 07/28/2016 [facility] Temperature Oral (F) 98.6 F 07/28/2016 [facility] Heart Rate 88 07/28/2016 [facility] Respitory Rate 16 07/28/2016 [facility] Temperature Oral (F) 98.6 F 07/28/2016 [facility] Systolic (mm Hg) 117 07/28/2016 [facility] Diastolic (mm Hg) 61 07/28/2016 [facility] Systolic (mm Hg) 117 07/28/2016 [facility] Diastolic (mm Hg) 61 07/28/2016 [facility] Respitory Rate 16 07/28/2016 [facility] Heart Rate 85 07/28/2016 [facility] Temperature Oral (F) 98.3 F 07/28/2016 [facility] Height 172.72 cm 07/28/2016 [facility] BMI Calculated 24.38 07/28/2016 [facility] Weight 72.727 07/28/2016 [facility] Heart Rate 69 07/10/2016 [facility] Respitory Rate 20 07/10/2016 [facility] Systolic (mm Hg) 143 07/10/2016 [facility] Diastolic (mm Hg) 73 07/10/2016 [facility] Temperature Oral (F) 97.3 F 07/10/2016 [facility] Heart Rate 63 07/10/2016 [facility] Temperature Oral (F) 97.6 F 07/10/2016 [facility] Respitory Rate 20 07/10/2016 [facility] Systolic (mm Hg) 136 07/10/2016 [facility] Diastolic (mm Hg) 80 07/10/2016 [facility] Temperature Oral (F) 97.8 F 07/10/2016 [facility] Systolic (mm Hg) 132 07/10/2016 [facility] Diastolic (mm Hg) 77 07/10/2016 [facility] Heart Rate 68 07/10/2016 [facility] Respitory Rate 18 07/10/2016 [facility] Weight 62.072 06/30/2016 [facility] BMI Calculated 22.32 06/30/2016 [facility] Height 167.64 cm 06/30/2016 [facility] Weight 62.727 06/30/2016 [facility] Encounters Location Location Details Encounter Type Encounter Number Reason For Visit Attending Provider ADM Date DC Date Status Source [facility] - [place] [facility] [id number] Lynsey Camilo 12/25/2013 12/26/2013 [facility] [id number] KATHY PLUMMER 05/02/2015 Active [facility] - [place] [facility] [id number] 03 Jakub Villanueva 06/17/2015 06/18/2015 [facility] [place] [facility] Inpatient [id number] Lisa Ngo 06/30/2016 07/10/2016 [facility] Emergency [id number] Lai Jacobs 07/28/2016 07/28/2016 [facility] Emergency [id number] Kris Chan 07/30/2016 07/30/2016 [facility] Emergency [id number] Ten Randa 09/04/2016 09/04/2016 [facility] OD [id number] 379.91 - PAIN IN OR AROU MORGAN COLON Active [facility] [place] Procedures Procedure Code Date Perfomer Comments Source Bone marrow operations<sup>1</sup> [id number] transplant [facility] [place] Cholecystectomy [id number] [facility] [place] Gallbladder operation<sup>2</sup> [id number] removed [facility] Hysterectomy [id number] [facility] Tonsillectomy [id number] [facility] Assessment and Plan No Data Provided [...] No; Reg Smoking Cessation Counseling No 05/02/2015 [facility] Family History No Data Provided for This Section Advance Directives No Data Provided for This Section Functional Status No Data Provided for This Section
--- OUTSIDE RECORDS SUMMARY | 2020-04-30 14:31 | XMS REPORT | Clinical Summary ---
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 Role Phone Asked, No Pcp PCP [...] 09/08/2009 SHINGLES VACCINES (#1) 09/08/2009 INFLUENZA VACCINE 01/09/2020 Results Not on fileafter 04/30/2019 Insurance Type Payer Benefit Subscriber ID Effective Phone Address Plan / Dates Group [facility] MEDICARE [facility] DUAL [id number] 2016-P COMPLETE resent [facility] Medicaid MEDICAID MEDICAID [id number] 2016-P resent Advance Directives For more information, please contact: [phone] 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
--- OUTSIDE RECORDS SUMMARY | 2020-04-30 14:32 | XMS REPORT | Continuity of Care Document ---
Author Author [facility] t Organization [facility] Address [address] [place] [address] Phone Unavailable Care Team Providers Care Scheduling Assistant Name Role Phone YANET VILLANUEVA MD PCP AMPARO HENNESSY Attphys Unavailable Candie TATE Attphys Unavailable BOCCARDO, LISA Attphys Unavailable Salima BISHOP Attphys Unavailable Zakia TYSON Attphys Unavailable TATIANA PRICE Attphys Unavailable Ten Tolentino Attphys Aurelio Chan Attphys Michele Jacobs Attphys Boccardo, Lisa Attphys Joseluis Villanueva Attphys Lynsey Camilo Attphys Boccardo, Lisa Admphys Payers Payer Name Policy Type Policy Number Effective Date Expiration Date S robbin [facility] [id number] 2016 00:00:00 KELLY stewart [facility] [id number] 2015 00:00:00 [facility] Condition Name Condition Details Condition Category Status Onset Date Resolution Date Last Treatment Date Treating Clinician Comments Source DIZZINESS DIZZ INESS Active 09/04/2016 [facility] Active 2016-09-04 00:00:00 2016-09-04 16:06:00 [facility] FLANK PAIN FLAN K PAIN Active 07/30/2016 [facility] Active 2016-07-30 00:00:00 2016-07-30 19:59:00 [facility] FEVER FEVE R Active 07/27/2016 [facility] Active 2016-07-27 00:00:00 2016-07-30 19:59:00 [facility] N/V N/V Active 06/30/2016 [facility] Active 2016-06-30 00:00:00 2016-06-30 03:35:00 [facility] ACUTE PYELONEPHRITIS,RETROPERITONEAL INF ACUTE PYELONEPHRITIS,RETROPERITONEAL INF Active 06/30/2016 [facility] Active 2016-06-30 00:00:00 2016-12-06 15:28:00 [facility] Chest pain Chest pain Problem Active 2016-02-17 00:00:00 [facility] R31.9 - "HEMATURIA, UNSPECIFIED" R31.9 - "HEMATURIA, UNSPECIFIED" Active 06/14/2015 [facility] [place] [facility] Active 2015-06-14 00:01:00 2015-06-17 07:36:00 [facility] Osteoporosis (disorder) Oste oporosis (disorder) Active 11/10/2014 Problem 09/07/2016 Data migrated from [employer] on 12/15/14. [facility] Problem Active 2014-11-10 00:00:00 2016-09-07 04:05:46 [facility] Vitamin D deficiency (disorder) Vitamin D deficiency (disorder) Active 11/10/2014 Problem 09/07/2016 Data migrated from [employer] on 12/15/14. [facility] Problem Active 2014-11-10 0 0:00:00 2016-09-07 04:05:46 [facility] 780.93 - MEMORY LOSS 780. 93 - MEMORY LOSS Active 02/11/2014 [facility] [place] Diagnosis Active 2014-02-11 00:01:00 2014-03-22 15:53:00 Jonh Lugo 379.91 - PAIN IN OR AROU 379. 91 - PAIN IN OR AROU Active 03/09/2013 [facility] [place] [facility] Active 2013-03-09 00:01:00 2013-03-20 10:19:00 [facility] Anxiety (finding) Anxi ety (finding) Resolved Problem 09/07/2016 [facility] Problem Resolved 2016-09-07 04:05:46 [facility] Diabetes mellitus (disorder) D iabetes mellitus (disorder) Resolved Problem 09/07/2016 [facility] Problem Resolved 2016-09-07 04:05:46 [facility] Malignant neoplastic disease (disorder) Malignant neoplastic disease (disorder) Resolved Problem 09/07/2016 [facility] Problem Resolved 2016-09-07 04:05:46 [facility] Depressive disorder (disorder) Depressive disorder (disorder) Resolved Problem 09/07/2016 [facility] Problem Resolved 2016-09-07 04:05:46 [facility] Neuropathy (disorder) Neur opathy (disorder) Resolved Problem 09/07/2016 [facility] Problem Resolved 2016-09-07 04:05: 46 [facility] Hypercalcemia (disorder) Hype rcalcemia (disorder) Active Problem 09/07/2016 Data migrated from [employer] on 12/15/14. [facility] Problem Active 2016-09-07 04:05:46 [facility] Hyperlipidemia (disorder) Hype rlipidemia (disorder) Active Problem 09/07/2016 Data migrated from [employer] on 12/15/14. [facility] Problem Active 2016-09-07 04:05:46 [facility] Pituitary adenoma (disorder) P ituitary adenoma (disorder) Active Problem 09/07/2016 Data mi grated from [employer] on 12/15/14. [facility] Problem Active 2016-09-07 04:05:4 6 [facility] Type II diabetes mellitus uncontrolled (finding) Type II diabetes mellitus uncontrolled (finding) Active Problem 09/07/2016 Data migrated from [employer] on 12/15/14. [facility] Problem Active 2016-09-07 04:05:46 [facility] ACUTE PYELONEPHRITIS ACUT E PYELONEPHRITIS Active [facility] Active 2016-12-06 15:28:00 [facility] OTHER SPECIFIED DISORDERS OF PERITONEUM OTHER SPECIFIED DISORDERS OF PERITONEUM Active [facility] Active 2016-12-06 15:28:00 [facility] LOCALIZED ENLARGED LYMPH NODES LOCALIZED ENLARGED LYMPH NODES Active [facility] Active 2016-12-06 15:28 :00 [facility] Syncope and collapse Sync ope and collapse 09/04/2016 09/07/2016 [facility] Problem 2016-09-04 05:00:00 2016-09-07 04:0 5:46 2016-09-07 04:05:46 [facility] Unspecified adverse effect of drug or medicament, init ial encounter Unspecified adverse effect of drug or medicament, initial encounter 09/04/2016 09/07/2016 [facility] Problem 2016-09-04 05:0 0:00 2016-09-07 04:05:46 2016-09-07 04:05:46 [facility] Dis[facility] Diagnosis: Kidney stone on right side Discharge Diagnosis: Kidney stone on right side 07/30/2016 08/02/2016 [facility] Problem 2016-07-30 06:00:00 2016-08-02 04:12:00 2016-07 04:12:00 [facility] Discharge Diagnosis: Systemic viral illness Discharge Diagnosis: Systemic viral illness 07/27/2016 07/31/2016 [facility] Problem 2016-07-27 06:00:00 2016-07-31 02:12:19 2016-07-31 02:12:19 [facility] Dis[facility] Diagnosis: Generalized weakness Discharge Diagnosis: Generalized weakness 07/27/2016 07/31/2016 [facility] Problem 2016-07-27 06:00:00 2016-07-31 02:12:19 2016-07-31 02:12:19 [facility] Discharge Diagnosis: Malaise and fatigue Discharge Diagnosis: Malaise and fatigue 07/27/2016 07/31/2016 [facility] Problem 2016-07-27 06:00:00 2016-07-31 02:12:19 2016-07-31 02:12:19 [facility] Discharge Diagnosis: Elevated blood pressure Discharge Diagnosis: Elevated blood pressure 07/27/2016 07/31/2016 [facility] Problem 2016-07-27 06:00:00 2016-07-31 02:12:19 2016-07-31 02:12:19 [facility] Discharge Diagnosis: Common cold Discharge Diagnosis: Common cold 07/27/2016 07/31/2016 [facility] Problem 20 27-07-16 06:00:00 2016-07-31 02:12:19 2016-07-31 02:12:19 [facility] History of Past Illness Condition Name Condition Details Condition Category Status Onset Date Resolution Date Last Treatment Date Treating Clinician Comments Source Acute urinary tract infection (disorder) Acute urinary tract infection (disorder) Resolved 06/24/2016 Problem 09/07/2016 [facility] Problem Resolved 2016-06-24 00:00:00 2016-09-07 04:05:46 2016-09-07 04:05:4 6 [facility] Allergies, Adverse Reactions, Alerts Allergy Name Allergy Type Status Severity Reaction(s) Onset Date Inacti ve Date Treating Clinician Comments Source hydromorphone HCl DA Active SV 2019-08-03 00:00:00 [facility] ketorolac tromethamine DA Active SV 2019-08-03 00:00:00 [facility] Penicillins DA Active SV 2019-08-03 00:00:00 [facility] iodine DA Active SV 2019-08-03 00:00:00 [facility] morphine DA Active SV 2019-08-03 00:00:00 [facility] hydromorphone HCl DA Active SV 2019-02-20 00:00:00 [facility] ketorolac tromethamine DA Active SV 2019-02-20 00:00:00 [facility] Penicillins DA Active SV 2019-02-20 00:00:00 [facility] iodine DA Active SV 2019-02-20 00:00:00 [facility] morphine DA Active SV 2019-02-20 00:00:00 [facility] hydromorphone HCl DA Active SV 2018-10-31 00:00:00 [facility] ketorolac tromethamine DA Active SV 2018-10-31 00:00:00 [facility] Penicillins DA Active SV 2018-10-31 00:00:00 [facility] iodine DA Active SV 2018-10-31 00:00:00 [facility] morphine DA Active SV 2018-10-31 00:00:00 [facility] hydromorphone HCl DA Active SV 2017-09-02 00:00:00 [facility] ketorolac tromethamine DA Active SV 2017-09-02 00:00:00 [facility] Penicillins DA Active SV 2017-09-02 00:00:00 [facility] iodine DA Active 2017-09-02 00:00:00 [facility] morphine DA Active 2017-09-02 00:00:00 [facility] hydromorphone HCl Allergy to Substance Active 2017-03-28 00 :00:00 [facility] ketorolac tromethamine Allergy to Substance Active 2016 00:00:00 [facility] Iodinated Contrast- Oral and IV Dye Allergy to Substance Active 2017-03-28 00:00:00 [facility] Penicillin Allergy to Substance Active 2017-03-28 00:00:00 [facility] methylPREDNISolone<sup>1</sup> methylPREDNISolone<sup>1</sup> Active 2014-11-10 05:00:00 Jonh kline penicillins<sup>2</sup> penicillins<sup>2</sup> Active 2014-11-10 05:00:00 Jonh Lugo phenytoin<sup>3</sup> phenytoin<sup>3</sup> Active 2014 05:00:00 Jonh Lugo codeine codeine Active [facility] Dilaudid Dilaudid Active Lia Wise Social History Social Habit Start Date Stop Date Quantity Comments Source Sex Assigned At Abner reyes [place] Social History 2015-05-02 21:27:43 2015-05-02 21:27:43 Jonh Lugo Medications Ordered Medication Name Filled Medication Name Start Date Stop Da te Current Medication? Ordering Clinician Indication Dosage Frequency Signature (SIG) Comments Components Source Tylenol 2016-09-04 21:20:00 No 975 mg, Route: PO, Drug form: TAB, ONCE, Dosing Weight 61.364, kg, Priority: STAT, Start date: 09/04/16 16:20:00 CDT, Stop date: 09/04/16 16:20:00 CDT Ne candido Lugo Sodium Chloride 0.154 MEQ/ML Injectable Solution 2016-09-04 20:2 5:00 No 1,000 mL, 1,000 ml/hr, Infus e Over: 1 hr, Route: IV, ONCE, Priority: STAT, Dosing Weight 61.364 kg, Start date: 09/04/16 15:25:00 CDT, Duration: 1 doses or times, Stop date: 09/04/16 15:25:00 CDT [facility] tramadol hydrochloride 50 MG Oral Tablet 2016-07-30 10:24:00 Yes 50 mg = 1 tab, PO, Q6H, PRN Pain, X 5 day, # 20 tab, 0 Refill(s) [facility] Nitrofurantoin 100 MG Oral Capsule [Macrobid] 2016-07-30 10:24:0 0 Yes 100 mg = 1 cap, PO, BID, X 7 day, # 14 cap, 0 Refill(s) [facility] Zofran 2016-07-30 07:54:00 No 4 mg, Route: IVP, Drug form: INJ, ONCE, Dosing Weight 65.909, kg, Priority: STAT, Start date: 07/30/16 1:54:00 [employer], Stop date: 07/30/16 1:54:00 [employer] Morphine 2016-07-30 07:54:00 No 4 mg, Route: IVP, ONCE, Dosing Weight 65.909, kg, Priority: STAT, Start date: 07/30/16 1:54:00 [employer], Stop date: 07/30/16 1:54:00 [employer] [facility] Saline Flush 0.9% 2016-07-30 07:51:00 No 10 mL, Route: IVP, Drug Form: INJ, Dosing Weight 65.909, kg, PRN, PRN Line Flush, Start date: 07/30/16 1:51:00 [employer], Duration: 30 day, Stop date: 08/29/16 2:50:00 CDT [facility] Sodium Chloride 0.154 MEQ/ML Injectable Solution 2016-07-30 07:5 1:00 No 1,000 mL, 2,000 ml/hr, Infus e Over: 30 minutes, Route: IV, ONCE, Priority: STAT, Dosing Weight 65.909 kg, Start date: 07/30/16 1:51:00 [employer], Duration: 1 doses or times, Stop date: 07/30/16 1:51:00 [employer] [facility] tramadol hydrochloride 50 MG Oral Tablet 2016-07-28 05:05:00 Yes 50 mg = 1 tab, PO, Q6H, PRN Pain, X 10 day, # 40 tab, 0 Refill(s) Jonh Lugo Ondansetron 8 MG Disintegrating Tablet [Zofran] 2016-07-28 05:05 :00 Yes 8 mg = 1 tab, PO, TID, PRN N ausea and Vomiting, Dissolve tab under tongue, X 4 day, # 30 tab, 0 Refill(s) Jonh he Fentanyl 2016-07-28 04:20:00 No 50 microgram, Route: IVP, ONCE, Dosing Weight 72.727, kg, Priority: STAT, Start date: 07/27/16 22:20:00 [employer]ER, Stop date: 07/27/16 22:20:00 [employer] Tamara [facility]isteann Ondansetron 2016-07-28 00:36:00 No Notes: [...] Weight 72.727 kg, Start date: 07/27/16 18:36:00 [employer], Duration: 1 doses or times, Stop date: 07/27/16 18:36:00 [employer] Jonh Lugo Levofloxacin 500 MG Oral Tablet [...] , BID, 0 Refill(s) Jonh Lugo Nystatin [id number] UNT/ML Oral Suspension 2016-07-07 23:00:00 No Notes: (Same as:Mycostatin) Shake well. Saritha Lugo RN-Do not give Vanc till trough drawn 07/07/16@ 6:30 2016-07-07 12:00:00 No RN-Do no t give Vanc till trough drawn 07/07/16@ 6:30, Attn:KAYLYN, Drug form: MISC, Route: MISC, ONCE, 07/07/16 6:00:00 [employer]ER, Stop date: 07/07/16 6:00:00 [employer] Jonh Lugo vancomycin + sodium chloride 0.9% 250 mL INJ (for IV set) 25 0 mL 2016-07-06 07:00:00 No 2001 mg: infuse over 2.5 hours MEDICATION WASTE Product Size: 1000 mg Product Wasted: ___ mg Jonh Lugo Nystatin [id number] UNT/ML Topical Cream 2016-07-05 23:00:00 No Notes: (Same as:Mycostatin, Nilstat) For external use only. Jonh uLgo RN-Do not give Vanc till trough drawn 07/05/16@ 17:30 2016-07-05 23:00:00 No RN-Do no t give Vanc till trough drawn 07/05/16@ 17:30, Attn:KAYLYN, Drug form: MISC, Route: MISC, ONCE, 07/05/16 17:00:00 [employer]ER, Stop date: 07/05/16 17:00:00 [employer] Lia Wise Vancomycin 2016-07-05 00:00:00 No 2001 mg: infuse over 2.5 hours MEDICATION WASTE Product Size: 1000 mg Product Wasted: ___ mg Jonh Lugo Azactam 2016-07-05 00:00:00 No Notes: (Same As: Azactam) Jonh Lugo Lactulose 667 MG/ML Oral Solution 2016-07-04 14:11:00 No Notes: (Same as:Chronulac) Jonh Lugo Streptococcus pneumoniae serotype 1 caps ular antigen diphtheria [id number] protein conjugate vaccine / Streptococcus pneumoniae serotype 14 capsular antigen diphtheria [id number] protein conjugate vaccine / Streptococcus pneumoniae serotype 18C capsular antigen d 2016-07-03 15:00:00 No Notes: Lightly roll vial (DO NOT SHAKE) before administration. (Same as: Prevnar 13) [facility] Vitamin D3 2016-07-02 20:02:00 Yes 2,000 unit, PO, Daily, 0 Refill(s) [facility] Sertraline 2016-07-01 21:00:00 No Notes: (S raghav as: Zoloft) [facility] Protonix 2016-07-01 15:00:00 No Notes: Tablet should not be chewed or crushed. (Same as: Protonix) [facility] Nexium 2016-07-01 15:00:00 No 40 mg, Route: PO, Drug form: ECCAP, Daily, Dosing Weight 62.072, kg, Start date: 07/01/16 9:00:00 [employer], Duration: 30 day, Stop date: 07/30/16 9:00:00 [employer] [facility] Vitamin D3 2016-07-01 15:00:00 No Notes: Sa me as : Vitamin D3 [facility] elppa CoQ10 2016-07-01 15:00:00 No 100 mg, Route: PO, Drug form: CAP, Daily, Dosing Weight 62.072, kg, Start date: 07/01/16 9:00:00 [employer]ER, Duration: 30 day, Stop date: 07/30/16 9:00:00 [employer] [facility] Sertraline 2016-07-01 15:00:00 No Notes: (S raghav as: Zoloft) [facility] omega-3 polyunsaturated fatty acids 2016-07-01 15:00:00 No 1,000 mg, 2 cap, Route: PO, Drug form: CAP, Daily, Dosing Weight 62.072, kg, Start date: 07/01/16 9:00:00 [employer]ER, Stop date: 07/30/16 9:00:00 [employer] [facility] Metformin hydrochloride 500 MG Oral Tablet 2016-07-01 15:00:00 No Notes: (Same as: Glucophage) Take with meal [facility] Lipitor 2016-07-01 03:00:00 No Notes: (Same As: Lipitor) [facility] Lovastatin 2016-07-01 03:00:00 No 40 mg, Route: PO, Drug form: TAB, Bedtime, Dosing Weight 62.072, kg, Start date: 06/30/16 21:00:00 [employer], Duration: 30 day, Stop date: 07/29/16 21:00:00 [employer] Jonh Lugo gabapentin 300 MG Oral Capsule 2016-06-30 23:00:00 [...] Notes: (Same as: Mag-Ox 400) Magnesium oxide [id number] elemental magnesium Dose=____mg magnesium oxide (___mg elemental magnesium) Jonh raisa please bring pts own meds CoQ10 and vit D liq to pharmacy 2016-06-30 22:55:00 No please b ring pts own meds CoQ10 and vit D liq to pharmacy, reminder, Drug form: MISC, Route: MISC, QSHIFT, 06/30/16 16:55:00 [employer]ER, Duration: 30 day, Stop date: 07/30/16 16:00:00 [employer] Jonh Lugo aspirin 81 mg tablet, enteric coated 2016-06-30 22:39:00 No Notes: Do not crush or chew. (Same As: Ecotrin) Jonh Lugo Hydromorphone 2016-06-30 22:38:00 No 0.5 mg, 0.5 mL, Route: IVP, Drug form: INJ, Q4H, Dosing Weight 62.072, kg, PRN Pain Score 7-10, Start date: 06/30/16 16:38:00 [employer]ER, Duration: 30 day, Stop date: 07/30/16 16:37:00 [employer] Jonh Jean-Baptisteann Lorazepam 2016-06-30 22:36:00 No Notes: (Sa me as: Ativan) Jonh Lugo Liquid Vitamin D-3 2016-06-30 16:43:00 No 10,000 IntlUnit, PO, 0 Refill(s) Jonh Lugo elppa CoQ10 50 mg oral capsule 2016-06-30 16:43:00 Yes 100 mg = 2 cap, PO, Daily, # 60 cap, 0 Refill(s) [facility] lovastatin 40 mg oral tablet 2016-06-30 16:43:00 Yes 40 mg = 1 tab, PO, Bedtime, # 30 tab, 0 Refill(s) Татьянаor ial [facility] Hydrochlorothiazide 2016-06-30 16:43:00 Yes 12.5 mg, PO, Daily, 0 Refill(s) Jonh Lugo sertraline 50 mg oral tablet 2016-06-30 16:43:00 Yes 50 mg = 1 tab, PO, Daily, # 30 tab, 0 Refill(s) [facility] Enoxaparin 2016-06-30 16:00:00 No Notes: (S raghav as: Lovenox) [facility] Tylenol 2016-06-30 15:30:00 Yes 500 mg, PO, Q6H, 0 Refill(s) [facility] meropenem 2016-06-30 15:00:00 No Notes: (Same as: Merrem) . MEDICATION WASTE Product Size: 1000 mg Product Wasted: ___ mg send to 2E [facility] Dextrose 50% Syringe 2016-06-30 14:54:00 No 25 gm, 50 mL, Route: IVP, Drug Form: INJ, Dosing Weight 62.727, kg, PRN, PRN Blood Glucose Results, Start date: 06/30/16 8:54:00 [employer], Duration: 30 day, Stop date: 07/30/16 8:53:00 [employer] Jonh Lugo Glucagon 2016-06-30 14:54:00 No 1 mg, Route: IM, Drug form: PDR/INJ, PRN, Dosing Weight 62.727, kg, PRN Blood Glucose Results, Start date: 06/30/16 8:54:00 [employer]ER, Duration: 30 day, Stop date: 07/30/16 8:53:00 [employer] [facility] Insulin, Aspart, Human 2016-06-30 14:54:00 No Notes: Roll in palms of hands gently; Do not shake vigorously. (Same as: NovoLOG) "single patient use only" WASTE: F/P - Black; E - Municipal Trash Bin Stable for 28 days at room temperature. Expires in days from Date [facility] Saline Flush 0.9% 2016-06-30 14:50:00 No Notes: (Same as: BD Posiflush) [facility] Lactated Ringers 1,000 mL 2016-06-30 14:50:00 No 1,000 mL, Rate: 125 ml/hr, Infuse over: 8 hr, Route: IV, Dosing Weight 62.727 kg, Total Volume: 1,000, Start date: 06/30/16 8:50:00 [employer]ER, Duration: 30 day, Stop date: 07/30/16 8:49:00 [employer] LOGGER [facility] Acetaminophen 2016-06-30 14:50:00 No Notes: Do not exceed 4 gm/day. (Same as: Tylenol) [facility] Docusate 2016-06-30 14:50:00 No Notes: (Same as: Colace) (Do Not Crush) [facility] Ondansetron 2016-06-30 14:50:00 No Notes: (Same as: Zofran) MEDICATION WASTE Product Size: 4 mg Product Wasted: ___ mg Jonh Lugo Albuterol 0.833 MG/ML / Ipratropium Brom brady 0.167 MG/ML Inhalant Solution [DuoNeb] 2016-06-30 13:42:00 No 3 mL, Route: NEB, Dosing Weight 62.727, kg, ONCE, Start date: 06/30/16 7:42:00 [employer] LOGGER, Stop date: 06/30/16 7:42:00 [employer] R[employer] LOGGER [facility] Albuterol 0.833 MG/ML / Ipratropium Brom brady 0.167 MG/ML Inhalant Solution [DuoNeb] 2016-06-30 13:40:00 No 3 mL, Route: NEB, Dosing Weight 62.727, kg, ONCE, Start date: 06/30/16 7:40:00 [employer] LOGGER, Stop date: 06/30/16 7:40:00 [facility] tramadol hydrochloride 50 MG Oral Tablet 2016-06-30 13:31:00 No Notes: Not to exceed 400mg/day. (Same As: Ultram) [facility] Demerol HCl 2016-06-30 13:31:00 No Notes: ( Same As: Demerol) [facility] Acetaminophen 2016-06-30 10:59:00 No 650 mg, Route: PO, Drug form: TAB, ONCE, Dosing Weight 62.727, kg, Priority: STAT, Start date: 06/30/16 4:59:00 [employer] LOGGER, Stop date: 06/30/16 4:59:00 [facility] Zofran 2016-06-30 09:17:00 No 8 mg, Route: IVP, Drug form: INJ, ONCE, Dosing Weight 62.727, kg, Priority: STAT, Start date: 06/30/16 3:17:00 [employer] LOGGER, Stop date: 06/30/16 3:17:00 [facility] Sodium Chloride 0.154 MEQ/ML Injectable Solution 2016-06-30 09:1 7:00 No 1,000 mL, Infuse Over: 1 hr, Route: IV, ONCE, Priority: STAT, Dosing Weight 62.727 kg, Start date: 06/30/16 3:17:00 [employer]GGER, Duration: 1 doses or times, Stop date: 06/30/16 3:17:00 [facility] raheem Zosyn 2016-06-30 09:16:00 No 3.375 gm, Route: IVPB, ONCE, Dosing Weight 62.727, kg, Priority: STAT, Start date: 06/30/16 3:16:00 [employer] LOGGER, Stop date: 06/30/16 3:16:00 [facility] Fentanyl 2016-06-30 09:15:00 No 50 microgram, Route: IVP, ONCE, Dosing Weight 62.727, kg, Priority: STAT, Start date: 06/30/16 3:15:00 [employer] LOGGER, Stop date: 06/30/16 3:15:00 [facility] Ondansetron 2016-06-30 09:03:00 No 4 mg, Route: IVP, ONCE, Dosing Weight 62.727, kg, Priority: STAT, Start date: 06/30/16 3:03:00 [employer] R[employer] LOGGER, Stop date: 06/30/16 3:03:00 [employer] LOGGER Jonh Lugo Saline Flush 0.9% 2016-06-30 09:03:00 No Notes: (Same as: BD Posiflush) Jonh Lugo Sodium Chloride 0.154 MEQ/ML Injectable Solution 2016-06-30 09:0 3:00 No 1,000 mL, Rate: 125 ml/hr, I nfuse over: 8 hr, Route: IV, Dosing Weight 62.727 kg, Total Volume: 1,000, Start date: 06/30/16 3:03:00 [employer] LOGGER, Duration: 30 day, Stop date: 07/30/16 3:02:00 [employer] LOGGER Татьяна Lugo Aspirin (Aspir 81) 81 Mg Tablet. Aspirin (Aspir 81) 81 Mg Tablet.dr Perry 81 Daily [facility] Cholecalciferol (Vitamin D3) (Vitamin D3) 400 Unit Tab .chew Cholecalciferol (Vitamin D3) (Vitamin D3) 400 Unit Tab.chew Yes 1 Daily [facility] Esomeprazole Magnesium (Nexium) 40 Mg Capsule.dr Gregory prazole Magnesium (Nexium) 40 Mg Capsule.dr Perry 40 Daily [facility] Gabapentin 100 Mg Capsule Gabapentin 100 Mg Capsule Yes 200 Twice A Day [facility] Gemfibrozil 600 Mg Tablet Gemfibrozil 600 Mg Tablet Yes 600 Twice A Day [facility] Hydrochlorothiazide 12.5 Mg Capsule Hydrochlorothiazide 12.5 Mg Capsu le Yes 12.5 Daily [facility] Ibuprofen 200 Mg Capsule Ibuprofen 200 Mg Capsule Yes 200 As Needed as needed for Pain [facility] Lorazepam 1 Mg Tablet Lorazepam 1 Mg Tablet Yes 1 Daily as needed for Anxiety [facility] Magnesium Oxide 400 Mg Tablet Magnesium Oxide 400 Mg Tablet Yes 250 Daily [facility] Metformin Hcl 500 Mg Tablet Metformin Hcl 500 Mg Tablet Yes 500 Twice A Day [facility] Nitrofurantoin Monohyd/M-Cryst (Macrobid 100 Mg Capsul e) 100 Mg Capsule Nitrofurantoin Monohyd/M-Cryst (Macrobid 100 Mg Capsule) 100 Mg Capsule Yes 100 Twice A Day [facility] [place]-3 Fatty Acids/Fish Oil ([place] 3 Fish Oil Softgel ) 1 Each Capsule. [place]- 3 Fatty Acids/Fish Oil ([place] 3 Fish Oil Softgel) 1 Each Capsule. Yes 1 Daily [facility] Potassium Chloride 20 Meq Tab.er.prt Potassium Chloride 20 Meq Tab. er.prt Yes 20 Daily [facility] Vit No.78/Iron/Fa (Prenatabs Fa Tablet) 1 Eac h Tablet Vit No.78/Iron/Fa (Prenatabs Fa Tablet) 1 Each Tablet Yes 1 Daily [facility] Aspirin (Aspir 81) 81 Mg Tablet., Aspirin (Aspir 81) 81 Mg Tab let., 2016-02-17 00:00:00 [facility] Cabergoline (Dostinex) 0.5 Mg Tablet, Cabergoline (Dostinex) 0.5 Mg Tablet, 2016-02-17 00:00:00 [facility] Calcium Carbonate (Caltrate) 600 Mg Tab, Calcium Carbo maryam (Caltrate) 600 Mg Tab, 2016-02-17 00:00:00 [facility] Esomeprazole Mag Trihydrate (Nexium) 40 Mg Capsule., Esomeprazole Mag Trihydrate (Nexium) 40 Mg Capsule., 2016-02-17 00:00:00 [facility] Gemfibrozil 600 Mg Tablet, Gemfibrozil 600 Mg Tablet, 2015 00:00:00 [facility] Lorazepam (Ativan) 1 Mg Tablet, Lorazepam (Ativan) 1 Mg Tablet, 2016-02-17 00:00:00 [facility] Magnesium Oxide (Magnesium) 500 Mg Capsule, Magnesium Oxide (Magnesium) 500 Mg Capsule, 2016-02-17 00:00:00 [facility] Metformin Hcl (Glucophage) 500 Mg Tablet, Metformin Hc l (Glucophage) 500 Mg Tablet, 2016-02-17 00:00:00 No [facility] Potassium Chloride (Klor-Con) 20 Meq Packet, Potassium Chloride (Klor-Con) 20 Meq Packet, 2016-02-17 00:00:00 No [facility] Ubidecarenone (Coenzyme Q 10) 100 Mg Capsule, Ubidecar enone (Coenzyme Q 10) 100 Mg Capsule, 2016-02-17 00:00:00 No [facility] Vital Signs Vital Name Observation Time Observation Value Comments Source Respitory Rate 2016-09-04 22:11:00 [facility] Systolic (mm Hg) 2016-09-04 22:11:00 [facility] Diastolic (mm Hg) 2016-09-04 22:11:00 [facility] Temperature Oral (F) 2016-09-04 22:11:00 98.2 F [facility] Weight 2016-09-04 20:03:00 [facility] BMI Calculated 2016-09-04 20:03:00 [facility] Height 2016-09-04 20:03:00 167.64 cm [facility] Temperature Oral (F) 2016-09-04 20:03:00 97.9 F [facility] Respitory Rate 2016-09-04 20:03:00 [facility] Heart Rate 2016-09-04 20:03:00 [facility] Systolic (mm Hg) 2016-09-04 20:03:00 [facility] Diastolic (mm Hg) 2016-09-04 20:03:00 [facility] Respitory Rate 2016-07-30 10:44:00 [facility] Temperature Oral (F) 2016-07-30 10:44:00 98.4 F [facility] Heart Rate 2016-07-30 10:44:00 [facility] Systolic (mm Hg) 2016-07-30 10:44:00 [facility] Diastolic (mm Hg) 2016-07-30 10:44:00 [facility] Heart Rate 2016-07-30 10:22:00 [facility] Respitory Rate 2016-07-30 10:22:00 [facility] Systolic (mm Hg) 2016-07-30 10:22:00 [facility] Diastolic (mm Hg) 2016-07-30 10:22:00 [facility] Heart Rate 2016-07-30 09:52:00 [facility] Temperature Oral (F) 2016-07-30 09:52:00 98.6 F [facility] Systolic (mm Hg) 2016-07-30 09:52:00 [facility] Diastolic (mm Hg) 2016-07-30 09:52:00 [facility] Respitory Rate 2016-07-30 09:52:00 [facility] Temperature Oral (F) 2016-07-30 08:00:00 98.8 F [facility] Weight 2016-07-30 06:49:00 [facility] BMI Calculated 2016-07-30 06:49:00 [facility] Height 2016-07-30 06:49:00 165.1 cm [facility] Respitory Rate 2016-07-28 06:11:00 [facility] Systolic (mm Hg) 2016-07-28 06:11:00 [facility] Diastolic (mm Hg) 2016-07-28 06:11:00 [facility] Heart Rate 2016-07-28 06:11:00 [facility] Temperature Oral (F) 2016-07-28 06:11:00 98.6 F [facility] Heart Rate 2016-07-28 05:28:00 [facility] Respitory Rate 2016-07-28 05:28:00 [facility] Temperature Oral (F) 2016-07-28 05:28:00 98.6 F [facility] Systolic (mm Hg) 2016-07-28 05:28:00 [facility] Diastolic (mm Hg) 2016-07-28 05:28:00 [facility] Systolic (mm Hg) 2016-07-28 04:26:00 [facility] Diastolic (mm Hg) 2016-07-28 04:26:00 [facility] Respitory Rate 2016-07-28 04:26:00 [facility] Heart Rate 2016-07-28 04:26:00 [facility] Temperature Oral (F) 2016-07-28 02:00:00 98.3 F [facility] Height 2016-07-28 00:26:00 172.72 cm [facility] BMI Calculated 2016-07-28 00:26:00 [facility] Weight 2016-07-28 00:26:00 [facility] Heart Rate 2016-07-10 18:00:00 [facility] Respitory Rate 2016-07-10 18:00:00 [facility] Systolic (mm Hg) 2016-07-10 18:00:00 [facility] Diastolic (mm Hg) 2016-07-10 18:00:00 [facility] Temperature Oral (F) 2016-07-10 18:00:00 97.3 F [facility] Heart Rate 2016-07-10 14:00:00 [facility] Temperature Oral (F) 2016-07-10 14:00:00 97.6 F [facility] Respitory Rate 2016-07-10 14:00:00 [facility] Systolic (mm Hg) 2016-07-10 14:00:00 [facility] Diastolic (mm Hg) 2016-07-10 14:00:00 [facility] Temperature Oral (F) 2016-07-10 09:53:00 97.8 F [facility] Systolic (mm Hg) 2016-07-10 09:53:00 [facility] Diastolic (mm Hg) 2016-07-10 09:53:00 [facility] Heart Rate 2016-07-10 09:53:00 [facility] Respitory Rate 2016-07-10 09:53:00 [facility] Weight 2016-06-30 15:11:00 [facility] BMI Calculated 2016-06-30 08:41:00 [facility] Height 2016-06-30 08:41:00 167.64 cm [facility] Weight 2016-06-30 08:41:00 [facility] Procedures Procedure Date / Time Performed Performing Clinician [facility] e Computed tomography of brain without radiopaque contrast 201 01-13-02 00:00:00 LEWIS BISHOP [facility] X-ray of chest, two views 2017-11-09 00:00:00 LEWIS BISHOP [facility] Computed tomography of brain without radiopaque contrast 201 12-17-18 00:00:00 THEA TYSON [facility] X-ray of chest, two views 2017-03-28 00:00:00 THEA TYSON [facility] Computed tomography of chest without contrast 2017-03-26 00: 00:00 TATIANA PRICE [facility] Bone marrow operations<sup>1</sup> [facility] Cholecystectomy [facility] Gallbladder operation<sup>2</sup> [facility] Hysterectomy [facility] Tonsillectomy [facility] Plan of Care Planned Activity Planned Date Details Comments Source Future Scheduled Test 2020-01-09 00:00:00 INFLUENZA VACCINE [code = INFLUENZA VACCINE] [facility] Future Scheduled Test 2009-09-08 00:00:00 BREAST CANCER SCRE ENING [code = BREAST CANCER SCREENING] [facility] Future Scheduled Test 2009-09-08 00:00:00 COLONOSCOPY SCREEN ING [code = COLONOSCOPY SCREENING] [facility] Scheduled Test 2009-09-08 00:00:00 SHINGLES VACCINES (#1) [code = SHINGLES VACCINES (#1)] [facility] Scheduled Test 1980-09-08 00:00:00 Screening for hyacinth gnant neoplasm of cervix (procedure) [code = 227570515] [facility] Encounters Start Date/Time End Date/Time Encounter Type Admission Type Attendi [facility] Care Department Encounter ID Source 2017-11-09 16:18:00 2017-11-09 20:04:00 Departed Emergency Room [address] [facility] [id number] [facility] 2017-03-28 15:14:00 2017-03-28 21:45:00 Departed Emergency Room ER THEA TYSON [facility] [id number] [facility] 2017-03-26 12:07:00 2017-03-26 12:07:00 Registered Clinic TATIANA JI [facility] [id number] [facility] 2017-02-27 19:39:00 2017-02-27 19:39:[address] [facility] [id number] [facility] 2017-01-22 10:23:00 2017-01-22 10:23:[address] [facility] [id number] [facility] 2016-09-04 14:53:00 2016-09-04 17:52:00 Outpatient Randa Camille ep MHSE MHSE [id number] 2016-07-30 00:47:00 2016-07-30 04:55:00 Outpatient Vida Changely Carey MHSE MHSE [id number] 2016-07-27 18:12:00 2016-07-28 00:34:00 Outpatient Mayra hayden [place] Bautista MHSE MHSE [id number] 2016-06-30 02:38:00 2016-07-10 13:20:00 Outpatient Sara Marie MHSE MHSE [id number] 2015-06-17 07:18:00 2015-06-17 23:59:00 Outpatient Andrez Villanueva MHHOIP MHHOIP [id number] 2013-12-25 11:51:00 2013-12-25 23:59:00 Outpatient Darren Camilo i MHIE MHIE [id number] 2013-03-20 10:07:00 2013-03-20 23:59:00 Outpatient MHIE MHIE [id number] [facility] [place] 2013-03-20 10:07:00 2013-03-20 23:59:00 Outpatient MHIE MHIE [id number] [facility] [place] 2013-03-20 10:07:00 2013-03-20 23:59:00 Outpatient MHIE MHIE [id number] [facility] [place] 2013-03-20 10:07:00 2013-03-20 23:59:00 Outpatient MHIE MHIE [id number] [facility] [place] 2013-03-20 10:07:00 2013-03-20 23:59:00 Outpatient MHIE MHIE [id number] [facility] [place] Results Test Description Test Time Test Comments Results Result Comments Source BASIC METABOLIC PANEL 2020-04-01 21:11:00 Test Item SODIUM (test code = NA) 139 mmol/L 136-145 N POTASSIUM (test code = K) 3.6 mmol/L 3.5-5.1 N CHLORIDE (test code = CL) 102.0 mmol/L 98-107 N CARBON DIOXIDE (test code = CO2) 30.0 mmol/L 21-32 N ANION GAP (test code = GAP) 10.6 10-20 N GLUCOSE (test code = GLU) 174 mg/dL 74-106 H BLOOD UREA NITROGEN (test code = BUN) 17 mg/dL 7-18 N GLOMERULAR FILTRATION RATE (test code = GFR) > 60 mL/min >=60 Estimated GFR by using Modified MDRD formula.Chronic kidney disease is defined as either kidney damageor GFR <60 mL/min/1.73 m2 for >3 months. CREATININE (test code = CREAT) 0.80 mg/dL 0.55-1.02 N Note change in reference range due to change in reagent. BUN/CREATININE RATIO (test code = BUN/CREA) 21.3 10-20 H CALCIUM (test code = CA) 9.1 mg/dL 8.5-10.1 N HEPATIC FUNCTION [id number] 21:11:00* Test Item Value Reference Range Interpretation Comments TOTAL PROTEIN (test code = PROT) 6.8 gram/dL 6.4-8.2 N ALBUMIN (test code = ALB) 4.2 g/dL 3.4-5.0 N GLOBULIN (test code = GLOB) 2.6 gram/dL 2.7-4.2 L ALBUMIN/GLOBULIN RATIO (test code = A/G) 1.6 0.75-1.50 H BILIRUBIN TOTAL (test code = BILT) 0.30 mg/dL 0.0-1.0 N BILIRUBIN DIRECT (test code = BILD) 0.10 mg/dL 0.0-0.20 N SGOT/AST (test code = AST) 20 IUnit/L 15-37 N SGPT/ALT (test code = ALT) 32 IUnit/L 12-78 N ALKALINE PHOSPHATASE TOTAL (test code = ALKP) 51 IUnit/L 45-117 N Note change in reference range due to change in reagent. [id number] 21:11:00* Test Item Value Reference Range Interpretation Comments LIPASE (test code = LIP) 71 U/L 73.0-393.0 L BASIC METABOLIC [id number] 21:02:00* Test Item Value Reference Range Interpretation Comments [...] code = CA) mg/dL 8.5-10.1 HEPATIC FUNCTION [id number] 21:02:00* Test Item Value Reference Range Interpretation Comments [...] TOTAL (test code = ALKP) IUnit/L 45-117 [id number] 21:02:00* Test Item Value Reference Range Interpretation Comments LIPASE (test code = LIP) U/L 73.0-393.0 URINALYSIS [id number] 20:49:00* Test Item Value Reference Range Interpretation Comments UA COLOR (test code = COLU) RED YELLOW A UA APPEARANCE (test code = APPU) [place]QUE CLEAR A UA GLUCOSE DIPSTICK (test code = DGLUU) NEGATIVE mg/dL NEGATIVE UA BILIRUBIN DIPSTICK (test code = BILU) NEGATIVE mg/dL NEGATIVE UA KETONE DIPSTICK (test code = KETU) NEGATIVE mg/dL NEGATIVE UA SPECIFIC GRAVITY (test code = SGU) 1.017 1.001-1.035 UA BLOOD DIPSTICK (test code = TIM) >1.0 mg/dL NEGATIVE UA PH DIPSTICK (test code = KANDICE) 7.5 5.0-8.0 UA PROTEIN DIPSTICK (test code = PROU) 100 (2+) mg/dL NEGATIVE A UA UROBILINIOGEN DIPSTICK (test code = URO) Normal mg/dL NEGATIVE UA NITRITE DIPSTICK (test code = ASHLEY) NEGATIVE NEGATIVE UA LEUKOCYTE ESTERASE W REFLEX (test code = LEUUR) 250 Denise/u L (2+) Denise/uL NEGATIVE A UA WBC (test code = WBCU) 51-100 per HPF 0-5 A UA RBC (test code = RBCU) >200 #/HPF 0-5 UA EPITHELIAL CELLS (test code = EPIU) None seen per HPF FEW UA BACTERIA (test code = BACU) NONE SEEN #/HPF NONE Urine Source? Clean CatchCBC W/O [id number] 20:44:00* Test Item Value Reference Range Interpretation Comments WHITE BLOOD CELL (test code = WBC) 8.2 K/mm3 4.5-12.5 N RED BLOOD CELL (test code = RBC) 3.62 mill/mm3 3.7-5.2 L HEMOGLOBIN (test code = HGB) 11.1 gram/dL 11.5-15.5 L HEMATOCRIT (test code = HCT) 33.6 % 36.0-46.0 L MEAN CELL VOLUME (test code = MCV) 92.8 fL 80-98 N MEAN CELL HGB (test code = MCH) 30.7 picogram 27.0-33.0 N MEAN CELL HGB CONCETRATION (test code = MCHC) 33.0 gram/dL 33.0-36. 0 N RED CELL DISTRIBUTION WIDTH (test code = RDW) 11.9 % 11.6-16. 2 N PLATELET COUNT (test code = PLT) 264 K/mm3 150-450 N MEAN PLATELET VOLUME (test code = MPV) 9.0 fL 6.7-11.0 N ABDOMEN-1VIEW (KUB)2020-03-29 12:04:00 [facility] : 1960 [facility]: F [facility] [address] [place] [address] Patient Name: MAKAYLA BEE MR #: [id number] : 1960 Age/Sex: 59/F Req #: [id number] Adm Physician: Prabhu george by: AMPARO HENNESSY MD Report #: [id number] Location : OR Room/Bed: Procedure: [id number] DX/ABDOMEN-1VIEW (KUB) Exam Date: 03/29/20 Exam Time: 1119 REPORT STATUS: Signed TECHNIQUE: 2 frontal images of the abdomen. HISTORY: PER ORDERS-PRE OP [id number]. COMPARISON: None. IMPRESSION: Nonobstructive radiographic bowel gas pattern. No acute bony abnormality. Pelvic probable phlebolith. No free air within the imaged abdomen . Signed by: Jay Guerrier MD on 03/29/2020 12:08 PM Dictated By: ONDINA GUERRIER DO 07 T ranscribed By: PRAVEEN on 03/29/201207 COPY TO: AMPARO HENNESSY MD CT ABDOMEN/PELVIS [id number] 10:14:00 [facility] [address] [place] [address] Patient Name: MAKAYLA BEE MR #: [id number] : 1960 Age/Sex: 59/F Req #: [id number] [facility] Physician: Ordered by: AMPARO HENNESSY MD Report #: [id number] Location: CT Room/Bed: Procedure: [id number] CT/CT ABDOMEN/PELVIS WO Exam Date: 02/08/20 Exam Time: 1000 REPORT STATUS: Signed EXAM: CT Abdomen and P giulia WITHOUT contrast INDICATION: CALCULUS OF KIDNEY COMPARISON: CT abdo men and pelvis 01/27/2020, retroperitoneal ultrasound 01/19/2020 TECHNIQUE: Ab domen and pelvis were scanned utilizing a multidetector helical scanner from t he lung base to the pubic symphysis without administration of IV contrast. Abs ence of intravenous contrast decreases sensitivity for detection of focal lesi ons and vascular pathology. Coronal and sagittal reformations were obtained. S tone protocol is performed. IV CONTRAST: None ORAL CONTRAST: None COMPLICATIONS: None RADIATION DOSE: Total DLP: 272. 07 mGy*cm Estimated effective dose: (DLP x 0.015 x size factor) mSv CTDIvol has been reviewed. It is below the limits set by the Radiation Ilda col Committee (RPC). Dose modulation, iterative reconstruction, and/or we ight based adjustment of the mA/kV was utilized to reduce the radiation dose t o as low as reasonably achievable. FINDINGS: LINES and TUBES: None. LOWER THORAX: Visualized lung bases are clear. Inferior portion of the mediastinum is unremarkable given limitations with lack of IV contrast. HEP ATOBILIARY: Hepatic attenuation is within normal limits. No focal hepatic les ions given exam limitations with lack of IV contrast. No biliary ductal dilati on. GALLBLADDER: Status post cholecystectomy with surgical clips in the ga llbladder fossa. SPLEEN: No splenomegaly. PANCREAS: No focal josi s or ductal dilatation. ADRENALS: No adrenal nodules KIDNEYS/URETER S: Few nonobstructive stones at the right inferior renal pole with the larges t measuring up to 8 mm which are unchanged compared to recent exam. No additio nal ureteral or left renal stones. Unchanged prominent bilateral extrarenal pe lvises without hydronephrosis. Partially exophytic fluid density lesion measur ing up to approximately 1.4 cm at the interpolar region of the left kidney, rosas boptimally evaluated with lack of IV contrast however likely correlates with r enal cyst on prior ultrasound. GI TRACT: No abnormal distention, wall thic kening, or evidence of bowel obstruction. Scattered intraluminal hyperdensitie s within the stomach, favored to represent recently ingested material. Mildly prominent stool burden within the rectum and sigmoid colon. Appendix is chanelle l. PELVIC ORGANS/BLADDER: Status post hysterectomy. Urinary bladder is un remarkable with no intraluminal calculi. LYMPH NODES: No lymphadenopathy. VESSELS: No aneurysmal dilatation or ectasia of the abdominal aorta. Few s cattered atherosclerotic calcifications. Further evaluation limited by lack of IV contrast. PERITONEUM / RETROPERITONEUM: No free air or fluid. BONE S: No acute osseous abnormality. Mild multilevel degenerative disc changes of the lumbar spine. SOFT TISSUES: Unremarkable. IMPRESSION: 1. Few nonobstructive stones at the right inferior renal pole with largest measu ring up to 8 mm; unchanged compared to recent exam. No additional renal or ure teral calculi. 2. Redemonstrated prominent bilateral extrarenal pelvises with out hydronephrosis. 3. Mildly prominent stool burden within the rectum and sigmoid colon, correlate for constipation. Signed by: Soraya Triana on 02/08/2020 11:01 AM Dictated By: THOMAS UGALDE MD Electronically Si gned By: THOMAS UGALDE MD on 02/08/20 110 Transcribed By: PRAVEEN on 02/08/20 1101 COPY TO: AMPARO HENNESSY MD CT ABDOMEN/PELVIS [id number] 21:41:00 [place] [address] Patient Name: MAKAYLA BEE MR #: [id number] : 1960 Age/Sex: 59/F Req #: [id number] [facility] Physician: Ordered by: LESTER TATE MD Report #: [id number] Location: ER Room/Bed: Procedure: [id number] CT/CT ABDO MEN/PELVIS WO Exam Date: 01/27/20 Exam Time: 2104 REPORT STATUS: Signed EXAM: CT Abd omen and Pelvis WITHOUT contrast INDICATION: Left lower quadrant pain , abdominal pain, nausea, vomiting COMPARISON: None. TECHNIQUE: Abdomen and p giulia were scanned utilizing a multidetector helical scanner from the lung bas e to the pubic symphysis without administration of IV contrast. Absence of int ravenous contrast decreases sensitivity for detection of focal lesions and vas cular pathology. Coronal and sagittal reformations were obtained. Routine prot ocol was performed. IV CONTRAST: None ORAL CONTRAST: None COMPLICATIONS: None RADIATION DOSE: Total DLP: 636 mGy*cm Estimated effective dose: (DLP x 0.015 x size factor) mSv CTDIvol has been reviewed. It is below the limits set by the Radiation Protocol Commit amrita (RPC). Dose modulation, iterative reconstruction, and/or weight based adjustment of the mA/kV was utilized to reduce the radiation dose to as low as reasonably achievable. FINDINGS: LINES and TUBES: None. LOWER THORAX: Mitral annular calcifications. HEPATOBILIARY: Hepatomegaly. No focal hepatic lesions. No biliary ductal dilation. GALLBLADDER: There a re cholecystectomy clips. SPLEEN: No splenomegaly. PANCREAS: No focal masses or ductal dilatation. ADRENALS: No adrenal nodules KIDNEYS/URETERS: No hydronephrosis. Fluid density subcentimeter exophytic cys tic lesion in the left renal superior pole, likely benign simple cyst. A cluster of subcentimeter calculi in a right renal inferior pole minor calyx. R ight extrarenal pelvis. GI TRACT: Appendix is normal. Radiodense contrast throughout the colon. Mild smooth circumferential wall thickening of the distal colon and rectum. PELVIC ORGANS/BLADDER: Mild smooth circumfer ential urinary bladder wall thickening. A few tiny air foci in the nondependen t bladder lumen. Hysterectomy. No adnexal masses. Urinary bladder unremarkable . LYMPH NODES: No lymphadenopathy. VESSELS: Arterial calcifications. . PERITONEUM / RETROPERITONEUM: No free air or fluid. BONES: Degenerat bi changes SOFT TISSUES: Unremarkable. IMPRESSION: 1. Mild circumferential urinary bladder wall thickening can be seen with cyst itis. Trace air foci in the bladder lumen, correlate with recent history of in strumentation. 2. Nonobstructive subcentimeter calculi in the right renal inferior pole. 3. Mild hepatomegaly. 4. Subtle smooth circumferentia l distal colonic and rectal wall thickening can be due to coloproctitis. Signed by: Gunnar Hays DO on 01/27/2020 10:40 PM Dictated By: GUNNAR HAYS DO 39 Tra nscribed By: PRAVEEN on 01/27/202239 COPY TO: LESTER TATE MD CHEST SINGLE (PORTABLE)2020-01-27 21:40:00 [place] [address] Patient Name: MAKAYLA BEE MR #: [id number] : 1960 Age/Sex: 59/F Req #: [id number] Adm Physician: Ordered by: LESTER TATE MD Report #: [id number] Location: ER Room/Bed: Procedure: [id number] DX/CHEST S JOSHUA (PORTABLE) Exam Date: 01/27/20 Exam Time: 1858 REPORT STATUS: Signed EXAMINATI ON: CHEST SINGLE (PORTABLE) INDICATION: Covid, abdominal pain COMPARISON: Chest x-ray 03/28/2017 FINDINGS: TUBES and LIVIA ES: None. LUNGS: Normal lung volumes. Lungs are clear. No consolidation s. PLEURA: No pleural effusion or pneumothorax. HEART AND MEDIASTINUM : The cardiomediastinal silhouette is unremarkable. BONES AND SOFT TIS SUES: No acute osseous lesion. Soft tissues are unremarkable. UPPER ABD OMEN: No free air under the diaphragm. IMPRESSION: No acute thora cic radiographic abnormality. Signed by: Gunnar Hays DO on 01/27/2020 10:41 PM Dictated By: GUNNAR HAYS DO 40 Transcribed By: PRAVEEN on 01/27/202240 COPY TO: LESTER TATE MD US PELVIS COMPLETE NON [id number] 13:22:00 [place] [address] Patient Name: MAKAYLA BEE MR #: [id number] : 1960 Age/Sex: 59/F Req #: [id number] Adm Physician: Ordered by: LISA MARIE MD Report #: [id number] Location: Room/Bed: Procedure: [id number] US/US PELVIS CO MPLETE NON OB Exam Date: 01/19/20 Exam Time: 1244 REPORT STATUS: Signed Exam: Pel jenelle ultrasound. History: Pelvic pain Comparison: Renal ultrasound an d KUB of the same day, report of CT abdomen and pelvis of 01/27/2012 Findi ngs/Impression: Transabdominal pelvic ultrasound was performed. Status post t otal abdominal hysterectomy and bilateral salpingo-oophorectomy. No remarkable sonographic findings in the pelvis. 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 FINDINGS: R ight Kidney: Length: 11.1 cm Appearance: Normal echogenicity. Collectin g system: No hydronephrosis Stones: None Cyst/Mass: None Left Kidney: Length: 12.1 cm Appearance: Normal echogenicity. Collecting system: No h ydronephrosis Stones: None Cyst/Mass: Mid pole 1.3 x 1.2 x 1.3 cm anechoic s imple cyst. Bladder: No mass or calculi. Bilateral ureteral jets visuali zed. Prevoid volume estimate of 174 cc. IMPRESSION: No hydronephrosis. The right renal calculi seen on KUB of earlier the same day are not well visua lized on ultrasound. 1.3cm left midpole simple cyst. Signed by: Adeel Friend MD on 01/19/2020 1:24 PM Dictated By: ZAID FRIEND MD 1324 Transcribed By: PRAVEEN on 01/19/20 1 324 COPY TO: AMPARO HENNESSY MD ABDOMEN-1VIEW (KUB)2020-01-19 12:29:00 [place] [address] Patient Name: MAKAYLA BEE MR #: [id number] : 1960 Age/Sex: 59/F Req #: [id number] Adm Physician: Ordered by: AMPARO HENNESSY MD Report #: [id number] Location: US Room/Bed: Procedure: [id number] DX/ABDOMEN-1VIEW (KU B) Exam Date: 01/19/20 Exam Time: 1206 REPORT STATUS: Signed Exam: KUB - 2 views Indication: Urinary tract infection Comparison: Report of CT abdomen and pelvis of 01/27/2012 (images not available for comparison) Findings: A cluster of medial right midpole renal calculi measure up to 5 mm. 3 mm calcifi c densities overlying the upper pole of the left kidney may represent renal ca lculi versus intraluminal bowel contents. A 5 mm [...] pole 3mm renal calculi versus intraluminal bowel cont ents. Signed by: Zaid Friend MD on 01/19/2020 12:32 PM Dictated By: Arturo FRIEND MD 1232 Transcri bed By: PRAVEEN on 01/19/20 1232 COPY TO: AMPARO HENNESSY MD CBC W/AUTO [id number] 01:40:00* Test Item Value Reference Range Interpretation Comments [...] NRBC#) 0.00 K/mm3 0.0-0.1 N BASIC METABOLIC [id number] 01:33:00* Test Item Value Reference Range Interpretation [...] CA) 9.3 mg/dL 8.5-10.1 N HEPATIC FUNCTION [id number] 01:33:00* Test Item Value Reference Range Interpretation [...] reference range due to change in reagent. [id number] 01:33:00* Test Item Value Reference Range Interpretation Comments LIPASE (test code = LIP) 166 U/L 73.0-393.0 N URINALYSIS [id number] 01:28:00* Test Item Value Reference Range Interpretation [...] NONE A Urine Source? Clean CatchBASIC METABOLIC [id number] 01:26:00* Test Item Value Reference Range Interpretation [...] code = CA) mg/dL 8.5-10.1 HEPATIC FUNCTION [id number] 01:26:00* Test Item Value Reference Range Interpretation [...] TOTAL (test code = ALKP) IUnit/L 45-117 [id number] 01:26:00* Test Item Value Reference Range Interpretation Comments LIPASE (test code = LIP) U/L 73.0-393.0 - XR CHEST 1 [id number] 00:49:00 FAX: Basilio Dow Si [phone] [place]: B St: REG FAX: Rashida Ashton [phone] Name: MAKAYLA BEE [facility] : 1960 Age/S: 59/F [address] Unit #: [id number] Loc: [place] [address] Phys: Rashida Gonsalves MD Acct: [id number] Dis Date: Status: REG ER PHONE #: [phone] Exam Date: 10/28/2019 0038 FAX #: [phone] Reason: abd pain EXAMS: CPT CODE: [id number] XR CHEST 1 V 84155 EXAM: - XR CHEST 1 V HISTORY: [...] By: [email or web address] Orig Print D/T: S: 10/28/2019 (005) PAGE 1 Signed Report - CT ABD PELVIS W/O [id number] 17:59:00 Name: MAKAYLA BEE [facility] : 1960 Age/S: 58 / F [address] Unit #: [id number] Loc: [place] [address] Phys: Rashida Gonsalves MD Acct: [id number] Dis Date: Status: REG ER PHONE #: [phone] Exam Date: 08/03/2019 1714 FAX #: [phone] Reason: lower abdominal pain EXAMS: CPT CODE: [id number] CT ABD PELVIS W/O CONT 18690 REASON FOR EXAM: lower abdominal pain EXAM [...] PAGE 1 Signed Report (CONTINUED) [facility] 1960 Age[facility]S: 58 / F [address] [facility] Unit #: [id number] Loc: [place] [address] Phys: Rashida Gonsalves MD Acct: [id number] Dis Date: Status: REG ER PHONE #: Exam Date: 08/03/2019 1714 FAX #: [phone] Reason: lower abdominal pain EXAMS: CPT CODE: [id number] CT ABD PELVIS W/O CONT 23018 <Continued> Musculoskeletal structures and abdominal wall: Normal IMPRESSION: No acute intra-abdominal findings to account for the p atient's lower abdominal pain. Specifically no gross abnormalities of th e urinary bladder or distal bowel. Nonobstructing stones in the inferior pole of the right kidney but no inflammatory changes of the rig ht kidney or the right ureter. Location: [facility] Elect ronically Signed by Amrit Tuttle MD on 08/03/2019 at 1759 Reported and signed by: Amrit Tuttle MD CC: Lisa Maldonado MD; Rashida Gonsalves MD Technologist:Erika Marina(R),CT; CTDI: DLP: Trnscb Date/Time: 08/03/2019 (1758) t.SDR.RR 31 Orig Print D/T: S: 08/03/2019 (674) PAGE 2 Signed Report BASIC METABOLIC [id number] 17:48:00* Test Item Value Reference Range Interpretation [...] CA) 9.8 mg/dL 8.5-10.1 N HEPATIC FUNCTION [id number] 17:48:00* Test Item Value Reference Range Interpretation [...] reference range due to change in reagent. [id number] 17:48:00* Test Item Value Reference Range Interpretation Comments LIPASE (test code = LIP) 628 U/L 73.0-393.0 H [id number] 17:48:00* Test Item Value Reference Range Interpretation Comments TROPONIN-I (test code = TROPI) <0.015 ng/mL 0-0.045 N BASIC METABOLIC [id number] 17:26:00* Test Item Value Reference Range Interpretation [...] code = CA) mg/dL 8.5-10.1 HEPATIC FUNCTION [id number] 17:26:00* Test Item Value Reference Range Interpretation [...] TOTAL (test code = ALKP) IUnit/L 45-117 [id number] 17:26:00* Test Item Value Reference Range Interpretation Comments LIPASE (test code = LIP) U/L 73.0-393.0 [id number] 17:26:00* Test Item Value Reference Range Interpretation Comments TROPONIN-I (test code = TROPI) ng/mL 0-0.045 PROTHROMBIN [id number] 16:58:00* Test Item Value Reference Range Interpretation [...] (2.5-3.5) IS PATIENT ON ANTICOAGULANTS? NTHROMBOPLASTIN TIME [id number] 16:58:00* Test Item Value Reference Range Interpretation Comments THROMBOPLASTIN TIME PARTIAL (test code = PTT) 33.8 seconds 25.0-36. 5 N IS PATIENT ON ANTICOAGULANTS? NB-TYPE NATRIURETIC [id number] 15:57:00* Test Item Value Reference Range Interpretation Comments B-TYPE NATRIURETIC PEPTIDE (test code = BNP) 1.08 pgram/mL 0-100 N CBC W/O [id number] 15:19:00* Test Item Value Reference Range Interpretation [...] MPV) 10.3 fL 6.7-11.0 N CBC W/O [id number] 15:17:00* Test Item Value Reference Range Interpretation [...] (test code = MPV) fL 6.7-11.0 URINALYSIS [id number] 14:21:00* Test Item Value Reference Range Interpretation [...] Urine Source? Clean Catch- XR CHEST 1 [id number] 13:35:00 FAX: Basilio Dow, [place]: St: PRE FAX: Rashida Ashton [phone] Name: MAKAYLA BEE [facility] : 1960 Age/S: 58/F [address] [facility] #: [id number] Loc: [place] [address] Phys: Rashida Gonsalves MD Acct: [id number] Dis Date: Status: PRE ER PHONE #: [phone] Exam Date: 08/03/2019 1311 FAX #: [phone] Reason: CHEST PAIN EXAMS: CPT CODE: [id number] XR CHEST 1 V 46095 HISTORY: Chest pain. COMPARISON: July 09, 2019. Location: [facility]. No acute infiltrates, effusion or co ngestion is noted. The cardiac and mediastinal silhouette are with in normal limits. IMPRESSION: No acute infil trates, effusion or congestion. at 1334 Reported and signed by: Ary Gonsalves M.D. CC: Lisa Dow MD; Rashida Barr MD Technologist: ZEESHAN JOAQUIN JR Trnscrd Date/Time/By: 08/03/2019 (0639) : By: [email or web address] Orig Print D/T: S: 08/03/2019 (9702) PAGE 1 Signed Report STREPTOCOCCUS PCR SCREEN 2019-07-10 06:51:00* Test Item Value Reference Range Interpretation Comments STREPTOCOCCUS DYSGALACTIAE (test code = STREPGC) NEGATIVE FOR G/C N EGATIVE STREPA MOLECULAR (test code = STREPAMOL) NEGATIVE FOR GRP A NEGATIV E - XR CHEST 2 [id number] 15:04:00 Name: MAKAYLA BEE [facility] : 1960 Age/S:58 /F [address] [facility] Unit#:[id number] Loc: [place] [address] Phys: Phipps,Vandana C CIRCUITS ENGINEER Dis Date: PHONE #: [phone] Status: REG ER FAX #: [phone] Exam Date: 07/09/2019 Reason: cough EXAMS: CPT CODE: [id number] XR CHEST 2 V 04580 EXAM: Chest X-ray, 2 views; CLINICAL HISTORY: Cough, flulike symptoms; FINDINGS: The lungs are clear, no infiltrates, no edema; no effusions; no pneumothorax; normal cardiomediastinal silhouette. IMPRESSION: Normal chest x-ray. Location code: [facility] at 1504 Reported and signed by: Sandeep Mccabe M.D. CC: Lisa Dow MD; Vandana Phipps NP Technologist: Gypsy Arteaga Trnscrpt Data: 07/09/2019 (7006) t.[email or web address].GRW Orig Print D/T: S: 07/09/2019 (5644) PAGE 1 Signed Report BREAST ULTRASOUND [id number] 12:34:40- BREAST ULTRASOUND BILATERALULTRASOUND OF BOTH BREASTS AND BOTH AXILLA: 07/06/2019CLINICAL: Diffuse breast pain. Comparison is made to exams dated 05/19/2019 mammogram and [facility]/30/2017 [facility] Real-time ultrasound of both breasts and both [...] in 1 year.Citlaly Copeland M.D. dm/:07/06/2019 12:34:40 Tube Sorter: Torie Melendez , [facility] sent: BIRADS 1-2 Combo FU Letter Ultrasound BI-RADS: 2 BenignSCR MAMM BILATERAL JEFFRY CAD [id number] 13:21:53 - SCR MAMM BILATERAL JEFFRY CAD DIGITALBILATERAL DIGITAL SCREENING MAMMOGRAM 3D/2D WITH CAD: 05/19/2019CLINICAL: Asymptomatic. Digital breast tomosynthesis was performed in addition to routine CC and MLO views. Current mammographic images were evaluated by either a [employer] M-Vu or a [employer] ImageChecker CAD (computer a ided detection system). Comparison is made to exams dated 01/30/2017 mammogram, 10/19/2015 mammogram, and 09/15/2014 [facility]. The tissue of both breasts is heterogeneously [...] one year. Jhoan Kirby M.D. ss/penrad:2018 13:21:53 Tube Sorter: Erika Cleary FW, [facility]FW[facility] sent: BIRADS 1-2 Normal Mammogram BI-RADS: 2 Benign- XR TIBIA/FIBULA 2 V [id number] 14:50:00 FAX: Basilio Dow Si [phone] [place]: O St: REG Name: Arturo HAYESSEPTEMBER BECCA [facility] : [birth year] Age/S: 58/F [address] [facility] Unit #: [id number] Loc: [place] [address] Phys: Jero Dow lvia E Acct: [id number] Dis Date: Status: REG CLI PHONE #: [phone] Exam Date: 03/31/2019 1202 FAX #: [phone] Reason: RT LEG FIBIA MASS EXAMS: CPT CODE: [id number] XR TIBIA/FIBULA 2 [place] [address] HISTORY: Right leg fibular mass. COMPARISON: None available. AP and lateral view of the right leg: No fibular mass is visible. Correlate with MRI scan. No erosive or destructive changes of the bony skeleton. Mildly narrowed knee and ankle joints. No joint fluid noted. IMPRESSION: No mass visible. Correlate with MRI scan. No erosive or destructive change or acute fracture or dislocation. at 1450 Reported and signed by: Tomasz Gonsalves M.D. CC: Lisa Alarcon MD Technologist: NAM DE, RT( R); STUDENT TECHNOLOGIST Trnscrd Date/Time/By: 03/31/2019 (5438) : By: Oriana [email or web address] Orig Print D/T: S: 03/31/2019 (4292) PAG E 1 Signed Report GLUBED 2019-02-23 10:22:00* Test Item Value Reference Range Interpretation Comments GLUBED (test code = GLUBED) 214 mg/dL 74-106 H Performed by certified lease operator at [facility] [id number] 10:21:00* Test Item Value Reference Range Interpretation Comments GLUBED (test code = GLUBED) 105 mg/dL 74-106 N Performed by certified lease operator at [facility] [id number] 10:20:00* Test Item Value Reference Range Interpretation Comments GLUBED (test code = GLUBED) 109 mg/dL 74-106 H Performed by certified lease operator at [facility] [id number] 10:19:00* Test Item Value Reference Range Interpretation Comments GLUBED (test code = GLUBED) 143 mg/dL 74-106 H Performed by certified lease operator at [facility] [id number] 10:18:00* Test Item Value Reference Range Interpretation Comments GLUBED (test code = GLUBED) 159 mg/dL 74-106 H Performed by certified lease operator at [facility] - MRI BRAIN W WO [id number] 19:12:00 FAX: Venancio Alexandra MD [place]: B St: ADM FAX: Alonso Hare MD [phone] Name: MAKAYLA BEE [facility] : 1960 Age/S: 58/F [address] Unit #: [id number] Loc: [address] [place] [address] Phys: Venancio Alexandra MD Acct: [id number] Dis Date: Status: ADM IN PHONE #: [phone] Exam Date: 02/20/2019 1843 FAX #: [phone] Reason: stroke w/u EXAMS: CPT CODE: [id number] MRI BRAIN W WO CONT 59126 REASON FOR EXAM: stroke w/u Exam Order [...] Signed Report (CONTINUED) FAX: Venancio Alexandra MD [place]: St: [facility] FAX: Alonso Hare MD Name: MAKAYLA BEE [facility] : 1960 Age/S: 58/F [address] U nit #: [id number] Loc: V.[address] [place] [address] Phys: Venancio Alexandra MD Acct: [id number] Dis Date: Status: ADM IN P JANEL #: [phone] Exam Date: 02/20/2019 1843 FA X #: [phone] Reason: stroke w/u EXAMS: CPT CODE: [id number] M RI BRAIN W WO CONT 40965 <Continued> CC: Venancio Alexandra MD; Alonso Romo Technologist: Alonzo Cisneros)() Trnscrd Date/Time/By: 02/20/2019 (1911) : By: [email or web address] Orig Print D/T: S: 02/20/2019 (1914) PAGE 2 Signed Report URINALYSIS [id number] 15:47:00* Test Item Value Reference Range Interpretation [...] MANY #/LPF NONE Urine Source? Clean CatchURINALYSIS [id number] 15:20:00* Test Item Value Reference Range Interpretation [...] Urine Source? Clean Catch- XR CHEST 1 [id number] 13:56:00 FAX: Venancio Alexandra MD [place]: B : [facility] FAX: Alonso Hare MD [phone] Name: MAKAYLA BEE [facility] : 1960 Age/S: 58/F [address] Unit #: [id number] Loc: [place] [address] Phys: Venancio Alexandra MD Acct: [id number] Dis Date: Status: REG ER PHONE #: [phone] Exam Date: 02/20/2019 1345 FAX #: [phone] Reason: CODE STROKE EXAMS: CPT CODE: [id number] XR CHEST 1 V 26967 HISTORY: Stroke. COMPARISON: September 02, 2017. No acute infiltrates, effusion or congestion is noted. Hyperinflation. Mild cardiomegaly. IMPRESSION: No acute infiltrates, effusion or congestion. at 3440 Reported and signed by: Tomasz Gonsalves M.D. CC: Venancio Alexandra MD; Alonso Zhou Technologist: Jac BAUMAN(R) Trnscrd Date/Time/By: 02/20/2019 (2294) : By: [email or web address] Orig Print D/T: S: 02/20/2019 (2161) PAGE 1 Signed Report BASIC METABOLIC PANEL [...] code = CA) 9.4 mg/dL 8.5-10.1 N [id number] 13:53:00* Test Item Value Reference Range Interpretation Comments TROPONIN-I (test code = TROPI) <0.015 ng/mL 0-0.045 N BASIC METABOLIC [id number] 13:37:00* Test Item Value Reference Range Interpretation [...] CALCIUM (test code = CA) mg/dL 8.5-10.1 [id number] 13:37:00* Test Item Value Reference Range Interpretation Comments TROPONIN-I (test code = TROPI) ng/mL 0-0.045 - CT HEAD/BRAIN W/O [id number] 13:20:00 Name: MAKAYLA BEE [facility] : 1960 Age/S: 58 / F [address] [facility] Unit #: [id number] Loc: [place], [place] [address] Phys: Venancio Alexandra MD Acct: [id number] Dis Date: Status: REG ER PHONE #: [phone] Exam Date: 02/20/2019 1310 FAX #: [phone] Reason: L weakness EXAMS: CPT CODE: [id number] CT HEAD/BRAIN W/O CONT 44689 HISTORY: Left-sided weakness COMPARISON: Head CT from [...] . These findings were discussed with Dr. Lopze at 1:18 PM. FOR INTERNAL CODING PURPOSES ONLY RESULT CODE: CVR at 1320 Reported and signed by: Tomasz Gonsalves M.D. PAGE 1 Signed Report (CONTINUED) Name: MAKAYLA BEE [facility] : 1960 Age/S: 58 / F [address] [facility] Unit #: [id number] Loc: [place] [address] Phys: Venancio Alexandra MD Acct: [id number] Dis Date: Status: REG ER PHONE #: [phone] Exam Date: 02/20/2019 1310 FAX #: [phone] Reason: L weakness EXAMS: CPT CODE: [id number] CT HEAD/BRAIN W/O CONT 68279 <Continued> CC: Venancio Alexandra MD; Alonso Romo Technologist:Von Lo RT(R),(MR),(CT) CTDI: DLP: Trnscb Date/Time: 02/20/2019 (1320) [email or web address] Orig Print D/T: S: 02/20/2019 (132) PAGE 2 Signed Report CBC W/AUTO [id number] 13:13:00* Test Item Value Reference Range Interpretation [...] REQUIRED (test code = MDIFF) NO PROTHROMBIN [id number] 13:12:00* Test Item Value Reference Range Interpretation [...] (2.5-3.5) IS PATIENT ON ANTICOAGULANTS? NTHROMBOPLASTIN TIME [id number] 13:12:00* Test Item Value Reference Range Interpretation Comments THROMBOPLASTIN TIME PARTIAL (test code = PTT) 36.1 seconds 25.0-36. 5 N IS PATIENT ON ANTICOAGULANTS? NCBC W/AUTO [id number] 13:12:00* Test Item Value Reference Range Interpretation [...] (test code = BA#) K/mm3 0.0-0.2 PROTHROMBIN [id number] 13:10:00* Test Item Value Reference Range Interpretation [...] (2.5-3.5) IS PATIENT ON ANTICOAGULANTS? NTHROMBOPLASTIN TIME [id number] 13:10:00* Test Item Value Reference Range Interpretation Comments THROMBOPLASTIN TIME PARTIAL (test code = PTT) seconds 25.0-36. 5 IS PATIENT ON ANTICOAGULANTS? [id number] 11:08:00* Test Item Value Reference Range Interpretation Comments GLUBED (test code = GLUBED) 202 mg/dL 74-106 H Performed by certified lease operator at [facility] [id number] 06:31:00* Test Item Value Reference Range Interpretation Comments GLUBED (test code = GLUBED) 143 mg/dL 74-106 H Performed by certified lease operator at [facility] [id number] 20:08:00* Test Item Value Reference Range Interpretation Comments GLUBED (test code = GLUBED) 151 mg/dL 74-106 H Performed by certified lease operator at [facility] [id number] 19:53:00* Test Item Value Reference Range Interpretation Comments GLUBED (test code = GLUBED) 127 mg/dL 74-106 H Performed by certified lease operator at [facility] [id number] 11:19:00* Test Item Value Reference Range Interpretation Comments GLUBED (test code = GLUBED) 157 mg/dL 74-106 H Performed by certified lease operator at [facility] [id number] 06:23:00* Test Item Value Reference Range Interpretation Comments GLUBED (test code = GLUBED) 135 mg/dL 74-106 H Performed by certified lease operator at [facility] [id number] 20:25:00* Test Item Value Reference Range Interpretation Comments GLUBED (test code = GLUBED) 146 mg/dL 74-106 H Performed by certified lease operator at [facility] [id number] 16:22:00* Test Item Value Reference Range Interpretation Comments GLUBED (test code = GLUBED) 223 mg/dL 74-106 H Performed by certified lease operator at [facility] [id number] 11:52:00* Test Item Value Reference Range Interpretation Comments GLUBED (test code = GLUBED) 133 mg/dL 74-106 H Performed by certified lease operator at [facility] [id number] 06:45:00* Test Item Value Reference Range Interpretation Comments GLUBED (test code = GLUBED) 170 mg/dL 74-106 H Performed by certified lease operator at [facility] [id number] 20:32:00* Test Item Value Reference Range Interpretation Comments GLUBED (test code = GLUBED) 184 mg/dL 74-106 H Performed by certified lease operator at [facility] [id number] 17:44:00* Test Item Value Reference Range Interpretation Comments GLUBED (test code = GLUBED) 102 mg/dL 74-106 N Performed by certified lease operator at [facility] [id number] 13:55:00* Test Item Value Reference Range Interpretation Comments GLUBED (test code = GLUBED) 99 mg/dL 74-106 N Performed by certified lease operator at [facility] [id number] 11:35:00* Test Item Value Reference Range Interpretation Comments GLUBED (test code = GLUBED) 195 mg/dL 74-106 H Performed by certified lease operator at [facility] [id number] 07:14:00* Test Item Value Reference Range Interpretation Comments GLUBED (test code = GLUBED) 147 mg/dL 74-106 H Performed by certified lease operator at [facility] [id number] 20:04:00* Test Item Value Reference Range Interpretation Comments GLUBED (test code = GLUBED) 122 mg/dL 74-106 H Performed by certified lease operator at [facility] [id number] 17:00:00* Test Item Value Reference Range Interpretation Comments GLUBED (test code = GLUBED) 198 mg/dL 74-106 H Performed by certified lease operator at [facility] [id number] 11:12:00* Test Item Value Reference Range Interpretation Comments GLUBED (test code = GLUBED) 147 mg/dL 74-106 H Performed by certified lease operator at [facility] [id number] 07:18:00* Test Item Value Reference Range Interpretation Comments GLUBED (test code = GLUBED) 194 mg/dL 74-106 H Performed by certified lease operator at [facility] [id number] 00:32:00* Test Item Value Reference Range Interpretation Comments GLUBED (test code = GLUBED) 142 mg/dL 74-106 H Performed by certified lease operator at [facility] [id number] 16:43:00* Test Item Value Reference Range Interpretation Comments GLUBED (test code = GLUBED) 249 mg/dL 74-106 H Performed by certified lease operator at [facility] [id number] 11:27:00* Test Item Value Reference Range Interpretation Comments GLUBED (test code = GLUBED) 160 mg/dL 74-106 H Performed by certified lease operator at [facility] [id number] 11:12:00* Test Item Value Reference Range Interpretation Comments GLUBED (test code = GLUBED) 130 mg/dL 74-106 H Performed by certified lease operator at [facility] [id number] 20:36:00* Test Item Value Reference Range Interpretation Comments GLUBED (test code = GLUBED) 245 mg/dL 74-106 H Performed by certified lease operator at [facility] [id number] 16:33:00* Test Item Value Reference Range Interpretation Comments GLUBED (test code = GLUBED) 162 mg/dL 74-106 H Performed by certified lease operator at [facility] [id number] 16:08:00* Test Item Value Reference Range Interpretation Comments GLUBED (test code = GLUBED) 155 mg/dL 74-106 H Performed by certified lease operator at [facility] [id number] 12:33:00* Test Item Value Reference Range Interpretation Comments GLUBED (test code = GLUBED) 232 mg/dL 74-106 H Performed by certified lease operator at [facility] - MRI C-SPINE W/O [id number] 09:51:00 FAX: Indira Felix MD [phone] [place]: [facility]: [facility] FAX: Alonso Hare MD [phone] Name: MAKAYLA BEE [facility] : 1960 Age/S: 58/F [address] [facility] Unit #: [id number] Loc: [address] [place] [address] Phys: Indira Mckeon MD Acct: [id number] Dis Date: Status: ADM IN PHONE #: [phone] Exam Date: 11/01/2018 0935 FAX #: [phone] Reason: ataxia EXAMS: CPT CODE: [id number] MRI C-SPINE W/O CONT 26999 REASON FOR EXAM: ataxia Exam Order Date: 11/01/2018 7:21 PM Attending Emra: Indira Mckeon MD Compari son: Procedure: - MRI C-SPINE W/O CONT [...] neuroforamen. Otherw ise, unremarkable cervical spine at 0951 Reported and signed by: Hemant Faustin M.D. CC: Indira Mckeon MD; Alonso Romo Technologist: Alonzo Cisneros)(MR) Trn scrd Date/Time/By: 11/01/2018 (7990) : By: Carlos.VTL Orig Print D/T: S : 11/01/2018 (0903) PAGE 1 Signed Report - MRI BRAIN W/O [id number] 09:37:00 FAX: nIdira Felix MD [phone] [place]: St: ADM FAX: Alonso Hare MD [phone] Name: MAKAYLA BEE [facility] : 1960 Age/S: 58/F [address] [facility] Unit #: [id number] Loc: [address] [place] [address] Phys: Indira Mckeon MD Acct: [id number] Dis Date: Status: ADM IN PHONE #: [phone] Exam Date: 11/01/2018 0935 FAX #: [phone] Reason: ataxia EXAMS: CPT CODE: [id number] MRI BRAIN W/O CONTRAST 01682 REASON FOR EXAM: ataxia Exam Order Date: 11/01/2018 7:21 PM Attending MAmparoD.: Indira Mckeon MD Procedu re: - MRI [...] Indira Tenorio MD; Alonso Romo Technologist: Alonzo Cisneros)(MR) Trnscrd Date/Time/By: 11/01/2018 (0937) : By: AdanL Orig Print D/T: S: 11/01/2018 (5657) PAGE 1 Signed Report [id number] 05:37:00* Test Item Value Reference Range Interpretation Comments GLUBED (test code = GLUBED) 231 mg/dL 74-106 H Performed by certified lease operator at [facility] [id number] 02:24:00* Test Item Value Reference Range Interpretation Comments TROPONIN-I (test code = TROPI) <0.015 ng/mL 0-0.045 N COMMENTS TO DROP WIRE BUILDER: COLLECT 3 HOURS AFTER PREVIOUS [id number] 22:23:00* Test Item Value Reference Range Interpretation Comments TROPONIN-I (test code = TROPI) <0.015 ng/mL 0-0.045 N COMMENTS TO DROP WIRE BUILDER: COLLECT 3 HOURS AFTER PREVIOUS [id number] 20:34:00* Test Item Value Reference Range Interpretation Comments GLUBED (test code = GLUBED) 182 mg/dL 74-106 H Performed by certified lease operator at [facility] BASIC METABOLIC [id number] 18:09:00* Test Item Value Reference Range Interpretation [...] code = CA) 9.6 mg/dL 8.5-10.1 N [id number] 18:09:00* Test Item Value Reference Range Interpretation Comments TROPONIN-I (test code = TROPI) <0.015 ng/mL 0-0.045 N - CT HEAD/BRAIN W/O [id number] 17:58:00 Name: MAKAYLA BEE [facility] : 1960 Age/S: 58 / F [address] [facility] Unit #: [id number] Loc: [place]N [place] [address] Phys: Esteban Marie MD Acct: [id number] Dis Date: Status: REG ER PHONE #: [phone] Exam Date: 10/31/2018 1745 FAX #: [phone] Reason: inability to ambulate, dizziness, L arm weak EXAMS: CPT CODE: [id number] CT HEAD/BRAIN W/O CONT 72236 HISTORY: Dizziness and weakness. COMPARISON: June 16, [...] matter ischemic disease and atrophy . at 1758 Reported and signed by: Tomasz Gonsalves M.D. CC: Esteban Marie MD Technologist:Annetta BAUMAN(R); JAC Ramesh CTDI: DLP: Trnscb Date/Time: 10/31/2018 (1757) [email or web address] Orig Print D/T: S: 10/31/2018 (6703) PAGE 1 Signed Report PROTHROMBIN [id number] 17:55:00* Test Item Value Reference Range Interpretation [...] (2.5-3.5) IS PATIENT ON ANTICOAGULANTS? NTHROMBOPLASTIN TIME LFEWRNO9316-67-53 17:55:00* Test Item Value Reference Range Interpretation Comments THROMBOPLASTIN TIME PARTIAL (test code = PTT) 37.5 seconds 25.0-36. 5 H IS PATIENT ON ANTICOAGULANTS? NBASIC METABOLIC NXGFR8958-59-70 17:51:00* Test Item Value Reference Range Interpretation [...] CALCIUM (test code = CA) mg/dL 8.5-10.1 MZPKAVSL-E3446-12-24 17:51:00* Test Item Value Reference Range Interpretation Comments TROPONIN-I (test code = TROPI) ng/mL 0-0.045 CBC W/AUTO [id number] 17:36:00* Test Item Value Reference Range Interpretation [...] code = NRBC#) 0.00 K/mm3 0.0-0.1 N UJNSHA6011-71-40 13:52:00* Test Item Value Reference Range Interpretation Comments GLUBED (test code = GLUBED) 90 mg/dL 74-106 N Performed by certified lease operator at [facility] Creatine Kinase OC5196-87-45 19:20:00* Test Item Value Reference Range Interpretation Comments Creatine Kinase MB (test code = 92119-0) 1.20 0-5.0 [facility] E4380-54-04 19:20:00* Test Item Value Reference Range Interpretation Comments Troponin I (test code = CKN0801) -0.001 0-0.300 [facility] Zdzac1101-19-44 19:11:00* Test Item Value Reference Range Interpretation Comments Sodium Level (test code = 2951-2) 142 136-145 [facility] HospitalPotassium Banbk0172-01-24 19:11:00* Test Item Value Reference Range Interpretation Comments Potassium Level (test code = 2823-3) 4.0 3.5-5.1 [facility] HospitalChloride Lvint2818-60-15 19:11:00* Test Item Value Reference Range Interpretation Comments Chloride Level (test code = 2075-0) 103 98-107 [facility] HospitalCarbon Dioxide Vynof5393-38-60 19:11:00* Test Item Value Reference Range Interpretation Comments Carbon Dioxide Level (test code = 2028-9) 29 22-29 [facility] HospitalAnion Gox0686-84-32 19:11:00* Test Item Value Reference Range Interpretation Comments Anion Gap (test code = 52682-9) 14.0 8-16 [facility] HospitalBlood Urea Jzpngrzn4574-60-32 19:11:00* Test Item Value Reference Range Interpretation Comments Blood Urea Nitrogen (test code = 3094-0) 15 7-26 [facility] HospitalCreatinine2018-06-02 19:11:00* Test Item Value Reference Range Interpretation Comments Creatinine (test code = 2160-0) 0.72 0.57-1.11 [facility] HospitalBUN/Creatinine Gtsji3625-68-95 19:11:00* Test Item Value Reference Range Interpretation Comments BUN/Creatinine Ratio (test code = 3097-3) 21 6-25 [facility] HospitalEstimat Glomerular Filtration Rate 2017-11-09 19:11:00* Test Item Value Reference Range Interpretation Comments Estimat Glomerular Filtration Rate (test code = 97660-8) 60- >60 Ranges were taken from the National Kidney Disease Education Program and the [facility] [employer] literature.Reference ranges:60 or greater: Ozurvd80-01 ( for 3 consecutive months): Chronic kidney disease 15 or less: Kidney failureCovenant Children's HospitalGlucose Qazww7635-86-88 19:11:00* Test Item Value Reference Range Interpretation Comments Glucose Level (test code = CMX7962) 114 74-118 [facility] HospitalCalcium Hrvxb0595-65-29 19:11:00* Test Item Value Reference Range Interpretation Comments Calcium Level (test code = 31110-0) 10.2 8.4-10.2 [facility] HospitalTotal Lxtnbszmg2793-94-91 19:11:00* Test Item Value Reference Range Interpretation Comments Total Bilirubin (test code = 1975-2) 0.3 0.2-1.2 [facility] HospitalAspartate Amino Transf (AST/SGOT) 2017-11-09 19:11:00* Test Item Value Reference Range Interpretation Comments Aspartate Amino Transf (AST/SGOT) (test code = Aspartate Amino Transf (AST/SGOT)) 19 5-34 [facility] HospitalAlanine Aminotransferase (ALT/SGPT) 2017-11-09 19:11:00* Test Item Value Reference Range Interpretation Comments Alanine Aminotransferase (ALT/SGPT) (test code = 1742-6) 28 0-55 [facility] HospitalTotal Ijlfhqd2695-18-68 19:11:00* Test Item Value Reference Range Interpretation Comments Total Protein (test code = 2885-2) 6.6 6.5-8.1 [facility] HospitalAlbumin2018-06-02 19:11:00* Test Item Value Reference Range Interpretation Comments Albumin (test code = 1751-7) 4.5 3.5-5.0 [facility] HospitalGlobulin2018-06-02 19:11:00* Test Item Value Reference Range Interpretation Comments Globulin (test code = 66772-0) 2.1 2.3-3.5 L [facility] HospitalAlbumin/Globulin Cqbae6499-60-90 19:11:00 * Test Item Value Reference Range Interpretation Comments Albumin/Globulin Ratio (test code = 1759-0) 2.1 0.8-2.0 H [facility] HospitalAlkaline Nwhnjrajhyg6986-52-50 19:11:00* Test Item Value Reference Range Interpretation Comments Alkaline Phosphatase (test code = 6768-6) 75 40-150 [facility] HospitalCreatine Tjhgpz0202-69-90 19:11:00* Test Item Value Reference Range Interpretation Comments Creatine Kinase (test code = 2157-6) 81 29-168 [facility] HospitalProthrombin Ckra8556-89-36 19:02:00* Test Item Value Reference Range Interpretation Comments Prothrombin Time (test code = 5902-2) 12.5 11.9-14.[address] [facility] International Ratio 2017-11-09 19:02:00* Test Item Value Reference Range Interpretation Comments Prothromb Time International Ratio (test code = 6301-6) 1.01 Oral Anticoagulant Therapy INR Values:1. Low Intensity Therapy 1.5 - 2.02 . Moderate Intensity Therapy 2.0 - 3.03. High Intensity Therapy(1) 2.5 - 3. 54. High Intensity Therapy(2) 3.0 - 4.05. Panic Value INR > 5.0 [facility] HospitalActivated Partial Thromboplast Time 2017-11-09 19:02:00* Test Item Value Reference Range Interpretation Comments Activated Partial Thromboplast Time (test code = 59374-2) 27.9 23.8-35.5 [facility] HospitalUrine RJV7200-09-78 18:41:00* Test Item Value Reference Range Interpretation Comments Urine WBC (test code = 5821-4) 6-10 0-5 H [facility] HospitalUrine FRL1935-92-96 18:41:00* Test Item Value Reference Range Interpretation Comments Urine RBC (test code = 35729-8) NONE 0-5 [facility] HospitalUrine Ydhucxsv2610-27-52 18:41:00* Test Item Value Reference Range Interpretation Comments Urine Bacteria (test code = 97420-4) FEW NONE [facility] HospitalUrine Epithelial Gqzhn3157-48-46 18:41:00 * Test Item Value Reference Range Interpretation Comments Urine Epithelial Cells (test code = 45200-8) FEW NONE [facility] HospitalUrine Transitional Epithelial Cells 2017-11-09 18:41:00* Test Item Value Reference Range Interpretation Comments Urine Transitional Epithelial Cells (test code = 8249-5) FEW NONE H [facility] HospitalUrine Cgqbi4681-69-28 18:37:00* Test Item Value Reference Range Interpretation Comments Urine Color (test code = 5778-6) YELLOW YELLOW [facility] HospitalUrine Otsrdyt1433-52-42 18:37:00* Test Item Value Reference Range Interpretation Comments Urine Clarity (test code = 34602-9) CLEAR CLEAR [facility] HospitalUrine Specific Qqczsae3756-45-18 18:37:00 * Test Item Value Reference Range Interpretation Comments Urine Specific [place] (test code = 5811-5) 1.005 1.010-1.02 5 L [facility] HospitalUrine aW3027-27-25 18:37:00* Test Item Value Reference Range Interpretation Comments Urine pH (test code = 70817-2) 6 5-7 [facility] Leukocyte Gcxwrbhf5343-18-71 18:37:00* Test Item Value Reference Range Interpretation Comments Urine Leukocyte Esterase (test code = 5799-2) 1+ NEGATIVE H [facility] Mfsdzym1904-82-70 18:37:00* Test Item Value Reference Range Interpretation Comments Urine Nitrite (test code = 02294-9) NEGATIVE NEGATIVE [facility] Gtyopxe4053-84-48 18:37:00* Test Item Value Reference Range Interpretation Comments Urine Protein (test code = 5804-0) NEGATIVE NEGATIVE [facility] Glucose (UA)2017-11-09 18:37:00* Test Item Value Reference Range Interpretation Comments Urine Glucose (UA) (test code = 2349-9) NEGATIVE NEGATIVE [facility] Cfltllj5100-04-85 18:37:00* Test Item Value Reference Range Interpretation Comments Urine Ketones (test code = 17182-2) NEGATIVE NEGATIVE [facility] Czxnnhrgnpgz9288-49-29 18:37:00* Test Item Value Reference Range Interpretation Comments Urine Urobilinogen (test code = 75720-8) 0.2 0.2-1 [facility] HospitalUrine Kegpalxhw0204-39-69 18:37:00* Test Item Value Reference Range Interpretation Comments Urine Bilirubin (test code = 1978-6) NEGATIVE NEGATIVE [facility] Vxanr2970-22-28 18:37:00* Test Item Value Reference Range Interpretation Comments Urine Blood (test code = 61910-3) NEGATIVE NEGATIVE [facility] HospitalWhite Blood Kutzs2843-56-45 18:30:00* Test Item Value Reference Range Interpretation Comments White Blood Count (test code = 6690-2) 6.26 4.8-10.8 [facility] HospitalRed Blood Cdacd8772-64-56 18:30:00* Test Item Value Reference Range Interpretation Comments Red Blood Count (test code = 789-8) 3.97 3.6-5.1 [facility] HospitalHemoglobin2018-06-02 18:30:00* Test Item Value Reference Range Interpretation Comments Hemoglobin (test code = 89111-5) 12.4 12.0-16.0 [facility] HospitalHematocrit2018-06-02 18:30:00* Test Item Value Reference Range Interpretation Comments Hematocrit (test code = 4544-3) 36.6 34.2-44.1 [facility] HospitalMean Corpuscular Kqeamt7161-43-08 18:30:00* Test Item Value Reference Range Interpretation Comments Mean Corpuscular Volume (test code = 787-2) 92.2 81-99 [facility] HospitalMean Corpuscular Qozjyvsrmq9122-62-17 18:30:00* Test Item Value Reference Range Interpretation Comments Mean Corpuscular Hemoglobin (test code = 785-6) 31.2 28-32 [facility] HospitalMean Corpuscular Hemoglobin Concent 2017-11-09 18:30:00* Test Item Value Reference Range Interpretation Comments Mean Corpuscular Hemoglobin Concent (test code = 786-4) 33.9 31-35 [facility] HospitalRed Cell Distribution Fyjsd2428-07-60 18:30:00* Test Item Value Reference Range Interpretation Comments Red Cell Distribution Width (test code = 30777-7) 12.6 11.7 -14.4 [facility] HospitalPlatelet Dqinu9878-33-11 18:30:00* Test Item Value Reference Range Interpretation Comments Platelet Count (test code = 777-3) 253 140-360 [facility] HospitalNeutrophils (%) (Auto)2017-11-09 18:30:00 * Test Item Value Reference Range Interpretation Comments Neutrophils (%) (Auto) (test code = 16803-0) 56.1 38.7-80.0 [facility] HospitalLymphocytes (%) (Auto)2017-11-09 18:30:00 * Test Item Value Reference Range Interpretation Comments Lymphocytes (%) (Auto) (test code = 736-9) 33.2 18.0-39.1 [facility] HospitalMonocytes (%) (Auto)2017-11-09 18:30:00* Test Item Value Reference Range Interpretation Comments Monocytes (%) (Auto) (test code = 5905-5) 6.2 4.4-11.3 [facility] HospitalEosinophils (%) (Auto)2017-11-09 18:30:00 * Test Item Value Reference Range Interpretation Comments Eosinophils (%) (Auto) (test code = 713-8) 3.7 0.0-6.0 [facility] HospitalBasophils (%) (Auto)2017-11-09 18:30:00* Test Item Value Reference Range Interpretation Comments Basophils (%) (Auto) (test code = 706-2) 0.6 0.0-1.0 [facility] HospitalIM GRANULOCYTES %2017-11-09 18:30:00* Test Item Value Reference Range Interpretation Comments IM GRANULOCYTES % (test code = IM GRANULOCYTES %) 0.2 0.0- 1.0 [facility] HospitalNeutrophils # (Auto)2017-11-09 18:30:00* Test Item Value Reference Range Interpretation Comments Neutrophils # (Auto) (test code = 751-8) 3.5 2.1-6.9 [facility] HospitalLymphocytes # (Auto)2017-11-09 18:30:00* Test Item Value Reference Range Interpretation Comments Lymphocytes # (Auto) (test code = 19457-5) 2.1 1.0-3.2 [facility] HospitalMonocytes # (Auto)2017-11-09 18:30:00* Test Item Value Reference Range Interpretation Comments Monocytes # (Auto) (test code = 742-7) 0.4 0.2-0.8 [facility] HospitalEosinophils # (Auto)2017-11-09 18:30:00* Test Item Value Reference Range Interpretation Comments Eosinophils # (Auto) (test code = 711-2) 0.2 0.0-0.4 [facility] HospitalBasophils # (Auto)2017-11-09 18:30:00* Test Item Value Reference Range Interpretation Comments Basophils # (Auto) (test code = 704-7) 0.0 0.0-0.1 [facility] HospitalAbsolute Immature Granulocyte (auto 2017-11-09 18:30:00* Test Item Value Reference Range Interpretation Comments Absolute Immature Granulocyte (auto (margaret t code = Absolute Immature Granulocyte (auto) 0.01 0-0.1 [facility] HospitalUrine Renal Epithelial Zwwcx4066-37-23 21:03:00* Test Item Value Reference Range Interpretation Comments Urine Renal Epithelial Cells (test code = 52855-1) RARE NON E H [facility] HospitalB-Type Natriuretic Kqfyuxm7930-07-00 20:25:00* Test Item Value Reference Range Interpretation Comments B-Type Natriuretic Peptide (test code = 66604-2) -10.0 0-100 [facility] HospitalELECTROLYTES2017-03-28 20:28:0010.3 [facility] YouikywRZFSGPFEDPWG5017-59-56 20:28:0077[facility]annELECTROLYTES 2016-09-04 20:28:27841Uyoogyre OxvafqbBONRHQRUBQPE5024-24-62 20:28:003.3[facility] BvxnfjfIFDXSSDBVMUZ7012-19-61 20:28:0099[facility] GmgrwcrEKXKDZMMSPYR7232-27-95 20:28:0032[facility] LomathnHFYEQSXXJMQV9433-42-05 20:28:009.4[facility] GHMXUCXJQPFL5146-74-54 20:28:45829Yhmykgxt GlwoytsPNZJXIOHUQBN3212-20-50 20:28:000.85[facility] EwyqndaMHGESURGIMKD6357-24-21 20:28:0021[facility] NYMNLPYZIY7621-10-62 20:28:008.6[facility] KcxbakvPTTJRGRVFY6536-80-46 20:28:000.2 [facility] CroxfyvNZNCGYVTQI9127-52-91 20:28:003.8[facility]annHEMATOLOGY 2016-09-04 20:28:000.8[facility] OdvkptpWRLMYCWFIQ9853-39-21 20:28:000.4[facility] VtwinvmYITRFIXNHK0878-73-61 20:28:008.1[facility] ShsbkahPMVVMEBPPA2871-80-71 20:28:0087.0[facility] OqjepvhWTGYZWOMCS1164-76-97 20:28:000.4[facility] RDFXEBUQAT1276-85-95 20:28:98163Xksqgmvj KeeauxqOGLHLCEOSB3610-30-40 20:28:007.0 [facility] GcdkuwgSXBJGOIGII7871-34-74 20:28:0089.9[facility]annHEMATOLOGY 2016-09-04 20:28:0033.1[facility] OlsruydCLNZFVMYUI2731-69-55 20:28:0036.5[facility] WsevbakYMXIGFEVIW7885-15-75 20:28:0012.1[facility] XhqdcrpCBSIUUXOPZ6845-79-93 20:28:004.06[facility] TxbrkyeUXWAQZHQFU3417-30-53 20:28:00* Test Item Value Reference Range Interpretation Comments MCH (test code = MCH) 29.7 pg 27.0-31.0 [facility] GqakeipBKCGXDTPED6236-71-44 20:28:0015.0[facility]annHEMATOLOGY 2016-09-04 20:28:009.3[facility] HermannCHEM ZHEKJ6086-96-75 08:05:0019[facility] HermannCHEM LZWLP0003-59-11 08:05:94676Jkfzetcb HermannCHEM NAWSB1241-90-69 08:05:46529Seyulbdz HermannCHEM RRLVK4331-53-87 08:05:000.69[facility] HermannCHEM MNAQH6994-10-47 08:05:004.1[facility] HermannCHEM SKIHC1922-01-00 08:05:0029 [facility]annCHEM SGTRW2648-81-60 08:05:007.0[facility]annCHEM PANEL 2016-07-30 08:05:0097[facility] HermannCHEM TKQXH6846-72-88 08:05:008.8[facility] HermannCHEM ISHRK1743-79-62 08:05:003.4[facility] HermannCHEM FHGSU2510-47-67 08:05:0040[facility]annCHEM LYQRB3054-06-72 08:05:0031[facility] HermannCHEM UEFUM6983-15-54 08:05:06933Wkvjrspf HermannCHEM KZJAM6817-54-26 08:05:000.2 [facility]annCHEM RHAKZ1383-32-53 08:05:0098[facility]annCHEM PANEL 2016-07-30 08:05:000.9[facility] HermannCHEM DENUL1294-93-56 08:05:0014.1[facility] HermannCHEM KWTJZ9220-70-23 08:05:0028[facility] HermannCHEM CGIKS5927-22-28 08:05:003.6[facility]annCHEM ZUFNZ5520-10-53 08:05:57494Kwlxdwou [place] KPUETRSZBR0916-90-27 08:05:0089.2[facility] XxtniupLSTHXQWHGT3779-69-23 08:05:00* Test Item Value Reference Range Interpretation Comments MCH (test code = MCH) 30.5 pg 27.0-31.0 [facility] DwvizbzTMVMURBVSE3135-20-11 08:05:0034.2[facility]annHEMATOLOGY 2016-07-30 08:05:009.4[facility] OiievmgKDFEUYDSTK7880-86-91 08:05:0027.7[facility] DpgbbzsURRJGEZBMC1387-74-81 08:05:003.10[facility] ZmabfeqTGVCNFSJEC5902-26-85 08:05:008.4[facility] FbvdzfjWMSDEDFWQP0758-37-14 08:05:0013.4[facility] DYWPUDHUJN8723-88-81 08:05:54777Whxkanzw JgpfhdqGWKRGYIRJS1166-20-97 08:05:007.1 [facility] GntoefiLTNJPLAVYB8910-15-65 08:05:000.3[facility]annHEMATOLOGY 2016-07-30 08:05:000.7[facility] ByslpewRXSVQCXZTY9146-55-93 08:05:005.9[facility] JnzdviuCGAKNRNDZZ9312-72-21 08:05:001.5[facility] RookqnhDATSEAEVST9647-31-87 08:05:0017.7[facility] OjpgoewHQAISRCQVR4911-21-30 08:05:000.5[facility] NYIICYDEYX0546-23-03 08:05:008.3[facility] IztomltYEWUEDEQGQ9724-29-21 08:05:003.5 [facility] DgrinabZDTLXTDUHA2444-21-14 08:05:0070.0[facility]annURINE AND STOOL 2016-07-30 07:30:002[facility]annURINE AND LBSHE0095-78-09 07:30:00<1[facility]annUR[facility] AND MCXHJ4553-59-14 07:30:00Trace *ABN*(07/30/16 1:30 AM)[facility] OLKGD2473-99-43 07:30:001.008[facility]annUR[facility] AND STOOL 2016-07-30 07:30:006.0[facility]annUR[facility] AND LUXGI1695-18-36 07:30:00Negative (07/30/16 1:30 AM)[facility] HLKWT5557-74-09 07:30:00Negative *NA*(07/30/16 1:30 AM)[facility] SBFVV8063-29-13 07:30:00Negative (07/30/16 1:30 AM)[facility] DCQQR3025-02-60 07:30:00Clear (07/30/16 1:30 AM)[facility] HermannCARDIAC JHSBSVZ4705-12-64 00:53:0049[facility] HermannCHEM MIJTJ0593-97-03 00:53:0018[facility] HermannCHEM MJDDW8715-56-10 00:53:003.7[facility] HermannCHEM QDZSL2310-60-86 00:53:001.0[facility] HermannCHEM JWCTM0226-96-76 00:53:0012.7[facility] HermannCHEM GVBVT3774-62-06 00:53:0091 [facility] HermannCHEM QWVPD8941-20-21 00:53:30586Rvqcpude HermannCHEM PANEL 2016-07-28 00:53:000.6[facility] HermannCHEM GLOKK5325-66-13 00:53:0044[facility] HermannCHEM XSDPC8415-86-79 00:53:009.3[facility] HermannCHEM BGZYK2052-41-49 00:53:003.7[facility] HermannCHEM GGPXY1761-31-14 00:53:007.4[facility] HermannCHEM ZYELJ9482-37-97 00:53:0024[facility] HermannCHEM AUNUE7439-11-96 00:53:59682 [facility]annCHEM TTAOZ4440-10-58 00:53:000.74[facility]annCHEM PANEL 2016-07-28 00:53:0013[facility] HermannCHEM QUCPB0979-06-94 00:53:19095Egfohswi HermannCHEM JAXTQ8161-19-44 00:53:0031[facility] HermannCHEM FXNUU7835-93-56 00:53:003.7[facility] HermannCHEM CQLIA2974-48-16 00:53:0098[facility] HermannCHEM TUROX4240-87-91 00:53:0020[facility] HermannCHEM CDZGJ3639-64-52 00:53:65932 [facility] WbaqlamATMEKZIPEP1012-11-00 00:53:0033.5[facility]annHEMATOLOGY 2016-07-28 00:53:0013.6[facility] WkqaecyPIXOGVEALA6625-51-70 00:53:00* Test Item Value Reference Range Interpretation Comments MCH (test code = MCH) 30.2 pg 27.0-31.0 [facility] GhyqvgsQDAJVHJARN4904-85-83 00:53:0090.2[facility]annHEMATOLOGY 2016-07-28 00:53:0030.0[facility] CkwugpaCUKJXJIXJU4251-29-65 00:53:63116Etagvihi HqmeggdFHZUDRBDWH3229-15-84 00:53:007.0[facility] OoqjmiaPXRTVPMIFQ4109-21-64 00:53:0010.0[facility] QbakizbHYZHXBMLQY4358-72-40 00:53:006.9[facility] OGSAJQYMHE2038-68-71 00:53:003.32[facility] TofxjozAQOAJGPWVV7392-51-26 00:53:00 0.96[facility] AxmpqsoHSDEZTSMZZ5038-90-85 00:53:00* Test Item Value Reference Range Interpretation Comments PT (test code = PT) 13.0 s 12.0-14.7 [facility] QojuzbeBSMQLLRDRQ3654-55-82 00:53:000.2[facility]annHEMATOLOGY 2016-07-28 00:53:000.1[facility] UnxqaqpOOTHWZIRVV5831-82-94 00:53:002.5[facility] DklclucDENBXERFKS3430-41-69 00:53:0020.7[facility] PhfyaunDIBCLWGERJ8250-30-77 00:53:0066.8[facility] MgvlemiPLMFOZNRJP2985-06-38 00:53:000.6[facility] ERMFEZQUVW6504-50-39 00:53:004.6[facility] TudslggKZSOEQKGDH8000-70-55 00:53:000.7 [facility] FapybltUPLVMDRCSH8442-48-79 00:53:001.4[facility]annHEMATOLOGY 2016-07-28 00:53:009.3[facility]annUR[facility] AND WJGMG6678-26-02 00:53:002 [facility] KRWGF0528-98-26 00:53:001[facility]UR[facility] AND LKRGE0253-33-44 00:53:00Negative (07/27/16 6:53 PM)[facility] UHGLX3261-60-62 00:53:00Trace *ABN*(07/27/16 6:53 PM)[facility] NOHIW7563-04-93 00:53:007.0[facility] AND GSSEJ2317-93-14 00:53:00 1.011[facility]UR[facility] AND PTWQN9258-58-03 00:53:00Clear (07/27/16 6:53 PM) [facility] JGVBV7903-70-88 00:53:00Negative *NA*(07/27/16 6:53 PM) [facility] USGIO2553-87-21 00:53:00Negative (07/27/16 6:53 PM) [facility]annVIRAL - SJWQCSBP6274-70-05 00:53:00Negative (07/27/16 6:53 PM) [facility]annVIRAL - CHYIIEQJ1618-94-75 00:53:00Negative (07/27/16 6:53 PM) [facility] HjdcfhmSMHGIDISIBIR1263-87-27 13:20:0511.1[facility] HermannELECTROLYTES 2016-07-10 13:20:99454Ftemjxly EjhgoddNLSXIHQNURQW1896-84-99 13:20:45124Enghbmfn KdnilowSHCJGZROZQKD3219-40-64 13:20:05951Unicqgdo FftdgvnGGYRFSXJMXBG8249-52-05 13:20:050.55[facility] RqurvfaLXQDTCOSFYOE4472-75-76 13:20:0513[facility] LWGIGMNQCZNO4605-91-61 13:20:054.1[facility] LodfpnvOZVGFBCLRBGP2113-88-39 13:20:058.8[facility] QdndohfMGCIMCWRJZWF6892-79-64 13:20:72917Vlbsswoi [facility] BDPKOXAVZVRC3795-95-43 13:20:0530[facility] MrdysbtOMNUADKWQZ1167-60-19 13:20:05 23.8[facility] EhylwltWSNCXYCBIN0709-93-96 13:20:0566.5[facility]annHEMATOLOGY 2016-07-10 13:20:050.1[facility] HmapjofTRGBPNBMRI0997-02-37 13:20:050.3[facility] GjtiazdMFKXDLGJSN7912-07-73 13:20:051.1[facility] GyzwmmxOCWLVZJBLD1867-38-40 13:20:053.2[facility] SwwibdmLFKBIHWAYK9194-56-88 13:20:050.6[facility] AHBHUVABYK9732-23-96 13:20:052.4[facility] UdjoixuOJSWUJDELK5950-48-62 13:20:056.7 [facility] XufukrgORKFACIDAR2654-64-60 13:20:057.0[facility]annHEMATOLOGY 2016-07-10 13:20:0513.3[facility] BgbqqnqUQVREAKARR7583-90-49 13:20:01700Zkeslzco CfqhczuVLMTXTTWHI0989-13-77 13:20:054.9[facility] CjackbsLRISDPQHNN4913-69-18 13:20:058.3[facility] GjtjsjeVHMSZEZNTT8106-97-02 13:20:052.68[facility] AFFKPGRFJM5812-31-07 13:20:0533.9[facility] PrxajtcCXMOSZCWUT1801-39-44 13:20:05* Test Item Value Reference Range Interpretation Comments MCH (test code = MCH) 31.1 pg 27.0-31.0 [facility] HjiadlgJTBFSEIVFH6734-68-27 13:20:0524.5[facility]annHEMATOLOGY 2016-07-10 13:20:0591.7[facility] HermannCHEM KLGNY3597-53-01 12:25:46278Iufnbjvp HermannCHEM IMPFE9622-63-86 12:25:72328Fuqsairp HermannCHEM IAFWX9562-92-59 12:25:0012[facility] HermannCHEM DZTSK4681-43-97 12:25:008.6[facility] HermannCHEM TBSGL9515-40-41 12:25:000.58[facility] HermannCHEM UURZK6480-59-32 12:25:88247 [facility]annCHEM BQZRH5582-14-89 12:25:68881Rqomvvhp HermannCHEM PANEL 2016-07-07 12:25:0026[facility]annCHEM TRIJW7410-08-36 12:25:003.8[facility]annCHEM YYJRU3506-18-56 12:25:0012.8[facility] QywckjvAMCBDTKPMN1025-99-95 12:25:37138Zhudwhfd EintvuhODTQBAWPJZ1658-26-32 12:25:0033.8[facility] EFQZBUJDTB5921-73-53 12:25:004.7[facility] HpfwremVJCQBYQJWE8903-16-01 12:25:007.9 [facility] WqldaodOPNZQCLBUX3008-64-35 12:25:002.57[facility]annHEMATOLOGY 2016-07-07 12:25:0091.0[facility] GbslugwJWRGSRYBFD6332-57-03 12:25:0013.1[facility] WazspcgIVHWZFIFCK5142-29-46 12:25:00* Test Item Value Reference Range Interpretation Comments MCH (test code = MCH) 30.7 pg 27.0-31.0 [facility] EifdasqKSXYNEWZHA5200-13-99 12:25:006.6[facility]annHEMATOLOGY 2016-07-07 12:25:0023.4[facility] JazcjgeEAJZFJCQJO9173-17-10 12:25:003.1[facility] ZwhgzfuFBXQEVOQOE5095-48-36 12:25:000.6[facility] JmqrgdgTJLYLRUTMD0161-74-44 12:25:0020.3[facility] SffzldoHNBNZKWPYX9689-21-94 12:25:0067.3[facility] SQNZYCCXBX9115-25-47 12:25:008.7[facility] SndkipyCDXUCYCNBG6877-12-30 12:25:000.4 [facility] UejwtqrNVPZRMRIRL1609-63-11 12:25:000.1[facility]OLOGY 2016-07-07 12:25:003.2[facility] OgwnnkyKZLLXNMXQZ7670-05-35 12:25:001.0[facility] DtvxcjjDUFMNBUVJB1536-22-71 12:25:0020.6[facility] FkvucyoFNBLSGIDYH8432-05-25 12:25:000[facility]annURINE AND AIPAW2168-53-23 00:24:00Negative (07/05/16 6:24 PM)[facility] XrcjphcBLHJISJUVH1949-10-48 23:54:000[facility]annTOXICOLOGY 2016-07-05 23:54:0010.1[facility] BxbyuqiIVZKDVFENOHS8922-40-28 11:55:1411.8 [facility] DdolekiFSIBZLJXIIKW6382-96-61 11:55:56496Ziewtbqj HermannELECTROLYTES 2016-07-05 11:55:30116Areafjfs WidvmhpSPYFQBKAKYFR9775-83-09 11:55:140.64 [facility] MegohbyRDOYTLWZYJVE0045-12-64 11:55:143.8[facility] HermannELECTROLYTES 2016-07-05 11:55:1410[facility] UvmhqapGATXYMEPOSMX3800-96-94 11:55:1499[facility] QijsanjONOYILESLSGG4478-93-12 11:55:1430[facility] JjiulnkDHFYNBXKSWAY6698-39-12 11:55:148.4[facility] MrrvjfmGUFDPRHICZMJ0841-71-02 11:55:31589Xgqmicaa Kennard BJKKKSHTIM1533-51-51 11:55:140.1[facility] KmkvwwvDRDYOJXXIC7718-31-11 11:55:141.5 [facility] XeoixzaNIIIYHMWWD1213-27-85 11:55:1482.7[facility]annHEMATOLOGY 2016-07-05 11:55:149.0[facility] SlkwgvxWOGIBLEYYH9163-35-50 11:55:146.6[facility] LonavvaMJLLACDGWO2881-68-96 11:55:140.2[facility] VpnplvvAUFWBJVBAB7517-55-59 11:55:140.6[facility] KmiozewMRXXVRPCIO4146-78-74 11:55:145.6[facility] RIAINMDZWI5156-25-94 11:55:140.4[facility] LkqokgdZCWDWSTIMN7123-41-96 11:55:14 90.7[facility] HmdinnkBDRAKDNQHK5120-98-62 11:55:1423.8[facility]annHEMATOLOGY 2016-07-05 11:55:14* Test Item Value Reference Range Interpretation Comments MCH (test code = MCH) 31.7 pg 27.0-31.0 [facility] DnnklftPIULQRFHHM8398-14-56 11:55:148.3[facility]annHEMATOLOGY 2016-07-05 11:55:142.62[facility] ScomgphHMMKVSGEMM5892-10-34 11:55:1413.0[facility] RkjlxwlLIMUCYOPNB8156-51-56 11:55:15202Ovmfqgrx NcjocygBLRNOUHAWE3595-41-65 11:55:146.6[facility] HqenrgrEPHNTLJHUL5684-27-98 11:55:1435.0[facility] UYZITJJXLU4751-73-68 11:55:146.8[facility] HermannCHEM OWNLU3876-21-48 09:48:001.0 [facility]annCHEM FLRBD9006-95-06 09:48:003.8[facility]annCHEM PANEL 2016-06-30 09:48:0030[facility] HermannCHEM DETNT3373-36-61 09:48:000.4[facility]annCHEM XADGI9788-13-99 09:48:0014[facility] HermannCHEM OOAMF0260-78-28 09:48:0072[facility] HermannCHEM GEIRG0836-58-72 09:48:006.9[facility]annCHEM OCPTV4445-17-95 09:48:003.1[facility]annCHEM ZRNKK2469-90-86 09:48:001.2 [facility]annCHEM DWJXU3280-50-90 09:48:0020[facility]URINE AND STOOL 2016-06-30 09:35:00Clear (06/30/16 3:35 AM)[facility] STOOL 2016-06-30 09:35:007.0[facility] AND MHQCC0632-94-96 09:35:001.005 [facility] PGVYX4027-54-19 09:35:00Small *ABN*(06/30/16 3:35 AM) [facility] GKDTG2457-08-44 09:35:00Negative (06/30/16 3:35 AM) [facility] ARTTF3196-23-99 09:35:00Negative (06/30/16 3:35 AM) [facility] DZLCV2715-96-26 09:35:00Negative *NA*(06/30/16 3:35 AM) [facility] QJORQ6530-23-13 09:35:001[facility] YCMAO9118-40-67 09:35:0010[facility]annCHEST 2 VIEWS [facility] [address], [place] [address] Patient Name: MAKAYLA BEE MR #: [id number] : 1960 Age/Sex: 57/F Req #: [id number] Adm Physician: Ordered by: LEWIS BISHOP MD Report #: [id number] Location: ER Room/Bed: Procedure: [id number] DX/CHEST 2 VIEWS Exam Date: Exam Time: [...] TO: LEWIS BISHOP MD CT BRAIN WO [facility] [address], [place] [address] Patient Name: MAKAYLA BEE MR #: [id number] : 1960 Age/Sex: 57/F Req #: [id number] Adm Physician: Ordered by: LEWIS BISHOP MD Report #: [id number] Location: ER Room/Bed: Procedure: [id number] CT/CT BRAIN WO Exam Date: 07/28 Exam [...] T O: LEWIS BISHOP MD FINGER LEFT [place] [address] Patient Name: MAKAYLA BEE MR #: [id number] : 1960 Age/Sex: 57/F Req #: [id number] Adm Physician: Ordered by: LEWIS BISHOP MD Report #: [id number] Location: ER Room/Bed: Procedure: [id number] DX/FINGER LEFT Exam Date: 07/28 Exam Time: [...] TO: LEWIS BISHOP MD CT BRAIN WO [place] [address] Patient Name: MAKAYLA BEE MR #: [id number] : 1960 Age/Sex: 56/F Req #: [id number] Adm Physician: Ordered by: THEA TYSON MD Report #: [id number] Location: ER Room/Bed: Procedure: [id number] CT/CT BRAIN WO Exam Date: Exam Time: [...] MD 15 Transcribed By: PRAVEEN on 03/28/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 IMPRESSION: No a cute cardiopulmonary disease. Koe Loo MD Signed by: Dr. Keo Loo MSuze on 03/28/2017 8:38 PM Dictated By: KEO LOO MD E lectronically Signed By: KEO LOO MD on 03/28/172037 Transcribed By: Vida SULLIVAN on 03/28/172037 COPY TO: THEA TYSON MD CT CHEST [place] [address] Patient Name: MAKAYLA BEE MR #: [id number] : 06/1960 Age/Sex: 56/F Req #: [id number] Adm Physician: Ordered by: TATIANA PRICE MD Report #: [id number] Location: CT Room/Bed: Procedure: [id number] CT/CT CHEST WO Exam Date: 03/10 12/24 [...] MARINO BHAKTA MD 57 COPY TO: LINDA PRICE MD
[2020-04-30 14:45] LABS: BASOPHILS % 0.6 % (0.0-1.0); EOSINOPHILS # (AUTO) 0.3 (0.0-0.4); EOSINOPHILS % 4.1 % (0.0-6.0); HEMATOCRIT 31.7 % (34.2-44.1); MEAN CORPUSCULAR HEMOGLOBIN 32.2 pg (28-32); MEAN CORPUSCULAR HGB CONC 34.7 g/dL (31-35); MEAN CORPUSCULAR VOLUME 92.7 fL (81-99); MONOCYTES # (AUTO) 0.4 (0.2-0.8); MONOCYTES % 6.5 % (4.4-11.3); NEUTROPHILS % 58.5 % (38.7-80.0); PLATELET COUNT 257 x10e3/uL (140-360); RED BLOOD COUNT 3.42 x10e6/uL (3.6-5.1)
[2020-04-30 14:54] LABS: CLARITY,URINE HAZY (CLEAR); COLOR,URINE YELLOW (YELLOW); LEUKOCYTE ESTERASE ,URINE SMALL (NEGATIVE); NITRITE,URINE NEGATIVE (NEGATIVE)
[2020-04-30 14:55] LABS: BILIRUBIN,URINE NEGATIVE (NEGATIVE); KETONES,URINE NEGATIVE (NEGATIVE); PROTEIN,URINE DIPSTICK TRACE (NEGATIVE); URINE UROBILINOGEN 0.2 mg/dL (0.2 - 1)
[2020-04-30 15:05] LABS: BACTERIA,URINE FEW /HPF; EPITHELIAL CELLS,URINE FEW /LPF
[2020-04-30 15:20] LABS: ALANINE AMINOTRANSFERASE 22 IU/L (0-55); ALBUMIN 4.5 g/dL (3.5-5.0); ALBUMIN/GLOBULIN RATIO 1.6 (0.8-2.0); ALKALINE PHOSPHATASE 72 IU/L (40-150); ANION GAP 18.9 mmol/L (8-16); BLOOD UREA NITROGEN 17 mg/dL (7-26); BUN/CREATININE RATIO 23 (6-25); CALCIUM 9.4 mg/dL (8.4-10.2); CARBON DIOXIDE 23 mmol/L (22-29); CHLORIDE 100 mmol/L (98-107); CREATININE, SERUM 0.75 mg/dL (0.57-1.11); EST GLOMERULAR FILTRATION RATE > 60 ML/MIN (60-); GLUCOSE 144 mg/dL (74-118); POTASSIUM 3.9 mmol/L (3.5-5.1); SODIUM 138 mmol/L (136-145)
--- NOTE | 2020-04-30 15:37 | Diagnostic Imaging Report ---
EXAM: CT Abdomen and Pelvis WITHOUT contrast INDICATION: ^Y ^flank pain COMPARISON: Multiple prior CTs of the abdomen/pelvis including most recent on 02/08/2020 TECHNIQUE: Abdomen and pelvis were scanned utilizing a multidetector helical scanner from the lung base to the pubic symphysis without administration of IV contrast. Absence of intravenous contrast decreases sensitivity for detection of focal lesions and vascular pathology. Coronal and sagittal reformations were obtained. Routine protocol was performed. IV CONTRAST: None ORAL CONTRAST: None COMPLICATIONS: None RADIATION DOSE: Total DLP: 565 mGy*cm Estimated effective dose: (DLP x 0.015 x size factor) mSv CTDIvol has been reviewed. It is below the limits set by the Radiation Protocol Committee (RPC). Dose modulation, iterative reconstruction, and/or weight based adjustment of the mA/kV was utilized to reduce the radiation dose to as low as reasonably achievable. FINDINGS: LINES and TUBES: Interval placement of right ureteral stent which terminates in the urinary bladder lumen. LOWER THORAX: Unremarkable HEPATOBILIARY: No focal hepatic lesions. No biliary ductal dilation. GALLBLADDER: There are cholecystectomy clips. SPLEEN: No splenomegaly. PANCREAS: No focal masses or ductal dilatation. ADRENALS: No adrenal nodules KIDNEYS/URETERS: No hydronephrosis. No cystic or solid mass lesions. There are multiple nonobstructive stones in the lower pole of the right kidney. There is bilateral extrarenal pelvises as before. GI TRACT: No abnormal distention, wall thickening, or evidence of bowel obstruction. Large stool burden in the rectum and sigmoid colon. Appendix is normal. PELVIC ORGANS/BLADDER: Unremarkable. LYMPH NODES: No lymphadenopathy. VESSELS: Scattered mild arterial vascular calcifications. PERITONEUM / RETROPERITONEUM: No free air or fluid. BONES: There are degenerative changes in the spine. SOFT TISSUES: Unremarkable. IMPRESSION: 1. Nonobstructive right nephrolithiasis with right-sided ureteral stent in place. No evidence of obstructive uropathy. 2. Large stool burden in the sigmoid colon and rectum which can present clinically as constipation. Signed by: Marry Groves MD on 04/30/2020 3:33 PM
--- NOTE | 2020-04-30 15:43 | Emergency Department Note ---
History of Present Illnes History of Present Illness Chief Complaint: General Medicine Complaints History of Present Illness This is a 59 year old female arrived to the ED with complaints of abdominal pain back pain and wants to be evaluated because she has a kidney that in place since March. Chief Complaint Comment PT C/O ABD PAIN RAD TO BACK AND CHECK. HX OF KIDNEY STENTS AND KIDNEY STONES. HAS HAD STENTS IN SINCE MARCH. C/O WORSENING BURNING WITH URINATION AND FEVER AT HOME. Historian: Patient Arrival Mode: [place] Onset (how long ago): day(s) Radiation: Reports non-radiation Severity: mild Duration (how long): day(s) Progression: unchanged Chronicity: recurrent Past Medical/Family History Physician Review I have reviewed the patient's past medical and family history. Any updates have been documented here. 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 LAST PET SCAN 2009 MYELO DYSPLASIA NON HODGKINS LYMPHOMA Review of Systems Review of Systems Constitutional: Reports no symptoms EENTM: Reports no symptoms Cardiovascular: Reports no symptoms Respiratory: Reports no symptoms Gastrointestinal: Reports no symptoms Genitourinary: Reports as per HPI Musculoskeletal: Reports no symptoms Integumentary: Reports no symptoms Neurological: Reports no symptoms Psychological: Reports no symptoms Endocrine: Reports no symptoms Hematological/Lymphatic: Reports no symptoms Physical Exam Related Data Allergies: Coded Allergies: Iodinated Contrast Media (Verified Allergy, Severe, STOPS BREATHING, 03/28/20) Penicillins (Verified Allergy, Severe, STOPS BREATHING, 03/28/20) hydromorphone HCl (Verified Adverse Reaction, Severe, STOPS BREATHING STATES SHE COLLAPSED DUE TO HIGH DOSAGE, 03/28/20) morphine (Verified Adverse Reaction, Intermediate, VOMITING, 03/28/20) ketorolac tromethamine (Verified Adverse Reaction, Mild, STOPS BREATHING STATES SHE COLLAPSED DUE TO HIGH DOSAGE, 03/28/20) Triage Vital Signs Vital Signs Date Time Temp Pulse Resp B/P (MAP) Pulse Ox O2 Delivery O2 Flow Rate FiO2 04/30/20 14:13 98.9 78 18 131/79 100 Room Air Vital signs reviewed: Yes Physical Exam CONSTITUTIONAL Constitutional: Present well-developed, Present well-nourished HENT HENT: Present normocephalic, Present atraumatic, Present oropharynx clear/moist, Present nose normal HENT L/R: Present left ext ear normal, Present right ext ear normal EYES Eyes: Reports PERRL, Reports conjunctivae normal NECK Neck: Present ROM normal PULMONARY Pulmonary: Present effort normal, Present breath sounds normal CARDIOVASCULAR Cardiovascular: Present regular rhythm, Present heart sounds normal, Present capillary refill normal, Present normal rate GASTROINTESTINAL Abdominal: Present soft, Present nontender, Present bowel sounds normal GENITOURINARY Genitourinary: Present exam deferred SKIN Skin: Present warm, Present dry MUSCULOSKELETAL Musculoskeletal: Present ROM normal NEUROLOGICAL Neurological: Present alert, Present oriented x 3, Present no gross motor or sensory deficits PSYCHOLOGICAL Psychological: Present mood/affect normal, Present judgement normal Results Laboratory Result Diagram: 04/30/20 1432 04/30/20 1432 Laboratory Laboratory Tests Test 04/30/20 14:32 04/30/20 14:12 White Blood Count 6.77 x10e3/uL (4.8-10.8) Red Blood Count 3.42 x10e6/uL (3.6-5.1) Hemoglobin 11.0 g/dL (12.0-16.0) Hematocrit 31.7 % (34.2-44.1) Mean Corpuscular Volume 92.7 fL (81-99) Mean Corpuscular Hemoglobin 32.2 pg (28-32) Mean Corpuscular Hemoglobin Concent 34.7 g/dL (31-35) Red Cell Distribution Width 12.0 % (11.7-14.4) Platelet Count 257 x10e3/uL (140-360) Neutrophils (%) (Auto) 58.5 % (38.7-80.0) Lymphocytes (%) (Auto) 30.0 % (18.0-39.1) Monocytes (%) (Auto) 6.5 % (4.4-11.3) Eosinophils (%) (Auto) 4.1 % (0.0-6.0) Basophils (%) (Auto) 0.6 % (0.0-1.0) Neutrophils # (Auto) 4.0 (2.1-6.9) Lymphocytes # (Auto) 2.0 (1.0-3.2) Monocytes # (Auto) 0.4 (0.2-0.8) Eosinophils # (Auto) 0.3 (0.0-0.4) Basophils # (Auto) 0.0 (0.0-0.1) Absolute Immature Granulocyte (auto 0.02 x10e3/uL (0-0.1) Sodium Level 138 mmol/L (136-145) Potassium Level 3.9 mmol/L (3.5-5.1) Chloride Level 100 mmol/L (98-107) Carbon Dioxide Level 23 mmol/L (22-29) Anion Gap 18.9 mmol/L (8-16) Blood Urea Nitrogen 17 mg/dL (7-26) Creatinine 0.75 mg/dL (0.57-1.11) Estimat Glomerular Filtration Rate > 60 ML/MIN (60-) BUN/Creatinine Ratio 23 (6-25) Glucose Level 144 mg/dL (74-118) Calcium Level 9.4 mg/dL (8.4-10.2) Total Bilirubin 0.2 mg/dL (0.2-1.2) Aspartate Amino Transf (AST/SGOT) 19 IU/L (5-34) Alanine Aminotransferase (ALT/SGPT) 22 IU/L (0-55) Alkaline Phosphatase 72 IU/L (40-150) Total Protein 7.4 g/dL (6.5-8.1) Albumin 4.5 g/dL (3.5-5.0) Globulin 2.9 g/dL (2.3-3.5) Albumin/Globulin Ratio 1.6 (0.8-2.0) Urine Color Yellow (YELLOW) Urine Clarity Hazy (CLEAR) Urine pH 5.5 (5 - 7) Urine Specific [place] 1.015 (1.010-1.025) Urine Protein Trace (NEGATIVE) Urine Glucose (UA) Negative (NEGATIVE) Urine Ketones Negative (NEGATIVE) Urine Blood Large (NEGATIVE) Urine Nitrite Negative (NEGATIVE) Urine Bilirubin Negative (NEGATIVE) Urine Urobilinogen 0.2 mg/dL (0.2 - 1) Urine Leukocyte Esterase Small (NEGATIVE) Urine RBC 11-20 /HPF (0-5) Urine WBC 11-20 /HPF (0-5) Urine Epithelial Cells Few /LPF (NONE) Urine Bacteria Few /HPF (NONE) Lab results reviewed: Yes Imaging Imaging results reviewed: Yes Assessment & Plan Medical Decision Making MDM 59-year-old well-appearing female arrived to the ED with complaints of flank pain and requesting her stent removed. Patient afebrile, no leukocytosis. CT findings show stent in appropriate place with no evidence of hydronephrosis. Patient tolerating oral intake. Patient is scheduled for stent removal in May by her urologist. Findings discussed with Dr. Evans and he was aware of the patient's visit to the ED. No indications for hospital admission at this time. Patient's pain is well-controlled and she was stable for discharge home. Assessment & Plan Final Impression: (1) UTI (urinary tract infection) Depart Disposition: HOME, SELF-CARE Last Vital Signs Date Time Temp Pulse Resp B/P (MAP) Pulse Ox O2 Delivery O2 Flow Rate FiO2 04/30/20 14:13 98.9 78 18 131/79 100 Room Air Home Meds Active Scripts Ondansetron Hcl* (ZOFRAN*) 4 Mg Tablet, 4 MG SL Q6H PRN for NAUSEA, #14 MG 0 Refills Prov:JACQUIERKB, DO 04/30/20 Tramadol Hcl (ULTRAM) 50 Mg Tablet, 50 MG PO Q6HR PRN for ABDOMINAL PAIN, #12 TAB Prov:KB GARCIA, DO 04/30/20 Cefuroxime Axetil (CEFUROXIME) 250 Mg Tablet, 250 MG PO Q12H, #20 TAB Prov:KB GARCIA, DO 04/30/20 Reported Medications Icosapent Ethyl (Vascepa) 1 Gm Capsule, 2 CAP PO BID 03/28/20 Lovastatin (LOVASTATIN) 40 Mg Tablet, 40 MG PO DAILY THERAPEUTICALLY SUBSTITUTED WITH SIMVASTATIN 20MG 03/28/20 Nebivolol Hcl (BYSTOLIC) 10 Mg Tablet, 5 MG PO DAILY, TAB 03/28/20 Ubidecarenone (COQ-10) 100 Mg Capsule, 1 CAP PO DAILY 03/28/20 Metformin Hcl (METFORMIN HCL) 500 Mg Tablet, 500 MG PO TID, #60 TAB 03/28/20 Sertraline Hcl (SERTRALINE HCL) 50 Mg Tablet, 50 MG PO DAILY, #30 TAB 03/28/20 Cholecalciferol (Vitamin D3) (VITAMIN D3) 400 Unit Tab.chew, 1 TAB PO DAILY 02/17/16 Vit No.78/Iron/Fa (PRENATABS FA TABLET) 1 Each Tablet, 1 TAB PO DAILY 02/17/16 Potassium Chloride (POTASSIUM CHLORIDE) 20 Meq Tab.er.prt, 20 MEQ PO DAILY 02/17/16 Hydrochlorothiazide (HYDROCHLOROTHIAZIDE) 12.5 Mg Capsule, 12.5 MG PO DAILY 02/17/16 Aspirin (ASPIR 81) 81 Mg Tablet.dr, 81 MG PO DAILY 02/17/16 Magnesium Oxide (MAGNESIUM OXIDE) 400 Mg Tablet, 250 MG PO DAILY, TAB 02/17/16 Lorazepam (LORAZEPAM) 1 Mg Tablet, 1 MG PO DAILY PRN for ANXIETY, TAB 02/17/16 Gabapentin (GABAPENTIN) 100 Mg Capsule, 200 MG PO BID 02/17/16 Esomeprazole Magnesium (NEXIUM) 40 Mg Capsule.dr, 40 MG PO DAILY PROTONIX THERAPEUTIC SUBSTITUTE FOR NEXIUM PER [facility] 02/17/16 KB GARCIA DO Apr 30, 2020 15:43
[2020-04-30] MEDS ORDERED: CEFUROXIME250 MG PO (16:10)
[2020-04-30] MEDS ORDERED: ULTRAM50 MG PO (16:10)
[2020-04-30] MEDS ORDERED: ZOFRAN4 MG SL (16:10)
== END 2020-04-30 17:13 | disposition home or self-care (01) ==
LOC: ER 14:28
DX: N39.0 Urinary tract infection, site not specified (principal); M54.5 Low back pain; E11.65 Type 2 diabetes mellitus with hyperglycemia; I10 Essential (primary) hypertension; K21.9 Gastro-esophageal reflux disease without esophagitis; Z85.72 Personal history of non-Hodgkin lymphomas; Z86.73 Personal history of transient ischemic attack (TIA), and cerebral infarction without residual deficits
CPT/HCPCS: 36415; 74176; 80053; 81001; 85025; 87086; 93005; 99284

== ENCOUNTER → 2020-05-25 | Day surgery (SDC) | payer MEDICARE, OTHER ==
[~2020-05-25] MED LIST changes: +B&O 60MG R/S 60 MG SUPP PR ONE; +CEFUROXIME250 MG PO; +DEXAMETHASONE SOD PHOS INJ 4 MG/ML VIAL ONE; +GENTAMICIN 80MG/NS 100 ML 200 ML IV ONE; +IOPAMIDOL 300MG/ML 50ML INFUS..BTL IV ONE; +LIDOCAINE HCL 2% JELLY 5 ML TUBE ONE; +LIDOCAINE HCL 2% LOCAL INJ 5 ML SDV VIAL INJ ONE; +MIDAZOLAM HCL 2 MG/2 ML VIAL ONE; +ONDANSETRON HCL INJ 2MG/ML 2ML 2 MG/ML VIAL ONE; +PROPOFOL IV EMULSION 10 MG/ML 20 ML VIAL ONE; +ROCURONIUM BROMIDE 10 MG/ML 5ML VIAL IV ONE; +SEVOFLURANE INHAL SOLN 250 ML PEN BTL ONE; +ULTRAM50 MG PO; +ZOFRAN4 MG SL
[2020-05-25 11:45] VITALS: BP 122/71
== END | disposition home or self-care (01) ==
LOC: OR 06:36
PROVIDERS: ATTEND Urology
DX: N20.0 Calculus of kidney (principal); N13.5 Crossing vessel and stricture of ureter without hydronephrosis; N13.30 Unspecified hydronephrosis; Z46.6 Encounter for fitting and adjustment of urinary device; N81.10 Cystocele, unspecified; N95.2 Postmenopausal atrophic vaginitis; I69.354 Hemiplegia and hemiparesis following cerebral infarction affecting left non-dominant side; K21.9 Gastro-esophageal reflux disease without esophagitis; I10 Essential (primary) hypertension; F41.9 Anxiety disorder, unspecified; F32.9 Major depressive disorder, single episode, unspecified; Z01.812 Encounter for preprocedural laboratory examination; Z01.818 Encounter for other preprocedural examination; Z20.828 Contact with and (suspected) exposure to other viral communicable diseases; Z79.84 Long term (current) use of oral hypoglycemic drugs; Z79.82 Long term (current) use of aspirin; Z85.72 Personal history of non-Hodgkin lymphomas
CPT/HCPCS: 36415; 74018; 74420; 82948; 87086; 88300; C1766; C1769; C2617; J1100; J1580; J2001; J2250; J2405; U0002

== ENCOUNTER 2020-06-06 16:26 | Inpatient (IN) | payer MEDICARE ==
[~2020-06-06] VITALS: Ht 167.6 cm; Wt 61.7 kg
[~2020-06-06 16:26] MED LIST changes: -B&O 60MG R/S 60 MG SUPP PR ONE; -DEXAMETHASONE SOD PHOS INJ 4 MG/ML VIAL ONE; -GENTAMICIN 80MG/NS 100 ML 200 ML IV ONE; -IOPAMIDOL 300MG/ML 50ML INFUS..BTL IV ONE; -LIDOCAINE HCL 2% JELLY 5 ML TUBE ONE; -LIDOCAINE HCL 2% LOCAL INJ 5 ML SDV VIAL INJ ONE; -MIDAZOLAM HCL 2 MG/2 ML VIAL ONE; -ONDANSETRON HCL INJ 2MG/ML 2ML 2 MG/ML VIAL ONE; -PROPOFOL IV EMULSION 10 MG/ML 20 ML VIAL ONE; -ROCURONIUM BROMIDE 10 MG/ML 5ML VIAL IV ONE; -SEVOFLURANE INHAL SOLN 250 ML PEN BTL ONE
[2020-06-06] MEDS ORDERED: CEFEPIME 1GM/NS 0.9% 50 ML 50 ML IV ONE (17:15)
[2020-06-06] MEDS ORDERED: ACETAMINOPHEN 325 MG TAB ONE (17:17)
[2020-06-06] MEDS ORDERED: SODIUM CHLORIDE 0.9% 1000ML 1,000 ML ONE (17:17)
[2020-06-06] MEDS ORDERED: ONDANSETRON HCL INJ 2MG/ML 2ML 2 MG/ML VIAL ONE (17:17)
[2020-06-06] MEDS ORDERED: ONDANSETRON HCL INJ 2MG/ML 2ML 2 MG/ML VIAL IV STA (17:26)
[2020-06-06 17:28] LABS: BASOPHILS # (AUTO) 0.1 (0.0-0.1); BASOPHILS % 0.4 % (0.0-1.0); EOSINOPHILS # (AUTO) 0.1 (0.0-0.4); EOSINOPHILS % 0.7 % (0.0-6.0); HEMATOCRIT 33.6 % (34.2-44.1); LYMPHOCYTES # (AUTO) 2.2 (1.0-3.2); LYMPHOCYTES % 19.5 % (18.0-39.1); MEAN CORPUSCULAR HEMOGLOBIN 30.1 pg (28-32); MEAN CORPUSCULAR HGB CONC 32.7 g/dL (31-35); MEAN CORPUSCULAR VOLUME 91.8 fL (81-99); MONOCYTES % 8.7 % (4.4-11.3); NEUTROPHILS % 70.3 % (38.7-80.0); PLATELET COUNT 316 x10e3/uL (140-360); RED BLOOD COUNT 3.66 x10e6/uL (3.6-5.1); RED CELL DISTRIBUTION WIDTH 12.3 % (11.7-14.4)
[2020-06-06] MEDS ORDERED: SODIUM CHLORIDE 0.9% 1000ML 1,000 ML IV SCH (17:30)
[2020-06-06] MEDS ORDERED: ACETAMINOPHEN 325 MG TAB PO ONE (17:30)
[2020-06-06 17:42] LABS: INR 0.88; PARTIAL THROMBOPLASTIN TIME 29.1 seconds (23.8-35.5); PROTHROMBIN TIME 12.4 seconds (11.9-14.5)
[2020-06-06] MEDS ORDERED: SODIUM CHLORIDE 0.9% 1000ML 1,000 ML IV ONE (17:45)
[2020-06-06 17:46] LABS: ALANINE AMINOTRANSFERASE 22 IU/L (0-55); ALBUMIN 4.6 g/dL (3.5-5.0); ALBUMIN/GLOBULIN RATIO 1.5 (0.8-2.0); ALKALINE PHOSPHATASE 58 IU/L (40-150); ANION GAP 17.9 mmol/L (8-16); BLOOD UREA NITROGEN 13 mg/dL (7-26); BUN/CREATININE RATIO 17 (6-25); CALCIUM 10.3 mg/dL (8.4-10.2); CARBON DIOXIDE 27 mmol/L (22-29); CHLORIDE 95 mmol/L (98-107); CREATININE, SERUM 0.78 mg/dL (0.57-1.11); EST GLOMERULAR FILTRATION RATE > 60 ML/MIN (60-); GLUCOSE 116 mg/dL (74-118); POTASSIUM 3.9 mmol/L (3.5-5.1); SODIUM 136 mmol/L (136-145)
[2020-06-06 17:51] LABS: CLARITY,URINE SL CLOUDY (CLEAR); COLOR,URINE YELLOW (YELLOW); LEUKOCYTE ESTERASE ,URINE SMALL (NEGATIVE)
[2020-06-06 17:52] LABS: BACTERIA,URINE FEW /HPF; EPITHELIAL CELLS,URINE RARE /LPF; KETONES,URINE NEGATIVE (NEGATIVE); NITRITE,URINE NEGATIVE (NEGATIVE); PROTEIN,URINE DIPSTICK TRACE (NEGATIVE); URINE UROBILINOGEN 0.2 mg/dL (0.2 - 1)
[2020-06-06] MEDS: SODIUM CHLORIDE 0.9% 1000ML 1,000 ML IV SCH (19:08)
[2020-06-06] MEDS ORDERED: CEFEPIME HCL 1 GM VIAL IV SCH (22:00)
[2020-06-07] MEDS ORDERED: NEXIUM40 MG PO (00:34)
[2020-06-07] MEDS ORDERED: VITAMIN D310 MCG PO (00:34)
[2020-06-07] MEDS: CEFEPIME 1GM/NS 0.9% 50 ML 50 ML IV SCH ×3 (01:37→18:11)
[2020-06-07] MEDS: ONDANSETRON HCL INJ 2MG/ML 2ML 2 MG/ML VIAL IV PRN (02:09)
[2020-06-07] MEDS: ACETAMINOPHEN 325 MG TAB PO PRN ×3 (02:17→18:11)
[2020-06-07] MEDS: SODIUM CHLORIDE 0.9% 1000ML 1,000 ML IV SCH ×3 (03:03→21:41)
[2020-06-07 04:14] LABS: BASOPHILS % 0.2 % (0.0-1.0); EOSINOPHILS # (AUTO) 0.1 (0.0-0.4); EOSINOPHILS % 0.8 % (0.0-6.0); HEMATOCRIT 26.8 % (34.2-44.1); HEMOGLOBIN 8.9 g/dL (12.0-16.0); LYMPHOCYTES # (AUTO) 1.3 (1.0-3.2); LYMPHOCYTES % 15.2 % (18.0-39.1); MEAN CORPUSCULAR HEMOGLOBIN 30.8 pg (28-32); MEAN CORPUSCULAR HGB CONC 33.2 g/dL (31-35); MEAN CORPUSCULAR VOLUME 92.7 fL (81-99); MONOCYTES # (AUTO) 0.9 (0.2-0.8); MONOCYTES % 10.5 % (4.4-11.3); NEUTROPHILS # (AUTO) 6.3 (2.1-6.9); NEUTROPHILS % 73.1 % (38.7-80.0); PLATELET COUNT 238 x10e3/uL (140-360); RED BLOOD COUNT 2.89 x10e6/uL (3.6-5.1); RED CELL DISTRIBUTION WIDTH 12.2 % (11.7-14.4)
[2020-06-07 04:34] LABS: ALANINE AMINOTRANSFERASE 22 IU/L (0-55); ALBUMIN 3.4 g/dL (3.5-5.0); ALBUMIN/GLOBULIN RATIO 1.5 (0.8-2.0); ALKALINE PHOSPHATASE 47 IU/L (40-150); ANION GAP 12.8 mmol/L (8-16); BLOOD UREA NITROGEN 10 mg/dL (7-26); BUN/CREATININE RATIO 15 (6-25); CALCIUM 8.3 mg/dL (8.4-10.2); CARBON DIOXIDE 26 mmol/L (22-29); CHLORIDE 103 mmol/L (98-107); CREATININE, SERUM 0.65 mg/dL (0.57-1.11); EST GLOMERULAR FILTRATION RATE > 60 ML/MIN (60-); GLUCOSE 151 mg/dL (74-118); POTASSIUM 3.8 mmol/L (3.5-5.1); SODIUM 138 mmol/L (136-145)
[2020-06-07 13:30] VITALS: BP 115/60
[2020-06-07] MEDS ORDERED: BYSTOLIC10 MG PO (15:53)
[2020-06-07] MEDS ORDERED: VASCEPA1 GM PO (15:53)
[2020-06-07 16:35] VITALS: BP 133/68
[2020-06-07] MEDS: ICOSAPENT ETHYL 1 GM PO SCH (17:00)
[2020-06-07] MEDS: GABAPENTIN 100 MG CAP PO SCH (18:11)
[2020-06-07 20:54] VITALS: BP 107/60
[2020-06-07] MEDS: METFORMIN HCL 500 MG TAB PO SCH (21:41)
[2020-06-07] MEDS: SIMVASTATIN 20 MG TAB PO SCH (21:41)
[2020-06-07] MEDS: LORAZEPAM 1 MG TAB PO PRN (21:41)
[2020-06-07 21:55] VITALS: BP 107/60
[2020-06-08] VITALS (8 sets, daily range): BP systolic 107–130; BP diastolic 52–76
[2020-06-08] MEDS: CEFEPIME 1GM/NS 0.9% 50 ML 50 ML IV SCH ×3 (02:06→17:00)
[2020-06-08] MEDS: ACETAMINOPHEN 325 MG TAB PO PRN ×4 (03:00→20:21)
[2020-06-08] MEDS: SODIUM CHLORIDE 0.9% 1000ML 1,000 ML IV SCH ×3 (03:12→19:15)
[2020-06-08] MEDS ORDERED: NON-FORMULARY MEDICATION (Cholecalciferol (Vitamin D3) (Vitamin D3) 1 TAB) PO SCH (09:00)
[2020-06-08] MEDS: HYDROCHLOROTHIAZIDE 25 MG TAB PO SCH (09:00)
[2020-06-08] MEDS: ASPIRIN 81 MG CHEW TAB PO SCH (09:00)
[2020-06-08] MEDS: UBIDECARENONE PO SCH (09:56)
[2020-06-08] MEDS: ICOSAPENT ETHYL 1 GM PO SCH ×2 (09:56→16:56)
[2020-06-08] MEDS: METFORMIN HCL 500 MG TAB PO SCH ×3 (09:57→20:21)
[2020-06-08] MEDS: PANTOPRAZOLE SOD 40 MG TABEC PO SCH (09:59)
[2020-06-08] MEDS: CHOLECALCIFEROL 400 UNIT TAB PO SCH (09:59)
[2020-06-08] MEDS: GABAPENTIN 100 MG CAP PO SCH ×2 (09:59→16:56)
[2020-06-08] MEDS: MAGNESIUM OXIDE 400 MG TAB PO SCH (09:59)
[2020-06-08] MEDS: SERTRALINE HCL 50 MG TAB PO SCH (09:59)
[2020-06-08] MEDS: NEBIVOLOL 10 MG TAB PO SCH (10:00)
[2020-06-08] MEDS: ONDANSETRON HCL INJ 2MG/ML 2ML 2 MG/ML VIAL IV PRN ×2 (12:29→20:21)
[2020-06-08] MEDS: SIMVASTATIN 20 MG TAB PO SCH (20:21)
[2020-06-08] MEDS: LORAZEPAM 1 MG TAB PO PRN (20:27)
[2020-06-09] VITALS (8 sets, daily range): BP systolic 115–132; BP diastolic 54–75
[2020-06-09] MEDS: CEFEPIME 1GM/NS 0.9% 50 ML 50 ML IV SCH ×3 (02:00→17:39)
[2020-06-09] MEDS: ACETAMINOPHEN 325 MG TAB PO PRN ×2 (05:10→15:30)
[2020-06-09] MEDS: SODIUM CHLORIDE 0.9% 1000ML 1,000 ML IV SCH ×3 (05:10→17:00)
[2020-06-09 05:48] LABS: HEMATOCRIT 30.2 % (34.2-44.1); HEMOGLOBIN 9.9 g/dL (12.0-16.0); MEAN CORPUSCULAR HEMOGLOBIN 30.6 pg (28-32); MEAN CORPUSCULAR HGB CONC 32.8 g/dL (31-35); MEAN CORPUSCULAR VOLUME 93.2 fL (81-99); PLATELET COUNT 262 x10e3/uL (140-360); RED BLOOD COUNT 3.24 x10e6/uL (3.6-5.1); RED CELL DISTRIBUTION WIDTH 12.2 % (11.7-14.4)
[2020-06-09 06:15] LABS: ANION GAP 14.8 mmol/L (8-16); BLOOD UREA NITROGEN 7 mg/dL (7-26); BUN/CREATININE RATIO 11 (6-25); CARBON DIOXIDE 27 mmol/L (22-29); CHLORIDE 104 mmol/L (98-107); CREATININE, SERUM 0.62 mg/dL (0.57-1.11); EST GLOMERULAR FILTRATION RATE > 60 ML/MIN (60-); GLUCOSE 122 mg/dL (74-118); POTASSIUM 3.8 mmol/L (3.5-5.1); SODIUM 142 mmol/L (136-145)
[2020-06-09 07:40] LABS: LYMPHOCYTES % (MANUAL) 14 % (19-48); MONOCYTES % (MANUAL) 4 % (3.4-9.0); NEUTROPHILS % (MANUAL) 82 % (40-74); RBC MORPHOLOGY COMMENT NORMAL
[2020-06-09 07:41] LABS: PLATELET ESTIMATE ADEQUATE; PLATELET MORPHOLOGY COMMENT NORMAL
[2020-06-09] MEDS: ICOSAPENT ETHYL 1 GM PO SCH ×2 (09:00→15:29)
[2020-06-09] MEDS: ASPIRIN 81 MG CHEW TAB PO SCH ×2 (09:00→10:04)
[2020-06-09] MEDS: HYDROCHLOROTHIAZIDE 25 MG TAB PO SCH ×2 (09:00→10:04)
[2020-06-09] MEDS: UBIDECARENONE PO SCH (09:00)
[2020-06-09] MEDS: METFORMIN HCL 500 MG TAB PO SCH ×3 (10:04→19:44)
[2020-06-09] MEDS: PANTOPRAZOLE SOD 40 MG TABEC PO SCH (10:04)
[2020-06-09] MEDS: CHOLECALCIFEROL 400 UNIT TAB PO SCH (10:04)
[2020-06-09] MEDS: SERTRALINE HCL 50 MG TAB PO SCH (10:04)
[2020-06-09] MEDS: GABAPENTIN 100 MG CAP PO SCH ×2 (10:04→15:29)
[2020-06-09] MEDS: MAGNESIUM OXIDE 400 MG TAB PO SCH (10:04)
[2020-06-09] MEDS: NEBIVOLOL 10 MG TAB PO SCH (10:05)
[2020-06-09] MEDS: ONDANSETRON HCL INJ 2MG/ML 2ML 2 MG/ML VIAL IV PRN (10:58)
[2020-06-09] MEDS: SIMVASTATIN 20 MG TAB PO SCH (19:44)
[2020-06-09] MEDS: CEFUROXIME AXETIL 250 MG TAB PO SCH (21:00)
[2020-06-10] VITALS (7 sets, daily range): BP systolic 101–126; BP diastolic 55–71
[2020-06-10] MEDS: CEFEPIME 1GM/NS 0.9% 50 ML 50 ML IV SCH (01:40)
[2020-06-10] MEDS: ACETAMINOPHEN 325 MG TAB PO PRN ×6 (02:07→23:18)
[2020-06-10] MEDS: UBIDECARENONE PO SCH (09:00)
[2020-06-10] MEDS: ICOSAPENT ETHYL 1 GM PO SCH ×2 (09:00→15:47)
[2020-06-10] MEDS: ASPIRIN 81 MG CHEW TAB PO SCH (09:54)
[2020-06-10] MEDS: NEBIVOLOL 10 MG TAB PO SCH (09:55)
[2020-06-10] MEDS: METFORMIN HCL 500 MG TAB PO SCH ×3 (09:56→21:54)
[2020-06-10] MEDS: MAGNESIUM OXIDE 400 MG TAB PO SCH (09:56)
[2020-06-10] MEDS: HYDROCHLOROTHIAZIDE 25 MG TAB PO SCH (09:56)
[2020-06-10] MEDS: SERTRALINE HCL 50 MG TAB PO SCH (09:57)
[2020-06-10] MEDS: PANTOPRAZOLE SOD 40 MG TABEC PO SCH (09:57)
[2020-06-10] MEDS: CHOLECALCIFEROL 400 UNIT TAB PO SCH (09:57)
[2020-06-10] MEDS: GABAPENTIN 100 MG CAP PO SCH ×2 (09:57→16:46)
[2020-06-10] MEDS: CEFUROXIME AXETIL 250 MG TAB PO SCH ×2 (11:13→16:46)
[2020-06-10] MEDS ORDERED: DOXYCYCLINE HYCLATE TABLET 100 MG TAB PO SCH (17:00)
[2020-06-10 21:18] LABS: BASOPHILS % 0.4 % (0.0-1.0); EOSINOPHILS # (AUTO) 0.2 (0.0-0.4); HEMATOCRIT 26.1 % (34.2-44.1); HEMOGLOBIN 8.4 g/dL (12.0-16.0); LYMPHOCYTES # (AUTO) 1.5 (1.0-3.2); LYMPHOCYTES % 20.6 % (18.0-39.1); MEAN CORPUSCULAR HEMOGLOBIN 30.1 pg (28-32); MEAN CORPUSCULAR HGB CONC 32.2 g/dL (31-35); MEAN CORPUSCULAR VOLUME 93.5 fL (81-99); MONOCYTES # (AUTO) 0.5 (0.2-0.8); MONOCYTES % 6.8 % (4.4-11.3); NEUTROPHILS # (AUTO) 5.2 (2.1-6.9); NEUTROPHILS % 70.1 % (38.7-80.0); PLATELET COUNT 282 x10e3/uL (140-360); RED BLOOD COUNT 2.79 x10e6/uL (3.6-5.1); RED CELL DISTRIBUTION WIDTH 12.3 % (11.7-14.4)
[2020-06-10 21:32] LABS: ALANINE AMINOTRANSFERASE 40 IU/L (0-55); ALBUMIN 3.4 g/dL (3.5-5.0); ALBUMIN/GLOBULIN RATIO 1.1 (0.8-2.0); ALKALINE PHOSPHATASE 63 IU/L (40-150); ANION GAP 13.5 mmol/L (8-16); BLOOD UREA NITROGEN 12 mg/dL (7-26); BUN/CREATININE RATIO 16 (6-25); CALCIUM 9.5 mg/dL (8.4-10.2); CARBON DIOXIDE 29 mmol/L (22-29); CHLORIDE 98 mmol/L (98-107); CREATININE, SERUM 0.75 mg/dL (0.57-1.11); EST GLOMERULAR FILTRATION RATE > 60 ML/MIN (60-); GLUCOSE 158 mg/dL (74-118); POTASSIUM 3.5 mmol/L (3.5-5.1); SODIUM 137 mmol/L (136-145)
[2020-06-10] MEDS: LORAZEPAM 1 MG TAB PO PRN (21:54)
[2020-06-10] MEDS: SIMVASTATIN 20 MG TAB PO SCH (21:54)
[2020-06-11] VITALS (7 sets, daily range): BP systolic 99–127; BP diastolic 59–86
[2020-06-11] MEDS: UBIDECARENONE PO SCH (09:00)
[2020-06-11] MEDS: ICOSAPENT ETHYL 1 GM PO SCH ×2 (09:00→15:30)
[2020-06-11] MEDS: ASPIRIN 81 MG CHEW TAB PO SCH (09:45)
[2020-06-11] MEDS: METFORMIN HCL 500 MG TAB PO SCH ×2 (09:46→14:00)
[2020-06-11] MEDS: HYDROCHLOROTHIAZIDE 25 MG TAB PO SCH (09:46)
[2020-06-11] MEDS: MAGNESIUM OXIDE 400 MG TAB PO SCH (09:46)
[2020-06-11] MEDS: NEBIVOLOL 10 MG TAB PO SCH (09:46)
[2020-06-11] MEDS: SERTRALINE HCL 50 MG TAB PO SCH (09:47)
[2020-06-11] MEDS: CHOLECALCIFEROL 400 UNIT TAB PO SCH (09:47)
[2020-06-11] MEDS: GABAPENTIN 100 MG CAP PO SCH ×2 (09:47→16:56)
[2020-06-11] MEDS: PANTOPRAZOLE SOD 40 MG TABEC PO SCH (09:47)
[2020-06-11] MEDS ORDERED: NYSTATIN100000 UNI PO (17:55)
[2020-07-10] MEDS ORDERED: CEFUROXIME AXETIL 250 MG TAB PO SCH (20:00)
== END 2020-06-11 18:15 | disposition home or self-care (01) | DRG 699 ==
LOC: ER 16:45 → ERHOLD 18:43 → MED/SURG3 06-07 13:28
PROVIDERS: ADMIT Internal Medicine; ATTEND Internal Medicine
DX: T83.592A Infection and inflammatory reaction due to indwelling ureteral stent, initial encounter (principal); N13.6 Pyonephrosis; I10 Essential (primary) hypertension; E11.65 Type 2 diabetes mellitus with hyperglycemia; Z87.442 Personal history of urinary calculi; Z86.73 Personal history of transient ischemic attack (TIA), and cerebral infarction without residual deficits; Z91.040 Latex allergy status; Z88.0 Allergy status to penicillin; Z88.8 Allergy status to other drugs, medicaments and biological substances; Z91.048 Other nonmedicinal substance allergy status; K21.9 Gastro-esophageal reflux disease without esophagitis; Z85.72 Personal history of non-Hodgkin lymphomas; Z20.822 Contact with and (suspected) exposure to COVID-19; B95.2 Enterococcus as the cause of diseases classified elsewhere; N81.10 Cystocele, unspecified; N95.2 Postmenopausal atrophic vaginitis; D64.9 Anemia, unspecified
CPT/HCPCS: 36415; 71045; 74176; 80048; 80053; 81001; 82948; 83605; 85007; 85025; 85027; 85610; 85730; 87040; 87086; 87186; 97139; 99284; J0692; J2405; J7030; U0002

== ENCOUNTER → 2020-06-28 | Day surgery (SDC) | payer MEDICARE ==
[2020-06-23 11:50] LABS: BASOPHILS # (AUTO) 0.1 (0.0-0.1); BASOPHILS % 0.4 % (0.0-1.0); EOSINOPHILS # (AUTO) 0.1 (0.0-0.4); EOSINOPHILS % 0.5 % (0.0-6.0); HEMATOCRIT 30.7 % (34.2-44.1); HEMOGLOBIN 9.9 g/dL (12.0-16.0); LYMPHOCYTES # (AUTO) 2.2 (1.0-3.2); LYMPHOCYTES % 18.9 % (18.0-39.1); MEAN CORPUSCULAR HEMOGLOBIN 30.3 pg (28-32); MEAN CORPUSCULAR HGB CONC 32.2 g/dL (31-35); MEAN CORPUSCULAR VOLUME 93.9 fL (81-99); MONOCYTES % 8.6 % (4.4-11.3); NEUTROPHILS # (AUTO) 8.2 (2.1-6.9); NEUTROPHILS % 71.3 % (38.7-80.0); PLATELET COUNT 416 x10e3/uL (140-360); RED BLOOD COUNT 3.27 x10e6/uL (3.6-5.1); RED CELL DISTRIBUTION WIDTH 12.5 % (11.7-14.4)
[2020-06-23 12:06] LABS: ANION GAP 13.2 mmol/L (8-16); BLOOD UREA NITROGEN 16 mg/dL (7-26); BUN/CREATININE RATIO 20 (6-25); CARBON DIOXIDE 29 mmol/L (22-29); CHLORIDE 98 mmol/L (98-107); CREATININE, SERUM 0.81 mg/dL (0.57-1.11); EST GLOMERULAR FILTRATION RATE > 60 ML/MIN (60-); GLUCOSE 135 mg/dL (74-118); POTASSIUM 4.2 mmol/L (3.5-5.1); SODIUM 136 mmol/L (136-145)
[~2020-06-28] MED LIST changes: +B&O 60MG R/S 60 MG SUPP PR ONE; +CITRIC ACID/SODIUM CITRATE 30 ML UDC ONE; +DEXAMETHASONE SOD PHOS INJ 4 MG/ML VIAL ONE; +FENTANYL CITRATE/PF 100MCG/2 ML INJ ONE; +GENTAMICIN 80MG/NS 100 ML 0 ML IV ONE; +GENTAMICIN 80MG/NS 100 ML 200 ML IV ONE; +IOPAMIDOL 300MG/ML 50ML INFUS..BTL IV ONE; +LIDOCAINE HCL 2% LOCAL INJ 5 ML SDV VIAL INJ ONE; +NYSTATIN100000 UNI PO; +ONDANSETRON HCL INJ 2MG/ML 2ML 2 MG/ML VIAL ONE; +PROPOFOL IV EMULSION 10 MG/ML 20 ML VIAL ONE; +SEVOFLURANE INHAL SOLN 250 ML PEN BTL ONE; +VITAMIN D310 MCG PO
[2020-06-28 08:50] VITALS: BP 116/68
== END | disposition home or self-care (01) ==
LOC: OR 06:16
PROVIDERS: ATTEND Urology
DX: N20.0 Calculus of kidney (principal); N13.0 Hydronephrosis with ureteropelvic junction obstruction; Z46.6 Encounter for fitting and adjustment of urinary device; N81.10 Cystocele, unspecified; N81.6 Rectocele; N95.2 Postmenopausal atrophic vaginitis; N36.41 Hypermobility of urethra; N28.89 Other specified disorders of kidney and ureter; I10 Essential (primary) hypertension; E11.9 Type 2 diabetes mellitus without complications; K21.9 Gastro-esophageal reflux disease without esophagitis; M19.90 Unspecified osteoarthritis, unspecified site; G62.9 Polyneuropathy, unspecified; C85.90 Non-Hodgkin lymphoma, unspecified, unspecified site; I69.354 Hemiplegia and hemiparesis following cerebral infarction affecting left non-dominant side; Z88.0 Allergy status to penicillin; Z88.6 Allergy status to analgesic agent; Z88.4 Allergy status to anesthetic agent; Z91.041 Radiographic dye allergy status; Z01.812 Encounter for preprocedural laboratory examination; Z20.822 Contact with and (suspected) exposure to COVID-19; Z79.82 Long term (current) use of aspirin; Z79.84 Long term (current) use of oral hypoglycemic drugs; Z87.891 Personal history of nicotine dependence
CPT/HCPCS: 36415 ×2; 52352; 74420; 80048; 82948; 84550; 85025; 87086; 88300; C1766; C1769; J1100; J1580; J2001; J2405; J2704; J3010; Q9967; U0002; 87186

== ENCOUNTER 2020-07-01 13:56 | Inpatient (IN) | payer MEDICARE ==
[~2020-07-01] VITALS: Ht 165.1 cm; Wt 64.0 kg
[~2020-07-01 13:56] MED LIST changes: -B&O 60MG R/S 60 MG SUPP PR ONE; -CITRIC ACID/SODIUM CITRATE 30 ML UDC ONE; -DEXAMETHASONE SOD PHOS INJ 4 MG/ML VIAL ONE; -FENTANYL CITRATE/PF 100MCG/2 ML INJ ONE; -GENTAMICIN 80MG/NS 100 ML 0 ML IV ONE; -GENTAMICIN 80MG/NS 100 ML 200 ML IV ONE; -IOPAMIDOL 300MG/ML 50ML INFUS..BTL IV ONE; -LIDOCAINE HCL 2% LOCAL INJ 5 ML SDV VIAL INJ ONE; -ONDANSETRON HCL INJ 2MG/ML 2ML 2 MG/ML VIAL ONE; -PROPOFOL IV EMULSION 10 MG/ML 20 ML VIAL ONE; -SEVOFLURANE INHAL SOLN 250 ML PEN BTL ONE
[2020-07-01] MEDS ORDERED: CEFEPIME 1GM/NS 0.9% 50 ML 50 ML IV STA (14:17)
[2020-07-01] MEDS ORDERED: SODIUM CHLORIDE 0.9% 1000ML 1,000 ML IV STA (14:17)
[2020-07-01 14:34] LABS: BASOPHILS % 0.1 % (0.0-1.0); EOSINOPHILS % 0.1 % (0.0-6.0); HEMATOCRIT 25.9 % (34.2-44.1); HEMOGLOBIN 8.5 g/dL (12.0-16.0); LYMPHOCYTES # (AUTO) 1.1 (1.0-3.2); LYMPHOCYTES % 7.4 % (18.0-39.1); MEAN CORPUSCULAR HEMOGLOBIN 29.3 pg (28-32); MEAN CORPUSCULAR HGB CONC 32.8 g/dL (31-35); MEAN CORPUSCULAR VOLUME 89.3 fL (81-99); MONOCYTES # (AUTO) 1.1 (0.2-0.8); MONOCYTES % 7.2 % (4.4-11.3); NEUTROPHILS # (AUTO) 13.1 (2.1-6.9); NEUTROPHILS % 84.7 % (38.7-80.0); PLATELET COUNT 270 x10e3/uL (140-360)
[2020-07-01 14:48] LABS: ALBUMIN 3.7 g/dL (3.5-5.0); ALBUMIN/GLOBULIN RATIO 1.2 (0.8-2.0); CALCIUM 9.1 mg/dL (8.4-10.2); CREATININE, SERUM 1.11 mg/dL (0.57-1.11)
[2020-07-01 14:55] LABS: CREATINE KINASE MB 0.5 ng/mL (0-5.0)
[2020-07-01] MEDS ORDERED: ONDANSETRON HCL INJ 2MG/ML 2ML 2 MG/ML VIAL IV STA (15:27)
[2020-07-01 15:42] LABS: CLARITY,URINE CLEAR (CLEAR); COLOR,URINE YELLOW (YELLOW); KETONES,URINE NEGATIVE (NEGATIVE); LEUKOCYTE ESTERASE ,URINE TRACE (NEGATIVE); NITRITE,URINE NEGATIVE (NEGATIVE); PROTEIN,URINE DIPSTICK 1+ (NEGATIVE); URINE UROBILINOGEN 0.2 mg/dL (0.2 - 1)
[2020-07-01 15:54] LABS: BACTERIA,URINE MODERATE /HPF; EPITHELIAL CELLS,URINE FEW /LPF; RBC,URINE 0-5 /HPF (0-5); WBC,URINE (MAN) 0-5 /HPF (0-5)
[2020-07-01] MEDS: SODIUM CHLORIDE 0.9% 1000ML 1,000 ML IV SCH (18:06)
[2020-07-01] MEDS ORDERED: ACETAMINOPHEN 325 MG TAB ONE (19:25)
[2020-07-01] MEDS ORDERED: LACTATED RINGER'S 1,000 ML INJ ONE (19:25)
[2020-07-01] MEDS: ACETAMINOPHEN 325 MG TAB PO PRN (19:28)
[2020-07-01] MEDS ORDERED: VANCOMYCIN HCL 1.5 GM in SODIUM CHLORIDE 0.9% 250ML 300 ML IV ONE (20:30)
[2020-07-01] MEDS ORDERED: VANCOMYCIN 1GM/NS 250 ML 250 ML IV ONE (21:15)
[2020-07-01] MEDS ORDERED: DEXTROSE 50% SYRINGE 50 ML IV PRN (22:00)
[2020-07-01 22:10] VITALS: BP 102/60
[2020-07-01 22:15] VITALS: BP 102/60
[2020-07-01 22:30] VITALS: BP 102/60
[2020-07-01] MEDS: LORAZEPAM 1 MG TAB PO PRN (22:55)
[2020-07-01 23:44] VITALS: BP 104/56
[2020-07-02] VITALS: BP 95/56
[2020-07-02] MEDS: SODIUM CHLORIDE 0.9% 1000ML 1,000 ML IV SCH ×3 (01:00→20:02)
[2020-07-02] MEDS: CEFEPIME 1GM/NS 0.9% 50 ML 50 ML IV SCH ×2 (02:00→14:29)
[2020-07-02 04:00] VITALS: BP 122/60
[2020-07-02] MEDS ORDERED: VANCOMYCIN HCL 1 GM in SODIUM CHLORIDE 0.9% 250ML 250 ML IV SCH ×2 (05:00→06:15)
[2020-07-02] MEDS: ACETAMINOPHEN 325 MG TAB PO PRN ×3 (05:36→21:32)
[2020-07-02 06:40] LABS: BASOPHILS % 0.2 % (0.0-1.0); HEMOGLOBIN 7.4 g/dL (12.0-16.0); LYMPHOCYTES # (AUTO) 0.6 (1.0-3.2); MEAN CORPUSCULAR HEMOGLOBIN 29.8 pg (28-32); MEAN CORPUSCULAR HGB CONC 32.9 g/dL (31-35); MEAN CORPUSCULAR VOLUME 90.7 fL (81-99); MONOCYTES # (AUTO) 0.7 (0.2-0.8); MONOCYTES % 7.7 % (4.4-11.3); NEUTROPHILS # (AUTO) 7.5 (2.1-6.9); NEUTROPHILS % 84.6 % (38.7-80.0); PLATELET COUNT 259 x10e3/uL (140-360); RED BLOOD COUNT 2.48 x10e6/uL (3.6-5.1); RED CELL DISTRIBUTION WIDTH 13.1 % (11.7-14.4)
[2020-07-02 06:46] LABS: HEMATOCRIT 22.5 % (34.2-44.1)
[2020-07-02 06:53] LABS: ALANINE AMINOTRANSFERASE 21 IU/L (0-55); ALBUMIN 2.9 g/dL (3.5-5.0); ALKALINE PHOSPHATASE 46 IU/L (40-150); ANION GAP 14.4 mmol/L (8-16); BLOOD UREA NITROGEN 15 mg/dL (7-26); BUN/CREATININE RATIO 19 (6-25); CALCIUM 8.4 mg/dL (8.4-10.2); CARBON DIOXIDE 23 mmol/L (22-29); CHLORIDE 100 mmol/L (98-107); EST GLOMERULAR FILTRATION RATE > 60 ML/MIN (60-); GLUCOSE 244 mg/dL (74-118); POTASSIUM 3.4 mmol/L (3.5-5.1); SODIUM 134 mmol/L (136-145)
[2020-07-02] MEDS: INSULIN LISPRO 100 UNIT/1 ML 3ML VIAL SQ SCH ×4 (07:30→21:00)
[2020-07-02 07:55] VITALS: BP 108/59
[2020-07-02 08:30] VITALS: BP 108/59
[2020-07-02] MEDS: MAGNESIUM OXIDE 400 MG TAB PO SCH (09:08)
[2020-07-02] MEDS: PANTOPRAZOLE SOD 40 MG TABEC PO SCH (09:08)
[2020-07-02] MEDS: SIMVASTATIN 20 MG TAB PO SCH (09:08)
[2020-07-02] MEDS: SERTRALINE HCL 50 MG TAB PO SCH (09:08)
[2020-07-02] MEDS: VANCOMYCIN 750MG/NS 150ML IVPB 150 ML IV SCH ×2 (10:30→21:18)
[2020-07-02 11:38] VITALS: BP 93/65
[2020-07-02] MEDS ORDERED: POTASSIUM CHLORIDE 20 MEQ TAB CR PO NR (13:45)
[2020-07-02] MEDS ORDERED: ONDANSETRON HCL INJ 2MG/ML 2ML 2 MG/ML VIAL IV PRN (14:00)
[2020-07-02 20:00] VITALS: BP_SYST 103; BP_SYST 93; BP_DIAS 60; BP_DIAS 65
[2020-07-03] VITALS (8 sets, daily range): BP systolic 105–133; BP diastolic 57–69
[2020-07-03] MEDS: CEFEPIME 1GM/NS 0.9% 50 ML 50 ML IV SCH ×2 (02:18→14:00)
[2020-07-03] MEDS: ACETAMINOPHEN 325 MG TAB PO PRN ×3 (03:40→21:42)
[2020-07-03] MEDS: SODIUM CHLORIDE 0.9% 1000ML 1,000 ML IV SCH ×3 (05:59→23:35)
[2020-07-03 06:48] LABS: BASOPHILS % 0.2 % (0.0-1.0); EOSINOPHILS % 0.5 % (0.0-6.0); HEMATOCRIT 24.4 % (34.2-44.1); HEMOGLOBIN 7.8 g/dL (12.0-16.0); LYMPHOCYTES # (AUTO) 1.5 (1.0-3.2); LYMPHOCYTES % 17.9 % (18.0-39.1); MEAN CORPUSCULAR VOLUME 93.8 fL (81-99); MONOCYTES # (AUTO) 0.8 (0.2-0.8); MONOCYTES % 9.3 % (4.4-11.3); NEUTROPHILS # (AUTO) 6.1 (2.1-6.9); NEUTROPHILS % 71.6 % (38.7-80.0); PLATELET COUNT 271 x10e3/uL (140-360); RED CELL DISTRIBUTION WIDTH 13.1 % (11.7-14.4)
[2020-07-03 07:16] LABS: ANION GAP 12.2 mmol/L (8-16); BLOOD UREA NITROGEN 8 mg/dL (7-26); BUN/CREATININE RATIO 11 (6-25); CALCIUM 8.4 mg/dL (8.4-10.2); CARBON DIOXIDE 27 mmol/L (22-29); CHLORIDE 104 mmol/L (98-107); CREATININE, SERUM 0.71 mg/dL (0.57-1.11); EST GLOMERULAR FILTRATION RATE > 60 ML/MIN (60-); GLUCOSE 155 mg/dL (74-118); POTASSIUM 3.2 mmol/L (3.5-5.1); SODIUM 140 mmol/L (136-145)
[2020-07-03] MEDS: INSULIN LISPRO 100 UNIT/1 ML 3ML VIAL SQ SCH ×4 (07:30→21:00)
[2020-07-03] MEDS: SIMVASTATIN 20 MG TAB PO SCH (09:04)
[2020-07-03] MEDS: SERTRALINE HCL 50 MG TAB PO SCH (09:04)
[2020-07-03] MEDS: PANTOPRAZOLE SOD 40 MG TABEC PO SCH (09:04)
[2020-07-03] MEDS: MAGNESIUM OXIDE 400 MG TAB PO SCH (09:04)
[2020-07-03] MEDS: VANCOMYCIN 750MG/NS 150ML IVPB 150 ML IV SCH ×2 (09:04→21:30)
[2020-07-03] MEDS ORDERED: POTASSIUM CHLORIDE 20 MEQ TAB CR PO NR (15:00)
[2020-07-03] MEDS ORDERED: DONNATAL/LIDOCAINE/MAALOX 30 ML SUSP PO NR (16:45)
[2020-07-03] MEDS: NYSTATIN SUSPENSION 5 ML UDC PO SCH ×2 (18:51→23:32)
[2020-07-03] MEDS: LORAZEPAM 1 MG TAB PO PRN (21:42)
[2020-07-04] VITALS (7 sets, daily range): BP systolic 114–131; BP diastolic 64–75
[2020-07-04] MEDS: SODIUM CHLORIDE 0.9% 1000ML 1,000 ML IV SCH ×3 (01:00→16:42)
[2020-07-04] MEDS: CEFEPIME 1GM/NS 0.9% 50 ML 50 ML IV SCH ×2 (02:30→14:29)
[2020-07-04] MEDS: NYSTATIN SUSPENSION 5 ML UDC PO SCH ×4 (06:08→23:51)
[2020-07-04 06:16] LABS: BASOPHILS % 0.3 % (0.0-1.0); EOSINOPHILS # (AUTO) 0.1 (0.0-0.4); EOSINOPHILS % 1.4 % (0.0-6.0); HEMATOCRIT 23.2 % (34.2-44.1); HEMOGLOBIN 7.4 g/dL (12.0-16.0); LYMPHOCYTES # (AUTO) 1.4 (1.0-3.2); LYMPHOCYTES % 20.4 % (18.0-39.1); MEAN CORPUSCULAR HGB CONC 31.9 g/dL (31-35); MONOCYTES # (AUTO) 0.5 (0.2-0.8); MONOCYTES % 6.7 % (4.4-11.3); NEUTROPHILS # (AUTO) 4.9 (2.1-6.9); NEUTROPHILS % 70.8 % (38.7-80.0); PLATELET COUNT 224 x10e3/uL (140-360); RED BLOOD COUNT 2.55 x10e6/uL (3.6-5.1); RED CELL DISTRIBUTION WIDTH 12.9 % (11.7-14.4)
[2020-07-04 06:40] LABS: ANION GAP 12.6 mmol/L (8-16); BLOOD UREA NITROGEN 8 mg/dL (7-26); BUN/CREATININE RATIO 13 (6-25); CALCIUM 8.4 mg/dL (8.4-10.2); CARBON DIOXIDE 26 mmol/L (22-29); CHLORIDE 106 mmol/L (98-107); CREATININE, SERUM 0.63 mg/dL (0.57-1.11); EST GLOMERULAR FILTRATION RATE > 60 ML/MIN (60-); GLUCOSE 170 mg/dL (74-118); MAGNESIUM 1.4 MG/DL (1.3-2.1); POTASSIUM 3.6 mmol/L (3.5-5.1); SODIUM 141 mmol/L (136-145)
[2020-07-04 07:14] LABS: CALCIUM IONIZED 1.2 mmol/L (1.09-1.30)
[2020-07-04] MEDS: INSULIN LISPRO 100 UNIT/1 ML 3ML VIAL SQ SCH ×4 (07:30→20:51)
[2020-07-04] MEDS: MAGNESIUM OXIDE 400 MG TAB PO SCH ×2 (11:03)
[2020-07-04] MEDS: SIMVASTATIN 20 MG TAB PO SCH (11:03)
[2020-07-04] MEDS: PANTOPRAZOLE SOD 40 MG TABEC PO SCH (11:03)
[2020-07-04] MEDS: SERTRALINE HCL 50 MG TAB PO SCH (11:03)
[2020-07-04] MEDS: VANCOMYCIN 750MG/NS 150ML IVPB 150 ML IV SCH ×2 (11:08→21:00)
[2020-07-04 11:33] LABS: FERRITIN 899.5 ng/mL (4.63-204.00)
[2020-07-04] MEDS: ACETAMINOPHEN 325 MG TAB PO PRN ×2 (15:44→21:25)
[2020-07-05] VITALS (8 sets, daily range): BP systolic 111–129; BP diastolic 38–74
[2020-07-05] MEDS ORDERED: BISACODYL 5 MG TAB EC PO ONE ×2 (00:45→01:45)
[2020-07-05] MEDS ORDERED: CYANOCOBALAMIN 1,000 MCG TAB PO SCH (00:45)
[2020-07-05] MEDS ORDERED: CYANOCOBALAMIN INJ 1,000 MCG/ML VIAL IM ONE (01:00)
[2020-07-05] MEDS: CEFEPIME 1GM/NS 0.9% 50 ML 50 ML IV SCH (02:00)
[2020-07-05] MEDS ORDERED: CITRATE OF MAGNESIA 300ML BOTTLE PO ONE ×2 (05:00→07:00)
[2020-07-05] MEDS: SODIUM CHLORIDE 0.9% 1000ML 1,000 ML IV SCH ×3 (05:58→17:30)
[2020-07-05] MEDS: NYSTATIN SUSPENSION 5 ML UDC PO SCH ×3 (05:58→17:30)
[2020-07-05 05:59] LABS: HEMATOCRIT 26.1 % (34.2-44.1); HEMOGLOBIN 8.2 g/dL (12.0-16.0); MEAN CORPUSCULAR HEMOGLOBIN 29.3 pg (28-32); MEAN CORPUSCULAR HGB CONC 31.4 g/dL (31-35); MEAN CORPUSCULAR VOLUME 93.2 fL (81-99); PLATELET COUNT 268 x10e3/uL (140-360); RED CELL DISTRIBUTION WIDTH 12.8 % (11.7-14.4)
[2020-07-05] MEDS: INSULIN LISPRO 100 UNIT/1 ML 3ML VIAL SQ SCH ×4 (07:30→21:00)
[2020-07-05 10:01] LABS: EOSINOPHILS % (MANUAL) 1 % (0-7); LYMPHOCYTES % (MANUAL) 22 % (19-48); NEUTROPHILS % (MANUAL) 75 % (40-74); PLATELET ESTIMATE ADEQUATE; PLATELET MORPHOLOGY COMMENT FEW LARGE; RBC MORPHOLOGY COMMENT NORMAL
[2020-07-05] MEDS ORDERED: PROPOFOL IV EMULSION 10 MG/ML 20 ML VIAL ONE (12:45)
[2020-07-05] MEDS ORDERED: HYOSCYAMINE SULFATE 0.5 MG/ML INJ ONE (12:45)
[2020-07-05] MEDS ORDERED: GLUCAGON FOR INJ 1 MG VIAL ONE (12:45)
[2020-07-05] MEDS: PANTOPRAZOLE SOD 40 MG TABEC PO SCH (12:54)
[2020-07-05] MEDS: CYANOCOBALAMIN INJ 1,000 MCG/ML VIAL IM SCH (12:54)
[2020-07-05] MEDS: MAGNESIUM OXIDE 400 MG TAB PO SCH ×2 (12:54)
[2020-07-05] MEDS: SIMVASTATIN 20 MG TAB PO SCH (12:54)
[2020-07-05] MEDS: IRON SUCROSE 100 MG in SODIUM CHLORIDE 0.9% 100 ML 100 ML IV SCH (12:54)
[2020-07-05] MEDS: SERTRALINE HCL 50 MG TAB PO SCH (12:55)
[2020-07-05] MEDS ORDERED: FENTANYL CITRATE/PF 100MCG/2 ML INJ ONE (13:33)
[2020-07-05] MEDS ORDERED: MIDAZOLAM HCL 2 MG/2 ML VIAL ONE (13:33)
[2020-07-05] MEDS: ACETAMINOPHEN 325 MG TAB PO PRN (17:30)
[2020-07-05] MEDS: LORAZEPAM 1 MG TAB PO PRN (21:30)
[2020-07-06] VITALS (8 sets, daily range): BP systolic 120–140; BP diastolic 58–77
[2020-07-06] MEDS: NYSTATIN SUSPENSION 5 ML UDC PO SCH ×4 (00:08→18:09)
[2020-07-06] MEDS: ACETAMINOPHEN 325 MG TAB PO PRN ×3 (00:25→18:09)
[2020-07-06] MEDS: SODIUM CHLORIDE 0.9% 1000ML 1,000 ML IV SCH ×3 (03:57→21:27)
[2020-07-06] MEDS: CYANOCOBALAMIN INJ 1,000 MCG/ML VIAL IM SCH (09:59)
[2020-07-06] MEDS: SIMVASTATIN 20 MG TAB PO SCH (09:59)
[2020-07-06] MEDS: SERTRALINE HCL 50 MG TAB PO SCH (09:59)
[2020-07-06] MEDS: PANTOPRAZOLE SOD 40 MG TABEC PO SCH (09:59)
[2020-07-06] MEDS: MAGNESIUM OXIDE 400 MG TAB PO SCH ×2 (09:59)
[2020-07-06] MEDS: IRON SUCROSE 100 MG in SODIUM CHLORIDE 0.9% 100 ML 100 ML IV SCH (09:59)
[2020-07-06] MEDS: INSULIN LISPRO 100 UNIT/1 ML 3ML VIAL SQ SCH ×4 (10:23→21:00)
[2020-07-06] MEDS: LORAZEPAM 1 MG TAB PO PRN (20:05)
[2020-07-07] MEDS: ACETAMINOPHEN 325 MG TAB PO PRN (02:25)
[2020-07-07] MEDS: SODIUM CHLORIDE 0.9% 1000ML 1,000 ML IV SCH ×3 (02:25→17:53)
[2020-07-07 03:49] VITALS: BP 145/69
[2020-07-07] MEDS: NYSTATIN SUSPENSION 5 ML UDC PO SCH ×4 (06:00→17:56)
[2020-07-07] MEDS: INSULIN LISPRO 100 UNIT/1 ML 3ML VIAL SQ SCH ×3 (07:30→17:54)
[2020-07-07 08:29] VITALS: BP 135/69
[2020-07-07 08:31] VITALS: BP 135/69
[2020-07-07] MEDS ORDERED: VANCOMYCIN 1GM/NS 250 ML 250 ML IV ONE (09:15)
[2020-07-07] MEDS: MAGNESIUM OXIDE 400 MG TAB PO SCH ×2 (11:49)
[2020-07-07] MEDS: SIMVASTATIN 20 MG TAB PO SCH (11:49)
[2020-07-07] MEDS: SERTRALINE HCL 50 MG TAB PO SCH (11:49)
[2020-07-07] MEDS: PANTOPRAZOLE SOD 40 MG TABEC PO SCH (11:49)
[2020-07-07] MEDS: CYANOCOBALAMIN INJ 1,000 MCG/ML VIAL IM SCH (11:49)
[2020-07-07 12:05] VITALS: BP 138/76
[2020-07-07 17:01] VITALS: BP 142/80
== END 2020-07-07 19:33 | disposition home or self-care (01) | DRG 872 ==
LOC: ER 14:57 → ERHOLD 17:07 → MED/SURG3 22:19
PROVIDERS: ADMIT Internal Medicine; ATTEND Internal Medicine
PROC: 0DJD8ZZ Inspection of Lower Intestinal Tract, Via Natural or Artificial Opening Endoscopic (ICD-10-PCS; 2020-07-05)
PROC: 0DB78ZX Excision of Stomach, Pylorus, Via Natural or Artificial Opening Endoscopic, Diagnostic (ICD-10-PCS; 2020-07-05)
PROC: 0DB98ZX Excision of Duodenum, Via Natural or Artificial Opening Endoscopic, Diagnostic (ICD-10-PCS; principal; 2020-07-05 10:25)
PROC: 0DB68ZX Excision of Stomach, Via Natural or Artificial Opening Endoscopic, Diagnostic (ICD-10-PCS; 2020-07-05 10:25)
DX: A41.81 Sepsis due to Enterococcus (principal); B37.0 Candidal stomatitis; N39.0 Urinary tract infection, site not specified; Z16.24 Resistance to multiple antibiotics; E87.2 Acidosis; Z94.81 Bone marrow transplant status; E87.1 Hypo-osmolality and hyponatremia; N81.10 Cystocele, unspecified; I10 Essential (primary) hypertension; N20.0 Calculus of kidney; K64.8 Other hemorrhoids; K31.7 Polyp of stomach and duodenum; K29.70 Gastritis, unspecified, without bleeding; K20.90 Esophagitis, unspecified without bleeding; D63.8 Anemia in other chronic diseases classified elsewhere; E03.9 Hypothyroidism, unspecified; N81.6 Rectocele; N95.2 Postmenopausal atrophic vaginitis; R53.81 Other malaise; Z20.822 Contact with and (suspected) exposure to COVID-19; K59.00 Constipation, unspecified; F41.9 Anxiety disorder, unspecified; F32.9 Major depressive disorder, single episode, unspecified; Z88.5 Allergy status to narcotic agent; Z88.0 Allergy status to penicillin; Z91.041 Radiographic dye allergy status; Z90.49 Acquired absence of other specified parts of digestive tract; Z85.72 Personal history of non-Hodgkin lymphomas; Z86.73 Personal history of transient ischemic attack (TIA), and cerebral infarction without residual deficits; R59.0 Localized enlarged lymph nodes; E11.65 Type 2 diabetes mellitus with hyperglycemia; I27.21 Secondary pulmonary arterial hypertension
CPT/HCPCS: 36415; 43239; 45378; 71045; 71250; 74176; 80048; 80053; 80202; 81001; 82550; 82553; 82607; 82728; 82746; 82948; 83540; 83605; 83735; 84443; 84466; 84484; 85007; 85025; 85027; 85045; 87040; 87086; 88305; 88312; 96361; 99284; J0692; J1610; J1756; J1980; J2250; J2405; J3010; J3370; J3420; J7030; J7050; J7121; U0002

== ENCOUNTER → 2020-08-11 | Outpatient (CLI) | payer MEDICARE ==
[~2020-08-11] MED LIST changes: +FUROSEMIDE INJ 10 MG/ML 4 ML VIAL ONE
== END ==
LOC: NM 12:23
PROVIDERS: ATTEND Urology
DX: N13.30 Unspecified hydronephrosis (principal)
CPT/HCPCS: 78708; A9562; J1940

== ENCOUNTER 2020-10-09 15:46 | Emergency (ER) | payer MEDICARE ==
[~2020-10-09] VITALS: Ht 165.1 cm; Wt 64.0 kg
[~2020-10-09 15:46] MED LIST changes: -FUROSEMIDE INJ 10 MG/ML 4 ML VIAL ONE
[2020-10-09 17:15] LABS: BASOPHILS % 0.7 % (0.0-1.0); EOSINOPHILS # (AUTO) 0.2 (0.0-0.4); EOSINOPHILS % 3.7 % (0.0-6.0); HEMATOCRIT 33.5 % (34.2-44.1); HEMOGLOBIN 11.2 g/dL (12.0-16.0); LYMPHOCYTES # (AUTO) 1.8 (1.0-3.2); LYMPHOCYTES % 29.7 % (18.0-39.1); MEAN CORPUSCULAR HEMOGLOBIN 30.3 pg (28-32); MEAN CORPUSCULAR HGB CONC 33.4 g/dL (31-35); MEAN CORPUSCULAR VOLUME 90.5 fL (81-99); MONOCYTES # (AUTO) 0.4 (0.2-0.8); MONOCYTES % 6.4 % (4.4-11.3); NEUTROPHILS # (AUTO) 3.5 (2.1-6.9); NEUTROPHILS % 59.3 % (38.7-80.0); PLATELET COUNT 274 x10e3/uL (140-360); RED CELL DISTRIBUTION WIDTH 13.5 % (11.7-14.4)
[2020-10-09 17:20] LABS: CLARITY,URINE CLEAR (CLEAR); COLOR,URINE YELLOW (YELLOW); KETONES,URINE NEGATIVE (NEGATIVE); LEUKOCYTE ESTERASE ,URINE NEGATIVE (NEGATIVE); NITRITE,URINE NEGATIVE (NEGATIVE); PROTEIN,URINE DIPSTICK NEGATIVE (NEGATIVE); URINE UROBILINOGEN 0.2 mg/dL (0.2 - 1)
[2020-10-09 17:32] LABS: ALANINE AMINOTRANSFERASE 29 IU/L (0-55); ALBUMIN 4.7 g/dL (3.5-5.0); ALBUMIN/GLOBULIN RATIO 1.9 (0.8-2.0); ALKALINE PHOSPHATASE 81 IU/L (40-150); ANION GAP 16.8 mmol/L (8-16); BLOOD UREA NITROGEN 20 mg/dL (7-26); BUN/CREATININE RATIO 24 (6-25); CALCIUM 9.6 mg/dL (8.4-10.2); CARBON DIOXIDE 25 mmol/L (22-29); CHLORIDE 100 mmol/L (98-107); CREATININE, SERUM 0.85 mg/dL (0.57-1.11); EST GLOMERULAR FILTRATION RATE > 60 ML/MIN (60-); GLUCOSE 146 mg/dL (74-118); POTASSIUM 3.8 mmol/L (3.5-5.1); SODIUM 138 mmol/L (136-145)
== END 2020-10-09 21:03 | disposition home or self-care (01) ==
LOC: ER 17:18
DX: M54.5 Low back pain (principal); R11.0 Nausea; K59.00 Constipation, unspecified; N20.0 Calculus of kidney; E11.65 Type 2 diabetes mellitus with hyperglycemia; F41.9 Anxiety disorder, unspecified; Z95.5 Presence of coronary angioplasty implant and graft; Z86.73 Personal history of transient ischemic attack (TIA), and cerebral infarction without residual deficits
CPT/HCPCS: 36415; 74176; 80053; 81001; 85025; 99283

== ENCOUNTER 2022-03-10 16:33 | Observation (INO) | payer MEDICARE ==
[~2022-03-10] VITALS: Ht 165.1 cm; Wt 63.3 kg
[2022-03-10] MEDS ORDERED: SODIUM CHLORIDE 0.9% 1000ML 1,000 ML IV STA (16:35)
[2022-03-10 17:03] LABS: BASOPHILS % 0.7 % (0.0-1.0); EOSINOPHILS # (AUTO) 0.2 (0.0-0.4); EOSINOPHILS % 3.2 % (0.0-6.0); HEMATOCRIT 29.4 % (34.2-44.1); HEMOGLOBIN 9.7 g/dL (12.0-16.0); LYMPHOCYTES # (AUTO) 1.5 (1.0-3.2); LYMPHOCYTES % 26.8 % (18.0-39.1); MEAN CORPUSCULAR HEMOGLOBIN 31.4 pg (28-32); MEAN CORPUSCULAR VOLUME 95.1 fL (81-99); MONOCYTES # (AUTO) 0.5 (0.2-0.8); MONOCYTES % 9.1 % (4.4-11.3); NEUTROPHILS # (AUTO) 3.4 (2.1-6.9); PLATELET COUNT 255 x10e3/uL (140-360); RED BLOOD COUNT 3.09 x10e6/uL (3.6-5.1); RED CELL DISTRIBUTION WIDTH 11.9 % (11.7-14.4)
[2022-03-10 17:09] LABS: CLARITY,URINE CLEAR (CLEAR); COLOR,URINE YELLOW (YELLOW)
[2022-03-10 17:10] LABS: LEUKOCYTE ESTERASE ,URINE NEGATIVE (NEGATIVE); NITRITE,URINE NEGATIVE (NEGATIVE); PROTEIN,URINE DIPSTICK NEGATIVE (NEGATIVE)
[2022-03-10 17:11] LABS: KETONES,URINE NEGATIVE (NEGATIVE); URINE UROBILINOGEN 0.2 mg/dL (0.2 - 1)
[2022-03-10 17:18] LABS: BACTERIA,URINE FEW /HPF; EPITHELIAL CELLS,URINE FEW /LPF
[2022-03-10 17:25] LABS: ALANINE AMINOTRANSFERASE 19 IU/L (0-55); ALBUMIN 4.2 g/dL (3.5-5.0); ALBUMIN/GLOBULIN RATIO 1.8 (0.8-2.0); ALKALINE PHOSPHATASE 57 IU/L (40-150); ANION GAP 17.7 mmol/L (8-16); BLOOD UREA NITROGEN 11 mg/dL (7-26); BUN/CREATININE RATIO 16 (6-25); CALCIUM 9.3 mg/dL (8.4-10.2); CARBON DIOXIDE 23 mmol/L (22-29); CHLORIDE 101 mmol/L (98-107); GLUCOSE 102 mg/dL (74-118); POTASSIUM 3.7 mmol/L (3.5-5.1); SODIUM 138 mmol/L (136-145)
[2022-03-10] MEDS ORDERED: ONDANSETRON HCL INJ 2MG/ML 2ML 2 MG/ML VIAL IV PRN (19:15)
[2022-03-10] MEDS ORDERED: SODIUM CHLORIDE FLUSH 10 ML SYR INJ PRN (19:15)
[2022-03-10] MEDS ORDERED: Morphine 2mg Syringe 2 MG/ML SYR IV PRN (19:15)
[2022-03-10] MEDS ORDERED: LEVOFLOXACIN 500MG/D5W 100ML 100 ML IV SCH (20:00)
[2022-03-10] MEDS: SODIUM CHLORIDE 0.9% 1000ML 1,000 ML IV SCH (20:05)
[2022-03-10] MEDS ORDERED: ACETAMINOPHEN 325 MG TAB PO PRN (21:45)
[2022-03-10] MEDS: METRONIDAZOLE 500MG/NS 100ML 100 ML IV SCH (23:59)
[2022-03-11] VITALS (9 sets, daily range): BP systolic 128–149; BP diastolic 67–100
[2022-03-11] MEDS: SODIUM CHLORIDE 0.9% 1000ML 1,000 ML IV SCH ×2 (05:10→16:32)
[2022-03-11] MEDS: METRONIDAZOLE 500MG/NS 100ML 100 ML IV SCH ×3 (05:11→18:08)
[2022-03-11 07:14] LABS: BASOPHILS % 0.7 % (0.0-1.0); EOSINOPHILS # (AUTO) 0.2 (0.0-0.4); EOSINOPHILS % 3.4 % (0.0-6.0); HEMATOCRIT 34.7 % (34.2-44.1); LYMPHOCYTES # (AUTO) 1.4 (1.0-3.2); LYMPHOCYTES % 30.9 % (18.0-39.1); MEAN CORPUSCULAR HEMOGLOBIN 30.5 pg (28-32); MEAN CORPUSCULAR HGB CONC 31.7 g/dL (31-35); MEAN CORPUSCULAR VOLUME 96.1 fL (81-99); MONOCYTES # (AUTO) 0.3 (0.2-0.8); MONOCYTES % 7.4 % (4.4-11.3); NEUTROPHILS # (AUTO) 2.6 (2.1-6.9); NEUTROPHILS % 57.6 % (38.7-80.0); PLATELET COUNT 273 x10e3/uL (140-360); RED BLOOD COUNT 3.61 x10e6/uL (3.6-5.1); RED CELL DISTRIBUTION WIDTH 11.9 % (11.7-14.4)
[2022-03-11 07:35] LABS: ALBUMIN 4.2 g/dL (3.5-5.0); ANION GAP 14.1 mmol/L (8-16); CALCIUM 8.8 mg/dL (8.4-10.2); CREATININE, SERUM 0.73 mg/dL (0.57-1.11); POTASSIUM 4.1 mmol/L (3.5-5.1)
[2022-03-11] MEDS ORDERED: ATIVAN0.5 MG PO (09:35)
[2022-03-11] MEDS ORDERED: MAGNESIUM SULFATE 2GM/50ML 50 ML IV ONE ×2 (11:30→16:00)
[2022-03-11] MEDS ORDERED: MACROBID 100 M100 MG PO (18:33)
== END 2022-03-11 20:16 | disposition home or self-care (01) ==
LOC: ER 16:40 → ERHOLD 19:15 → MED/SURG3 03-11 01:44
PROVIDERS: ADMIT Internal Medicine; ATTEND Internal Medicine
DX: A08.4 Viral intestinal infection, unspecified (principal); E11.9 Type 2 diabetes mellitus without complications; F32.A Depression, unspecified; F41.9 Anxiety disorder, unspecified; Z88.5 Allergy status to narcotic agent; Z88.0 Allergy status to penicillin; Z88.8 Allergy status to other drugs, medicaments and biological substances; Z91.041 Radiographic dye allergy status; R30.0 Dysuria; R19.5 Other fecal abnormalities; Z20.822 Contact with and (suspected) exposure to COVID-19; Z86.73 Personal history of transient ischemic attack (TIA), and cerebral infarction without residual deficits; N30.00 Acute cystitis without hematuria
CPT/HCPCS: 36415 ×2; 74176; 80053 ×2; 81001; 82948 ×2; 83630; 83690; 83735; 83993; 85025 ×2; 87040; 87045; 87177; 87328; 93005; 94799 ×2; 99284; G0378 ×2; J1956; J3475; J7030 ×2; U0002

== ENCOUNTER 2022-08-27 14:11 | Emergency (ER) | payer MEDICARE ==
[~2022-08-27] VITALS: Ht 165.1 cm; Wt 63.0 kg
[~2022-08-27 14:11] MED LIST changes: +ATIVAN0.5 MG PO
[2022-08-27] MEDS ORDERED: ACETAMINOPHEN 325 MG TAB PO ONE (14:45)
[2022-08-27] MEDS ORDERED: ONDANSETRON HCL 4 MG ORAL DISINTEGRATING TAB PO ONE (14:45)
[2022-08-27] MEDS ORDERED: IBUPROFEN600 MG PO (16:24)
== END 2022-08-27 16:42 | disposition home or self-care (01) ==
LOC: ER 14:28
DX: S90.31XA Contusion of right foot, initial encounter (principal); W20.8XXA Other cause of strike by thrown, projected or falling object, initial encounter; Y92.89 Other specified places as the place of occurrence of the external cause; I10 Essential (primary) hypertension; E11.9 Type 2 diabetes mellitus without complications; E78.5 Hyperlipidemia, unspecified; K21.9 Gastro-esophageal reflux disease without esophagitis; F41.9 Anxiety disorder, unspecified; Z85.72 Personal history of non-Hodgkin lymphomas; Z94.84 Stem cells transplant status
CPT/HCPCS: 73630; 99284; Q0126

== ENCOUNTER → 2022-09-21 | Outpatient (CLI) | payer MEDICARE ==
[~2022-09-21] MED LIST changes: +IBUPROFEN600 MG PO
== END ==
LOC: RAD 09:45
PROVIDERS: ATTEND Internal Medicine
DX: M79.672 Pain in left foot (principal)

== ENCOUNTER 2022-12-04 23:29 | Emergency (ER) | payer MEDICARE ==
[~2022-12-04] VITALS: Ht 165.1 cm; Wt 63.0 kg
[2022-12-04 23:58] LABS: BASOPHILS % 0.7 % (0.0-1.0); EOSINOPHILS # (AUTO) 0.2 (0.0-0.4); EOSINOPHILS % 2.9 % (0.0-6.0); HEMATOCRIT 33.1 % (34.2-44.1); HEMOGLOBIN 11.3 g/dL (12.0-16.0); LYMPHOCYTES # (AUTO) 2.3 (1.0-3.2); LYMPHOCYTES % 37.1 % (18.0-39.1); MEAN CORPUSCULAR HEMOGLOBIN 30.2 pg (28-32); MEAN CORPUSCULAR HGB CONC 34.1 g/dL (31-35); MEAN CORPUSCULAR VOLUME 88.5 fL (81-99); MONOCYTES # (AUTO) 0.4 (0.2-0.8); MONOCYTES % 7.2 % (4.4-11.3); NEUTROPHILS # (AUTO) 3.2 (2.1-6.9); NEUTROPHILS % 51.9 % (38.7-80.0); PLATELET COUNT 266 x10e3/uL (140-360); RED BLOOD COUNT 3.74 x10e6/uL (3.6-5.1); RED CELL DISTRIBUTION WIDTH 11.9 % (11.7-14.4)
[2022-12-05 00:01] LABS: CLARITY,URINE CLEAR (CLEAR); COLOR,URINE YELLOW (YELLOW); KETONES,URINE NEGATIVE (NEGATIVE); LEUKOCYTE ESTERASE ,URINE TRACE (NEGATIVE); NITRITE,URINE NEGATIVE (NEGATIVE); PROTEIN,URINE DIPSTICK NEGATIVE (NEGATIVE); URINE UROBILINOGEN 0.2 mg/dL (0.2 - 1)
[2022-12-05 00:08] LABS: BACTERIA,URINE FEW /HPF; EPITHELIAL CELLS,URINE RARE /LPF; RBC,URINE 0-5 /HPF (0-5)
[2022-12-05 00:18] LABS: ALBUMIN 5.3 g/dL (3.5-5.0); ALBUMIN/GLOBULIN RATIO 2.1 (0.8-2.0); CREATININE, SERUM 0.82 mg/dL (0.57-1.11)
[2022-12-05] MEDS ORDERED: CEFDINIR300 MG PO (00:57)
[2022-12-05 01:23] VITALS: BP 116/84; O2SAT 100
== END 2022-12-05 01:25 | disposition home or self-care (01) ==
LOC: ER 23:36
DX: R06.00 Dyspnea, unspecified (principal); N39.0 Urinary tract infection, site not specified; I10 Essential (primary) hypertension; E11.9 Type 2 diabetes mellitus without complications; E78.5 Hyperlipidemia, unspecified; R94.31 Abnormal electrocardiogram [ECG] [EKG]; Z85.72 Personal history of non-Hodgkin lymphomas
CPT/HCPCS: 36415; 71045; 80053; 81001; 83880; 84484; 85025; 93005; 99284

== ENCOUNTER 2024-05-14 14:23 | Emergency (ER) | payer MEDICARE, OTHER ==
[~2024-05-14] VITALS: Ht 167.6 cm; Wt 60.3 kg
[~2024-05-14 14:23] MED LIST changes: +BYSTOLIC5 MG PO; +CEFDINIR300 MG PO; +MAGNESIUM250 M1 PO; +PANTOPRAZOLE SO40 MG PO; +WOMEN'S 50 PLU1 EACH PO
[2024-05-14 14:35] VITALS: PULSE 62; RESP 16; TEMP 98.4; O2SAT 100
[2024-05-14 15:27] LABS: BASOPHILS % 0.6 % (0.0-1.0); BILIRUBIN,URINE NEGATIVE (NEGATIVE); CLARITY,URINE CLEAR (CLEAR); COLOR,URINE YELLOW (YELLOW); EOSINOPHILS # (AUTO) 0.3 (0.0-0.4); EOSINOPHILS % 5.9 % (0.0-6.0); GLUCOSE, URINE NEGATIVE (NEGATIVE); HEMOGLOBIN 10.6 g/dL (12.0-16.0); KETONES,URINE NEGATIVE (NEGATIVE); LEUKOCYTE ESTERASE ,URINE NEGATIVE (NEGATIVE); LYMPHOCYTES # (AUTO) 1.4 (1.0-3.2); LYMPHOCYTES % 26.5 % (18.0-39.1); MEAN CORPUSCULAR HEMOGLOBIN 32.1 pg (28-32); MEAN CORPUSCULAR HGB CONC 33.1 g/dL (31-35); MONOCYTES # (AUTO) 0.6 (0.2-0.8); MONOCYTES % 10.6 % (4.4-11.3); NEUTROPHILS % 56.2 % (38.7-80.0); NITRITE,URINE NEGATIVE (NEGATIVE); PH,URINE 7 (5 - 7); PLATELET COUNT 234 x10e3/uL (140-360); PROTEIN,URINE DIPSTICK NEGATIVE (NEGATIVE); RED CELL DISTRIBUTION WIDTH 11.9 % (11.7-14.4); URINE UROBILINOGEN 0.2 mg/dL (0.2 - 1)
[2024-05-14 15:42] LABS: RBC,URINE 0-5 /HPF (0-5); WBC,URINE (MAN) 0-5 /HPF (0-5)
[2024-05-14 15:45] LABS: ALANINE AMINOTRANSFERASE 26 IU/L (0-55); ALBUMIN 4.4 g/dL (3.5-5.0); ALBUMIN/GLOBULIN RATIO 1.8 (0.8-2.0); ALKALINE PHOSPHATASE 73 IU/L (40-150); ANION GAP 15.9 mmol/L (8-16); BILIRUBIN,TOTAL 0.3 mg/dL (0.2-1.2); BLOOD UREA NITROGEN 15 mg/dL (7-26); BUN/CREATININE RATIO 19 (6-25); CARBON DIOXIDE 28 mmol/L (22-29); CHLORIDE 94 mmol/L (98-107); CREATINE KINASE 47 IU/L (29-168); EST GLOMERULAR FILTRATION RATE 82 ML/MIN (>=60); GLUCOSE 99 mg/dL (74-118); POTASSIUM 3.9 mmol/L (3.5-5.1); SODIUM 134 mmol/L (136-145); TOTAL PROTEIN 6.9 g/dL (6.5-8.1)
[2024-05-14 15:53] LABS: TROPONIN I < 0.001 ng/mL (0-0.300)
== END 2024-05-14 17:15 | disposition home or self-care (01) ==
LOC: ER 14:38
DX: R53.1 Weakness (principal); I10 Essential (primary) hypertension; E11.9 Type 2 diabetes mellitus without complications; E78.5 Hyperlipidemia, unspecified; D64.9 Anemia, unspecified; K21.9 Gastro-esophageal reflux disease without esophagitis; F32.A Depression, unspecified; M54.9 Dorsalgia, unspecified; G89.29 Other chronic pain; Z85.72 Personal history of non-Hodgkin lymphomas; Z94.84 Stem cells transplant status; Z86.73 Personal history of transient ischemic attack (TIA), and cerebral infarction without residual deficits
CPT/HCPCS: 36415; 80053; 81001; 82550; 84484; 85025; 93005; 99284